=== PATIENT | male | born 1950 | race Caucasian/White ===

== ENCOUNTER → 2017-07-02 15:43 | Outpatient (CLI) | payer MEDICARE, SELFPAY | PROVIDERS: Family Provider Internal Medicine; PCP Internal Medicine; Visit Provider Internal Medicine | DX: J01.90 Acute sinusitis, unspecified (principal) | CPT/HCPCS: 87070; 87077; 87186; 87205 ==

== ENCOUNTER 2021-05-15 12:20 | Day surgery (SDC) | payer MEDICARE, SELFPAY ==
[2021-05-15] VITALS (7 sets, daily range): BP systolic 97–151; BP diastolic 54–78; PULSE 70–72; RESP 16–18; TEMP 36.1–36.9; O2SAT 97–100; BMI 39.3
--- NOTE | 2021-05-15 | IMM_PTH ---
PATIENT: TYLER ESTRELLA LOC: [facility] U#:[id number] AGE/SX: 71/M ROOM: RE05/15/[address]: Dr. Brenden Ragland DO : 1950 BED: DIS: 05/15/2021 SPEC #: [id number] RECD: 05/17/21 14:08 STATUS: FELICE KATIE #: [id number] EZEQUIEL: 05/15/21 00:[address]: Brenden Ragland DEPT: IMMUNOHISTOCHEMISTRY RECD BY: Yaa Cerda ENTERED: 05/17/21 14:09 SP TYPE: IMMUNO OTHR DR: Dr. Karen Wright MD Tissues: E - COLON BIOPSY Procedures: CK8 (initial) CK20 (add) CK7 (add) S-100 (add) PHYSICIAN & INSTITUTION [place] [id number] SPECIMEN INFORMATION: Tissue Source: E ? Random colon biopsy Clinical Info: Ulcerative colitis, GERD Specimen Number: [id number] E CPT code: 66392, 98331 x3 METHODOLOGY: Deparaffinized sections of prefer/formalin-fixed tissue or PAP/DQ stained slides are incubated with monoclonal/polyclonal antibodies/oligonucleotide probes. Localization is made via biotin free immunoperoxidase method. Appropriate controls are performed and reacted as expected. Results on target cell population are indicated in the following table: RESULTS: ANTIBODY / CLONE RESULT Block E CK7 (OV-TL12/30) negative CK8 (94hiujT30) negative CK20 (KS20.8) negative S-100 (4C4.9) positive These tests were developed and their performance characteristics determined by [facility]. They may not have been cleared or approved by the U.S. Food and Drug Administration. The FDA has determined that such clearance or approval is not necessary. The above immunohistochemical/dualISH markers are ordered and reviewed by the Pathologist. INTERPRETATION: E. Colon, random biopsy: Negative for malignancy. SJ:aaron 05/18/2021
[2021-05-15] MEDS: Lactated Ringers 1,000 ML 15 ML IV (13:11)
--- NOTE | 2021-05-15 13:30 | COLBX_PTH ---
PATIENT: TYLER ESTRELLA LOC: EN U#:[id number] AGE/SX: 71/M ROOM: RE05/15/[address]: Dr. Brenden Ragland DO : 1950 BED: DIS: 05/15/2021 SPEC #: [id number] RECD: 05/15/21 15:41 STATUS: FELICE KATIE #: [id number] EZEQUIEL: 05/15/21 13:[address]: Brenden Ragland DEPT: SURGICAL PATHOLOGY RECD BY: Orin Kern ENTERED: 05/16/21 12:00 SP TYPE: COLON BX OTHR DR: Dr. Karen Wright MD Tissues: A - Duodenum, NOS B - Gastric mucous membrane C - Esophagus, NOS D - Ileum, NOS E - COLON BIOPSY F - Rectum, NOS Procedures: Special Stain Group II Surgery Specimen Level IV Alcian Blue/PAS (control) HEADER OPERATION: Colonoscopy, EGD ([facility] [place] with biopsy PRE-OP DIAGNOSIS: Ulcerative colitis, GERD TISSUE SUBMITTED: A ? Duodenal bulb biopsy, B ? Gastric body biopsy, C ? Distal esophagus biopsy, D ? Terminal ileum biopsy, E ? Random colon biopsy, F ? Rectal biopsy MICROSCOPIC DIAGNOSIS A. Duodenal bulb, biopsy: Fragments of duodenal mucosa with focal changes consistent with pneumotasis. B. Gastric body, biopsy: Mild gastritis. See microscopic description and comment. C. Distal esophagus, biopsy: Fragments of gastroesophageal mucosa with chronic inflammation. Intestinal metaplasia (goblet cell metaplasia) not identified. See comment. D. Terminal ileum, biopsy: Fragments of small intestinal mucosa, no pathologic diagnosis. E. Colon, random biopsy: Fragments of colonic mucosa with focal ulceration and granulation tissue reaction. See comment. F. Rectal biopsy: Fragments of colonic mucosa with minimal glandular distortion. See comment. SJ:aaron 05/17/2021 COMMENT B. Immunohistochemistry for Helicobacter pylori can be performed if clinically indicated. Please notify the Laboratory if it is needed. C. Alcian blue/PAS stain with matched control is used in the evaluation of the specimen. E. Minimal glandular distortion is noted. Cryptitis, crypt abscesses or granulomas are not seen. Immunohistochemistry ([id number]) supports the above diagnosis. F. Active inflammation (cryptitis, crypt abscesses or granulomas) is not seen. Case has been reviewed in consultation with Dr. Castro who concurs with the above diagnosis. IDC:AM MICROSCOPIC DESCRIPTION Slides are reviewed. B. The specimen shows fragments of gastric mucosa with chronic inflammatory cell infiltrates in the lamina propria consisting of lymphocytes and plasma cells, consistent with mild chronic gastritis. GROSS DESCRIPTION A - Received in fixative is one container labeled with the patient's name and designated duodenum biopsy. The specimen consists of multiple irregular fragments of light toscano soft tissue that in aggregate measure 1.3 x 0.1 x 0.1 cm. The specimen is totally submitted in one cassette. B - Received in fixative is one container labeled with the patient's name and designated gastric body biopsy. The specimen consists of multiple irregular fragments of light toscano soft tissue that in aggregate measure 1 x 1 x 0.1 cm. The specimen is totally submitted in one cassette. C - Received in fixative is one container labeled with the patient's name and designated distal esophagus biopsy. The specimen consists of multiple irregular fragments of light toscano soft tissue that in aggregate measure 1 x 0.2 x 0.1 cm. The specimen is totally submitted in one cassette. D - Received in fixative is one container labeled with the patient's name and designated terminal ileum biopsy. The specimen consists of multiple irregular fragments of light toscano soft tissue that in aggregate measure 1.5 x 0.5 x 0.1 cm. The specimen is totally submitted in one cassette. E - Received in fixative is one container labeled with the patient's name and designated random colon biopsy. The specimen consists of multiple irregular fragments of light toscano soft tissue that in aggregate measure 2 x 1 x 0.1 cm. The specimen is totally submitted in one cassette. F - Received in fixative is one container labeled with the patient's name and designated rectal biopsy. The specimen consists of two irregular fragments of light toscano soft tissue that in aggregate measure 0.7 x 0.5 x 0.1 cm. The specimen is totally submitted in one cassette. / AM:aaron 05/16/2021 TC:2 CPT: 76822 x6, 02962
--- NOTE | 2021-05-15 13:49 | PCM.HP.BLA ---
History and Physical Date of Admission: 05/15/21 71 M who presents to the office today for Referred for evaluation of ulcerative rectosigmoiditis without complication. Previously seen by Dr. Okeefe with [facility] who has left practice in this area and would like to establish care with this clinic. Reports taking prednisone 10mg off and on over 20 years this dose started several years ago, apriso 0.375mg and omeprazole for GI symptoms. Denies GI symptoms at this time. UGI performed 09.26.15 finding thickened folds in the esophagus and stomach suggestive of inflammation. Colonoscopy performed 01.04.16 finding ulcerative colitis Additional history of osteoporosis with two compression fractures, anxiety, CAD, hyperparathyroidism, insomnia, low testosterone, cardiomyopathy, paroxysmal atrial fibrillation, left bundle branch block. ROS Const Constitutional: No anorexia, fatigue, fever(s), weight change or sleep problems Eyes Eyes: No change in vision ENT ENT: No abnormal hearing, difficulty swallowing, mouth lesions, tongue swelling or throat swelling Resp Respiratory: No cough or shortness of breath Cardio Cardiology: No chest pain at rest, chest pain with exertion, shortness of breath or dyspnea on exertion Gastro GI: No difficulty swallowing Genitourinary Male: No difficulty urinating or burning urination Musc Musculoskeletal: No joint pain, joint swelling, muscle weakness or decreased muscle mass Skin Skin: No hair loss in leg, yellowing of the eye, itchy eyes, rash, skin ulcer or skin swelling Neuro Neurology: No abnormal hearing, abnormal movements, confusion, unsteady gait/balance or memory loss Psych Psychiatric: No anxiety, No confusion and No memory loss Endo Endocrine: No fatigue or weight change Aller/Imm Allergy/Immunologic: No itchy eyes, throat swelling or tongue swelling Chadd/Lymp Hematologic/Lymphatic: No easy bleeding, easy bruising or enlarged lymph nodes Exam Const General: cooperative and comfortable Nutritional Appearance: average body habitus and well nourished [facility] Head: normal to inspection Ears: hearing grossly normal bilaterally Nose: external nose normal Face and sinus: normal facial exam Mouth: oral mucosae normal Throat: posterior oropharynx normal Eyes General: appearance normal, both eyes and all related structures Neck Neck: normal visual inspection Chest Chest palpation & inspection: normal inspection of the chest and normal palpation of entire chest wall Resp Effort & Inspection: normal respiratory effort Auscultation: Bilateral: Clear to Auscultation Cardio Palpation: normal PMI Rate: regular rate Rhythm: regular rhythm GI Inspection: normal to inspection Auscultation: normal bowel sounds Percussion: normal to percussion Palpation: no hepatosplenomegaly Skin General: no rashes or lesions noted Neuro General: patient alert Extrem General: normal to inspection Psych Affect: normal affect Assessment and Plan Assessment and Plan (1) Ulcerative colitis: Status: Acute Plan - Dr. Wilcox Friend, DO: Patient is still having breakthrough symptoms on 10 mg of prednisone a day. He is on Apriso 4 pills in the morning and he still getting breakthrough symptoms. I explained to him that typically that is a twice a day medicine. Although it is extended release I have never seen it work that well at a once a day dosing. I will increase his Apriso to 3 pills in the morning and 3 pills at night. We will also institute azathioprine therapy at the 1 mg/kg dose being the goal. Currently he will only go on 0.5 mg/kg totaling milligrams a day. Complained of the wrist to go with chronic steroid therapy and hopefully will be able to wean him off of steroids completely. (2) GERD (gastroesophageal reflux disease): Status: Acute Plan - Dr. Wilcox Friend, DO: Patient said that his also colitis is doing pretty good. On his last upper endoscopy was a significant gastritis and esophagitis. It is unknown if he had Mario's esophagus. We will undergo upper endoscopy to evaluate his upper GI tract and further recommendations to follow. We will continue his current medication regimen. Plan Details Other Medications: New: azathioprine 100 mg PO DAILY 30 tabs 5RF mesalamine 1.2 grams PO BID 4 weeks 56 tabs 0RF Discontinued: mesalamine ER (Apriso) Discontinued Reason: Order Changed 1.5 grams PO DAILY I have re-examined the patient. There are no clinical changes since date of exam.
--- NOTE | 2021-05-15 14:07 | OP.CCLET_ITS ---
12/17/2021 Karen Wright Re : Upper GI endoscopy procedure for Twan Mclean Dear Adriana This procedure was performed on Saturday, May 15, 2021. My impressions and recommendations are as follows: Impressions : - LA Grade A reflux esophagitis. Biopsied. - Chronic gastritis. Biopsied. - Duodenitis. Biopsied. Recommendations : - Discharge patient to home. - Resume previous diet. - Continue present medications. - Await pathology results. - Repeat upper endoscopy in 1 year for surveillance. - Return to GI office. My findings are described in the full procedure note, which is enclosed. If I can be of further assistance, please feel free to contact me at . Sincerely, Brenden Friend, 05/15/2021 2:06:57 PM This report has been signed electronically.
--- NOTE | 2021-05-15 14:07 | OP.EGD_ITS ---
Patient Name: Twan Mclean Procedure Date: 05/15/2021 1:31 PM Date of : 1950 Age: 71 Procedure: Upper GI endoscopy Indications: Generalized abdominal pain, Heartburn Providers: Brenden Ragland DO Medicines: See the Anesthesia note for documentation of the administered medications Patient Profile: This is a 71 year old male. Refer to note in patient chart for documentation of history and physical. Patient has symptoms of chronic heartburn. Complications: No immediate complications. Procedure: Pre-Anesthesia Assessment: - Prior to the procedure, a History and Physical was performed, and patient medications and allergies were reviewed. The patient is competent. The risks and benefits of the procedure and the sedation options and risks were discussed with the patient. All questions were answered and informed consent was obtained. Patient identification and proposed procedure were verified by the physician in the pre-procedure area. Mental Status Examination: alert and oriented. Airway Examination: normal oropharyngeal airway and neck mobility. Respiratory Examination: clear to auscultation. CV Examination: normal. Prophylactic Antibiotics: The patient does not require prophylactic antibiotics. Prior Anticoagulants: The patient has taken no previous anticoagulant or antiplatelet agents. ASA Grade Assessment: II - A patient with mild systemic disease. After reviewing the risks and benefits, the patient was deemed in satisfactory condition to undergo the procedure. The anesthesia plan was to use moderate sedation / analgesia (conscious sedation). Immediately prior to administration of medications, the patient was re-assessed for adequacy to receive sedatives. The heart rate, respiratory rate, oxygen saturations, blood pressure, adequacy of pulmonary ventilation, and response to care were monitored throughout the procedure. The physical status of the patient was re-assessed after the procedure. After obtaining informed consent, the endoscope was passed under direct vision. Throughout the procedure, the patient's blood pressure, pulse, and oxygen saturations were monitored continuously. The Colonoscope was introduced through the mouth, and advanced to the second part of duodenum. The upper GI endoscopy was accomplished without difficulty. The patient tolerated the procedure well. Moderate Sedation: Moderate (conscious) sedation was administered by the endoscopy nurse and supervised by the endoscopist. The patient's oxygen saturation, heart rate, blood pressure and response to care were monitored. Total physician intraservice time was 15 minutes. Scope In: 1:55:23 PM Scope Out: 2:03:28 PM Total Procedure Duration Time 0 hours 8 minutes 5 seconds Findings: LA Grade A (one or more mucosal breaks less than 5 mm, not extending between tops of 2 mucosal folds) esophagitis with no bleeding was found 34 to 35 cm from the incisors. Biopsies were taken with a cold forceps for histology. Verification of patient identification for the specimen was done. Estimated blood loss was minimal. Patchy mild inflammation characterized by congestion (edema) and erythema was found in the gastric body and in the gastric antrum. Biopsies were taken with a cold forceps for histology. Verification of patient identification for the specimen was done. Estimated blood loss was minimal. Patchy mild inflammation characterized by congestion (edema) was found in the duodenal bulb. Biopsies were taken with a cold forceps for histology. Verification of patient identification for the specimen was done. Estimated blood loss was minimal. Impression: - LA Grade A reflux esophagitis. Biopsied. - Chronic gastritis. Biopsied. - Duodenitis. Biopsied. Recommendation: - Discharge patient to home. - Resume previous diet. - Continue present medications. - Await pathology results. - Repeat upper endoscopy in 1 year for surveillance. - Return to GI office. Procedure Code(s): --- Professional --- 70484, Esophagogastroduodenoscopy, flexible, transoral; with biopsy, single or multiple 51798, 59, Moderate sedation services provided by the same physician or other qualified health lawn care technician performing the diagnostic or therapeutic service that the sedation supports, requiring the presence of an independent trained observer to assist in the monitoring of the patient's level of consciousness and physiological status; initial 15 minutes of intraservice time, patient age 5 years or older CPT copyright 2017 [employer]. All rights reserved. The codes documented in this report are preliminary and upon fruit or nut grower review may be revised to meet current compliance requirements. Brenden Ragland DO 05/15/2021 2:06:57 PM This report has been signed electronically. Number of Addenda: 1 Note Initiated On: 05/15/2021 1:31 PM Addendum Number: 1 Addendum Date: 12/17/2021 6:48:30 AM MAC was used for sedation during this procedure. Brenden Ragland DO 12/17/2021 6:48:34 AM This report has been signed electronically.
--- NOTE | 2021-05-15 14:33 | OP.COLON_ITS ---
Patient Name: Twan Mclean Procedure Date: 05/15/2021 2:03 PM Date of : 1950 Age: 71 Procedure: Colonoscopy Indications: Ulcerative colitis Providers: Brenden Ragland DO Medicines: See the Anesthesia note for documentation of the administered medications Patient Profile: This is a 71 year old male. Refer to note in patient chart for documentation of history and physical. Patient has symptoms of chronic heartburn. Last Colonoscopy: date unknown. Complications: No immediate complications. Procedure: Pre-Anesthesia Assessment: - Prior to the procedure, a History and Physical was performed, and patient medications and allergies were reviewed. The patient is competent. The risks and benefits of the procedure and the sedation options and risks were discussed with the patient. All questions were answered and informed consent was obtained. Patient identification and proposed procedure were verified by the physician in the pre-procedure area. Mental Status Examination: alert and oriented. Airway Examination: normal oropharyngeal airway and neck mobility. Respiratory Examination: clear to auscultation. CV Examination: normal. Prophylactic Antibiotics: The patient does not require prophylactic antibiotics. Prior Anticoagulants: The patient has taken no previous anticoagulant or antiplatelet agents. ASA Grade Assessment: II - A patient with mild systemic disease. After reviewing the risks and benefits, the patient was deemed in satisfactory condition to undergo the procedure. The anesthesia plan was to use moderate sedation / analgesia (conscious sedation). Immediately prior to administration of medications, the patient was re-assessed for adequacy to receive sedatives. The heart rate, respiratory rate, oxygen saturations, blood pressure, adequacy of pulmonary ventilation, and response to care were monitored throughout the procedure. The physical status of the patient was re-assessed after the procedure. After I obtained informed consent, the scope was passed under direct vision. Throughout the procedure, the patient's blood pressure, pulse, and oxygen saturations were monitored continuously. The Colonoscope was introduced through the anus and advanced to 10 cm into the ileum. The colonoscopy was performed without difficulty. The patient tolerated the procedure well. The quality of the bowel preparation was good. Moderate Sedation: Moderate (conscious) sedation was administered by the endoscopy nurse and supervised by the endoscopist. The patient's oxygen saturation, heart rate, blood pressure and response to care were monitored. Total physician intraservice time was 15 minutes. Scope In: 2:09:15 PM Scope Withdrawal Time 0 hours 11 minutes 24 seconds Scope Out: 2:23:58 PM Total Procedure Duration Time 0 hours 14 minutes 43 seconds Findings: The perianal and digital rectal examinations were normal. Inflammation was found as patches surrounded by normal mucosa in the rectum, in the recto-sigmoid colon, in the sigmoid colon, in the descending colon and in the splenic flexure. This was graded as Pierre Score 1 (mild, with erythema, decreased vascular pattern, mild friability). Biopsies were taken with a cold forceps for histology. Verification of patient identification for the specimen was done. Estimated blood loss was minimal. The terminal ileum appeared normal. This was biopsied with a cold forceps for histology. Verification of patient identification for the specimen was done. Estimated blood loss was minimal. Impression: - Mild (Pierre Score 1) ulcerative colitis. Biopsied. - The examined portion of the ileum was normal. Biopsied. Recommendation: - Discharge patient to home. - Resume previous diet. - Continue present medications. - Await pathology results. - Repeat colonoscopy in 2 years for surveillance. - Return to GI office. Procedure Code(s): --- Professional --- 49994, Colonoscopy, flexible; with biopsy, single or multiple 66522, 59, Moderate sedation services provided by the same physician or other qualified health spiritual care coordinator performing the diagnostic or therapeutic service that the sedation supports, requiring the presence of an independent trained observer to assist in the monitoring of the patient's level of consciousness and physiological status; initial 15 minutes of intraservice time, patient age 5 years or older CPT copyright 2017 [employer]. All rights reserved. The codes documented in this report are preliminary and upon lighter captain review may be revised to meet current compliance requirements. Brenden Ragland DO 05/15/2021 2:33:05 PM This report has been signed electronically. Number of Addenda: 1 Note Initiated On: 05/15/2021 2:03 PM Addendum Number: 1 Addendum Date: 12/17/2021 6:48:42 AM MAC was used for sedation during this procedure. Brenden Ragland DO 12/17/2021 6:48:46 AM This report has been signed electronically.
--- NOTE | 2021-05-15 14:34 | OP.CCLET_ITS ---
12/17/2021 Karen Wright Re : Colonoscopy procedure for Twan Mclean Dear Adriana This procedure was performed on Saturday, May 15, 2021. My impressions and recommendations are as follows: Impressions : - Mild (Pierre Score 1) ulcerative colitis. Biopsied. - The examined portion of the ileum was normal. Biopsied. Recommendations : - Discharge patient to home. - Resume previous diet. - Continue present medications. - Await pathology results. - Repeat colonoscopy in 2 years for surveillance. - Return to GI office. My findings are described in the full procedure note, which is enclosed. If I can be of further assistance, please feel free to contact me at . Sincerely, Brenden Friend, 05/15/2021 2:33:05 PM This report has been signed electronically.
== END 2021-05-15 23:59 | disposition home or self-care (01) ==
LOC: EN 12:29 → AC 12:32
PROVIDERS: PCP Internal Medicine; Referring Provider Internal Medicine; Visit Provider Internal Medicine Gastroenterology
PROC: 0DJD8ZZ Inspection of Lower Intestinal Tract, Via Natural or Artificial Opening Endoscopic (ICD-10-PCS; CPT 45378; principal; 2021-05-15 13:25)
DX: K51.90 Ulcerative colitis, unspecified, without complications (principal); J44.9 Chronic obstructive pulmonary disease, unspecified; I48.0 Paroxysmal atrial fibrillation; E21.3 Hyperparathyroidism, unspecified; K21.00 Gastro-esophageal reflux disease with esophagitis, without bleeding; K29.80 Duodenitis without bleeding; K29.50 Unspecified chronic gastritis without bleeding; R10.84 Generalized abdominal pain; I25.10 Atherosclerotic heart disease of native coronary artery without angina pectoris; I51.7 Cardiomegaly; I44.7 Left bundle-branch block, unspecified; I10 Essential (primary) hypertension; M19.90 Unspecified osteoarthritis, unspecified site; Z95.810 Presence of automatic (implantable) cardiac defibrillator; Z79.899 Other long term (current) drug therapy; Z20.822 Contact with and (suspected) exposure to COVID-19
CPT/HCPCS: 45380; 43239; 87426; 88305; 88313; 88341; 88342; J7120; J2405

== ENCOUNTER → 2021-08-29 | Outpatient (CLI) | payer MEDICARE, SELFPAY ==
[2021-08-29 17:12] LABS: Absolute Lymphocyte Count 1.46 X10^3/uL (0.83-4.51); Absolute Neutrophil Count 1.8 X10^3/uL (2.0-7.7); Basophil# 0.02 X10^3/uL; Basophil% 0.6 % (0-1); Eosinophil# 0.07 X10^3/uL; Eosinophils% 1.9 % (0-5); Hemoglobin 12.3 g/dL (13.0-16.5); Lymphocyte # 1.46 X10^3/ul (0.83-4.51); Lymphocyte % 40.4 % (19-41); Mean Corp Hgb Conc 33.2 g/dL (32-36); Mean Corpuscular Hgb 32.4 pg (27.0-32.0); Mean Corpuscular Volume 97.4 fL (80-94); Mean Platelet Vol. 10.3 fl (6.2-12.0); Monocyte# 0.29 X10^3/uL; NRBC Flagged by Analyzer 0 % (0-5); Neutrophil # 1.76 X10^3/uL (2.7-7.7); Neutrophil % 48.8 % (47-70); POSITIVE MORPHOLOGY YES; Platelet Count 159 K/mm3 (150-450); RBC Distribution Width CV 14.7 % (11.6-14.6); RBC Distribution Width SD 52.7 fl (35.1-43.9); White Blood Count 3.6 K/mm3 (4.4-11.0)
[2021-08-29 17:25] LABS: Erythrocyte Sedimentation Rate 10 mm/hr (0-20)
[2021-08-29 17:27] LABS: Differential Indicated SCAN CRITERIA MET
[2021-08-29 17:58] LABS: ALB/GLOB Ratio 1.1 RATIO (0.9-2.4); AST(SGOT) 22 U/L (15-37); Alanine Aminotransfer ALT/SGPT 19 U/L (16-61); Albumin, Serum 3.9 g/dL (3.2-5.0); Alkaline Phosphatase 51 U/L (45-117); Anion Gap 7 (5-15); BUN 26 mg/dL (7-18); BUN/Creat Ratio 20.2 RATIO (10-20); Bilirubin, Direct 0.23 mg/dL (0.00-0.30); CRP < 2.90 mg/L (0.0-3.0); Calcium,Total 8.8 mg/dL (8.5-10.1); Chloride 102 mmol/L (98-107); Creatinine, Serum 1.29 mg/dL (0.70-1.30); EST Glomerular Filtration Rate 59 mL/min (>60); Est Glom Filt Rate - Afr Amer 71 mL/min (>60); Globulin 3.5 g/dL (2.2-4.2); Glucose 104 mg/dL (74-106); Potassium 4.7 mmol/L (3.5-5.1); Protein, Total 7.4 g/dL (6.4-8.2); Sodium Level 137 mmol/L (136-145)
[2021-08-29 18:07] LABS: Anisocytosis 1+; Atypical Lymphocyte 1+ %; Platelet Estimate ADEQUATE (ADEQ); Red Cell Morphology N CHROM NORMAL (NORM C&C)
[2021-08-31 14:10] LABS: Anti-Centromere B Ab <0.2 AI (0.0-0.9); Anti-Chromatin <0.2 AI (0.0-0.9); Anti-Jo <0.2 AI (0.0-0.9); Anti-Scleroderma-70 AB <0.2 AI (0.0-0.9); RNP Ab 3.5 AI (0.0-0.9); SJOGREN'S Anti-SS-A test < 0.2 AI (0.0-0.9); SJOGREN'S Anti-SS-B test < 0.2 AI (0.0-0.9); Smith Ab <0.2 AI (0.0-0.9)
[2021-08-31 16:49] LABS: Anti-dsDNA Ab <1 IU/mL (0-9)
[2021-08-31 17:07] LABS: Endomysial Antibody IgA Negative (Negative)
[2021-08-31 20:43] LABS: Immunoglobulin A 197 mg/dL (61-437); t-Transglutaminase IgA <2 U/mL (0-3)
[2021-09-05 22:07] LABS: Albumin 3.7 g/dL (2.9-4.4); Alpha-1-Globulins 0.2 g/dL (0.0-0.4); Alpha-2-Globulins 0.7 g/dL (0.4-1.0); Cytoplasmic Ab (C-ANCA) <1:20 titer (Neg:<1:20); Gamma Globulin 1.3 g/dL (0.4-1.8); Immunoglobulin A 201 mg/dL (61-437); Immunoglobulin E 4 IU/mL (6-495); Immunoglobulin G 1328 mg/dL (603-1613); Immunoglobulin M 34 mg/dL (20-172); PROEL- TOTAL PROTEIN 6.9 g/dL (6.0-8.5)
[2021-09-05 22:53] LABS: Perinuclear Ab (P-ANCA) <1:20 titer (Neg:<1:20)
== END | disposition home or self-care (01) ==
LOC: LAB 16:13
PROVIDERS: PCP Internal Medicine; Visit Provider Nurse Practitioner Adult Health
DX: K51.90 Ulcerative colitis, unspecified, without complications (principal)
CPT/HCPCS: 36415; 80053; 82248; 82784; 82785; 83516; 84165; 85025; 85652; 86140; 86225; 86235; 86255; 86256; 86334

== ENCOUNTER → 2021-11-20 | Outpatient (CLI) | payer MEDICARE, SELFPAY ==
[2021-11-20 16:19] LABS: Absolute Lymphocyte Count 1.06 X10^3/uL (0.83-4.51); Absolute Neutrophil Count 2.3 X10^3/uL (2.0-7.7); Basophil# 0.01 X10^3/uL; Basophil% 0.3 % (0-1); Eosinophil# 0.05 X10^3/uL; Eosinophils% 1.3 % (0-5); Hematocrit 34.7 % (40-54); Lymphocyte # 1.06 X10^3/ul (0.83-4.51); Mean Corp Hgb Conc 34.6 g/dL (32-36); Mean Corpuscular Hgb 36.4 pg (27.0-32.0); Mean Corpuscular Volume 105.2 fL (80-94); Mean Platelet Vol. 10.5 fl (6.2-12.0); Monocyte# 0.35 X10^3/uL; Monocyte% 9.3 % (0-10); NRBC Flagged by Analyzer 0 % (0-5); Neutrophil # 2.29 X10^3/uL (2.7-7.7); Neutrophil % 60.6 % (47-70); Platelet Count 115 K/mm3 (150-450); RBC Distribution Width CV 15.5 % (11.6-14.6); RBC Distribution Width SD 59.5 fl (35.1-43.9); White Blood Count 3.8 K/mm3 (4.4-11.0)
[2021-11-20 16:41] LABS: Amylase 94 U/L (25-115); Lipase 311 U/L (73-393)
== END | disposition home or self-care (01) ==
LOC: LAB 15:36
PROVIDERS: PCP Internal Medicine; Referring Provider Nurse Practitioner Adult Health; Visit Provider Nurse Practitioner Adult Health
DX: K51.90 Ulcerative colitis, unspecified, without complications (principal)
CPT/HCPCS: 36415; 82150; 83690; 85025

== ENCOUNTER 2022-05-15 05:33 | Day surgery (SDC) | payer MEDICARE, SELFPAY ==
[2022-05-15] VITALS (7 sets, daily range): BP systolic 87–128; BP diastolic 57–72; PULSE 70–76; RESP 16–18; TEMP 36.6–36.9; O2SAT 96–100; BMI 35.9
[2022-05-15] MEDS: Lactated Ringers 1,000 ML 15 ML IV (06:01)
--- NOTE | 2022-05-15 06:30 | EGD_PTH ---
PATIENT: TYLER ESTRELLA LOC: EN U#:[id number] AGE/SX: 72/M ROOM: RE05/15/[address]: Dr. Brenden Ragland DO : 1950 BED: DIS: 05/15/2022 SPEC #: [id number] RECD: 05/15/22 12:19 STATUS: FELICE KATIE #: [id number] EZEQUIEL: 05/15/22 06:[address]: Brenden Ragland DEPT: SURGICAL PATHOLOGY RECD BY: Janie Reis ENTERED: 05/15/22 13:18 SP TYPE: EGD BIOPSY RICHARD DR: Dr. Karen Wright MD Tissues: A - Esophagus, NOS B - Gastric mucous membrane Procedures: Special Stain Group II Surgery Specimen Level IV Alcian Blue/PAS (control) HEADER OPERATION[place] [place] PRE-OP DIAGNOSIS: Ulcerative colitis, GERD TISSUE SUBMITTED: A ? Distal esophagus biopsy, B ? Gastric body biopsy MICROSCOPIC DIAGNOSIS A. Distal esophagus, biopsy: Fragments of gastric mucosa with chronic inflammation. Intestinal metaplasia (goblet cell metaplasia) not identified. See comment. B. Gastric body, biopsy: Mild gastritis. See microscopic description and comment. SJ:aaron 05/16/2022 COMMENT A. Alcian blue/PAS stain with matched control is used in the evaluation of the specimen. B. The results of immunohistochemistry for Helicobacter pylori will be reported separately ([id number]). MICROSCOPIC DESCRIPTION Slides are reviewed. B. The specimen shows fragments of gastric mucosa with chronic inflammatory cell infiltrates in the lamina propria consisting of lymphocytes and plasma cells, consistent with mild chronic gastritis. GROSS DESCRIPTION A - Received in fixative is one container labeled with the patient's name and designated distal esophagus biopsy. The specimen consists of two irregular fragments of light toscano soft tissue that in aggregate measure 0.6 x 0.3 x 0.1 cm. The specimen is totally submitted in one cassette. B - Received in fixative is one container labeled with the patient's name and designated gastric body biopsy. The specimen consists of multiple irregular fragments of light toscano soft tissue that in aggregate measure 1.2 x 0.5 x 0.1 cm. The specimen is totally submitted in one cassette. / MATT:aaron 05/15/2022 TC:3 CPT: 82302 x2, 07035
--- NOTE | 2022-05-15 06:30 | IMM_PTH ---
PATIENT: TYLER ESTRELLA LOC: EN U#:[id number] AGE/SX: 72/M ROOM: RE05/15/[address]: Dr. Brenden Ragland DO : 1950 BED: DIS: 05/15/2022 SPEC #: [id number] RECD: 05/15/22 13:37 STATUS: FELICE KATIE #: [id number] EZEQUIEL: 05/15/22 06:[address]: Brenden Ragland DEPT: IMMUNOHISTOCHEMISTRY RECD BY: Yaa Cerda ENTERED: 05/15/22 13:37 SP TYPE: IMMUNO OTHR DR: Dr. Karen Wright MD Tissues: B - Stomach, NOS Procedures: H Pylori (initial) PHYSICIAN & INSTITUTION [place] [id number] SPECIMEN INFORMATION: Tissue Source: B ? Gastric body Clinical Info: Ulcerative colitis, GERD Specimen Number: [id number] CPT code: 36268 METHODOLOGY: Deparaffinized sections of prefer/formalin-fixed tissue or PAP/DQ stained slides are incubated with monoclonal/polyclonal antibodies/oligonucleotide probes. Localization is made via biotin free immunoperoxidase method. Appropriate controls are performed and reacted as expected. Results on target cell population are indicated in the following table: RESULTS: ANTIBODY / CLONE RESULT Block B H Pylori (polyclonal) negative These tests were developed and their performance characteristics determined by [facility]. They may not have been cleared or approved by the U.S. Food and Drug Administration. The FDA has determined that such clearance or approval is not necessary. The above immunohistochemical/dualISH markers are ordered and reviewed by the Pathologist. INTERPRETATION: B. Gastric body, biopsy: Negative for Helicobacter pylori organisms. SJ:aaron 05/16/2022
--- NOTE | 2022-05-15 06:34 | PCM.HP.BLA ---
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 He is on azathioprine 150 mg daily w/o any adverse effects. Prior to azathioprine he was on prednisone and mesalamine. Stools are still urgent, has 2-3 BMs in the morning, usually no other BMs per day, stools are soft, never constipated. No melena or hematochezia. No abdominal pain. He is on once daily omeprazole. No c/o heartburn or acid reflux. Twan became known to this clinic 04.10.21. He was previously seeing Dr. Okeefe with [facility]. UGI performed 09.26.15 finding thickened folds in the esophagus and stomach suggestive of inflammation. Colonoscopy performed 01.04.16 finding ulcerative colitis. Additional history of osteoporosis with two compression fractures, anxiety, CAD, hyperparathyroidism, insomnia, low testosterone, cardiomyopathy, paroxysmal atrial fibrillation, left bundle branch block. EGD and colonoscopy performed 05.15.21. EGD ? LA grade a reflux esophagitis; chronic gastritis; duodenitis. Biopsy ? duodenal bulb, pneumotasis; gastric body, lymphocytic gastritis; distal esophagus chronic inflammation. Repeat in 1 yr Colonoscopy ? Pierre grade 1 ulcerative colitis. Biopsy ? focal ulceration and granulation tissue reaction in random biopsy, remaining samples without pathological diagnosis. S100 tumor marker positive. Negative for malignancy. Repeat in 2 yrs ROS Const Constitutional: No fatigue ENT ENT: No difficulty swallowing Gastro GI: No abdominal pain, belching, bloating, change in bowel habits, change in stool character, coffee ground emesis, constipation, cramping, diarrhea, heartburn, difficulty swallowing, feeling full early, excessive flatus, incontinent of stools, Vomiting blood/hematemesis, Blood in stool, loose stools, Black,tarry stools, nausea/dyspepsia, pain with swallowing, vomiting or other Musc Musculoskeletal: Positive for back pain; No joint pain Skin Skin: No yellowing of the eye or itchy eyes Psych Psychiatric: No anxiety and No depression Endo Endocrine: No fatigue Aller/Imm Allergy/Immunologic: No itchy eyes Chadd/Lymp Hematologic/Lymphatic: No easy bleeding or easy bruising Exam Const General: cooperative and comfortable Nutritional Appearance: obese Orientation: alert, awake and oriented x3 Other: uses a cane HENMT Head: normal to inspection Eyes General: appearance normal, both eyes and all related structures Resp Effort & Inspection: normal respiratory effort Quality Reporting Tobacco Screening ([facility]) Smoking Status: Never smoker Assessment and Plan Assessment and Plan (1) Ulcerative colitis: ?Status:?Acute ?Plan: Taking azathioprine 150 mg daily, will update CBC, amylase and lipase today, will call pt with results Repeat colonoscopy due in 05/2023 (2) GERD (gastroesophageal reflux disease): ?Status:?Acute ?Plan: Continue omeprazole 40 mg daily Due for repeat EGD 05/2022 f/u 2 wks after EGD ? ? ? Orders: Orders Amylase Today K51.90 - Ulcerative colitis, unspecified, without complications ? Lipase Today K51.90 - Ulcerative colitis, unspecified, without complications ? CBC W/Diff, Automated Today K51.90 - Ulcerative colitis, unspecified, without complications ? I have examined the patient and the H&P has been reviewed. There are no clinical changes since date of exam.
--- NOTE | 2022-05-15 06:52 | OP.EGD_ITS ---
Patient Name: Twan Mclean Procedure Date: 05/15/2022 6:09 AM Date of : 1950 Age: 72 Procedure: Upper GI endoscopy Indications: Functional Dyspepsia, Heartburn Providers: Brenden Ragland DO Medicines: Monitored Anesthesia Care Patient Profile: This is a 72 year old male. Complications: No immediate complications. Procedure: Pre-Anesthesia Assessment: - Prior to the procedure, a History and Physical was performed, and patient medications and allergies were reviewed. The risks and benefits of the procedure and the sedation options and risks were discussed with the patient. All questions were answered and informed consent was obtained. Patient identification and proposed procedure were verified by the physician in the pre-procedure area. Mental Status Examination: alert and oriented. Airway Examination: normal oropharyngeal airway and neck mobility. Respiratory Examination: clear to auscultation. CV Examination: normal. Prophylactic Antibiotics: The patient does not require prophylactic antibiotics. Prior Anticoagulants: The patient has taken no previous anticoagulant or antiplatelet agents. ASA Grade Assessment: II - A patient with mild systemic disease. After reviewing the risks and benefits, the patient was deemed in satisfactory condition to undergo the procedure. The anesthesia plan was to use monitored anesthesia care (MAC). Immediately prior to administration of medications, the patient was re-assessed for adequacy to receive sedatives. The heart rate, respiratory rate, oxygen saturations, blood pressure, adequacy of pulmonary ventilation, and response to care were monitored throughout the procedure. The physical status of the patient was re-assessed after the procedure. After obtaining informed consent, the endoscope was passed under direct vision. Throughout the procedure, the patient's blood pressure, pulse, and oxygen saturations were monitored continuously. The Endoscope was introduced through the mouth, and advanced to the second part of duodenum. The upper GI endoscopy was accomplished without difficulty. The patient tolerated the procedure well. Scope In: 6:38:08 AM Scope Out: 6:42:10 AM Total Procedure Duration Time 0 hours 4 minutes 2 seconds Findings: The Z-line was irregular and was found 38 cm from the incisors. Biopsies were taken with a cold forceps for histology. Verification of patient identification for the specimen was done. Estimated blood loss was minimal. Patchy mildly erythematous mucosa without bleeding was found in the gastric body. Biopsies were taken with a cold forceps for histology. Verification of patient identification for the specimen was done. Estimated blood loss was minimal. No gross lesions were noted in the second portion of the duodenum. Impression: - Z-line irregular, 38 cm from the incisors. Biopsied. - Erythematous mucosa in the gastric body. Biopsied. - No gross lesions in the second portion of the duodenum. Recommendation: - Discharge patient to home. - Resume previous diet. - Continue present medications. - Await pathology results. Procedure Code(s): --- Professional --- 58205, Esophagogastroduodenoscopy, flexible, transoral; with biopsy, single or multiple CPT copyright 2017 [employer]. All rights reserved. The codes documented in this report are preliminary and upon lower school spanish teacher review may be revised to meet current compliance requirements. Brenden Ragland DO 05/15/2022 6:51:59 AM This report has been signed electronically. Number of Addenda: 0 Note Initiated On: 05/15/2022 6:09 AM
--- NOTE | 2022-05-15 06:53 | OP.CCLET_ITS ---
05/15/2022 Karen Wright Re : Upper GI endoscopy procedure for Twan Mclean Dear Adriana This procedure was performed on Sunday, May 15, 2022. My impressions and recommendations are as follows: Impressions : - Z-line irregular, 38 cm from the incisors. Biopsied. - Erythematous mucosa in the gastric body. Biopsied. - No gross lesions in the second portion of the duodenum. Recommendations : - Discharge patient to home. - Resume previous diet. - Continue present medications. - Await pathology results. My findings are described in the full procedure note, which is enclosed. If I can be of further assistance, please feel free to contact me at . Sincerely, Brenden Ragland, 05/15/2022 6:51:59 AM This report has been signed electronically.
== END 2022-05-15 07:52 | disposition home or self-care (01) ==
LOC: EN 05:37 → AC 05:37
PROVIDERS: PCP Internal Medicine; Referring Provider Internal Medicine; Visit Provider Internal Medicine Gastroenterology
PROC: 0DJ08ZZ Inspection of Upper Intestinal Tract, Via Natural or Artificial Opening Endoscopic (ICD-10-PCS; CPT 43235; principal; 2022-05-15 06:25)
DX: K51.90 Ulcerative colitis, unspecified, without complications (principal); I50.9 Heart failure, unspecified; I42.9 Cardiomyopathy, unspecified; I11.0 Hypertensive heart disease with heart failure; K31.89 Other diseases of stomach and duodenum; K21.00 Gastro-esophageal reflux disease with esophagitis, without bleeding; K29.70 Gastritis, unspecified, without bleeding; I25.10 Atherosclerotic heart disease of native coronary artery without angina pectoris; Z95.810 Presence of automatic (implantable) cardiac defibrillator; Z79.01 Long term (current) use of anticoagulants; Z79.899 Other long term (current) drug therapy
CPT/HCPCS: 43239; 88305; 88313; 88342; J7120

== ENCOUNTER → 2022-12-17 | Outpatient (CLI) | payer MEDICARE, SELFPAY ==
[2022-12-17 12:23] LABS: Erythrocyte Sedimentation Rate 4 mm/hr (0-20)
[2022-12-17 12:25] LABS: Absolute Lymphocyte Count 1.27 X10^3/uL (0.83-4.51); Absolute Neutrophil Count 4.2 X10^3/uL (2.0-7.7); Basophil# 0.02 X10^3/uL; Basophil% 0.3 % (0-1); Eosinophil# 0.03 X10^3/uL; Eosinophils% 0.5 % (0-5); Hematocrit 42.2 % (40-54); Hemoglobin 13.8 g/dL (13.0-16.5); Lymphocyte # 1.27 X10^3/ul (0.83-4.51); Lymphocyte % 20.6 % (19-41); Mean Corp Hgb Conc 32.7 g/dL (32-36); Mean Corpuscular Hgb 34.1 pg (27.0-32.0); Mean Corpuscular Volume 104.2 fL (80-94); Mean Platelet Vol. 10.6 fl (6.2-12.0); Monocyte# 0.65 X10^3/uL; Monocyte% 10.5 % (0-10); NRBC Flagged by Analyzer 0 % (0-5); Neutrophil # 4.17 X10^3/uL (2.7-7.7); Neutrophil % 67.6 % (47-70); Platelet Count 143 K/mm3 (150-450); RBC Distribution Width CV 13.4 % (11.6-14.6); RBC Distribution Width SD 52.1 fl (35.1-43.9); Red Blood Count 4.05 M/mm3 (4.6-6.2); White Blood Count 6.2 K/mm3 (4.4-11.0)
[2022-12-17 12:58] LABS: ALB/GLOB Ratio 1.1 RATIO (0.9-2.4); AST(SGOT) 20 U/L (15-37); Alanine Aminotransfer ALT/SGPT 19 U/L (16-61); Alkaline Phosphatase 54 U/L (45-117); Anion Gap 3 (5-15); BUN 23 mg/dL (7-18); BUN/Creat Ratio 18.7 RATIO (10-20); CRP 3.06 mg/L (0.0-3.0); Calcium,Total 8.8 mg/dL (8.5-10.1); Chloride 104 mmol/L (98-107); Creatinine, Serum 1.23 mg/dL (0.70-1.30); EST Glomerular Filtration Rate 62 mL/min (>60); Est Glom Filt Rate - Afr Amer 75 mL/min (>60); Globulin 3.7 g/dL (2.2-4.2); Glucose 95 mg/dL (74-106); Potassium 4.7 mmol/L (3.5-5.1); Protein, Total 7.7 g/dL (6.4-8.2); Sodium Level 137 mmol/L (136-145)
[2022-12-18 14:09] LABS: Albumin 3.9 g/dL (2.9-4.4); Alpha-1-Globulins 0.2 g/dL (0.0-0.4); Alpha-2-Globulins 0.7 g/dL (0.4-1.0); Gamma Globulin 1.2 g/dL (0.4-1.8); Immunoglobulin A 230 mg/dL (61-437); Immunoglobulin G 1305 mg/dL (603-1613); Immunoglobulin M 37 mg/dL (20-172); PROEL- TOTAL PROTEIN 6.9 g/dL (6.0-8.5)
== END | disposition home or self-care (01) ==
LOC: LAB 11:09
PROVIDERS: PCP Internal Medicine; Referring Provider Internal Medicine Gastroenterology; Visit Provider Internal Medicine Gastroenterology
DX: K51.90 Ulcerative colitis, unspecified, without complications (principal)
CPT/HCPCS: 36415; 80053; 82784; 84165; 85025; 85652; 86140; 86334

== ENCOUNTER → 2023-07-11 | Outpatient (CLI) | payer MEDICARE, SELFPAY ==
[2023-07-11 16:57] LABS: Platelet Count 120 K/mm3 (150-450); RET-HE 37.7 pg (30-35); Reticulocyte Count 2.34 % (0.5-1.5)
[2023-07-11 16:59] LABS: Erythrocyte Sedimentation Rate 3 mm/hr (0-20)
[2023-07-11 18:04] LABS: ALB/GLOB Ratio 1.2 RATIO (0.9-2.4); AST(SGOT) 28 U/L (15-37); Alanine Aminotransfer ALT/SGPT 25 U/L (16-61); Alkaline Phosphatase 50 U/L (45-117); Amylase 91 U/L (25-115); Anion Gap 2 (5-15); BUN 21 mg/dL (7-18); BUN/Creat Ratio 17.8 RATIO (10-20); CRP 4.78 mg/L (0.0-3.0); Calcium,Total 9.2 mg/dL (8.5-10.1); Chloride 106 mmol/L (98-107); Creatinine, Serum 1.18 mg/dL (0.70-1.30); EST Glomerular Filtration Rate 65 mL/min (>60); Est Glom Filt Rate - Afr Amer 78 mL/min (>60); Ferritin 53 ng/mL (26-388); Globulin 3.4 g/dL (2.2-4.2); Glucose 84 mg/dL (74-106); Iron 89 ug/dL (65-175); Iron Binding Capacity,Total 348 ug/dL (250-450); LDH 222 U/L (87-241); Lipase 53 U/L (13-75); Potassium 4.7 mmol/L (3.5-5.1); Protein, Total 7.4 g/dL (6.4-8.2); Sodium Level 137 mmol/L (136-145)
[2023-07-15 14:09] LABS: Albumin 3.7 g/dL (2.9-4.4); Alpha-1-Globulins 0.3 g/dL (0.0-0.4); Alpha-2-Globulins 0.7 g/dL (0.4-1.0); Gamma Globulin 1.3 g/dL (0.4-1.8); Haptoglobin 126 mg/dL (34-355); Immunoglobulin A 180 mg/dL (61-437); Immunoglobulin G 1112 mg/dL (603-1613); Immunoglobulin M 26 mg/dL (15-143); PROEL- TOTAL PROTEIN 6.8 g/dL (6.0-8.5); QNTFERON TB Mitogen Value > 10.00 IU/mL (.); QNTFERON TB Nil Value 0.04 IU/mL (.); QNTFERON TB1+ Ag Value 0.04 IU/mL (.); QNTFERON TB2+ Ag Value 0.04 IU/mL (.); QNTIFERON TB Positive Criteria Negative (Negative)
== END | disposition home or self-care (01) ==
LOC: LAB 16:13
PROVIDERS: PCP Internal Medicine; Referring Provider Internal Medicine Gastroenterology; Visit Provider Internal Medicine Gastroenterology
DX: K51.00 Ulcerative (chronic) pancolitis without complications (principal); K29.70 Gastritis, unspecified, without bleeding; D69.6 Thrombocytopenia, unspecified
CPT/HCPCS: 36415; 80053; 82150; 82728; 82784; 83010; 83540; 83550; 83615; 83690; 84165; 85045; 85049; 85652; 86140; 86334; 86480

== ENCOUNTER → 2023-09-16 | Outpatient (CLI) | payer MEDICARE, SELFPAY ==
[2023-09-16 12:54] LABS: Absolute Lymphocyte Count 1.29 X10^3/uL (0.83-4.51); Absolute Neutrophil Count 3.9 X10^3/uL (2.0-7.7); Basophil# 0.02 X10^3/uL; Basophil% 0.3 % (0-1); Eosinophil# 0.03 X10^3/uL; Eosinophils% 0.5 % (0-5); Hematocrit 37.4 % (40-54); Hemoglobin 12.4 g/dL (13.0-16.5); Lymphocyte # 1.29 X10^3/ul (0.83-4.51); Lymphocyte % 21.8 % (19-41); Mean Corp Hgb Conc 33.2 g/dL (32-36); Mean Corpuscular Hgb 34.5 pg (27.0-32.0); Mean Corpuscular Volume 104.2 fL (80-94); Mean Platelet Vol. 10.2 fl (6.2-12.0); Monocyte% 10.2 % (0-10); NRBC Flagged by Analyzer 0 % (0-5); Neutrophil # 3.93 X10^3/uL (2.7-7.7); Neutrophil % 66.5 % (47-70); Platelet Count 130 K/mm3 (150-450); RBC Distribution Width CV 13.6 % (11.6-14.6); RBC Distribution Width SD 52.4 fl (35.1-43.9); Red Blood Count 3.59 M/mm3 (4.6-6.2); White Blood Count 5.9 K/mm3 (4.4-11.0)
== END | disposition home or self-care (01) ==
PROVIDERS: PCP Internal Medicine; Referring Provider Internal Medicine Gastroenterology; Visit Provider Internal Medicine Gastroenterology
DX: D69.6 Thrombocytopenia, unspecified (principal)
CPT/HCPCS: 36415; 85025

== ENCOUNTER → 2024-07-19 | Outpatient (CLI) | payer MEDICARE, SELFPAY ==
[2024-07-19 15:59] LABS: Absolute Lymphocyte Count 1.29 X10^3/uL (0.83-4.51); Basophil# 0.02 X10^3/uL; Basophil% 0.4 % (0-1); Eosinophil# 0.04 X10^3/uL; Eosinophils% 0.8 % (0-5); Hematocrit 39.3 % (40-54); Hemoglobin 13.4 g/dL (13.0-16.5); Lymphocyte # 1.29 X10^3/ul (0.83-4.51); Lymphocyte % 26.4 % (19-41); Mean Corp Hgb Conc 34.1 g/dL (32-36); Mean Corpuscular Hgb 34.9 pg (27.0-32.0); Mean Corpuscular Volume 102.3 fL (80-94); Mean Platelet Vol. 10.8 fl (6.2-12.0); Monocyte# 0.49 X10^3/uL; NRBC Flagged by Analyzer 0 % (0-5); Neutrophil # 3.03 X10^3/uL (2.7-7.7); Neutrophil % 62.2 % (47-70); Platelet Count 125 K/mm3 (150-450); RBC Distribution Width CV 12.8 % (11.6-14.6); RBC Distribution Width SD 47.3 fl (35.1-43.9); Red Blood Count 3.84 M/mm3 (4.6-6.2); White Blood Count 4.9 K/mm3 (4.4-11.0)
[2024-07-19 16:35] LABS: Erythrocyte Sedimentation Rate 4 mm/hr (0-20)
[2024-07-19 17:35] LABS: ALB/GLOB Ratio 1.5 RATIO (0.9-2.4); AST(SGOT) 31 U/L (<=37); Alanine Aminotransfer ALT/SGPT 19 U/L (<=46); Albumin, Serum 4.3 g/dL (3.4-4.8); Alkaline Phosphatase 52 U/L (40-129); Anion Gap 8 (5-15); BUN 23 mg/dL (4-19); BUN/Creat Ratio 19.6 RATIO (10-20); Calcium,Total 9.5 mg/dL (7.6-11.0); Carbon Dioxide 27.5 mmol/L (21.0-32.0); Chloride 102 mmol/L (98-108); Creatinine, Serum 1.15 mg/dL (0.70-1.20); EST Glomerular Filtration Rate 68 (>60); Globulin 2.9 g/dL (2.2-4.2); Glucose 99 mg/dL (70-99); Potassium 4.6 mmol/L (3.3-5.1); Protein, Total 7.2 g/dL (5.9-8.4); Sodium Level 138 mmol/L (133-145); Total Bilirubin 0.68 mg/dL (0.00-1.30)
[2024-07-19 18:03] LABS: CRP < 3.00 mg/L (0.0-3.0); LDH 234 U/L (87-241)
[2024-07-21 12:08] LABS: QNTFERON TB Mitogen Value > 10.00 IU/mL (.); QNTFERON TB Nil Value 0.06 IU/mL (.); QNTFERON TB1+ Ag Value 0.06 IU/mL (.); QNTFERON TB2+ Ag Value 0.06 IU/mL (.); QNTIFERON TB Positive Criteria Negative (Negative)
== END | disposition home or self-care (01) ==
LOC: LAB 15:23
PROVIDERS: PCP Internal Medicine; Referring Provider Internal Medicine Gastroenterology; Visit Provider Internal Medicine Gastroenterology
DX: K51.00 Ulcerative (chronic) pancolitis without complications (principal); D64.9 Anemia, unspecified
CPT/HCPCS: 36415; 80053; 83615; 85025; 85652; 86140; 86480

== ENCOUNTER → 2025-01-19 | Outpatient (CLI) | payer MEDICARE, SELFPAY ==
--- OUTSIDE RECORDS SUMMARY | 2025-01-19 12:22 | XMS RPT_ITS | CCD ---
Author Organization [facility] Care Team Providers Care Cushion Stuffer Name Role Phone Ramo Polanco Unavailable Unavail able Latouf, Butros P Unavailable Unavailable Amadou Rimon Unavailable Unavailable Bree Valle Unavailable Unavailable Latouf, Butros P Unavailable Unavailable Beth Townsend Unavailable Unavailable Beth Townsend Unavailable Unavailable LATOUF , DR GARCIA Primary Care Physician Adriana, Dr. Garcia Primary Care Provider Adriana, Dr. Garcia Referring Provider Dr. Brenden Ragland Attending Provider [phone] [address] Wilcox Other Provider [phone] Maximo FIELD CROP HARVEST CONTRACTOR, FIELD CROP HARVEST CONTRACTOR-C Vanita Landry Attending Provider Dr. Jose Wright Primary Care Provider Adriana, Dr. Garcia Referring Provider [phone] Dr. Jose Wright Primary Care Provider Dr. Jose Wright Referring Provider Dr. Brenden Ragland Attending Provider [phone] Dr. Brenden Ragland Other Provider [phone] Adriana, Dr. Garcia Primary Care Provider Adriana, Dr. Garcia Referring Provider Dr. Brenden Ragland Attending Provider DR JOSE WRIGHT MD Primary Care Physician Adriana, Dr. Garcia Primary Care Provider Dr. Jose Wright Referring Provider [phone] Obie, Dr. Wilcox Attending Provider [phone] LEONARD SORIA, DR BREE Smyth Attending Unavailable ADRIANA SORIA, DR GARCIA Primary Care Unavailable MARILIN SORIA, ZEE Donald Attending Unavailable ADRIANA SORIA, DR GARCIA Primary Care Unavailable Adriana SORIA, Dr. Garcia Primary Care Provider Adriana SORIA, Dr. Garcia Referring Provider [phone] bOie MERRITT, Dr. Wilcox Attending Provider Obie MERRITT, Dr. Wilcox Referring Provider ADRIANA SORIA, DR GARCIA Primary Care Unavailable ESVIN CHARLES MD Consulting Unavailable MARILIN SORIA, ZEE Donald Attending Unavailable MARILIN SORIA, ZEE Donald Attending Unavailable ADRIANA SORIA, DR GARCIA Primary Care Unavailable ADRIANA SORIA, DR GARCIA Primary Care Unavailable MARILIN SORIA, ZEE Donald Admitting Unavailable MARILIN SORIA, ZEE Donald Attending Unavailable CHRISTINE SOSA MD Consulting Unavailable JOSE WRIGHT MD Consulting Unavailable PANDA RAHMAN MD Admitting Unavailable PANDA RAHMAN MD Attending Unavailable PANDA RAHMAN MD Primary Care Unavailable PROVIDER, UNKNOWN Consulting Unavailable PROVIDER, UNKNOWN Consulting Unavailable PROVIDER, UNKNOWN Consulting Unavailable PANDA RAHMAN MD Attending Unavailable JOSE WRIGHT MD Consulting Unavailable PANDA RAHMAN MD Primary Care Unavailable PANDA RAHMAN MD Admitting Unavailable PROVIDER, UNKNOWN Consulting Unavailable PROVIDER, UNKNOWN Consulting Unavailable PROVIDER, UNKNOWN Consulting Unavailable BREE VALLE MD Admitting Unavailable BREE VALLE MD Attending Unavailable BREE VALLE MD Primary Care Unavailable JOSE WRIGHT MD Consulting Unavailable PROVIDER, UNKNOWN Consulting Unavailable PROVIDER, UNKNOWN Consulting Unavailable PROVIDER, UNKNOWN Consulting Unavailable BREE VALLE MD Admitting Unavailable BREE VALLE MD Attending Unavailable BREE VALLE MD Primary Care Unavailable JOSE WRIGHT MD Consulting Unavailable PROVIDER, UNKNOWN Consulting Unavailable PROVIDER, UNKNOWN Consulting Unavailable PROVIDER, UNKNOWN Consulting Unavailable SUSAN VILLAR FIELD CROP HARVEST CONTRACTOR Admitting Unavailable SUSAN VILLAR FIELD CROP HARVEST CONTRACTOR Primary Care Unavailable June BAND HEAD SAW OPERATOR Consulting Unavailable SUSAN VILLAR FIELD CROP HARVEST CONTRACTOR Attending Unavailable PROVIDER, UNKNOWN Consulting Unavailable PROVIDER, UNKNOWN Consulting Unavailable June BAND HEAD SAW OPERATOR Consulting Unavailable LEONARD, BREE MD Admitting Unavailable BREE VALLE MD Attending Unavailable BREE VALLE MD Primary Care Unavailable PROVIDER, UNKNOWN Consulting Unavailable PROVIDER, UNKNOWN Consulting Unavailable BREE VALLE MD Admitting Unavailable BREE VALLE MD Attending Unavailable BREE VALLE MD Primary Care Unavailable JOSE WRIGHT MD Consulting Unavailable PROVIDER, UNKNOWN Consulting Unavailable PROVIDER, UNKNOWN Consulting Unavailable PROVIDER, UNKNOWN Consulting Unavailable JOSE WRIGHT MD Attending Unavailable JOSE WRIGHT MD Admitting Unavailable JOSE WRIGHT MD Primary Care Unavailable JOSE WRIGHT MD Consulting Unavailable PROVIDER, UNKNOWN Consulting Unavailable PROVIDER, UNKNOWN Consulting Unavailable PROVIDER, UNKNOWN Consulting Unavailable FRIES, SUSAN FIELD CROP HARVEST CONTRACTOR Attending Unavailable FRIES, SUSAN FIELD CROP HARVEST CONTRACTOR Admitting Unavailable FRIES, SUSAN FIELD CROP HARVEST CONTRACTOR Primary Care Unavailable JOSE WRIGHT MD Consulting Unavailable PROVIDER, UNKNOWN Consulting Unavailable PROVIDER, UNKNOWN Consulting Unavailable PROVIDER, UNKNOWN Consulting Unavailable JOSE WRIGHT MD Attending Unavailable JOSE WRIGHT MD Admitting Unavailable JOSE WRIGHT MD Primary Care Unavailable JOSE WRIGHT MD Consulting Unavailable BREE VALLE MD Referring Unavailable PROVIDER, UNKNOWN Consulting Unavailable PROVIDER, UNKNOWN Consulting Unavailable PROVIDER, UNKNOWN Consulting Unavailable PANDA RAMHAN MD Admitting Unavailable PANDA RAHMAN MD Attending Unavailable JOSE WRIGHT MD Consulting Unavailable PANDA RAHMAN MD Primary Care Unavailable PROVIDER, UNKNOWN Consulting Unavailable PROVIDER, UNKNOWN Consulting Unavailable PROVIDER, UNKNOWN Consulting Unavailable JOSE WRIGHT MD Admitting Unavailable JOSE WRIGHT MD Primary Care Unavailable JOSE WRIGHT MD Consulting Unavailable BREE VALLE MD Referring Unavailable JOSE WRIGHT MD Attending Unavailable PROVIDER, UNKNOWN Consulting Unavailable PROVIDER, UNKNOWN Consulting Unavailable PROVIDER, UNKNOWN Consulting Unavailable FRIES, SUSAN FIELD CROP HARVEST CONTRACTOR Admitting Unavailable FRIES, SUSAN FIELD CROP HARVEST CONTRACTOR Primary Care Unavailable AUREA, SUSAN FIELD CROP HARVEST CONTRACTOR Attending Unavailable JOSE WRIGHT MD Referring Unavailable JOSE WRIGHT MD Consulting Unavailable PROVIDER, UNKNOWN Consulting Unavailable PROVIDER, UNKNOWN Consulting Unavailable PROVIDER, UNKNOWN Consulting Unavailable PANDA RAHMAN MD Attending Unavailable JOSE WRIGHT MD Consulting Unavailable PANDA RAHMAN MD Primary Care Unavailable PANDA RAHMAN MD Admitting Unavailable PROVIDER, UNKNOWN Consulting Unavailable PROVIDER, UNKNOWN Consulting Unavailable PROVIDER, UNKNOWN Consulting Unavailable JOSE WRIGHT MD Attending Unavailable OJSE WRIGHT MD Admitting Unavailable JOSE WRIGHT MD Primary Care Unavailable JOSE WRIGHT MD Consulting Unavailable PROVIDER, UNKNOWN Consulting Unavailable PROVIDER, UNKNOWN Consulting Unavailable PROVIDER, UNKNOWN Consulting Unavailable BREE VALLE MD Admitting Unavailable BREE VALLE MD Attending Unavailable DAVIAN MARSH MD Consulting Unavailable BREE VALLE MD Primary Care Unavailable PROVIDER, UNKNOWN Consulting Unavailable PROVIDER, UNKNOWN Consulting Unavailable PANDA RAHMAN MD Admitting Unavailable NADIA, JUNE BAND HEAD SAW OPERATOR Consulting Unavailable PANDA RAHMAN MD Attending Unavailable PANDA RAHMAN MD Primary Care Unavailable PROVIDER, UNKNOWN Consulting Unavailable PROVIDER, UNKNOWN Consulting Unavailable Friend, Brenden Attending Unavailable Latouf, Butros Primary Care Unavailable Latouf, Butros Referring Unavailable Friend, Brenden Attending Unavailable Latouf, Butros Primary Care Unavailable Latouf, Butros Referring Unavailable Friend, Brenden Attending Unavailable Latouf, Butros Primary Care Unavailable Friend, Brenden Referring Unavailable Allergies Allergy Classification Reported Allergen(s) Allergy Type Date of Onset Reaction(s) Facility (5 sources) Acetaminophen / HYDROcodone; Translations: [acetaminophen-hy drocodone] Drug Allergy Visual hallucinations [facility] (1 source) HYDROcodone Drug Allergy [facility] Medications Current Medications Medication Drug Class(es) Dates Sig (Normalized) Sig (Original) alendronic acid 10 mg oral tablet (10 sources) Bisphosphonate Start: 03-09-2020 alendronate 10 mg oral tablet Dose : 10 mg = 1 tab(s), Oral, qDay, # 90 tab(s), 0 Refill(s) Start Date: 03/09/20 Status: Ordered Quantity: 90.0 Unit: tab(s) Repeat number: 1 ALPRAZolam 0.25 mg oral tablet (1 source) Benzodiazepine Start: 04-03-2018 ALPRAZolam 0.25 mg oral tablet Dose : 0.25 mg = 1 tab(s), Oral, PRN as needed for anxiety, 0 Refill(s) Start Date: 04/03/18 Status: Ordered amoxicillin 500 mg / clavulanate 125 mg oral tablet (1 source) Penicillin-class Antibacterial Start: 12-05-2023 End: 12-15-2023 take 1 tablet by mouth every twelve hours Augmentin 500 mg-125 mg oral tablet 1 tab(s), Oral, q12h, X 10 day(s), # 20 tab(s), 0 Refill(s), 12/15/23 9:59:00 AM EDT, Pharmacy: [facility], 167.6, cm, 12/05/23 6:27:00 EDT, Height, 103.7, kg, 12/05/23 6:27:00 EDT, Dosing Weight Start Date: 12/05/23 Stop Date: 12/15/23 Status: Ordered Anoro Ellipta 62.5 mcg-25 mcg/inh inhalation powder (1 source) Start: 07-11-2021 Anoro Ellipta 62.5 mcg-25 mcg/inh inhalation powder INHALE 1 INHALATION BY MOUTH EVERY DAY Start Date: 07/11/21 Status: Ordered apixaban 5 mg oral tablet (11 sources) Factor Xa Inhibitor Start: 03-09-2020 Eliquis 5 mg oral tablet Dose : 5 mg = 1 tab(s), Oral, BID, # 180 tab(s), 3 Refill(s), 167.6, cm, 01/12/24 9:11:00 EDT, Height, 101.81, kg, 01/12/24 9:11:00 EDT, Dosing Weight Start Date: 02/09/24 Status: Ordered Medication Dispense Status: Completed Quantity: 180.0 Unit: tab(s) Total Allowed Fills: 4 Fills Dispensed: 0 atorvastatin 20 mg oral tablet (11 sources) HMG-CoA Reductase Inhibitor Start: 03-09-2020 atorvastatin 20 mg oral tablet Dose : 20 mg = 1 tab(s), Oral, qPM, # 30 tab(s), 0 Refill(s) Start Date: 03/09/20 Status: Ordered Medication Dispense Status: Completed Quantity: 30.0 Unit: tab(s) Total Allowed Fills: 1 Fills Dispensed: 0 azaTHIOprine 50 mg oral tablet (20 sources) Purine Antimetabolite Start: 07-18-2023 End: 07-13-2024 take 1 tablet by mouth twice daily Azathioprine 100 mg tablet Discontinued 50 mg PO TWICE A DAY 180 July 12, 2024 7:18am July 13, 2024 9:15am Start: 07-14-2023 azaTHIOprine 5 0 mg oral tablet Dose : 100 mg = 2 tab(s), Oral, Daily, # 60 tab(s), 0 Refill(s) Start Date: 07/14/23 Status: Ordered Medication Dispense Status: Completed Quantity: 60.0 Unit: tab(s) Total Allowed Fills: 1 Fills Dispensed: 0 Start: 08-29-2021 End: 11-21-2021 take 150 mg by mouth once daily Azathioprine Discontin ued 150 MG PO DAILY 135 90 August 29, 2021 2:59pm November 21, 2021 9:10am Start: 08-29-2021 End: 11-21-2021 take 150 mg by mouth once daily Azathioprine Discontin ued 150 MG PO DAILY 135 August 29, 2021 3:59pm November 21, 2021 10:10am Start: 08-29-2021 take 150 mg by mouth once rosa maria y Azathioprine Active 150 MG PO DAILY 135 August 29, 2021 3:59pm Start: 05-29-2021 End: 08-29-2021 take 150 mg by mouth once daily Azathioprine Discontin ued 150 MG PO DAILY 135 May 29, 2021 1:05pm August 29, 2021 3:59pm Start: 05-29-2021 End: 08-29-2021 take 150 mg by mouth once daily Azathioprine Discontin ued 150 MG PO DAILY 135 May 29, 2021 12:00am August 29, 2021 2:59pm Start: 05-29-2021 End: 08-29-2021 take 150 mg by mouth once daily Azathioprine Discontin ued 150 MG PO DAILY 135 May 29, 2021 1:00am August 29, 2021 3:59pm Start: 04-10-2021 End: 07-18-2023 take 1 tablet by mouth once daily Azathioprine 100 mg tablet Discontinued 100 mg PO DAILY July 30, 2022 3:10pm July 18, 2023 1:05pm bumetanide 0.5 mg oral tablet (11 sources) Loop Diuretic Start: 11-09-2024 bumetanide 0.5 mg oral tablet Dose : 0.5 mg = 1 tab(s), Oral, Every other day, # 45 tab(s), 3 Refill(s), Pharmacy: [facility], 167.6, cm, 10/28/24 11:37:00 EDT, Height, kg, 10/28/24 11:37:00 EDT, Dosing Weight Start Date: 11/09/24 Status: Ordered Medication Dispense Status: Completed Quantity: 45.0 Unit: tab(s) Total Allowed Fills: 4 Fills Dispensed: 0 Start: 07-15-2024 bumetanide 1 m g oral tablet Dose : 0.5 mg = 0.5 tab(s), Oral, Every other day, # 30 tab(s), 3 Refill(s), other reason (Rx) Start Date: 07/15/24 Status: Ordered Quantity: 30.0 Unit: tab(s) Repeat number: 4 Start: 01-08-2022 bumetanide 1 m g oral tablet Dose : 1 mg = 1 tab(s), Oral, Every other day, 0 Refill(s) Start Date: 01/08/22 Status: Ordered Start: 07-11-2021 bumetanide 1 m g oral tablet Dose : 1 mg = 1 tab(s), Oral, Daily, # 90 tab(s), 3 Refill(s), Pharmacy: [facility]/pharmacy #[id number], 167.6, cm, 07/11/21 13:24:00 EDT, Height, kg, 07/11/21 13:24:00 EDT, Dosing Weight Start Date: 07/11/21 Status: Ordered Start: 04-10-2021 take 1 tablet by ghazala th every other day Bumetanide 0.5 mg tablet Active 1 mg PO EVERY OTHER DAY April 10, 2021 1:00am Start: 04-10-2021 take 1 mg by mouth e very other day Bumetanide Active 1 MG PO EVERY OTHER DAY April 10, 2021 1:00am Start: 04-10-2021 take 0.5 mg by mouth once rosa maria y Bumetanide Active 0.5 MG PO DAILY April 10, 2021 9:59am ergocalciferol 1.25 mg oral capsule (6 sources) Provitamin D2 Compound Start: 04-10-2021 Ergocalciferol (Vitamin D2) 1,250 mcg (50,000 unit) capsule Active 1250 ug PO EVERY WEEK April 10, 2021 1:00am ferrous sulfate 200 mg oral tablet (3 sources) Start: 11-10-2023 ferrous sulfate 200 mg (65 mg elemental iron) oral tablet Dose : 200 mg = 1 tab(s), Oral, qDay, # 120 tab(s), 0 Refill(s) Start Date: 11/10/23 Status: Ordered Medication Dispense Status: Completed Quantity: 120.0 Unit: tab(s) Total Allowed Fills: 1 Fills Dispensed: 0 folic acid 1 mg oral tablet (3 sources) Start: 03-28-2023 folic acid 1 mg oral tablet Dose : 2 mg = 2 tab(s), Oral, qDay, # 90 tab(s), 0 Refill(s) Start Date: 03/28/23 Status: Ordered Medication Dispense Status: Completed Quantity: 90.0 Unit: tab(s) Total Allowed Fills: 1 Fills Dispensed: 0 methotrexate 2.5 mg oral tablet (3 sources) Folate Analog Metabolic Inhibitor Start: 03-28-2023 take 6 tablets by mouth once methotrexate 2.5 mg oral tablet See Instructions, 6 tablets q Friday, 0 Refill(s) Start Date: 03/28/23 Status: Ordered Medication Dispense Status: Completed Total Allowed Fills: 1 Fills Dispensed: 0 Start: 03-28-2023 take 5 tablets by mouth once m ethotrexate 2.5 mg oral tablet See Instructions, 5 tablets q Friday, 0 Refill(s) Start Date: 03/28/23 Status: Ordered nadolol 20 mg oral tablet (11 sources) beta-Adrenergic Olya Start: 04-27-2024 nadolo l 20 mg oral tablet Dose : 20 mg = 1 tab(s), Oral, qDay, TAKE ONE TABLET BY MOUTH EVERY MORNING, # 90 tab(s), 3 Refill(s), Pharmacy: [facility], 167, cm, 04/27/24 10:37:00 EST, Height, kg, 04/27/24 10:37:00 EST, Dosing Weight Start Date: 04/27/24 Status: Ordered Medication Dispense Status: Completed Quantity: 90.0 Unit: tab(s) Total Allowed Fills: 4 Fills Dispensed: 0 Start: 07-14-2023 nadolol 20 mg oral tablet Dose : 20 mg = 1 tab(s), Oral, qDay, TAKE ONE TABLET BY MOUTH EVERY MORNING, # 90 tab(s), 3 Refill(s), Pharmacy: [facility], 167.6, cm, 07/14/23 10:25:00 EDT, Height, kg, 07/14/23 10:25:00 EDT, Dosing Weight Start Date: 07/14/23 Status: Ordered Start: 06-04-2022 take 1 tablet by ghazala th once daily in the morning nadolol 20 mg oral tablet TAKE ONE TABLET BY MOUTH EVERY MORNING Start Date: 06/04/22 Status: Ordered Start: 04-10-2021 Nadolol 80 mg tablet Active 40 mg PO DAILY April 10, 2021 1:00am takes 120 mg daily Start: 04-10-2021 take 120 mg by mouth once rosa maria y Nadolol Active 40 MG PO DAILY April 10, 2021 1:00am takes 120 mg daily Start: 04-10-2021 take 120 mg by mouth once rosa maria y Nadolol Active 120 MG PO DAILY April 10, 2021 9:57am takes 120 mg daily Start: 03-27-2020 nadolol 80 mg oral tablet Dose : 120 mg = 1.5 tab(s), Oral, qDay, # 135 tab(s), 3 Refill(s), Pharmacy: [facility]/pharmacy #[id number], 170.2, cm, 03/09/20 10:49:00 EST, Height, kg, 03/09/20 10:49:00 EST, Dosing Weight Start Date: 03/27/20 Status: Ordered omeprazole 40 mg delayed release oral capsule (20 sources) Proton Pump Inhibitor Start: 08-29-2021 take 1 capsule by mouth once daily Omeprazole 40 mg capsule,delayed release(DR/EC) Active 40 mg PO DAILY August 29, 2021 3:43pm Start: 05-29-2021 End: 08-29-2021 Omeprazole 40 mg capsule,del ayed release(DR/EC) Discontinued 40 mg PO TWICE A DAY 60 May 29, 2021 1:00am August 29, 2021 3:44pm take two times a day for eight weeks then once a day. Start: 04-03-2018 End: 05-29-2021 omeprazole 20 mg oral delaye d release capsule (NF) Dose : 20 mg = 1 cap(s), Oral, qDay, 0 Refill(s) Start Date: 04/03/18 Status: Ordered Medication Dispense Status: Completed Total Allowed Fills: 1 Fills Dispensed: 0 sacubitril 24 mg / valsartan 26 mg oral tablet (11 sources) Angiotensin 2 Receptor Olya Start: 09-21-2024 take 1 tablet by mouth once daily Entresto 24 mg-26 mg oral tablet Dose = 1 tab(s), Oral, qDay, # 90 tab(s), 0 Refill(s), Pharmacy: [facility], 157.5, cm, 09/08/24 15:20:00 EDT, Height, kg, 09/08/24 15:20:00 EDT, Dosing Weight Start Date: 09/21/24 Status: Ordered Medication Dispense Status: Completed Quantity: 90.0 Unit: tab(s) Total Allowed Fills: 1 Fills Dispensed: 0 Start: 08-29-2021 Sacubitril-Flavia sartan (Entresto) 24-26 mg tablet Active 1 {tbl} PO DAILY August 29, 2021 12:00am Start: 08-29-2021 take 1 tablet by ghazala th twice daily Sacubitril-Valsartan (Entresto) 24-26 mg tablet Active 1 TABLET PO TWICE A DAY August 29, 2021 3:44pm Start: 07-11-2021 take 1 tablet by ghazala th twice daily Entresto 24 mg-26 mg oral tablet Dose = 1 tab(s), Oral, BID, # 60 tab(s), 11 Refill(s), Pharmacy: [facility]/pharmacy #[id number], 167.6, cm, 07/11/21 13:24:00 EDT, Height Start Date: 07/11/21 Status: Ordered sertraline 50 mg oral tablet (11 sources) Serotonin Reuptake Inhibitor Start: 04-03-2018 sertraline 50 mg oral tablet Dose : 50 mg = 1 tab(s), Oral, Daily, 0 Refill(s) Start Date: 04/03/18 Status: Ordered Medication Dispense Status: Completed Total Allowed Fills: 1 Fills Dispensed: 0 sotalol hydrochloride 120 mg oral tablet (11 sources) Antiarrhythmic Start: 04-27-2024 sotalol 120 mg oral tablet Dose : 120 mg = 1 tab(s), Oral, BID, # 180 tab(s), 3 Refill(s), Pharmacy: [facility], 167, cm, 04/27/24 10:37:00 EST, Height, kg, 04/27/24 10:37:00 EST, Dosing Weight Start Date: 04/27/24 Status: Ordered Medication Dispense Status: Completed Quantity: 180.0 Unit: tab(s) Total Allowed Fills: 4 Fills Dispensed: 0 Start: 07-14-2023 sotalol 120 mg oral tablet Dose : 120 mg = 1 tab(s), Oral, BID, # 180 tab(s), 3 Refill(s), Pharmacy: [facility], 167.6, cm, 07/14/23 10:25:00 EDT, Height, kg, 07/14/23 10:25:00 EDT, Dosing Weight Start Date: 07/14/23 Status: Ordered Start: 04-10-2021 take 1 tablet by ghazala th twice daily Sotalol 80 mg tablet Active 80 mg PO TWICE A DAY April 10, 2021 1:00am spironolactone 25 mg oral tablet (11 sources) Aldosterone Antagonist Start: 08-29-2021 spironolactone 25 mg oral tablet Dose : 25 mg = 1 tab(s), Oral, Every other day, # 45 tab(s), 3 Refill(s), Pharmacy: [facility], 167, cm, 04/27/24 10:37:00 EST, Height, kg, 04/27/24 10:37:00 EST, Dosing Weight Start Date: 04/27/24 Status: Ordered Medication Dispense Status: Completed Quantity: 45.0 Unit: tab(s) Total Allowed Fills: 4 Fills Dispensed: 0 Start: 08-29-2021 take 25 mg by mouth once daily Spironolactone Active 25 MG PO DAILY August 29, 2021 3:43pm Start: 07-11-2021 spironolactone 25 mg oral tablet Dose : 25 mg = 1 tab(s), Oral, qDayM, # 90 tab(s), 3 Refill(s), Pharmacy: [facility]/pharmacy #[id number], 167.6, cm, 07/11/21 13:24:00 EDT, Height, kg, 07/11/21 13:24:00 EDT, Dosing Weight Start Date: 07/11/21 Status: Ordered Vitamin D2 1.25 mg (50,000 intl units) oral capsule (4 sources) Start: 08-24-2021 Vitamin D2 1.2 5 mg (50,000 intl units) oral capsule See Instructions, 1 cap(s) Oral q other Week, 0 Refill(s) Start Date: 08/24/21 Status: Ordered Medication Dispense Status: Completed Total Allowed Fills: 1 Fills Dispensed: 0 Start: 08-24-2021 Vitamin D2 1.2 5 mg (50,000 intl units) oral capsule See Instructions, 1 cap(s) Oral q other Week, 0 Refill(s) Start Date: 08/24/21 Status: Ordered Repeat number: 1 Start: 08-24-2021 Vitamin D2 1.2 5 mg (50,000 intl units) oral capsule See Instructions, 1 cap(s) Oral q other Week, 0 Refill(s) Start Date: 08/24/21 Status: Ordered Start: 08-24-2021 Vitamin D2 1.2 5 mg (50,000 intl units) oral capsule Dose : 50,000 International_Unit = 1 cap(s), Oral, qWeek, # 4 cap(s), 0 Refill(s) Start Date: 08/24/21 Status: Ordered Completed/Discontinued Medications Medication Drug Class(es) Dates Sig (Normalized) Sig (Original) bisacodyl 5 mg delayed release oral tablet (6 sources) Stimulant Laxative Start: 04-10-2021 End: 05-29-2021 Bisacodyl (Bisa-Lax (Bisacodyl)) 5 mg tablet,delayed release (DR/EC) Discontinued 20 mg PO ONCE April 10, 2021 1:00am May 29, 2021 7:29am take as directed for bowel prep 24 hr mesalamine 375 mg extended release oral capsule (12 sources) Aminosalicylate Start: 04-10-2021 End: 05-08-2021 take 1 tablet by mouth twice daily Mesalamine 1.2 gram tablet,delayed release (DR/EC) Discontinued 1.2 g PO TWICE A DAY 56 April 10, 2021 1:00am May 07, 2021 1:00am May 08, 2021 1:03am Start: 04-10-2021 End: 04-10-2021 take 1 capsule by mouth once daily Mesalamine (Apriso) 0.375 gram capsule,extended release 24hr Discontinued 1.5 g PO DAILY April 10, 2021 1:00am April 10, 2021 10:10am polyethylene glycol 3350 28264 mg powder for oral solution (6 sources) Osmotic Laxative Start: 04-10-2021 End: 05-29-2021 Polyethylene Glycol 3350 (Miralax) 17 gram/dose powder Discontinued 17 g PO DAILY 238 April 10, 2021 1:00am May 29, 2021 7:29am take as directed for bowel prep sucralfate 100 mg/ml oral suspension (12 sources) Aluminum Complex Start: 05-29-2021 End: 08-29-2021 take 1 mL by mouth three times daily 1 hour(s) before mealtime Sucralfate (Carafate) 100 mg/mL suspension Discontinued 10 mL PO before meals August 29, 2021 3:45pm August 29, 2021 3:46pm take three times a day, one hour before meals on an empty stomach. Problems Active Problems Problem Classification Problem Date Documented Date Episodic/Chronic Allergic reactions (1 source) Allergy status to narcotic agent status; Translations: [Allergy status to narcotic agent] Onset: 11-11-2024 Episodic Anxiety disorders (1 source) Anxiety disorder, unspecified; Translations: [Anxiety disorder, unspecified] Onset: 11-11-2024 Chronic Cardiac dysrhythmias (7 sources) Paroxysmal atrial fibrillation; Translations: [Unspecified atrial flutter] Onset: 01-13-2024 08-27-2019 Chronic Comment on above: LAST CARDIOVERSION AFFINITY Patient had HOCM. Had septal myectomy on 06/15/2007. Had AICD on 09/06/2008. Had RV lead extraction and new lead and new AICD with pacemaker on 03/11/2014. Had DC cardioversion for afib 06/08/2013, 09/05/2015 and 05/01/2017 Recurrent persistent atrial fibrillation since 11/30/2017 by pacer interrogation Start on sotalol 03/18/2018 and patient converted to sinus with that. No DC cardioversion needed. Paroxysmal atrial fibrillation now much improved by devic e evaluation 01/28/2019 02/09/2019 BUN 23 Cr 1.1 Coagulation and hemorrhagic disorders (4 sources) Thrombocytopenic disorder; Translations: [Thrombocytopenia, unspecified] 12-24-2022 Chronic Conduction disorders (12 sources) Automatic implantable cardiac defibrillator in situ; Translations: [Presence of automatic (implantable) cardiac defibrillator] Onset: 01-13-2024 08-27-2019 Chronic Comment on above: s/p [employer] AICD Congestive heart failure; nonhypertensive (15 sources) Acute combined systolic and diastolic heart failure; Translations: [Heart failure with normal ejection fraction] Onset: 04-23-2024 05-03-2019 Chronic Coronary atherosclerosis and other heart disease (6 sources) Coronary arteriosclerosis; Translations: [Atherosclerotic heart disease of [place] coronary artery without angina pectoris] Onset: 11-11-2024 08-27-2019 Chronic Comment on above: Minimal by cath 05/28. Myocardial bridging LAD < 50% Deficiency and other anemia (6 sources) Anemia 03-15-2022 Episodic Esophageal disorders (12 sources) Gastroesophageal reflux disease; Translations: [Gastro-esophageal reflux disease without esophagitis] Chronic Gastritis and duodenitis (5 sources) Gastritis; Translations: [Gastritis, unspecified, without bleeding] 06-18-2022 Episodic Gout and other crystal arthropathies (1 source) Gout, unspecified; Translations: [Gout, unspecified] Onset: 04-23-2024 Chronic Hypertension with complications and secondary hypertension (1 source) Hypertensive heart disease with heart failure; Translations: [Hypertensive heart disease with heart failure] Onset: 11-11-2024 Chronic Mood disorders (1 source) Mood disorders; Translations: [Depression, unspecified] Onset: 11-11-2024 Osteoporosis (6 sources) Osteoporosis; Translations: [Age-related osteoporosis without current pathological fracture] Onset: 11-11-2024 09-01-2019 Chronic Other aftercare (1 source) 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; Translations: [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] Onset: 11-11-2024 Episodic Other aftercare (1 source) 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; Translations: [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] Onset: 11-11-2024 Episodic Other aftercare (1 source) Encounter for therapeutic drug level monitoring; Translations: [Encounter for therapeutic drug level monitoring] Onset: 11-11-2024 Episodic Other aftercare (1 source) alf (current) use of anticoagulants; Translations: [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] Onset: 11-11-2024 Episodic Other nutritional; endocrine; and metabolic disorders (10 sources) Cholesterol level - finding 05-03-2019 Chronic Comment on above: HDL 37 T Chol 120 LD L 70 trig 67 on 08/29/2017 Other nutritional; endocrine; and metabolic disorders (6 sources) Body mass index 30+ - obesity 12-15-2022 Chronic Other nutritional; endocrine; and metabolic disorders (1 source) Obesity, unspecified; Translations: [Obesity, unspecified] Onset: 11-11-2024 Chronic Other nutritional; endocrine; and metabolic disorders (1 source) Body mass index (BMI) 36.0-36.9, adult; Translations: [Body mass index [BMI] 36.0-36.9, adult] Onset: 11-11-2024 Chronic Other nutritional; endocrine; and metabolic disorders (10 sources) Overweight 11-27-2020 Episodic Other upper respiratory infections (6 sources) Sinusitis; Translations: [Chronic sinusitis, unspecified] Onset: 01-28-2024 05-03-2019 Chronic Comment on above: SEVERE FOUND ON CT A ND WAS CAUSE OF HIS SEVERE HEADACHES-- RX WITH ANTIBIOTICS 06/07/2017 X 15 DAYS/ [facility] FOLLOWING AND THEN PLANNING SURGERY TO CLEAR THIS/PT-- POST ANTIBIOTICS. Other upper respiratory infections (3 sources) Acute sinusitis 05-03-2019 Episodic Jael-; endo-; and myocarditis; cardiomyopathy (except that caused by tuberculosis or sexually transmitted disease) (11 sources) Hypertrophic cardiomyopathy; Translations: [Hypertrophic obstructive cardiomyopathy] Onset: 11-11-2024 05-03-2019 Chronic Comment on above: HYPERTROPHIC EF 45 -50% ECHO [facility] 05/16/2017 s/p septal myectomy 06/15/2007 EF 45-50% by TTE 05/16/2017 Regional enteritis and ulcerative colitis (19 sources) Chronic ulcerative colitis; Translations: [Ulcerative colitis] Onset: 07-22-2024 08-27-2019 Chronic Unclassified (1 source) Unknown / UNK(Unknown) Onset: 05-15-2017 Unclassified (5 sources) Influenza vaccination declined 05-03-2019 Unclassified (5 sources) Vaccine refused by parent Onset: 03-31-2017 05-03-2019 Unclassified (1 source) Other persistent atrial fibrillation; Translations: [Other persistent atrial fibrillation] Onset: 11-11-2024 Unclassified (1 source) alf (current) use of antimetabolite agent; Translations: [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 agent] Onset: 11-11-2024 Unclassified (1 source) alf (current) use of inhibitors of nucleotide synthesis; Translations: [alf (current) use of inhibitors of nucleotide synthesis] Onset: 11-11-2024 Past or Other Problems Problem Classification Problem Date Documented Date Episodic/Chronic Congestive heart failure; nonhypertensive (1 source) Congestive heart failure; nonhypertensive Onset: 05-15-2017 Deficiency and other anemia (3 sources) Anemia, unspecified; Translations: [Anemia, unspecified] Onset: 04-23-2024 Episodic Deficiency and other anemia (3 sources) Iron deficiency anemia, unspecified; Translations: [Iron deficiency anemia, unspecified] Onset: 01-13-2024 Episodic Immunizations and screening for infectious disease (5 sources) Has influenza vaccination at hospital Onset: 03-31-2017 05-03-2019 Episodic Comment on above: Verified 2019 Other screening for suspected conditions (not mental disorders or infectious disease) (3 sources) Other specified abnormal findings of blood chemistry; Translations: [Other specified abnormal findings of blood chemistry] Onset: 02-10-2024 Episodic Results Test Name Value Interpretation Reference Range Facility BMP with eGFRon 01-05-2025 AGE 74 years Normal [facility] Comment on above: Performed By: #### 2 61538 #### [facility],[address] [place] [address] 64802 Anion gap [Moles/Vol] 12 mmol/L Normal 10 - 20 [facility] Comment on above: Performed By: #### 2 64741 #### [facility],[address] [place] [address]26 [facility] with eGFR Normal [facility] Comment on above: Result Comment: BASI C METABOLIC PANEL Performed By: #### 2 06323 #### [facility],[address] [place] [address] 11601 Calcium [Mass/Vol] 8.7 mg/dL Normal 8.5 - 10.1 [facility] Comment on above: Performed By: #### 2 89401 #### [facility],[address] [place] [address] 56688 Chloride [Moles/Vol] 104 mmol/L Normal 98 - 107 [facility] Comment on above: Performed By: #### 2 26054 #### [facility],[address] [place], [place] [id number] CO2 [Moles/Vol] 29.5 mmol/L Normal 21.0 - 32.0 [facility] Comment on above: Performed By: #### 2 11483 #### [facility],[address] [place] [address] Creatinine [Mass/Vol] 1.59 mg/dL High 0.70 - 1.30 [facility] Comment on above: Performed By: #### 2 61430 #### [facility],[address] [place], [place] [id number] eGFR 43 ML/MINUTE Low 60 - 999 [facility] Comment on above: Performed By: #### 2 43770 #### [facility],[address] [place] [address] 83384 eGFR(AA) 52 ML/MINUTE Low 60 - 999 [facility] Comment on above: Result Comment: ACCO RDING TO THE NATIONAL KIDNEY DISEASE EDUCATION PROGRAM(NKDE), A NORMAL eGFR IS A VALUE GREATER THAN OR EQUAL TO 60 ML/MIN/1.73 SQ METERS. CHRONIC KIDNEY DISEASE: <60mL/MIN/1.73 SQ METERS KIDNEY FAILURE: <15mL/MIN/1.73 SQ METERS THIS TEST SHOULD ONLY BE USED FOR PATIENTS 18 YEARS OF AGE AND OLDER. Performed By: #### 2 45075 #### [facility],[address] [place] [address] 85838 Glucose [Mass/Vol] 86 mg/dL Normal 74 - 106 [facility] Comment on above: Performed By: #### 2 99388 #### [facility],[address] [place] [address] 51175 Potassium [Moles/Vol] 4.6 mmol/L Normal 3.5 - 5.1 [facility] Comment on above: Performed By: #### 2 82903 #### [facility],[address] [place] [address] 78812 Sodium [Moles/Vol] 141 mmol/L Normal 136 - 145 [facility] Comment on above: Performed By: #### 2 68857 #### [facility],[address] [place] [address] 78356 Urea nitrogen [Mass/Vol] 23 mg/dL High 7 - 18 [facility] Comment on above: Performed By: #### 2 27989 #### [facility],[address] [place] [address] 35975 CBC + DIFFon 01-05-2025 Baso # 0.03 x10EE3/UL Normal 0.00 - 0.10 [facility] Comment on above: Performed By: #### 2 59560 #### [facility],[address] [place] [address] 48662 Basophils/100 WBC (Bld) 0.5 % Normal 0.0 - 2.0 [facility] Comment on above: Performed By: #### 2 49190 #### [facility],[address] [place] [address] 86797 CBC + DIFF Normal [facility] Comment on above: Result Comment: CBC- COMPLETE BLOOD COUNT Performed By: #### 2 40426 #### [facility],[address] [place] [address] 07895 EO # 0.06 x10EE3/UL Normal 0.00 - 0.50 [facility] Comment on above: Performed By: #### 2 78054 #### [facility],[address] [place] [address] 83685 Eosinophils/100 WBC (Bld) 1.2 % Normal 0.0 - 7.0 [facility] Comment on above: Performed By: #### 2 22323 #### [facility],[address] [place] [address] 39447 Erythrocyte distribution width (RBC) [Ratio] 13.4 % Normal 12.0 - 15.6 [facility] Comment on above: Performed By: #### 2 50384 #### [facility],[address] [place] [address] 58070 Hematocrit (Bld) [Volume fraction] 36.4 % Low 40.0 - 52.0 [facility] Comment on above: Performed By: #### 2 31431 #### [facility],[address] [place] [address] 45664 Hemoglobin (Bld) [Mass/Vol] 12.3 g/dL Low 13.0 - 17.5 [facility] Comment on above: Performed By: #### 2 01519 #### [facility],[address] [place] [address] 19433 Lymph # 0.68 x10EE3/UL Low 0.80 - 2.80 [facility] Comment on above: Performed By: #### 2 71180 #### [facility],[address] [place] [address] 02559 Lymphocytes/100 WBC (Bld) 13.9 % Low 20.0 - 45.0 [facility] Comment on above: Performed By: #### 2 33435 #### [facility],[address] [place] [address] 56143 MANUAL DIFF N/A Normal [facility] Comment on above: Performed By: #### 2 76931 #### [facility],[address] [place] [address] 86972 MCH (RBC) [Entitic mass] 35 pg High 27 - 33 [facility] Comment on above: Performed By: #### 2 32557 #### [facility],[address] [place] [address] 53319 MCHC 34 X10 3 Normal 32 - 36 [facility] Comment on above: Performed By: #### 2 84753 #### [facility],[address] [place] [address] 98949 MCV (RBC) [Entitic vol] 103 fL High 81 - 98 [facility] Comment on above: Performed By: #### 2 84150 #### [facility],[address] [place] [address] 41916 [place] # 0.37 x10EE3/UL Normal 0.20 - 1.00 [facility] Comment on above: Performed By: #### 2 41881 #### [facility],[address] [place] [address] 11082 MONOS % 7.6 % Normal 0.0 - 10.0 [facility] Comment on above: Performed By: #### 2 47642 #### [facility],[address] [place] [address] 64625 Morphology Sunny (Bld) [Interp] N/A Normal [facility] Comment on above: Performed By: #### 2 27754 #### [facility],[address] [place] [address] 06262 Neut # 3.74 x10EE3/UL Normal 1.50 - 7.10 [facility] Comment on above: Performed By: #### 2 01456 #### [facility],[address] [place] [address] 63572 Neutrophils/100 WBC (Bld) 76.9 % High 46.0 - 76.0 [facility] Comment on above: Performed By: #### 2 91732 #### [facility],[address] [place] [address] 71454 PLATELET 114 x10EE3/UL Low 150 - 450 [facility] Comment on above: Performed By: #### 2 21697 #### [facility],[address] [place] [address] 80618 Platelet mean volume (Bld) [Entitic vol] 8.7 fL Normal 6.4 - 10.5 [facility] Comment on above: Result Comment: AUTO MATED DIFFERENTIAL Performed By: #### 2 70224 #### [facility],[address] [place] [address] 39617 RBC 3.53 x 10EE6/UL Low 4.50 - 6.00 [facility] Comment on above: Performed By: #### 2 64046 #### [facility],[address] [place] [address] 97814 WBC 4.9 x 10EE3/UL Normal 4.5 - 10.8 [facility] Comment on above: Performed By: #### 2 63475 #### [facility],[address] [place] [address] NT-proBNPon 01-05-2025 Natriuretic peptide B (Bld) [Mass/Vol] 1594 pg/mL High 0 - 125 [facility] Comment on above: Performed By: #### 2 93599 #### [facility],[address] [place], [place] [id number] CBC + DIFFon 12-06-2024 Baso # 0.02 x10EE3/UL Normal 0.00 - 0.10 [facility] Comment on above: Performed By: #### 2 15713 #### [facility],[address] [place] [address] 80699 Basophils/100 WBC (Bld) 0.4 % Normal 0.0 - 2.0 [facility] Comment on above: Performed By: #### 2 82651 #### [facility],[address] [place] [address] 24226 CBC + DIFF Normal [facility] Comment on above: Result Comment: CBC- COMPLETE BLOOD COUNT Performed By: #### 2 45106 #### [facility],[address] [place] [address] 58663 EO # 0.03 x10EE3/UL Normal 0.00 - 0.50 [facility] Comment on above: Performed By: #### 2 97560 #### [facility],[address] [place] [address] 75094 Eosinophils/100 WBC (Bld) 0.8 % Normal 0.0 - 7.0 [facility] Comment on above: Performed By: #### 2 46947 #### [facility],[address] [place], [place] [id number] Erythrocyte distribution width (RBC) [Ratio] 13.7 % Normal 12.0 - 15.6 [facility] Comment on above: Performed By: #### 2 33363 #### [facility],[address] [place] [address] Hematocrit (Bld) [Volume fraction] 37.0 % Low 40.0 - 52.0 [facility] Comment on above: Performed By: #### 2 71411 #### [facility],[address] [place] [address] Hemoglobin (Bld) [Mass/Vol] 12.2 g/dL Low 13.0 - 17.5 [facility] Comment on above: Performed By: #### 2 28606 #### [facility],[address] [place] [address] Lymph # 0.75 x10EE3/UL Low 0.80 - 2.80 [facility] Comment on above: Performed By: #### 2 19839 #### [facility],[address] [place] [address] 36911 Lymphocytes/100 WBC (Bld) 18.3 % Low 20.0 - 45.0 [facility] Comment on above: Performed By: #### 2 42090 #### [facility],[address] [place], [place] [id number] Macrocytes Ql (Bld) 1+ Normal [facility] Comment on above: Performed By: #### 2 98871 #### [facility],[address] [place] [address] MANUAL DIFF N/A Normal [facility] Comment on above: Performed By: #### 2 13999 #### [facility],[address] [place] [address] 59535 MCH (RBC) [Entitic mass] 35 pg High 27 - 33 [facility] Comment on above: Performed By: #### 2 60051 #### [facility],[address] [place] [address] 43932 MCHC 33 X10 3 Normal 32 - 36 [facility] Comment on above: Performed By: #### 2 81149 #### [facility],[address] [place] [address] 00883 MCV (RBC) [Entitic vol] 105 fL High 81 - 98 [facility] Comment on above: Performed By: #### 2 92282 #### [facility],[address] [place] [address] 01701 [place] # 0.42 x10EE3/UL Normal 0.20 - 1.00 [facility] Comment on above: Performed By: #### 2 56154 #### [facility],[address] [place] [address] 70776 MONOS % 10.3 % High 0.0 - 10.0 [facility] Comment on above: Performed By: #### 2 31199 #### [facility],[address] [place] [address] 60481 Morphology Sunny (Bld) [Interp] SEE BELOW Normal [facility] Comment on above: Performed By: #### 2 82922 #### [facility],[address] [place] [address] 30445 Neut # 2.88 x10EE3/UL Normal 1.50 - 7.10 [facility] Comment on above: Performed By: #### 2 73724 #### [facility],[address] [place] [address] 18779 Neutrophils/100 WBC (Bld) 70.2 % Normal 46.0 - 76.0 [facility] Comment on above: Performed By: #### 2 02772 #### [facility],[address] [place] [address] 13721 PLATELET 104 x10EE3/UL Low 150 - 450 [facility] Comment on above: Performed By: #### 2 42281 #### [facility],[address] [place] [address] 55307 Platelet mean volume (Bld) [Entitic vol] 8.3 fL Normal 6.4 - 10.5 [facility] Comment on above: Result Comment: AUTO MATED DIFFERENTIAL Performed By: #### 2 52534 #### [facility],[address] [place] [address] 16602 PLT EST DECREASED Normal [facility] Comment on above: Performed By: #### 2 32159 #### [facility],[address] [place] [address] 97977 RBC 3.52 x 10EE6/UL Low 4.50 - 6.00 [facility] Comment on above: Performed By: #### 2 04968 #### [facility],[address] [place] [address] 99587 WBC 4.1 x 10EE3/UL Low 4.5 - 10.8 [facility] Comment on above: Performed By: #### 2 20153 #### [facility],[address] [place] [address] 91244 CMP with eGFRon 12-06-2024 AGE 74 years Normal [facility] Comment on above: Performed By: #### 2 82034 #### [facility],[address] [place] [address] 39279 Albumin [Mass/Vol] 3.9 g/dL Normal 3.4 - 5.0 [facility] Comment on above: Performed By: #### 2 87070 #### [facility],[address] [place] [address] 42168 Albumin/Globulin [Mass ratio] 1.4 {ratio} Normal 0.9 - 1.6 [facility] Comment on above: Performed By: #### 2 63733 #### [facility],[address] [place] [address] 13125 ALK PHOS 53 U/L Normal 46 - 116 [facility] Comment on above: Performed By: #### 2 15883 #### [facility],[address] [place] [address] 66331 ALT [Catalytic activity/Vol] 19 U/L Normal 16 - 63 [facility] Comment on above: Performed By: #### 2 82810 #### [facility],[address] [place] [address] 52069 Anion gap [Moles/Vol] 7 mmol/L Low 10 - 20 [facility] Comment on above: Performed By: #### 2 55108 #### [facility],[address] [place] [address] 62883 AST [Catalytic activity/Vol] 28 U/L Normal 15 - 37 [facility] Comment on above: Performed By: #### 2 74582 #### [facility],[address] [place] [address] 83116 B/C RATIO 19 ratio Normal 0 - 30 [facility] Comment on above: Performed By: #### 2 56693 #### [facility],[address] [place] [address] 16021 Bilirubin [Mass/Vol] 1.0 mg/dL Normal 0.2 - 1.0 [facility] Comment on above: Performed By: #### 2 90938 #### [facility],[address] [place] [address] 63522 Calcium [Mass/Vol] 8.8 mg/dL Normal 8.5 - 10.1 [facility] Comment on above: Performed By: #### 2 71546 #### [facility],[address] [place] [address] 83190 Chloride [Moles/Vol] 105 mmol/L Normal 98 - 107 [facility] Comment on above: Performed By: #### 2 42662 #### [facility],[address] [place] [address] 81027 CMP with eGFR Normal [facility] Comment on above: Result Comment: COMP REHENSIVE METABOLIC PANEL Performed By: #### 2 44972 #### [facility],[address] [place] [address] 19720 CO2 [Moles/Vol] 33.9 mmol/L High 21.0 - 32.0 [facility] Comment on above: Performed By: #### 2 46199 #### [facility],[address] [place] [address] Creatinine [Mass/Vol] 1.12 mg/dL Normal 0.70 - 1.30 [facility] Comment on above: Performed By: #### 2 84924 #### [facility],[address] [place] [address] GFR/1.73 sq M.predicted among non-blacks MDRD (S/P/Bld) [Vol rate/Area] mL/min/{1.73_m2} Normal 60 - 999 [facility] Comment on above: Performed By: #### 2 18207 #### [facility],[address] [place] [address] Result Comment: ACCO RDING TO THE NATIONAL KIDNEY DISEASE EDUCATION PROGRAM(NKDE), A NORMAL eGFR IS A VALUE GREATER THAN OR EQUAL TO 60 ML/MIN/1.73 SQ METERS. CHRONIC KIDNEY DISEASE: <60mL/MIN/1.73 SQ METERS KIDNEY FAILURE: <15mL/MIN/1.73 SQ METERS THIS TEST SHOULD ONLY BE USED FOR PATIENTS 18 YEARS OF AGE AND OLDER. Globulin (S) [Mass/Vol] 2.8 g/dL Normal 1.5 - 3.8 [facility] Comment on above: Performed By: #### 2 43572 #### [place] [id number] Glucose [Mass/Vol] 83 mg/dL Normal 74 - 106 [facility] Comment on above: Performed By: #### 2 17112 #### [address] [address] Potassium [Moles/Vol] 4.3 mmol/L Normal 3.5 - 5.1 [facility] Comment on above: Performed By: #### 2 98009 #### [address] [address] Protein [Mass/Vol] 6.7 g/dL Normal 6.4 - 8.2 [facility] Comment on above: Performed By: #### 2 40931 #### [address] [address] Sodium [Moles/Vol] 142 mmol/L Normal 136 - 145 [facility] Comment on above: Performed By: #### 2 01737 #### [address] [address] Urea nitrogen [Mass/Vol] 21 mg/dL High 7 - 18 [facility] Comment on above: Performed By: #### 2 47185 #### [address] [address] .GFRon 11-12-2024 Estimated Glomerular Filtration Rate 79 ml/min/1.73sqm [facility] Comment on above: Result Comment: Stages of Chronic Kidney Disease (CKD) Stage Description eGFR(ml/min/1.73 sq.m.) CKD 1 Normal kidney function or >=90 normal kindney function with possible kidney damage (ex. Proteinuria) CKD 2 Kidney damage with mild loss 60-89 of kidney function CKD 3a Mild to moderate loss of kidney 45-59 function CKD 3b Moderate to severe loss of 30-44 of kindey function CKD 4 Severe loss of kidney function 15-29 CKD 5 Kidney failure <15 Note: (go live 2024) the eGFR calculation was updated to the 2020 CKD-EPI creatinine equation without a race factor to calculate the eGFR results. Performed By: #### G , BMP #### [address] [address] [facility] 11-12-2024 BUN/Creatinine Ratio 18.8 ratio Normal 10.0-22.0 [facility] Comment on above: Performed By: #### G FR, BMP #### [address] [address] Calcium [Mass/Vol] 7.8 mg/dL Low 8.7-10.4 [facility] Comment on above: Performed By: #### Raven FR, BMP #### [address] [address] Chloride [Moles/Vol] 108 mmol/L Normal 98-110 [facility] Comment on above: Performed By: #### Raven VILLAGOMEZ, BMP #### [address] [address] CO2 [Moles/Vol] 25 mmol/L Normal 22-32 [facility] Comment on above: Performed By: #### Raven VILLAGOMEZ, BMP #### [address] [address] Creatinine [Mass/Vol] 1.01 mg/dL Normal 0.60-1.40 [facility] Comment on above: Result Comment: Test ing performed on [employer] analyzer using enzymatic creatinine methodology. Performed By: #### Raven VILLAGOMEZ, BMP #### [address] [address] Electrolyte Balance 10.0 mEq/L Normal 4.0-15.0 [facility] Comment on above: Performed By: #### Raven FR, BMP #### [address] [address] Glucose [Mass/Vol] 121 mg/dL High 82-115 [facility] Comment on above: Performed By: #### Raven FR, BMP #### [address] [address] Potassium [Moles/Vol] 4.6 mmol/L Normal 3.5-5.0 [facility] Comment on above: Result Comment: Spec imen slightly hemolyzed. Performed By: #### Raven FR, BMP #### [address] [address] Sodium [Moles/Vol] 143 mmol/L Normal 136-145 [facility] Comment on above: Performed By: #### G , CHERELLE #### [facility] [address] [place] [address]126 Urea nitrogen [Mass/Vol] 19.0 mg/dL Normal 8.0-22.0 [facility] Comment on above: Performed By: #### G , CHERELLE #### [facility] [address] [place] [address]672 LABORATORYOrdered By: SYSTEM SYSTEM on 11-12-2024 Calcium [Mass/Vol] 7.8 mg/dL Low 8.7 - 10. 4 mg/dL ADM SS Chloride [Moles/Vol] 108 mmol/L Normal 98 - 11 0 mEq/L ADM SS CO2 [Moles/Vol] 25 mmol/L Normal 22 - 32 mEq/L AH ADM SS Creatinine [Mass/Vol] 1.01 mg/dL Normal 0.60 - 1.40 mg/dL ADM SS Comment on above: Interpretive Data: T esting performed on [employer] analyzer using enzymatic creatinine methodology. Electrolyte Balance 10.0 mEq/L Normal 4.0 - 15 .0 mEq/L AH ADM SS Estimated Glomerular Filtration Rate 79 ml/min/1.73sqm Invalid Interpretation Code Chemistry S Comment on above: Interpretive Data: Stages of Chronic Kidney Disease (CKD) Stage Description eGFR(ml/min/1.73 sq.m.) CKD 1 Normal kidney function or >=90 normal kindney function with possible kidney damage (ex. Proteinuria) CKD 2 Kidney damage with mild loss 60-89 of kidney function CKD 3a Mild to moderate loss of kidney 45-59 function CKD 3b Moderate to severe loss of 30-44 of kindey function CKD 4 Severe loss of kidney function 15-29 CKD 5 Kidney failure <15 Note: (go live 2024) the eGFR calculation was updated to the 2020 CKD-EPI creatinine equation without a race factor to calculate the eGFR results. Glucose [Mass/Vol] 121 mg/dL High 82 - 115 mg/dL AH ADM SS Potassium [Moles/Vol] 4.6 mmol/L Normal 3.5 - 5.0 mEq/L AH ADM SS Comment on above: Result Comment: Spec imen slightly hemolyzed. Sodium [Moles/Vol] 143 mmol/L Normal 136 - 145 mEq/L AH ADM SS Urea nitrogen [Mass/Vol] 19.0 mg/dL Normal 8.0 - 22.0 mg/dL AH ADM SS Urea nitrogen/Creatinine [Mass ratio] 18.8 ratio Normal 10.0 - 22.0 ratio AH ADM SS ABO/Rh (Gel)on 11-11-2024 ABO/Rh Interp Positive Invalid Interpretation Code [facility] Comment on above: Performed By: #### C BC, ABSGEL, ANEU, GFR, ABOGEL, ADIFF, PRO, BMP #### [address] [address] ABS (Gel)on 11-11-2024 ABSC Interp (Gel) Negative Normal [facility] Comment on above: Performed By: #### C BC, ABSGEL, ANEU, GFR, ABOGEL, ADIFF, PRO, BMP #### [address] [address] APTTon 11-11-2024 aPTT Coag (d) [Time] 28.6 s Normal 25.0-35.[address] [facility] Comment on above: Result Comment: For Heparin anticoagulation therapy, the recommended therapeutic range is: 54-77 seconds (APTT Correlation with Anti-Xa therapeutic range of 0.3-0.7 units/ml). PLEASE REFERENCE THE PHARMACY PROTOCOL FOR DOSING. Performed By: #### C BC, ABSGEL, ANEU, GFR, ABOGEL, ADIFF, PRO, BMP #### [address] [address] FIBon 11-11-2024 Fibrinogen 436 mg/dL Normal 250-560 [facility] Comment on above: Performed By: #### C BC, ABSGEL, ANEU, GFR, ABOGEL, ADIFF, PRO, BMP #### [address] [address] LABORATORYOrdered By: Dacia Ritchie on 11-11-2024 ABO and Rh group Nom (Bld) Blood group A Rh(D) positive Invalid Interpretation Code AH BB Auto SS Blood group antibody screen Ql Negative ABSC (11/11/24 8:43 AM) Normal BB Auto SS LABORATORYOrdered By: [employer] SYSTEM on 11-11-2024 aPTT Coag (Bld) [Time] 28.6 s Normal 25.0 - 35.0 seconds [facility] Comment on above: Interpretive Data: F or Heparin anticoagulation therapy, the recommended therapeutic range is: 54-77 seconds (APTT Correlation with Anti-Xa therapeutic range of 0.3-0.7 units/ml). PLEASE REFERENCE THE PHARMACY PROTOCOL FOR DOSING. Fibrinogen 436 mg/dL Normal 250 - 560 mg/dL [facility] PT Coag (PPP) [Time] 11.8 s Normal 9.0 - 1 4.4 seconds [facility] Comment on above: Interpretive Data: E ffective 10/13/07, Protime results may be affected by some antibiotics (i.e. Ciprofloxacin, Azithromycin, Bactrim) which may potentiate the action of oral anticoagulants, with further increases in Protime/INR. PT International Ratio 1.0 ratio Invalid Interpretation Code [facility] Comment on above: Interpretive Data: Jovan reveles [employer] (CHEST, 1991, 102:312S-25S) recommended therapeutic range for oral anticoagulant therapy is: LOW RISK: Prophylaxis of venous thrombosis INR: 2.0-3.0 Treatment of pulmonary embolism 2.0-3.0 Prevention of systemic embolism 2.0-3.0 HIGH RISK: Mechanical prosthetic valves 2.5-3.5 PROon 11-11-2024 INR Coag (PPP) [Relative time] 1.0 {INR} Normal [facility] Comment on above: Result Comment: [employer] (CHEST, 1991, 102:312S-25S) recommended therapeutic range for oral anticoagulant therapy is: LOW RISK: Prophylaxis of venous thrombosis INR: 2.0-3.0 Treatment of pulmonary embolism 2.0-3.0 Prevention of systemic embolism 2.0-3.0 HIGH RISK: Mechanical prosthetic valves 2.5-3.5 Performed By: #### C BC, ABSGEL, ANEU, GFR, ABOGEL, ADIFF, PRO, BMP #### [facility] [address] [place] [address] PT Coag (PPP) [Time] 11.8 s Normal 9.0-14.4 [facility] Comment on above: Result Comment: Effe ctive 10/13/07, Protime results may be affected by some antibiotics (i.e. Ciprofloxacin, Azithromycin, Bactrim) which may potentiate the action of oral anticoagulants, with further increases in Protime/INR. Performed By: #### C BC, ABSGEL, ANEU, GFR, ABOGEL, ADIFF, PRO, BMP #### [facility] [address] [place] [address] CALCIUM IONIZED [CCL]on Calcium [Moles/Vol] 1.17 mmol/L Normal 1.08-1.30 [facility] Comment on above: Performed By: #### 2 73384 #### [address] [address] Calcium, Ionized 1.23 mmol/L Normal 1.08-1.30 [facility] Comment on above: Result Comment: [facility] [address] [place] [address] Nato Stephen III, M.D. [id number] Performed By: #### 2 08828 #### [address] [address] PROLACTIN [CCL]on 11-05-2024 Prolactin 12.2 ng/mL Normal 4.1-25.1 [facility] Comment on above: Result Comment: Prol actin test is performed using the [employer] Electrochemiluminescence Immunoassay method. Results obtained with different methods or kits cannot be used interchangeably. [facility] [address] [place] [address] Nato Stephen III, M.D. [id number] Performed By: #### 2 13911 #### [address] [address] PTH, INTACT [CCL]on 11-06-19 25 PTH, Intact 143 pg/mL High 15-65 [facility] Comment on above: Result Comment: [facility] [address] [place] [address] Nato Stephen III, M.D. [id number] Performed By: #### 2 68498 #### [facility],[address] [place] [address] BMP with eGFRon 11-04-2024 AGE 74 years Normal [facility] Comment on above: Performed By: #### 2 80845 #### [facility],[address] [place] [address] Anion gap [Moles/Vol] 12 mmol/L Normal 10 - 20 [facility] Comment on above: Performed By: #### 2 05835 #### [facility],[address] [place] [address] BMP with eGFR Normal [facility] Comment on above: Result Comment: BASI C METABOLIC PANEL Performed By: #### 2 50032 #### [facility],[address] [place] [address] Calcium [Mass/Vol] 9.0 mg/dL Normal 8.5 - 10.1 [facility] Comment on above: Performed By: #### 2 18743 #### [facility],[address] [place] [address] Chloride [Moles/Vol] 104 mmol/L Normal 98 - 107 [facility] Comment on above: Performed By: #### 2 08966 #### [facility],[address] [place] [address] CO2 [Moles/Vol] 29.0 mmol/L Normal 21.0 - 32.0 [facility] Comment on above: Performed By: #### 2 15806 #### [facility],[address] [place] [address] Creatinine [Mass/Vol] 1.35 mg/dL High 0.70 - 1.30 [facility] Comment on above: Performed By: #### 2 29255 #### [facility],[address] [place] [address] eGFR 52 ML/MINUTE Low 60 - 999 [facility] Comment on above: Performed By: #### 2 41253 #### [facility],[address] [place] [address] GFR/1.73 sq M.predicted among non-blacks MDRD (S/P/Bld) [Vol rate/Area] mL/min/{1.73_m2} Normal 60 - 999 [facility] Comment on above: Result Comment: ACCO RDING TO THE NATIONAL KIDNEY DISEASE EDUCATION PROGRAM(NKDE), A NORMAL eGFR IS A VALUE GREATER THAN OR EQUAL TO 60 ML/MIN/1.73 SQ METERS. CHRONIC KIDNEY DISEASE: <60mL/MIN/1.73 SQ METERS KIDNEY FAILURE: <15mL/MIN/1.73 SQ METERS THIS TEST SHOULD ONLY BE USED FOR PATIENTS 18 YEARS OF AGE AND OLDER. Performed By: #### 2 99191 #### [facility],[address] [place] [address] Glucose [Mass/Vol] 100 mg/dL Normal 74 - 106 [facility] Comment on above: Performed By: #### 2 84230 #### [facility],[address] [place] [address] Potassium [Moles/Vol] 4.6 mmol/L Normal 3.5 - 5.1 [facility] Comment on above: Performed By: #### 2 47687 #### [facility],[address] [place] [address] Sodium [Moles/Vol] 140 mmol/L Normal 136 - 145 [facility] Comment on above: Performed By: #### 2 09799 #### [facility],[address] [place] [address] Urea nitrogen [Mass/Vol] 20 mg/dL High 7 - 18 [facility] Comment on above: Performed By: #### 2 51785 #### [facility],[address] [place] [address] CBC + DIFFon 11-04-2024 Baso # 0.02 x10EE3/UL Normal 0.00 - 0.10 [facility] Comment on above: Performed By: #### 2 05756 #### [facility],[address] [place] [address] Basophils/100 WBC (Bld) 0.4 % Normal 0.0 - 2.0 [facility] Comment on above: Performed By: #### 2 37597 #### [facility],[address] [place] [address] CBC + DIFF Normal [facility] Comment on above: Result Comment: CBC- COMPLETE BLOOD COUNT Performed By: #### 2 96251 #### [facility],[address] [place] [address] EO # 0.05 x10EE3/UL Normal 0.00 - 0.50 [facility] Comment on above: Performed By: #### 2 52853 #### [facility],[address] [place] [address] Eosinophils/100 WBC (Bld) 1.1 % Normal 0.0 - 7.0 [facility] Comment on above: Performed By: #### 2 27399 #### [facility],[address] [place] [address] Erythrocyte distribution width (RBC) [Ratio] 14.0 % Normal 12.0 - 15.6 [facility] Comment on above: Performed By: #### 2 48219 #### [facility],[address] [place] [address] Hematocrit (Bld) [Volume fraction] 38.7 % Low 40.0 - 52.0 [facility] Comment on above: Performed By: #### 2 76566 #### [facility],[address] [place] [address] Hemoglobin (Bld) [Mass/Vol] 13.1 g/dL Normal 13.0 - 17.5 [facility] Comment on above: Performed By: #### 2 03972 #### [facility],[address] [place], [place] [address] Lymph # 0.73 x10EE3/UL Low 0.80 - 2.80 [facility] Comment on above: Performed By: #### 2 51333 #### [facility],[address] [place] [address] Lymphocytes/100 WBC (Bld) 16.1 % Low 20.0 - 45.0 [facility] Comment on above: Performed By: #### 2 54382 #### [facility],[address] [place] [address] MANUAL DIFF N/A Normal [facility] Comment on above: Performed By: #### 2 27594 #### [facility],[address] [place] [address] MCH (RBC) [Entitic mass] 36 pg High 27 - 33 [facility] Comment on above: Performed By: #### 2 48328 #### [facility],[address] [place] [address] MCHC 34 X10 3 Normal 32 - 36 [facility] Comment on above: Performed By: #### 2 02177 #### [facility],[address] [place] [address] MCV (RBC) [Entitic vol] 106 fL High 81 - 98 [facility] Comment on above: Performed By: #### 2 42308 #### [facility],[address] [place] [address] [place] # 0.32 x10EE3/UL Normal 0.20 - 1.00 [facility] Comment on above: Performed By: #### 2 92228 #### [facility],[address] [place] [address] MONOS % 7.0 % Normal 0.0 - 10.0 [facility] Comment on above: Performed By: #### 2 35464 #### [facility],[address] [place] [address] Morphology Sunny (Bld) [Interp] N/A Normal [facility] Comment on above: Performed By: #### 2 51264 #### [facility],[address] [place] [address] Neut # 3.43 x10EE3/UL Normal 1.50 - 7.10 [facility] Comment on above: Performed By: #### 2 52451 #### [facility],[address] [place] [address] Neutrophils/100 WBC (Bld) 75.4 % Normal 46.0 - 76.0 [facility] Comment on above: Performed By: #### 2 26746 #### [facility],[address] [place], [place] [id number] PLATELET 113 x10EE3/UL Low 150 - 450 [facility] Comment on above: Performed By: #### 2 66350 #### [facility],[address] [place] [address] Platelet mean volume (Bld) [Entitic vol] 8.5 fL Normal 6.4 - 10.5 [facility] Comment on above: Result Comment: AUTO MATED DIFFERENTIAL Performed By: #### 2 50423 #### [address] [address] RBC 3.65 x 10EE6/UL Low 4.50 - 6.00 [facility] Comment on above: Performed By: #### 2 48821 #### [facility],[address] [place], [place] [id number] WBC 4.6 x 10EE3/UL Normal 4.5 - 10.8 [facility] Comment on above: Performed By: #### 2 67125 #### [place] [id number] Calcium.ionized [Moles/Vol]o n 11-04-2024 Calcium.ionized (Bld) [Mass/Vol] 1.23 mmol/L Normal 1.08-1.30 [facility] Comment on above: Order Comment: Speci men Type: BLOOD SPECIMEN Ordering Facility: [facility] Address: [facility] [place] [id number] Performed By: #### 2 8423, #### [facility] CLIA [id number] [address] [address] [place] Calcium.ionized adjusted to pH 7.4 (Bld) [Moles/Vol] 1.17 mmol/L Normal 1.08-1.30 [facility] Comment on above: Order Comment: Speci men Type: BLOOD SPECIMEN Ordering Facility: [facility] Address: [facility] [place] [address] Performed By: #### 2 842 #### [facility] CLIA [id number] [address] [place] [address] [place] PTH-Intact SerPl-mCncon 08-0 Parathyrin.intact [Mass/Vol] 143 pg/mL High 15-65 [facility] Comment on above: Order Comment: Speci men Type: BLOOD SPECIMEN Ordering Facility: [facility] Address: [facility] [place] [address] Performed By: #### 2 731-8 #### [facility] CLIA [id number] [address] [place], [place] [address] [place] Prolactin SerPl-mCncon 11-04 Prolactin [Mass/Vol] 12.2 ng/mL Normal 4.1-25.1 [facility] Comment on above: Order Comment: Speci men Type: BLOOD SPECIMEN Ordering Facility: [facility] Address: [facility] [place] [address] Result Comment: Prol actin test is performed using the [employer] Electrochemiluminescence Immunoassay method. Results obtained with different methods or kits cannot be used interchangeably. Performed By: #### 2 8423, #### [facility] CLIA [id number] [address] [place] [address] [place] VITAMIN D, 25 HYDROXYon 08-0 VitD 64.60 ng/mL Normal 30.00 - 100 [facility] Comment on above: Result Comment: 25-O HD3 indicates both endogenous production and supplementation. 25-OHD2 is an indicator of exogenous sources, such as diet or supplementation. Therapy is based on measurement of Total 25-OHD, with levels <20 ng/mL indicative of Vitamin D deficiency, while levels between 20 ng/mL and 30 ng/mL suggest insufficiency. Optimal levels are >=30ng/mL. Vitamin D, 25-OH D3 Not Established Vitamin D, 25-OH D2 Not Established Performed By: #### 2 59305 #### [facility],[address] [place] [address] .Auto Diffon 10-28-2024 Basophil, Absolute 0.0 10 3/mcL Normal 0.0-0.3 [facility] Comment on above: Performed By: #### C BC, ABSGEL, ANEU, GFR, ABOGEL, ADIFF, PRO, BMP #### [address] [address] Basophils/100 WBC (Bld) 0.5 % Normal 0.0-2.5 [facility] Comment on above: Performed By: #### C BC, ABSGEL, ANEU, GFR, ABOGEL, ADIFF, PRO, BMP #### [address] [address] Eosinophil, Absolute 0.0 10 3/mcL Normal 0.0-0.[address] [facility] Comment on above: Performed By: #### C BC, ABSGEL, ANEU, GFR, ABOGEL, ADIFF, PRO, BMP #### [address] [address] Eosinophils/100 WBC (Bld) 0.7 % Normal 0.0-6.0 [facility] Comment on above: Performed By: #### C BC, ABSGEL, ANEU, GFR, ABOGEL, ADIFF, PRO, BMP #### [address] [address] Lymphocyte, Absolute 0.7 10 3/mcL Low 0.9-4.[address] [facility] Comment on above: Performed By: #### C BC, ABSGEL, ANEU, GFR, ABOGEL, ADIFF, PRO, BMP #### [address] [address] Lymphocytes/100 WBC (Bld) 18.3 % Low 20.0-40.0 [facility] Comment on above: Performed By: #### C BC, ABSGEL, ANEU, GFR, ABOGEL, ADIFF, PRO, BMP #### [address] [address] Monocyte, Absolute 0.4 10 3/mcL Normal 0.1-1.4 [facility] Comment on above: Performed By: #### C BC, ABSGEL, ANEU, GFR, ABOGEL, ADIFF, PRO, BMP #### [address] [address] Monocytes/100 WBC (Bld) 12.1 % Normal 2.0-13.0 [facility] Comment on above: Performed By: #### C BC, ABSGEL, ANEU, GFR, ABOGEL, ADIFF, PRO, BMP #### [address] [address] Neutrophils/100 WBC (Bld) 68.4 % Normal 50.0-75.0 [facility] Comment on above: Performed By: #### C BC, ABSGEL, ANEU, GFR, ABOGEL, ADIFF, PRO, BMP #### [address] [address] .GFRon 10-28-2024 Estimated Glomerular Filtration Rate 60 ml/min/1.73sqm Normal [facility] Comment on above: Result Comment: Stages of Chronic Kidney Disease (CKD) Stage Description eGFR(ml/min/1.73 sq.m.) CKD 1 Normal kidney function or >=90 normal kindney function with possible kidney damage (ex. Proteinuria) CKD 2 Kidney damage with mild loss 60-89 of kidney function CKD 3a Mild to moderate loss of kidney 45-59 function CKD 3b Moderate to severe loss of 30-44 of kindey function CKD 4 Severe loss of kidney function 15-29 CKD 5 Kidney failure <15 Note: (go live 2024) the eGFR calculation was updated to the 2020 CKD-EPI creatinine equation without a race factor to calculate the eGFR results. Performed By: #### C BC, ABSGEL, ANEU, GFR, ABOGEL, ADIFF, PRO, BMP #### [address] [address] .NEUABSon 10-28-2024 Neutrophil, Absolute 2.5 10 3/mcL Normal 2.3-8.[address] [facility] Comment on above: Performed By: #### C BC, ABSGEL, ANEU, GFR, ABOGEL, ADIFF, PRO, BMP #### [address] [address] [facility] BUN/Creatinine Ratio 16.5 ratio Normal 10.0-22.0 [facility] Comment on above: Performed By: #### C BC, ABSGEL, ANEU, GFR, ABOGEL, ADIFF, PRO, BMP #### [place] [phone] Calcium [Mass/Vol] 9.1 mg/dL Normal 8.7-10.4 [facility] Comment on above: Performed By: #### C BC, ABSGEL, ANEU, GFR, ABOGEL, ADIFF, PRO, BMP #### [address] [address] Chloride [Moles/Vol] 105 mmol/L Normal 98-110 [facility] Comment on above: Performed By: #### C BC, ABSGEL, ANEU, GFR, ABOGEL, ADIFF, PRO, BMP #### [address] [address] CO2 [Moles/Vol] 30 mmol/L Normal 22-32 [facility] Comment on above: Performed By: #### C BC, ABSGEL, ANEU, GFR, ABOGEL, ADIFF, PRO, BMP #### [address] [address] Creatinine [Mass/Vol] 1.27 mg/dL Normal 0.60-1.40 [facility] Comment on above: Result Comment: Test ing performed on [employer] analyzer using enzymatic creatinine methodology. Performed By: #### C BC, ABSGEL, ANEU, GFR, ABOGEL, ADIFF, PRO, BMP #### [place] [phone] Electrolyte Balance 8.0 mEq/L Normal 4.0-15.0 [facility] Comment on above: Performed By: #### C BC, ABSGEL, ANEU, GFR, ABOGEL, ADIFF, PRO, BMP #### [place] [phone] Glucose [Mass/Vol] 87 mg/dL Normal 82-115 [facility] Comment on above: Performed By: #### C BC, ABSGEL, ANEU, GFR, ABOGEL, ADIFF, PRO, BMP #### [place] [phone] Potassium [Moles/Vol] 5.0 mmol/L Normal 3.5-5.0 [facility] Comment on above: Performed By: #### C BC, ABSGEL, ANEU, GFR, ABOGEL, ADIFF, PRO, BMP #### [place] [phone] Sodium [Moles/Vol] 143 mmol/L Normal 136-145 [facility] Comment on above: Performed By: #### C BC, ABSGEL, ANEU, GFR, ABOGEL, ADIFF, PRO, BMP #### [place] [phone] Urea nitrogen [Mass/Vol] 21.0 mg/dL Normal 8.0-22.0 [facility] Comment on above: Performed By: #### C BC, ABSGEL, ANEU, GFR, ABOGEL, ADIFF, PRO, BMP #### [address] [address] CBCon 10-28-2024 Erythrocyte distribution width (RBC) [Ratio] 15.4 % Normal 11.5-15.5 [facility] Comment on above: Performed By: #### C BC, ABSGEL, ANEU, GFR, ABOGEL, ADIFF, PRO, BMP #### [place] [phone] Hematocrit (Bld) [Volume fraction] 37.2 % Low 40.0-52.0 [facility] Comment on above: Performed By: #### C BC, ABSGEL, ANEU, GFR, ABOGEL, ADIFF, PRO, BMP #### [place] [address] Hgb 12.7 G/dL Low 13.0-17.5 [facility] Comment on above: Performed By: #### C BC, ABSGEL, ANEU, GFR, ABOGEL, ADIFF, PRO, BMP #### [place] [address] MCH (RBC) [Entitic mass] 35.5 pg High 27.0-33.0 [facility] Comment on above: Performed By: #### C BC, ABSGEL, ANEU, GFR, ABOGEL, ADIFF, PRO, BMP #### [place] [address] MCHC 34.2 G/dL Normal 32.0-36.0 [facility] Comment on above: Performed By: #### C BC, ABSGEL, ANEU, GFR, ABOGEL, ADIFF, PRO, BMP #### [place] [address] MCV (RBC) [Entitic vol] 103.7 fL High 81.0-100.0 [facility] Comment on above: Performed By: #### C BC, ABSGEL, ANEU, GFR, ABOGEL, ADIFF, PRO, BMP #### [place] [address] Platelet 109 10 3/mcL Low 150-450 [facility] Comment on above: Performed By: #### C BC, ABSGEL, ANEU, GFR, ABOGEL, ADIFF, PRO, BMP #### [place] [address] Platelet mean volume (Bld) [Entitic vol] 8.7 fL Normal 6.4-10.5 [facility] Comment on above: Performed By: #### C BC, ABSGEL, ANEU, GFR, ABOGEL, ADIFF, PRO, BMP #### [place] [address] RBC 3.59 10 6/mcL Low 4.50-6.00 [facility] Comment on above: Performed By: #### C BC, ABSGEL, ANEU, GFR, ABOGEL, ADIFF, PRO, BMP #### [address] [address] WBC 3.7 10 3/mcL Low 4.5-10.8 [facility] Comment on above: Performed By: #### C BC, ABSGEL, ANEU, GFR, ABOGEL, ADIFF, PRO, BMP #### [address] [address] LABORATORYOrdered By: SYSTEM SYSTEM on 10-28-2024 Basophils (Bld) [#/Vol] 0.0 103/mcL Normal 0.0 - 0.3 10^3/mcL Workflow SS Basophils/100 WBC (Bld) 0.5 % Normal 0.0 - 2.5 % AH Workflow SS Calcium [Mass/Vol] 9.1 mg/dL Normal 8.7 - 10. 4 mg/dL ADM SS Chloride [Moles/Vol] 105 mmol/L Normal 98 - 11 0 mEq/L ADM SS CO2 [Moles/Vol] 30 mmol/L Normal 22 - 32 mEq/L ADM SS Creatinine [Mass/Vol] 1.27 mg/dL Normal 0.60 - 1.40 mg/dL ADM SS Comment on above: Interpretive Data: T esting performed on [employer] analyzer using enzymatic creatinine methodology. Electrolyte Balance 8.0 mEq/L Normal 4.0 - 15 .0 mEq/L ADM SS Eosinophils (Bld) [#/Vol] 0.0 103/mcL Normal 0.0 - 0.7 10^3/mcL Workflow SS Eosinophils/100 WBC (Bld) 0.7 % Normal 0.0 - 6.0 % AH Workflow SS Erythrocyte distribution width (RBC) [Ratio] 15.4 % Normal 11.5 - 15.5 % AH Workflow SS Estimated Glomerular Filtration Rate 60 ml/min/1.73sqm Invalid Interpretation Code Chemistry S Comment on above: Interpretive Data: Stages of Chronic Kidney Disease (CKD) Stage Description eGFR(ml/min/1.73 sq.m.) CKD 1 Normal kidney function or >=90 normal kindney function with possible kidney damage (ex. Proteinuria) CKD 2 Kidney damage with mild loss 60-89 of kidney function CKD 3a Mild to moderate loss of kidney 45-59 function CKD 3b Moderate to severe loss of 30-44 of kindey function CKD 4 Severe loss of kidney function 15-29 CKD 5 Kidney failure <15 Note: (go live 2024) the eGFR calculation was updated to the 2020 CKD-EPI creatinine equation without a race factor to calculate the eGFR results. Glucose [Mass/Vol] 87 mg/dL Normal 82 - 115 mg/dL AH ADM SS Hematocrit (Bld) [Volume fraction] 37.2 % Low 40.0 - 52.0 % AH Workflow SS Hemoglobin (Bld) [Mass/Vol] 12.7 G/dL Low 13.0 - 17.5 G/dL AH Workflow SS Lymphocytes (Bld) [#/Vol] 0.7 103/mcL Low 0.9 - 4.3 10^3/mcL AH Workflow SS Lymphocytes/100 WBC (Bld) 18.3 % Low 20.0 - 40.0 % AH Workflow SS MCH (RBC) [Entitic mass] 35.5 pg High 27.0 - 33.0 pg AH Workflow SS MCHC 34.2 G/dL Normal 32.0 - 36.0 G/dL AH Workflow SS MCV (RBC) [Entitic vol] 103.7 fL High 81.0 - 100.0 fL AH Workflow SS Monocytes (Bld) [#/Vol] 0.4 103/mcL Normal 0.1 - 1.4 10^3/mcL AH Workflow SS Monocytes/100 WBC (Bld) 12.1 % Normal 2.0 - 13.0 % AH Workflow SS Neutrophils (Bld) [#/Vol] 2.5 103/mcL Normal 2.3 - 8.1 10^3/mcL AH Workflow SS Neutrophils/100 WBC (Bld) 68.4 % Normal 50.0 - 75.0 % AH Workflow SS Platelet mean volume (Bld) [Entitic vol] 8.7 fL Normal 6.4 - 10.5 fL AH Workflow SS Platelets (Bld) [#/Vol] 109 103/mcL Low 150 - 450 10^3/mcL AH Workflow SS Potassium [Moles/Vol] 5.0 mmol/L Normal 3.5 - 5.0 mEq/L AH ADM SS RBC (Bld) [#/Vol] 3.59 106/mcL Low 4.50 - 6.00 10^6/mcL AH Workflow SS Sodium [Moles/Vol] 143 mmol/L Normal 136 - 145 mEq/L AH ADM SS Urea nitrogen [Mass/Vol] 21.0 mg/dL Normal 8.0 - 22.0 mg/dL AH ADM SS Urea nitrogen/Creatinine [Mass ratio] 16.5 ratio Normal 10.0 - 22.0 ratio AH ADM SS WBC (Bld) [#/Vol] 3.7 103/mcL Low 4.5 - 10.8 10^3/mcL AH Workflow SS BMP with eGFRon 10-13-2024 AGE 74 years Normal [facility] Comment on above: Performed By: #### 2 50154 #### [facility],[address] [place] [address] Anion gap [Moles/Vol] 12 mmol/L Normal 10 - 20 [facility] Comment on above: Performed By: #### 2 87022 #### [facility],[address] [place] [address] BMP with eGFR Normal [facility] Comment on above: Result Comment: BASI C METABOLIC PANEL Performed By: #### 2 24967 #### [facility],[address] [place], [place] [id number] Calcium [Mass/Vol] 8.6 mg/dL Normal 8.5 - 10.1 [facility] Comment on above: Performed By: #### 2 09952 #### [facility],[address] [place] [address] 33521 Chloride [Moles/Vol] 107 mmol/L Normal 98 - 107 [facility] Comment on above: Performed By: #### 2 54428 #### [facility],[address] [place] [address] 05502 CO2 [Moles/Vol] 27.5 mmol/L Normal 21.0 - 32.0 [facility] Comment on above: Performed By: #### 2 58372 #### [facility],[address] [place], [place] [id number] Creatinine [Mass/Vol] 1.11 mg/dL Normal 0.70 - 1.30 [facility] Comment on above: Performed By: #### 2 89006 #### [facility],[address] [place] [address] 02126 GFR/1.73 sq M.predicted among non-blacks MDRD (S/P/Bld) [Vol rate/Area] mL/min/{1.73_m2} Normal 60 - 999 [facility] Comment on above: Performed By: #### 2 13921 #### [facility],[address] [place], [place] [id number] Result Comment: ACCO RDING TO THE NATIONAL KIDNEY DISEASE EDUCATION PROGRAM(NKDE), A NORMAL eGFR IS A VALUE GREATER THAN OR EQUAL TO 60 ML/MIN/1.73 SQ METERS. CHRONIC KIDNEY DISEASE: <60mL/MIN/1.73 SQ METERS KIDNEY FAILURE: <15mL/MIN/1.73 SQ METERS THIS TEST SHOULD ONLY BE USED FOR PATIENTS 18 YEARS OF AGE AND OLDER. Glucose [Mass/Vol] 126 mg/dL High 74 - 106 [facility] Comment on above: Performed By: #### 2 07150 #### [address] [address] Potassium [Moles/Vol] 4.4 mmol/L Normal 3.5 - 5.1 [facility] Comment on above: Performed By: #### 2 99233 #### [facility],[address] [place] [address] 93866 Sodium [Moles/Vol] 142 mmol/L Normal 136 - 145 [facility] Comment on above: Performed By: #### 2 65763 #### [facility],[address] [place] [address] 47739 Urea nitrogen [Mass/Vol] 21 mg/dL High 7 - 18 [facility] Comment on above: Performed By: #### 2 65089 #### [facility],[address] [place] [address] 28204 CBC + DIFFon 07-16-2025 Baso # 0.01 x10EE3/UL Normal 0.00 - 0.10 [facility] Comment on above: Performed By: #### 2 91645 #### [facility],[address] [place], [place] [id number] Basophils/100 WBC (Bld) 0.2 % Normal 0.0 - 2.0 [facility] Comment on above: Performed By: #### 2 04315 #### [facility],[address] [place] [address] CBC + DIFF Normal [facility] Comment on above: Result Comment: CBC- COMPLETE BLOOD COUNT Performed By: #### 2 70208 #### [facility],[address] [place] [address] EO # 0.05 x10EE3/UL Normal 0.00 - 0.50 [facility] Comment on above: Performed By: #### 2 55824 #### [facility],[address] [place] [address] Eosinophils/100 WBC (Bld) 1.2 % Normal 0.0 - 7.0 [facility] Comment on above: Performed By: #### 2 85056 #### [facility],[address] [place] [address] Erythrocyte distribution width (RBC) [Ratio] 14.5 % Normal 12.0 - 15.6 [facility] Comment on above: Performed By: #### 2 20618 #### [facility],[address] [place] [address] Hematocrit (Bld) [Volume fraction] 36.5 % Low 40.0 - 52.0 [facility] Comment on above: Performed By: #### 2 22006 #### [facility],[address] [place] [address] Hemoglobin (Bld) [Mass/Vol] 12.3 g/dL Low 13.0 - 17.5 [facility] Comment on above: Performed By: #### 2 49160 #### [facility],[address] [place] [address] 39592 Lymph # 0.78 x10EE3/UL Low 0.80 - 2.80 [facility] Comment on above: Performed By: #### 2 53488 #### [facility],[address] [place] [address] 07278 Lymphocytes/100 WBC (Bld) 18.2 % Low 20.0 - 45.0 [facility] Comment on above: Performed By: #### 2 52842 #### [facility],[address] [place] [address] MANUAL DIFF N/A Normal [facility] Comment on above: Performed By: #### 2 26911 #### [facility],[address] [place], [place] [id number] MCH (RBC) [Entitic mass] 35 pg High 27 - 33 [facility] Comment on above: Performed By: #### 2 07843 #### [facility],[address] [place] [address] MCHC 34 X10 3 Normal 32 - 36 [facility] Comment on above: Performed By: #### 2 17263 #### [facility],[address] [place] [address] 87697 MCV (RBC) [Entitic vol] 103 fL High 81 - 98 [facility] Comment on above: Performed By: #### 2 15743 #### [facility],[address] [place] [address] 44508 [place] # 0.30 x10EE3/UL Normal 0.20 - 1.00 [facility] Comment on above: Performed By: #### 2 10361 #### [facility],[address] [place] [address] 46921 MONOS % 7.0 % Normal 0.0 - 10.0 [facility] Comment on above: Performed By: #### 2 74318 #### [facility],[address] [place] [address] 24016 Morphology Sunny (Bld) [Interp] N/A Normal [facility] Comment on above: Performed By: #### 2 68591 #### [facility],[address] [place] [address] 86627 Neut # 3.16 x10EE3/UL Normal 1.50 - 7.10 [facility] Comment on above: Performed By: #### 2 00133 #### [facility],[address] [place] [address] Neutrophils/100 WBC (Bld) 73.4 % Normal 46.0 - 76.0 [facility] Comment on above: Performed By: #### 2 77067 #### [facility],[address] [place] [address] PLATELET 119 x10EE3/UL Low 150 - 450 [facility] Comment on above: Performed By: #### 2 96209 #### [facility],[address] [place] [address] Platelet mean volume (Bld) [Entitic vol] 8.4 fL Normal 6.4 - 10.5 [facility] Comment on above: Result Comment: AUTO MATED DIFFERENTIAL Performed By: #### 2 83542 #### [facility],[address] [place] [address] 89784 RBC 3.56 x 10EE6/UL Low 4.50 - 6.00 [facility] Comment on above: Performed By: #### 2 31081 #### [facility],[address] [place], [place] [id number] WBC 4.3 x 10EE3/UL Low 4.5 - 10.8 [facility] Comment on above: Performed By: #### 2 10437 #### [facility],[address] [place], [place] [id number] NT-proBNPon 10-13-2024 Natriuretic peptide B (Bld) [Mass/Vol] 1231 pg/mL High 0 - 125 [facility] Comment on above: Performed By: #### 2 23870 #### [facility],[address] [place] [address] CBC + DIFFon 09-07-2024 Baso # 0.02 x10EE3/UL Normal 0.00 - 0.10 [facility] Comment on above: Performed By: #### 2 77494 #### [facility],[address] [place], [place] [id number] Basophils/100 WBC (Bld) 0.4 % Normal 0.0 - 2.0 [facility] Comment on above: Performed By: #### 2 16126 #### [facility],[address] [place] [address] CBC + DIFF Normal [facility] Comment on above: Result Comment: CBC- COMPLETE BLOOD COUNT Performed By: #### 2 14461 #### [facility],[address] [place] [address] EO # 0.05 x10EE3/UL Normal 0.00 - 0.50 [facility] Comment on above: Performed By: #### 2 75124 #### [facility],[address] [place], [place] [id number] Eosinophils/100 WBC (Bld) 1.0 % Normal 0.0 - 7.0 [facility] Comment on above: Performed By: #### 2 22053 #### [facility],[address] [place] [address] Erythrocyte distribution width (RBC) [Ratio] 13.8 % Normal 12.0 - 15.6 [facility] Comment on above: Performed By: #### 2 09593 #### [facility],[address] [place] [address] Hematocrit (Bld) [Volume fraction] 36.9 % Low 40.0 - 52.0 [facility] Comment on above: Performed By: #### 2 91085 #### [facility],[address] [place] [address] Hemoglobin (Bld) [Mass/Vol] 12.8 g/dL Low 13.0 - 17.5 [facility] Comment on above: Performed By: #### 2 46239 #### [facility],[address] [place] [address] Lymph # 0.91 x10EE3/UL Normal 0.80 - 2.80 [facility] Comment on above: Performed By: #### 2 12764 #### [facility],[address] [place] [address] Lymphocytes/100 WBC (Bld) 20.3 % Normal 20.0 - 45.0 [facility] Comment on above: Performed By: #### 2 63815 #### [facility],[address] [place] [address] MANUAL DIFF N/A Normal [facility] Comment on above: Performed By: #### 2 70633 #### [facility],[address] [place], [place] [phone] MCH (RBC) [Entitic mass] 35 pg High 27 - 33 [facility] Comment on above: Performed By: #### 2 77624 #### [facility],[address] [place] [address] 12422 MCHC 35 X10 3 Normal 32 - 36 [facility] Comment on above: Performed By: #### 2 21959 #### [facility],[address] [place] [address] 98959 MCV (RBC) [Entitic vol] 102 fL High 81 - 98 [facility] Comment on above: Performed By: #### 2 66636 #### [facility],[address] [place] [address] 46165 [place] # 0.36 x10EE3/UL Normal 0.20 - 1.00 [facility] Comment on above: Performed By: #### 2 71664 #### [facility],[address] [place] [address] 77620 MONOS % 8.0 % Normal 0.0 - 10.0 [facility] Comment on above: Performed By: #### 2 13139 #### [facility],[address] [place] [address] 68313 Morphology Sunny (Bld) [Interp] N/A Normal [facility] Comment on above: Performed By: #### 2 74841 #### [facility],[address] [place] [address] 23235 Neut # 3.15 x10EE3/UL Normal 1.50 - 7.10 [facility] Comment on above: Performed By: #### 2 52117 #### [facility],[address] [place] [address] 25376 Neutrophils/100 WBC (Bld) 70.4 % Normal 46.0 - 76.0 [facility] Comment on above: Performed By: #### 2 89589 #### [facility],[address] [place] [address] 71780 PLATELET 135 x10EE3/UL Low 150 - 450 [facility] Comment on above: Performed By: #### 2 75432 #### [facility],[address] [place] [address] 84083 Platelet mean volume (Bld) [Entitic vol] 8.9 fL Normal 6.4 - 10.5 [facility] Comment on above: Result Comment: AUTO MATED DIFFERENTIAL Performed By: #### 2 41756 #### [facility],[address] [place] [address] 42684 RBC 3.63 x 10EE6/UL Low 4.50 - 6.00 [facility] Comment on above: Performed By: #### 2 73014 #### [facility],[address] [place] [address] 89790 WBC 4.5 x 10EE3/UL Normal 4.5 - 10.8 [facility] Comment on above: Performed By: #### 2 32329 #### [facility],[address] [place] [address] 30325 CMP with eGFRon 09-07-2024 AGE 74 years Normal [facility] Comment on above: Performed By: #### 2 01263 #### [facility],[address] [place] [address] 21494 Albumin [Mass/Vol] 3.7 g/dL Normal 3.4 - 5.0 [facility] Comment on above: Performed By: #### 2 23810 #### [facility],[address] [place] [address] 22489 Albumin/Globulin [Mass ratio] 1.1 {ratio} Normal 0.9 - 1.6 [facility] Comment on above: Performed By: #### 2 02252 #### [facility],[address] [place] [address] 72179 ALK PHOS 49 U/L Normal 46 - 116 [facility] Comment on above: Performed By: #### 2 20313 #### [facility],[address] [place] [address] 44738 ALT [Catalytic activity/Vol] 26 U/L Normal 16 - 63 [facility] Comment on above: Performed By: #### 2 00001 #### [facility],[address] [place] [address] 14950 Anion gap [Moles/Vol] 10 mmol/L Normal 10 - 20 [facility] Comment on above: Performed By: #### 2 23770 #### [facility],[address] [place] [address] 58975 AST [Catalytic activity/Vol] 24 U/L Normal 15 - 37 [facility] Comment on above: Performed By: #### 2 93132 #### [facility],[address] [place] [address] 62963 B/C RATIO 18 ratio Normal 0 - 30 [facility] Comment on above: Performed By: #### 2 95619 #### [facility],[address] [place] [address] 86144 Bilirubin [Mass/Vol] 0.9 mg/dL Normal 0.2 - 1.0 [facility] Comment on above: Performed By: #### 2 17754 #### [facility],[address] [place] [address] 94280 Calcium [Mass/Vol] 8.8 mg/dL Normal 8.5 - 10.1 [facility] Comment on above: Performed By: #### 2 96989 #### [facility],[address] [place] [address] 69609 Chloride [Moles/Vol] 104 mmol/L Normal 98 - 107 [facility] Comment on above: Performed By: #### 2 66092 #### [facility],[address] [place] [address] 81640 CMP with eGFR Normal [facility] Comment on above: Result Comment: COMP REHENSIVE METABOLIC PANEL Performed By: #### 2 72673 #### [facility],[address] [place] [address] 15376 CO2 [Moles/Vol] 28.2 mmol/L Normal 21.0 - 32.0 [facility] Comment on above: Performed By: #### 2 34553 #### [facility],[address] [place] [address] 90559 Creatinine [Mass/Vol] 1.19 mg/dL Normal 0.70 - 1.30 [facility] Comment on above: Performed By: #### 2 15682 #### [facility],[address] [place] [address] 85486 eGFR 60 ML/MINUTE Normal 60 - 999 [facility] Comment on above: Performed By: #### 2 19066 #### [facility],[address] [place] [address] 01770 GFR/1.73 sq M.predicted among non-blacks MDRD (S/P/Bld) [Vol rate/Area] mL/min/{1.73_m2} Normal 60 - 999 [facility] Comment on above: Result Comment: ACCO RDING TO THE NATIONAL KIDNEY DISEASE EDUCATION PROGRAM(NKDE), A NORMAL eGFR IS A VALUE GREATER THAN OR EQUAL TO 60 ML/MIN/1.73 SQ METERS. CHRONIC KIDNEY DISEASE: <60mL/MIN/1.73 SQ METERS KIDNEY FAILURE: <15mL/MIN/1.73 SQ METERS THIS TEST SHOULD ONLY BE USED FOR PATIENTS 18 YEARS OF AGE AND OLDER. Performed By: #### 2 55304 #### [facility],[address] [place] [address] 39692 Globulin (S) [Mass/Vol] 3.4 g/dL Normal 1.5 - 3.8 [facility] Comment on above: Performed By: #### 2 14525 #### [address] [address] Glucose [Mass/Vol] 88 mg/dL Normal 74 - 106 [facility] Comment on above: Performed By: #### 2 71238 #### [facility],[address] [place] [address] 84412 Potassium [Moles/Vol] 4.4 mmol/L Normal 3.5 - 5.1 [facility] Comment on above: Performed By: #### 2 29704 #### [facility],[address] [place] [address] 36452 Protein [Mass/Vol] 7.1 g/dL Normal 6.4 - 8.2 [facility] Comment on above: Performed By: #### 2 97890 #### [facility],[address] [place] [address] 98882 Sodium [Moles/Vol] 138 mmol/L Normal 136 - 145 [facility] Comment on above: Performed By: #### 2 03982 #### [facility],[address] [place] [address] 12041 Urea nitrogen [Mass/Vol] 22 mg/dL High 7 - 18 [facility] Comment on above: Performed By: #### 2 76709 #### [facility],[address] [place] [address] 86968 BMP with eGFRon 08-10-2024 AGE 74 years Normal [facility] Comment on above: Performed By: #### 2 46857 #### [facility],[address] [place] [address] 57171 Anion gap [Moles/Vol] 10 mmol/L Normal 10 - 20 [facility] Comment on above: Performed By: #### 2 99413 #### [facility],[address] [place] [address] 86475 BMP with eGFR Normal [facility] Comment on above: Result Comment: BASI C METABOLIC PANEL Performed By: #### 2 79889 #### [facility],[address] [place] [address] 67796 Calcium [Mass/Vol] 9.5 mg/dL Normal 8.5 - 10.1 [facility] Comment on above: Performed By: #### 2 54898 #### [facility],[address] [place] [address] 27119 Chloride [Moles/Vol] 102 mmol/L Normal 98 - 107 [facility] Comment on above: Performed By: #### 2 78634 #### [facility],[address] [place] [address] 65485 CO2 [Moles/Vol] 30.7 mmol/L Normal 21.0 - 32.0 [facility] Comment on above: Performed By: #### 2 87680 #### [facility],[address] [place] [address] 93166 Creatinine [Mass/Vol] 1.06 mg/dL Normal 0.70 - 1.30 [facility] Comment on above: Performed By: #### 2 16304 #### [facility],[address] [place] [address] 21348 GFR/1.73 sq M.predicted among non-blacks MDRD (S/P/Bld) [Vol rate/Area] mL/min/{1.73_m2} Normal 60 - 999 [facility] Comment on above: Performed By: #### 2 29177 #### [facility],[address] [place] [address] Result Comment: ACCO RDING TO THE NATIONAL KIDNEY DISEASE EDUCATION PROGRAM(NKDE), A NORMAL eGFR IS A VALUE GREATER THAN OR EQUAL TO 60 ML/MIN/1.73 SQ METERS. CHRONIC KIDNEY DISEASE: <60mL/MIN/1.73 SQ METERS KIDNEY FAILURE: <15mL/MIN/1.73 SQ METERS THIS TEST SHOULD ONLY BE USED FOR PATIENTS 18 YEARS OF AGE AND OLDER. Glucose [Mass/Vol] 72 mg/dL Low 74 - 106 [facility] Comment on above: Performed By: #### 2 34462 #### [place] [address] Potassium [Moles/Vol] 4.6 mmol/L Normal 3.5 - 5.1 [facility] Comment on above: Performed By: #### 2 45202 #### [place] [id number] Sodium [Moles/Vol] 138 mmol/L Normal 136 - 145 [facility] Comment on above: Performed By: #### 2 38183 #### [place] [id number] Urea nitrogen [Mass/Vol] 19 mg/dL High 7 - 18 [facility] Comment on above: Performed By: #### 2 08806 #### [address] [address] CBC + DIFFon 08-10-2024 Baso # 0.02 x10EE3/UL Normal 0.00 - 0.10 [facility] Comment on above: Performed By: #### 2 07952 #### [place] [id number] Basophils/100 WBC (Bld) 0.4 % Normal 0.0 - 2.0 [facility] Comment on above: Performed By: #### 2 82228 #### [facility],[address] [place] [address] CBC + DIFF Normal [facility] Comment on above: Result Comment: CBC- COMPLETE BLOOD COUNT Performed By: #### 2 98472 #### [facility],[address] [place] [address] EO # 0.04 x10EE3/UL Normal 0.00 - 0.50 [facility] Comment on above: Performed By: #### 2 18461 #### [facility],[address] [place] [address] Eosinophils/100 WBC (Bld) 0.7 % Normal 0.0 - 7.0 [facility] Comment on above: Performed By: #### 2 75191 #### [facility],[address] [place] [address] Erythrocyte distribution width (RBC) [Ratio] 13.3 % Normal 12.0 - 15.6 [facility] Comment on above: Performed By: #### 2 19614 #### [facility],[address] [place] [address] Hematocrit (Bld) [Volume fraction] 40.8 % Normal 40.0 - 52.0 [facility] Comment on above: Performed By: #### 2 52802 #### [facility],[address] [place] [address] Hemoglobin (Bld) [Mass/Vol] 14.0 g/dL Normal 13.0 - 17.5 [facility] Comment on above: Performed By: #### 2 33213 #### [facility],[address] [place] [address] Lymph # 0.98 x10EE3/UL Normal 0.80 - 2.80 [facility] Comment on above: Performed By: #### 2 07401 #### [facility],[address] [place] [address] 62986 Lymphocytes/100 WBC (Bld) 18.0 % Low 20.0 - 45.0 [facility] Comment on above: Performed By: #### 2 23982 #### [facility],[address] [place] [address] MANUAL DIFF N/A Normal [facility] Comment on above: Performed By: #### 2 71449 #### [facility],[address] [place] [address] MCH (RBC) [Entitic mass] 35 pg High 27 - 33 [facility] Comment on above: Performed By: #### 2 41532 #### [facility],[address] [place] [address] MCHC 34 X10 3 Normal 32 - 36 [facility] Comment on above: Performed By: #### 2 82923 #### [facility],[address] [place], [place] [id number] MCV (RBC) [Entitic vol] 103 fL High 81 - 98 [facility] Comment on above: Performed By: #### 2 41160 #### [facility],[address] [place] [address] [place] # 0.54 x10EE3/UL Normal 0.20 - 1.00 [facility] Comment on above: Performed By: #### 2 32956 #### [facility],[address] [place], [place] [id number] MONOS % 9.9 % Normal 0.0 - 10.0 [facility] Comment on above: Performed By: #### 2 94776 #### [facility],[address] [place] [address] 06817 Morphology Sunny (Bld) [Interp] N/A Normal [facility] Comment on above: Performed By: #### 2 24059 #### [facility],[address] [place] [address] 55968 Neut # 3.87 x10EE3/UL Normal 1.50 - 7.10 [facility] Comment on above: Performed By: #### 2 51695 #### [facility],[address] [place] [address] 46664 Neutrophils/100 WBC (Bld) 71.0 % Normal 46.0 - 76.0 [facility] Comment on above: Performed By: #### 2 34603 #### [facility],[address] [place] [address] 09267 PLATELET 136 x10EE3/UL Low 150 - 450 [facility] Comment on above: Performed By: #### 2 86609 #### [facility],[address] [place] [address] 03673 Platelet mean volume (Bld) [Entitic vol] 8.7 fL Normal 6.4 - 10.5 [facility] Comment on above: Result Comment: AUTO MATED DIFFERENTIAL Performed By: #### 2 04898 #### [facility],[address] [place] [address] 66913 RBC 3.98 x 10EE6/UL Low 4.50 - 6.00 [facility] Comment on above: Performed By: #### 2 94343 #### [facility],[address] [place] [address] 29750 WBC 5.5 x 10EE3/UL Normal 4.5 - 10.8 [facility] Comment on above: Performed By: #### 2 95514 #### [facility],[address] [place] [address] 00366 NT-proBNPon 08-10-2024 Natriuretic peptide B (Bld) [Mass/Vol] 715 pg/mL High 0 - 125 [facility] Comment on above: Performed By: #### 2 77003 #### [facility],[address] [place] [address] 73805 Quantiferon TB-Gold+on 07-21 QFT MITOGEN FLAVIA > 10.00 Normal . [facility] Comment on above: Performed By: #### L 100.0100, L504.2610, L501.6710, L500.4050, L101.9900, L3400.8000 #### [facility] [address] [place], [address] QFT NIL VALUE 0.06 IU/mL Normal . [facility] Comment on above: Performed By: #### L 100.0100, L504.2610, L501.6710, L500.4050, L101.9900, L3400.8000 #### [facility] [address] [place], [address] QFT TB GOLD+ Comment Normal . [facility] Comment on above: Result Comment: Javier tiFERON-TB Gold Plus is a qualitative indirect test for M tuberculosis infection (including disease) and is intended for use in conjunction with risk assessment, radiography, and other medical and diagnostic evaluations. The QuantiFERON-TB Gold Plus result is determined by subtracting the Nil value from either TB antigen (Ag) value. The Mitogen tube serves as a control for the test. Performed By: #### L 100.0100, L504.2610, L501.6710, L500.4050, L101.9900, L3400.8000 #### [facility] [address] [place], [address] QFT TB POS CRIT Negative Normal Negative [facility] Comment on above: Result Comment: No r esponse to M tuberculosis antigens detected. Infection with M tuberculosis is unlikely, but high risk individuals should be considered for additional testing (ATS/IDSA/CDC Clinical Practice Guidelines, 2017). The reference range is an Antigen minus Nil result of <0.35 IU/mL. The specimen received for QuantiFERON testing was incubated by the ordering institution. Specific procedures outlined in our Directory of Services and in the package insert for the QuantiFERON Gold (In Tube) test must be followed to enable for proper stimulation of cells for the production of interferon gamma. Chemiluminescence immunoassay methodology Performed at: [facility] [employer], [place] [id number] [employer] Paralegal: Mendoza Montgomery PhD, Phone: [phone] Performed By: #### L 100.0100, L504.2610, L501.6710, L500.4050, L101.9900, L3400.8000 #### [facility] [address] [place], [place], [address] QFT TB1+ AG FLAVIA 0.06 IU/mL Normal . [facility] Comment on above: Performed By: #### L 100.0100, L504.2610, L501.6710, L500.4050, L101.9900, L3400.8000 #### [facility] [address] [place], [place], [address] QFT TB2+ AG FLAVIA 0.06 IU/mL Normal . [facility] Comment on above: Performed By: #### L 100.0100, L504.2610, L501.6710, L500.4050, L101.9900, L3400.8000 #### [facility] [address] [place], [place], [address] Absolute neutrophil countOrd ered By: Brenden Ragland on 07-19-2024 Neutrophils (Bld) [#/Vol] 3.0 10*3/uL 2.0-7.7 [facility] Anion gap in Serum or Plasma Ordered By: Brenden Ragland on 07-19-2024 Anion gap [Moles/Vol] 8 mmol/L 5-15 [facility] BUN/creatinine ratioOrdered By: Brenden Ragland on 07-19-2024 Urea nitrogen/Creatinine [Mass ratio] 19.6 mg/mg 10-20 [facility] Basophil percentageOrdered B y: Brenden Ragland on 07-19-2024 Basophils/100 WBC (Bld) 0.4 % 0-1 [facility] Bilirubin, totalOrdered By: Brenden Ragland on 07-19-2024 Bilirubin [Mass/Vol] 0.68 mg/dL 0.00-1.30 [facility] CBC W/Diff, Automatedon 04-2 -2024 Absolute Lymph 1.29 X10 3/uL Normal 0.83-4.51 [facility] Comment on above: Performed By: #### L 100.0100, L504.2610, L501.6710, L500.4050, L101.9900, L3400.8000 #### [facility] [address] [place], [address] Absolute Neut 3.0 X10 3/uL Normal 2.0-7.7 [facility] Comment on above: Performed By: #### L 100.0100, L504.2610, L501.6710, L500.4050, L101.9900, L3400.8000 #### [facility] [address] [place], [address] Basophils/100 WBC (Bld) 0.4 % Normal 0-1 [facility] Comment on above: Performed By: #### L 100.0100, L504.2610, L501.6710, L500.4050, L101.9900, L3400.8000 #### [facility] [address] [place], [address] Eosinophils/100 WBC (Bld) 0.8 % Normal 0-5 [facility] Comment on above: Performed By: #### L 100.0100, L504.2610, L501.6710, L500.4050, L101.9900, L3400.8000 #### [facility] [address] [place], [address] Erythrocyte distribution width (RBC) [Ratio] 12.8 % Normal 11.6-14.6 [facility] Comment on above: Performed By: #### L 100.0100, L504.2610, L501.6710, L500.4050, L101.9900, L3400.8000 #### [facility] [address] [place], [address] Hematocrit (Bld) [Volume fraction] 39.3 % Low 40-54 [facility] Comment on above: Performed By: #### L 100.0100, L504.2610, L501.6710, L500.4050, L101.9900, L3400.8000 #### [facility] [address] [place], [address] Hemoglobin (Bld) [Mass/Vol] 13.4 g/dL Normal 13.0-16.5 [facility] Comment on above: Performed By: #### L 100.0100, L504.2610, L501.6710, L500.4050, L101.9900, L3400.8000 #### [facility] [address] [place], [address] IG% 0.200 Normal 0.0-0.9 [facility] Comment on above: Result Comment: IG% - Immature Granulocytes (promyelocytes, myelocytes and metamyelocytes) > 1% indicates that a LEFT SHIFT is Present. Performed By: #### L 100.0100, L504.2610, L501.6710, L500.4050, L101.9900, L3400.8000 #### [facility] [address] [place], [address] Lymphocytes/100 WBC (Bld) 26.4 % Normal 19-41 [facility] Comment on above: Performed By: #### L 100.0100, L504.2610, L501.6710, L500.4050, L101.9900, L3400.8000 #### [facility] [address] [place], [address] MCH (RBC) [Entitic mass] 34.9 pg High 27.0-32.0 [facility] Comment on above: Performed By: #### L 100.0100, L504.2610, L501.6710, L500.4050, L101.9900, L3400.8000 #### [facility] [address] [place], [address] MCHC (RBC) [Mass/Vol] 34.1 g/dL Normal 32-36 [facility] Comment on above: Performed By: #### L 100.0100, L504.2610, L501.6710, L500.4050, L101.9900, L3400.8000 #### [facility] [address] [place], [address] MCV (RBC) [Entitic vol] 102.3 fL High 80-94 [facility] Comment on above: Performed By: #### L 100.0100, L504.2610, L501.6710, L500.4050, L101.9900, L3400.8000 #### [facility] [address] [place], [address] Monocytes/100 WBC (Bld) 10.0 % Normal 0-10 [facility] Comment on above: Performed By: #### L 100.0100, L504.2610, L501.6710, L500.4050, L101.9900, L3400.8000 #### [facility] [address] [place], [address] Neutrophils/100 WBC (Bld) 62.2 % Normal 47-70 [facility] Comment on above: Performed By: #### L 100.0100, L504.2610, L501.6710, L500.4050, L101.9900, L3400.8000 #### [facility] [address] [place], [address] Nucleated RBC (Bld) [#/Vol] 0 10*3/uL Normal 0-5 [facility] Comment on above: Performed By: #### L 100.0100, L504.2610, L501.6710, L500.4050, L101.9900, L3400.8000 #### [facility] [address] [place], [address] Platelet mean volume (Bld) [Entitic vol] 10.8 fL Normal 6.2-12.0 [facility] Comment on above: Performed By: #### L 100.0100, L504.2610, L501.6710, L500.4050, L101.9900, L3400.8000 #### [facility] [address] [place], [address] Platelets (Bld) [#/Vol] 125 10*3/uL Low 150-450 [facility] Comment on above: Performed By: #### L 100.0100, L504.2610, L501.6710, L500.4050, L101.9900, L3400.8000 #### [facility] [address] [place], [address] RBC (Bld) [#/Vol] 3.84 10*6/uL Low 4.6-6.2 [facility] Comment on above: Performed By: #### L 100.0100, L504.2610, L501.6710, L500.4050, L101.9900, L3400.8000 #### [facility] [address] [place], [address] RDW SD 47.3 fl High 35.1-43.9 [facility] Comment on above: Performed By: #### L 100.0100, L504.2610, L501.6710, L500.4050, L101.9900, L3400.8000 #### [facility] [address] [place], [address] WBC (Bld) [#/Vol] 4.9 10*3/uL Normal 4.4-11.0 [facility] Comment on above: Performed By: #### L 100.0100, L504.2610, L501.6710, L500.4050, L101.9900, L3400.8000 #### [facility] [address] [place], [address] CRPon 07-19-2024 C-REACTIVE PROT < 3.00 Normal 0.0-3.0 [facility] Comment on above: Performed By: #### L 100.0100, L504.2610, L501.6710, L500.4050, L101.9900, L3400.8000 #### [facility] [address] [place], [address] CRP [Mass/Vol]Ordered By: Ra tiana Ragland on 07-19-2024 C-Reactive Protein Extended Range < 3.00 mg/L 0.0-3.0 [facility] Carbon dioxide, total [Moles /volume] in Central venous bloodOrdered By: Brenden Ragland on 07-19-2024 CO2 [Moles/Vol] 27.5 mmol/L 21.0-32.0 [facility] Chloride assayOrdered By: Ra tiana Ragland on 07-19-2024 Chloride [Moles/Vol] 102 mmol/L 98-108 [facility] Comprehensive Metabolic Prof ilon 07-19-2024 Albumin [Mass/Vol] 4.3 g/dL Normal 3.4-4.8 [facility] Comment on above: Performed By: #### L 100.0100, L504.2610, L501.6710, L500.4050, L101.9900, L3400.8000 #### [facility] [address] [place], [address] Albumin/Globulin [Mass ratio] 1.5 {ratio} Normal 0.9-2.4 [facility] Comment on above: Performed By: #### L 100.0100, L504.2610, L501.6710, L500.4050, L101.9900, L3400.8000 #### [facility] [address] [place], [address] ALK PHOS 52 U/L Normal 40-129 [facility] Comment on above: Performed By: #### L 100.0100, L504.2610, L501.6710, L500.4050, L101.9900, L3400.8000 #### [facility] [address] [place], [address] ALT [Catalytic activity/Vol] 19 U/L Normal <=46 [facility] Comment on above: Performed By: #### L 100.0100, L504.2610, L501.6710, L500.4050, L101.9900, L3400.8000 #### [facility] [address] [place], [address] AST [Catalytic activity/Vol] 31 U/L Normal <=37 [facility] Comment on above: Performed By: #### L 100.0100, L504.2610, L501.6710, L500.4050, L101.9900, L3400.8000 #### [facility] [address] [place], [address] Bilirubin [Mass/Vol] 0.68 mg/dL Normal 0.00-1.30 [facility] Comment on above: Performed By: #### L 100.0100, L504.2610, L501.6710, L500.4050, L101.9900, L3400.8000 #### [facility] [address] [place], [address] BUN/CRE 19.6 RATIO Normal 10-20 [facility] Comment on above: Performed By: #### L 100.0100, L504.2610, L501.6710, L500.4050, L101.9900, L3400.8000 #### [facility] [address] [place], [address] Calcium [Mass/Vol] 9.5 mg/dL Normal 7.6-11.0 [facility] Comment on above: Performed By: #### L 100.0100, L504.2610, L501.6710, L500.4050, L101.9900, L3400.8000 #### [facility] [address] [place], [address] Chloride [Moles/Vol] 102 mmol/L Normal 98-108 [facility] Comment on above: Performed By: #### L 100.0100, L504.2610, L501.6710, L500.4050, L101.9900, L3400.8000 #### [facility] [address] [place], [address] CO2 [Moles/Vol] 27.5 mmol/L Normal 21.0-32.0 [facility] Comment on above: Performed By: #### L 100.0100, L504.2610, L501.6710, L500.4050, L101.9900, L3400.8000 #### [facility] [address] [place], [address] Creatinine [Mass/Vol] 1.15 mg/dL Normal 0.70-1.20 [facility] Comment on above: Performed By: #### L 100.0100, L504.2610, L501.6710, L500.4050, L101.9900, L3400.8000 #### [facility] [address] [place], [address] GAP 8 Normal 5-15 [facility] Comment on above: Performed By: #### L 100.0100, L504.2610, L501.6710, L500.4050, L101.9900, L3400.8000 #### [facility] [address] [place], [address] GFR/1.73 sq M.predicted among non-blacks MDRD (S/P/Bld) [Vol rate/Area] 68 mL/min/{1.73_m2} Normal >60 [facility] Comment on above: Result Comment: mL/m in/1.73m2 CKD-EPI Creatinine Equation (2020) Performed By: #### L 100.0100, L504.2610, L501.6710, L500.4050, L101.9900, L3400.8000 #### [facility] [address] [place], [address] Globulin (S) [Mass/Vol] 2.9 g/dL Normal 2.2-4.2 [facility] Comment on above: Performed By: #### L 100.0100, L504.2610, L501.6710, L500.4050, L101.9900, L3400.8000 #### [facility] [address] [place], [address] Glucose [Mass/Vol] 99 mg/dL Normal 70-99 [facility] Comment on above: Performed By: #### L 100.0100, L504.2610, L501.6710, L500.4050, L101.9900, L3400.8000 #### [facility] [address] [place], [address] Potassium [Moles/Vol] 4.6 mmol/L Normal 3.3-5.1 [facility] Comment on above: Performed By: #### L 100.0100, L504.2610, L501.6710, L500.4050, L101.9900, L3400.8000 #### [facility] [address] [place], [address] Sodium [Moles/Vol] 138 mmol/L Normal 133-145 [facility] Comment on above: Performed By: #### L 100.0100, L504.2610, L501.6710, L500.4050, L101.9900, L3400.8000 #### [facility] [address] [place], [address] T PROT 7.2 g/dL Normal 5.9-8.4 [facility] Comment on above: Performed By: #### L 100.0100, L504.2610, L501.6710, L500.4050, L101.9900, L3400.8000 #### [facility] [address] [place], [place], [address] Urea nitrogen [Mass/Vol] 23 mg/dL High 4-19 [facility] Comment on above: Performed By: #### L 100.0100, L504.2610, L501.6710, L500.4050, L101.9900, L3400.8000 #### [facility] [address] [place], [address] Eosinophil percentageOrdered By: Brenden Ragland on 07-19-2024 Eosinophils/100 WBC (Bld) 0.8 % 0-5 [facility] Erythrocyte Sed Rateon 07-19 SED RATE 4 mm/hr Normal 0-20 [facility] Comment on above: Performed By: #### L 100.0100, L504.2610, L501.6710, L500.4050, L101.9900, L3400.8000 #### [facility] [address] [place], [place], [address] Erythrocyte distribution wid th (RBC) [Ratio]Ordered By: Brenden Ragland on 07-19-2024 Erythrocyte distribution width (RBC) [Entitic vol] 47.3 fL High 35.1-43.9 [facility] Erythrocyte distribution wid th ratioOrdered By: Brenden Ragland on 07-19-2024 Erythrocyte distribution width (RBC) [Ratio] 12.8 % 11.6-14.6 [facility] Erythrocyte sedimentation ra teOrdered By: Brenden Ragland on 07-19-2024 ESR (Bld) [Velocity] 4 mm/h 0-20 [facility] GFR/1.73 sq M.predicted robert g non-blacks MDRD (S/P/Bld) [Vol rate/Area]Ordered By: Brenden Ragland on 07-19-2024 Estimated GFR (MDRD) Non-Af Amer 68 >60 [facility] Comment on above: mL/min/1.73m2 CKD-EP I Creatinine Equation (2020) Gastroenterology Visit Repor ton 07-19-2024 Gastroenterology Visit Report [facility] [address] [place] [address] OFFICE VISIT Date of Service: 07/19/24 MR#: [id number] Acct: [id number] Name: TWAN ESTRELLA Rep #: [id number] : 1950 Provider: Brenden Ragland DO Age/Sex: 74/M [place] [facility] [place]: Signed Intake Vital Signs 06/18/22 15:16 Height 5 ft 5 in Intake Visit Reasons: 6 M FU Allergies No Known Allergies Allergy (Verified 01/12/24 13:58) Medications ???Medication ???Instructions ???Recorded ???Confirmed ???Type alendronate 10 mg tablet 10 mg PO DAILY 04/10/21 07/19/24 H istory apixaban 5 mg tablet (Eliquis) 5 mg PO BID 04/10/21 07/19/24 Hist ory atorvastatin 20 mg tablet 20 mg PO QPM 04/10/21 07/19/24 His tory bumetanide 0.5 mg tablet 1 mg PO QODAY 04/10/21 07/19/24 Hi story ergocalciferol (vitamin D2) 1,250 1,250 mcg PO QWEEK 04/10/2107/19 History mcg (50,000 unit) capsule nadolol 80 mg tablet 40 mg PO DAILY 04/10/21 07/19/24 H istory sertraline 50 mg tablet 50 mg PO DAILY 04/10/21 07/19/24 H istory sotalol 80 mg tablet 80 mg PO BID 04/10/21 07/19/24 His tory omeprazole 40 mg capsule,delayed 40 mg PO DAILY 08/29/21 07/19/24 H istory release sacubitril 24 mg-valsartan 26 mg 1 tab PO DAILY 08/29/21 07/19/24 H istory tablet (Entresto) spironolactone 25 mg tablet 25 mg PO QODAY 08/29/21 07/19/24 H istory azathioprine 50 mg tablet 50 mg PO BID #180 TABLETS 07/13/24 07/19/24 Rx Have you fallen in the past year?: No [facility] Medical History Positive sm/[employer]CH[employer]ICIAN antibody Wears glasses History of steroid therapy Ambulates with cane Arthritis Back pain Colitis Gastric reflux Non-smoker COPD (chronic obstructive pulmonary disease) Shortness of breath on exertion Hypertension Cardiology follow-up encounter History of CHF (congestive heart failure) History of atrial fibrillation History of echocardiogram Cardiomyopathy GERD (gastroesophageal reflux disease) Ulcerative colitis Surgical History Hx of colonoscopy History of cardiac catheterization History of implantable cardiac defibrillator (ICD) History of heart surgery Social History (Updated 01/12/24 @ 14:00 by Marylu Monzon) Smoking Status: Never smoker alcohol intake: never HPI HPI Details: TWAN ESTRELLA, is a 74 M who presents to the office today for follow up. *[facility] hospitalization 11.22.22-11.26.22 for management of abdominal pain and nausea finding gastric ulcer upon EGD and dehydration with chronic issues of HTN and dementia. Received iron transfusion during hospitalization. ? CT abd/pel no contrast 11.22.22 gastric antrum thickening with possible ulceration; air-fluid levels of small bowel present; small hiatal hernia; bilateral inguinal hernias; scoliosis. ? EGD 11.23.22 gastritis; one linear gastric ulcer, 4mm APC; single duodenal TA polyp. H.Pylori neg. [facility] hospitalization 11.28.22-9. with acute hypotension and CKDIII OV 424 patient reports feeling well since last visit. Pt continues taking Azathioprine and omeprazole. Pt states that he is having up to 4 loose stools in the mornings, but that that is normal for him. OV 10.14.24- Patient well since last visit. Continues Azathioprine and Omeprazole. Denies any active GI sx. BM are normal once a day. Is not having diarrhea. OV 4.21.25 pt reports that he is feeling well overall and denies GI symptoms of concern at this time. Pt continues with Azathioprine and Omeprazole. Exam Const General: cooperative and comfortable Nutritional Appearance: obese Orientation: alert, awake and oriented x3 Eyes Sclera: sclerae normal Resp Effort Inspection: normal respiratory effort GI Inspection: obesity Palpation: soft, no hepatosplenomegaly, no masses and nontender Skin General: no jaundice Assessment and Plan Assessment and Plan (1) Ulcerative colitis: Status: Chronic Qualifiers: Digestive disease complication type: without complication Ulcerative colitis location: ulcerative pancolitis Qualified Code(s): K51.00 - Ulcerative (chronic) pancolitis without complications Plan: Continue azathioprine 100 mg daily. Check cbc and lfts f/u 6 mos Repeat colonoscopy due in 02/2024. Patient is down with a sometimes productive chronic cough. I would like him to see if he knows of the etiology of his cough prior to him undergo colonoscopy. There is no history of chronic sinusitis and his said he has a previously that this possible underlying COPD. (2) Thrombocytopenia: Status: Chronic (3) Gastritis: Status: Acute (4) GERD (gastroesophageal reflux disease): Statu (more content not included)... Normal [facility] Hematocrit Auto (Bld) [Volum e fraction]Ordered By: Brenden Ragland on 07-19-2024 Hematocrit (Bld) [Volume fraction] 39.3 % Low 40-54 [facility] Hemoglobin measurementOrdere d By: Brenden Ragland on 07-19-2024 Hemoglobin (Bld) [Mass/Vol] 13.4 g/dL 13.0-16.5 [facility] Immature granulocytes/100 WB C Auto (Bld)Ordered By: Brenden Ragland on 07-19-2024 Immature granulocytes/100 WBC (Bld) 0.200 % 0.0-0.9 [facility] Comment on above: IG% - Immature Granu locytes (promyelocytes, myelocytes and metamyelocytes) > 1% indicates that a LEFT SHIFT is Present. LDHon 07-19-2024 LDH 234 U/L Normal 87-241 [facility] Comment on above: Order Comment: 1 Result Comment: Hemo lysis present, Results??could be affected. ?? Performed By: #### L 100.0100, L504.2610, L501.6710, L500.4050, L101.9900, L3400.8000 #### [facility] [address] [place], [address] Laboratory - Chemistry and C hemistry - challengeOrdered By: Brenden Ragland on 07-19-2024 AST [Catalytic activity/Vol] 31 U/L <38 [facility] Lactate dehydrogenase (LDH) measurementOrdered By: Brenden Ragland on 07-19-2024 LDH [Catalytic activity/Vol] 234 U/L 87-241 [facility] Comment on above: Hemolysis present, R esults could be affected. Lymphocytes Auto (Unsp spec) [#/Vol]Ordered By: Brenden Ragland on 07-19-2024 Lymphocytes (Bld) [#/Vol] 1.29 10*3/uL 0.83-4.51 [facility] Lymphocytes/100 WBC Auto (Un sp spec)Ordered By: Brenden Ragland on 07-19-2024 Lymphocytes/100 WBC (Bld) 26.4 % 19-41 [facility] M. tuberculosis tuberculin s kristin IFN-g Ql (Bld)Ordered By: Brenden Ragland on 07-19-2024 TB Test (QFT) Antigen 1 0.06 IU/mL . [facility] MCV (mean corpuscular volume ) determinationOrdered By: Brenden Ragland on 07-19-2024 MCV (RBC) [Entitic vol] 102.3 fL High 80-94 [facility] Mean corpuscular hemoglobin (MCH) determinationOrdered By: Brenden Ragland on 07-19-2024 MCH (RBC) [Entitic mass] 34.9 pg High 27.0-32.0 [facility] Mean corpuscular hemoglobin concentration (MCHC) determinationOrdered By: Brenden Ragland on 07-19-2024 MCHC (RBC) [Mass/Vol] 34.1 g/dL 32-36 [facility] Mean platelet volume determi nationOrdered By: Brendenkendra Ragland on 07-19-2024 Platelet mean volume (Bld) [Entitic vol] 10.8 fL 6.2-12.0 [facility] Monocyte percentageOrdered B y: Brenden Obie on 07-19-2024 Monocytes/100 WBC (Bld) 10.0 % 0-10 [facility] Neutrophil percentageOrdered By: Brendenkendra Ragland on 07-19-2024 Neutrophils/100 WBC (Bld) 62.2 % 47-70 [facility] Nucleated red blood cell per centageOrdered By: Brendenknedra Ragland on 07-19-2024 Nucleated RBC/100 WBC (Bld) [Ratio] 0 % 0-5 [facility] Platelet countOrdered By: Ra tiana Ragland on 07-19-2024 Platelets (Bld) [#/Vol] 125 10*3/uL Low 150-450 [facility] Potassium (Unsp spec) [Mass/ Vol]Ordered By: Brenden Ragland on 07-19-2024 Potassium [Moles/Vol] 4.6 mmol/L 3.3-5.1 [facility] Quantiferon-TB Gold Plus risa tOrdered By: Brendenkendra Ragland on 07-19-2024 TB Test (QFT) Comment . [facility] Comment on above: QuantiFERON-TB Gold Plus is a qualitative indirect test forM tuberculosis infection (including disease) and isintended for use in conjunction with risk assessment,radiography, and other medical and diagnostic evaluations.The QuantiFERON-TB Gold Plus result is determined bysubtracting the Nil value from either TB antigen (Ag)value. The Mitogen tube serves as a control for the test. TB Test (QFT) Antigen 2 0.06 IU/mL . [facility] TB Test (QFT) Mitogen > 10.00 IU/mL . [facility] TB Test (QFT) Nil 0.06 IU/mL . [facility] TB Test (QFT) Positive Criteria Negative Negative [facility] Comment on above: No response to M tub erculosis antigens detected.Infection with M tuberculosis is unlikely, but high riskindividuals should be considered for additional testing(ATS/IDSA/CDC Clinical Practice Guidelines, 2017). Thereference range is an Antigen minus Nil result of <0.35IU/mL.The specimen received for QuantiFERON testing was incubatedby the ordering institution. Specific procedures outlinedin our Directory of Services and in the package insert forthe QuantiFERON Gold (In Tube) test must be followed toenable for proper stimulation of cells for the productionof interferon gamma. Chemiluminescence immunoassaymethodologyPerformed at: [facility] [id number] Director: Mendoza Montgomery PhD, Phone: [phone] RBC Auto (Bld) [#/Vol]Ordere d By: Brenden Ragland on 07-19-2024 RBC (Bld) [#/Vol] 3.84 10*6/uL Low 4.6-6.2 [facility] Serum creatinine measurement (mass/volume)Ordered By: Brenden Ragland on 07-19-2024 Creatinine [Mass/Vol] 1.15 mg/dL 0.70-1.20 [facility] Serum globulin measurementOr dered By: Brenden Ragland on 07-19-2024 Globulin (S) [Mass/Vol] 2.9 g/dL 2.2-4.2 [facility] Serum glucose measurement (m ass/volume)Ordered By: Brenden Ragland on 07-19-2024 Glucose [Mass/Vol] 99 mg/dL 70-99 [facility] Serum or plasma alanine sinclair otransferase (ALT) measurementOrdered By: Brenden Ragland on 07-19-2024 ALT [Catalytic activity/Vol] 19 U/L <47 [facility] Serum or plasma albumin marci urement (mass/volume)Ordered By: Brenden Ragland on 07-19-2024 Albumin [Mass/Vol] 4.3 g/dL 3.4-4.8 [facility] Serum or plasma albumin/glob ulin mass ratioOrdered By: Brenden Ragland on 07-19-2024 Albumin/Globulin [Mass ratio] 1.5 {ratio} 0.9-2.4 [facility] Serum or plasma alkaline fani sphatase measurementOrdered By: Brenden Raglnad on 07-19-2024 ALP [Catalytic activity/Vol] 52 U/L 40-129 [facility] Serum or plasma calcium marci urement (mass/volume)Ordered By: Brenden Ragland on 07-19-2024 Calcium [Mass/Vol] 9.5 mg/dL 7.6-11.0 [facility] Serum or plasma urea nitroge n measurement (mass/volume)Ordered By: Brenden Ragland on 07-19-2024 Urea nitrogen [Mass/Vol] 23 mg/dL High 4-19 [facility] Sodium levelOrdered By: Giancarlo Beaver on 07-19-2024 Sodium [Moles/Vol] 138 mmol/L 133-145 [facility] Total proteinOrdered By: Sukumar Ragland on 07-19-2024 Protein [Mass/Vol] 7.2 g/dL 5.9-8.4 [facility] White blood cell (WBC) count Ordered By: Brenden Ragland on 07-19-2024 WBC (Bld) [#/Vol] 4.9 10*3/uL 4.4-11.0 [facility] BMP with eGFRon 07-09-2024 AGE 74 years Normal [facility] Comment on above: Performed By: #### 2 01078 #### [facility],[address] [place] [address] 21050 Anion gap [Moles/Vol] 8 mmol/L Low 10 - 20 [facility] Comment on above: Performed By: #### 2 35541 #### [facility],[address] [place] [address] 62447 BMP with eGFR Normal [facility] Comment on above: Result Comment: BASI C METABOLIC PANEL Performed By: #### 2 01393 #### [facility],[address] [place] [address] 22897 Calcium [Mass/Vol] 8.8 mg/dL Normal 8.5 - 10.1 [facility] Comment on above: Performed By: #### 2 18171 #### [facility],[address] [place] [address] 36048 Chloride [Moles/Vol] 104 mmol/L Normal 98 - 107 [facility] Comment on above: Performed By: #### 2 36754 #### [facility],[address] [place] [address] 90479 CO2 [Moles/Vol] 30.7 mmol/L Normal 21.0 - 32.0 [facility] Comment on above: Performed By: #### 2 52382 #### [facility],[address] [place] [address] 91743 Creatinine [Mass/Vol] 1.14 mg/dL Normal 0.70 - 1.30 [facility] Comment on above: Performed By: #### 2 37756 #### [facility],[address] [place] [address] 52477 GFR/1.73 sq M.predicted among non-blacks MDRD (S/P/Bld) [Vol rate/Area] mL/min/{1.73_m2} Normal 60 - 999 [facility] Comment on above: Performed By: #### 2 30963 #### [facility],[address] [place] [address] 65099 Result Comment: ACCO RDING TO THE NATIONAL KIDNEY DISEASE EDUCATION PROGRAM(NKDE), A NORMAL eGFR IS A VALUE GREATER THAN OR EQUAL TO 60 ML/MIN/1.73 SQ METERS. CHRONIC KIDNEY DISEASE: <60mL/MIN/1.73 SQ METERS KIDNEY FAILURE: <15mL/MIN/1.73 SQ METERS THIS TEST SHOULD ONLY BE USED FOR PATIENTS 18 YEARS OF AGE AND OLDER. Glucose [Mass/Vol] 94 mg/dL Normal 74 - 106 [facility] Comment on above: Performed By: #### 2 89849 #### [facility],[address] [place] [address] 85659 Potassium [Moles/Vol] 4.4 mmol/L Normal 3.5 - 5.1 [facility] Comment on above: Performed By: #### 2 54675 #### [facility],[address] [place] [address] 47450 Sodium [Moles/Vol] 138 mmol/L Normal 136 - 145 [facility] Comment on above: Performed By: #### 2 15526 #### [facility],[address] [place] [address] 56782 Urea nitrogen [Mass/Vol] 23 mg/dL High - 18 [facility] Comment on above: Performed By: #### 2 03554 #### [facility],[address] [place] [address] CBC + DIFFon 07-09-2024 Baso # 0.01 x10EE3/UL Normal 0.00 - 0.10 [facility] Comment on above: Performed By: #### 2 23904 #### [facility],[address] [place] [address] 90357 Basophils/100 WBC (Bld) 0.2 % Normal 0.0 - 2.0 [facility] Comment on above: Performed By: #### 2 85418 #### [facility],[address] [place] [address] CBC + DIFF Normal [facility] Comment on above: Result Comment: CBC- COMPLETE BLOOD COUNT Performed By: #### 2 03350 #### [facility],[address] [place] [address] EO # 0.04 x10EE3/UL Normal 0.00 - 0.50 [facility] Comment on above: Performed By: #### 2 18119 #### [facility],[address] [place] [address] 19563 Eosinophils/100 WBC (Bld) 0.7 % Normal 0.0 - 7.0 [facility] Comment on above: Performed By: #### 2 84592 #### [facility],[address] [place], [place] [id number] Erythrocyte distribution width (RBC) [Ratio] 13.1 % Normal 12.0 - 15.6 [facility] Comment on above: Performed By: #### 2 28293 #### [facility],[address],[place] [address] Hematocrit (Bld) [Volume fraction] 38.3 % Low 40.0 - 52.0 [facility] Comment on above: Performed By: #### 2 51895 #### [facility],[address] [place] [address] Hemoglobin (Bld) [Mass/Vol] 13.3 g/dL Normal 13.0 - 17.5 [facility] Comment on above: Performed By: #### 2 92233 #### [facility],[address] [place] [address] Lymph # 0.93 x10EE3/UL Normal 0.80 - 2.80 [facility] Comment on above: Performed By: #### 2 69477 #### [facility],[address] [place], [place] [id number] Lymphocytes/100 WBC (Bld) 15.8 % Low 20.0 - 45.0 [facility] Comment on above: Performed By: #### 2 07038 #### [facility],[address] [place], [place] [id number] MANUAL DIFF N/A Normal [facility] Comment on above: Performed By: #### 2 42139 #### [facility],[address] [place], [place] [id number] MCH (RBC) [Entitic mass] 35 pg High 27 - 33 [facility] Comment on above: Performed By: #### 2 36673 #### [facility],[address] [place], [place] [id number] MCHC 35 X10 3 Normal 32 - 36 [facility] Comment on above: Performed By: #### 2 90948 #### [facility],[address] [place] [address] 42131 MCV (RBC) [Entitic vol] 101 fL High 81 - 98 [facility] Comment on above: Performed By: #### 2 08470 #### [facility],[address],[place] [address] [place] # 0.51 x10EE3/UL Normal 0.20 - 1.00 [facility] Comment on above: Performed By: #### 2 99094 #### [address] [address] MONOS % 8.7 % Normal 0.0 - 10.0 [facility] Comment on above: Performed By: #### 2 46795 #### [facility],[address] [place] [address] Morphology Sunny (Bld) [Interp] N/A Normal [facility] Comment on above: Performed By: #### 2 45175 #### [place] [address] Neut # 4.38 x10EE3/UL Normal 1.50 - 7.10 [facility] Comment on above: Performed By: #### 2 55082 #### [place] [address] Neutrophils/100 WBC (Bld) 74.6 % Normal 46.0 - 76.0 [facility] Comment on above: Performed By: #### 2 50615 #### [place] [address] PLATELET 120 x10EE3/UL Low 150 - 450 [facility] Comment on above: Performed By: #### 2 49014 #### [place] [address] Platelet mean volume (Bld) [Entitic vol] 8.0 fL Normal 6.4 - 10.5 [facility] Comment on above: Result Comment: AUTO MATED DIFFERENTIAL Performed By: #### 2 29620 #### [place] [address] RBC 3.78 x 10EE6/UL Low 4.50 - 6.00 [facility] Comment on above: Performed By: #### 2 62020 #### [facility],[address] [place] [address] 07572 WBC 5.9 x 10EE3/UL Normal 4.5 - 10.8 [facility] Comment on above: Performed By: #### 2 25701 #### [facility],[address] [place] [address] 53236 NT-proBNPon 07-09-2024 Natriuretic peptide B (Bld) [Mass/Vol] 1259 pg/mL High 0 - 125 [facility] Comment on above: Performed By: #### 2 28513 #### [facility],[address] [place] [address] 59041 CMP with eGFRon 07-06-2024 AGE 74 years Normal [facility] Comment on above: Performed By: #### 2 14733 #### [facility],[address] [place] [address] 69952 Albumin [Mass/Vol] 3.9 g/dL Normal 3.4 - 5.0 [facility] Comment on above: Performed By: #### 2 10215 #### [facility],[address] [place] [address] 36639 Albumin/Globulin [Mass ratio] 1.2 {ratio} Normal 0.9 - 1.6 [facility] Comment on above: Performed By: #### 2 42052 #### [facility],[address] [place] [address] 40448 ALK PHOS 51 U/L Normal 46 - 116 [facility] Comment on above: Performed By: #### 2 44927 #### [facility],[address] [place] [address] 39541 ALT [Catalytic activity/Vol] 26 U/L Normal 16 - 63 [facility] Comment on above: Performed By: #### 2 49367 #### [facility],[address] [place] [address] 64249 Anion gap [Moles/Vol] 10 mmol/L Normal 10 - 20 [facility] Comment on above: Performed By: #### 2 93498 #### [facility],[address] [place] [address] 97013 AST [Catalytic activity/Vol] 27 U/L Normal 15 - 37 [facility] Comment on above: Performed By: #### 2 00750 #### [facility],[address] [place] [address] 65146 B/C RATIO 19 ratio Normal 0 - 30 [facility] Comment on above: Performed By: #### 2 93130 #### [facility],[address] [place] [address] 67885 Bilirubin [Mass/Vol] 0.9 mg/dL Normal 0.2 - 1.0 [facility] Comment on above: Performed By: #### 2 95148 #### [facility],[address] [place] [address] 35269 Calcium [Mass/Vol] 8.6 mg/dL Normal 8.5 - 10.1 [facility] Comment on above: Performed By: #### 2 42510 #### [facility],[address] [place] [address] 34525 Chloride [Moles/Vol] 105 mmol/L Normal 98 - 107 [facility] Comment on above: Performed By: #### 2 79140 #### [facility],[address] [place] [address] 52675 CMP with eGFR Normal [facility] Comment on above: Result Comment: COMP REHENSIVE METABOLIC PANEL Performed By: #### 2 69874 #### [facility],[address] [place] [address] 82371 CO2 [Moles/Vol] 32.4 mmol/L High 21.0 - 32.0 [facility] Comment on above: Performed By: #### 2 21156 #### [facility],[address] [place] [address] 65815 Creatinine [Mass/Vol] 1.19 mg/dL Normal 0.70 - 1.30 [facility] Comment on above: Performed By: #### 2 14595 #### [facility],[address] [place] [address] 70499 eGFR 60 ML/MINUTE Normal 60 - 999 [facility] Comment on above: Performed By: #### 2 67064 #### [facility],[address] [place] [address] 44988 GFR/1.73 sq M.predicted among non-blacks MDRD (S/P/Bld) [Vol rate/Area] mL/min/{1.73_m2} Normal 60 - 999 [facility] Comment on above: Result Comment: ACCO RDING TO THE NATIONAL KIDNEY DISEASE EDUCATION PROGRAM(NKDE), A NORMAL eGFR IS A VALUE GREATER THAN OR EQUAL TO 60 ML/MIN/1.73 SQ METERS. CHRONIC KIDNEY DISEASE: <60mL/MIN/1.73 SQ METERS KIDNEY FAILURE: <15mL/MIN/1.73 SQ METERS THIS TEST SHOULD ONLY BE USED FOR PATIENTS 18 YEARS OF AGE AND OLDER. Performed By: #### 2 51544 #### [facility],[address] [place] [address] 88218 Globulin (S) [Mass/Vol] 3.2 g/dL Normal 1.5 - 3.8 [facility] Comment on above: Performed By: #### 2 04202 #### [facility],[address] [place] [address] 63998 Glucose [Mass/Vol] 86 mg/dL Normal 74 - 106 [facility] Comment on above: Performed By: #### 2 13733 #### [facility],[address] [place] [address] 34012 Potassium [Moles/Vol] 4.1 mmol/L Normal 3.5 - 5.1 [facility] Comment on above: Performed By: #### 2 98791 #### [facility],[address] [place] [address] 46664 Protein [Mass/Vol] 7.1 g/dL Normal 6.4 - 8.2 [facility] Comment on above: Performed By: #### 2 29069 #### [facility],[address] [place] [address] 22883 Sodium [Moles/Vol] 143 mmol/L Normal 136 - 145 [facility] Comment on above: Performed By: #### 2 90371 #### [facility],[address] [place] [address] 09724 Urea nitrogen [Mass/Vol] 23 mg/dL High 7 - 18 [facility] Comment on above: Performed By: #### 2 84159 #### [facility],[address] [place] [address] 47593 BONE DENSITY STUDYon 025 Bone density scan [place] [id number] Patient: TWAN ESTRELLAViki Phone#: : 1950 Age: 74 Gender: M Pt. Type: Out Account: [id number] Location: [facility] Ordering: SUSAN VILLAR Exam Date: 05/27/2024/13:38 Family Phys: Charge Code: [id number] Physician: Swain Order #: [id number] Dose#: PROCEDURE: BONE DENSITY STUDY TECHNIQUE: Lumbar vertebral and proximal femoral dual-energy X-ray absorptiometry (DXA) was performed on a central [employer] device. COMPARISON: [facility], BONE DENSITY STUDY, 05/28/2022, 11:29. SPINE ANALYSIS RESULTS: Average lumbar bone mineral density (BMD) (g/cm2): 1.147 Lumbar T-score (standard deviation relative to young adult mean BMD): -0.1 Lumbar Z-score (standard deviation relative to age matched control group): -0.6 Change since prior spine examination: Increased bone density consistent with therapeutic response. SPINE CLASSIFICATION: Normal (T-score > -1.0). HIP ANALYSIS RESULTS: Left femoral bone mineral density (BMD) (g/cm2): 0.769 Right femoral bone mineral density (BMD) (g/cm2): 0.750 Femur T-score (standard deviation relative to young adult mean BMD): -2.0 Femur Z-score (standard deviation relative to age matched control group): -2.0 Change since prior hip examination: No significant change. HIP CLASSIFICATION (World Health Organization): Osteopenia (T-score -1.0 to -2.5). Note: The 2007 International Society for Clinical Densitometry (ISCD) Official Positions state that osteoporosis in jael-menopausal and post-menopausal women and in men age 50 and older may be diagnosed if the T-score of the lumbar spine, total hip, or femoral neck is -2.5 or less. Hip BMD is reported from the femoral neck or total proximal femur whichever is lowest. In pre-menopausal women and in men younger than age 50, T-scores may be used but Z-scores are preferred. In this patient group, a Z-score of -2.0 or lower is defined as below the expected range for age." FRAX is a computer-based algorithm which uses easily obtained clinical risk factors combined with femoral neck BMD or T-score to estimate an individual 10-year fracture probability. FRAX with BMD predicts fracture risk better than clinical risk factors or BMD alone. It is not appropriate to use FRAX to monitor treatment response. ADDITIONAL FINDINGS: No significant additional findings. Continued Report - Page 2 of 2 Patient: TWAN ESTRELLA Phone#: : 1950 Age: 74 Gender: M Pt. Type: Out Account: [id number] Location: [facility] Ordering: SUSAN VILLAR Exam Date: 05/27/2024/13:38 Family Phys: Charge Code: [id number] Physician: Swain Order #: [id number] Dose#: Ten year probability of major osteoporotic fracture 23.9%. Ten year probability of hip fracture 10.2%. Dictated by: Katharine Dunne MD on 05/27/2024 at 16:44 Approved by: Katharine Dunne MD on 05/27/2024 at 16:46 Normal [facility] CBC + DIFFon 05-27-2024 Baso # 0.02 x10EE3/UL Normal 0.00 - 0.10 [facility] Comment on above: Performed By: #### 2 74351 #### [facility],[address] [place] [address] 86814 Basophils/100 WBC (Bld) 0.3 % Normal 0.0 - 2.0 [facility] Comment on above: Performed By: #### 2 70552 #### [facility],[address] [place] [address] CBC + DIFF Normal [facility] Comment on above: Result Comment: CBC- COMPLETE BLOOD COUNT Performed By: #### 2 71232 #### [facility],[address] [place] [address] EO # 0.06 x10EE3/UL Normal 0.00 - 0.50 [facility] Comment on above: Performed By: #### 2 20006 #### [facility],[address] [place], [place] [id number] Eosinophils/100 WBC (Bld) 1.2 % Normal 0.0 - 7.0 [facility] Comment on above: Performed By: #### 2 15075 #### [facility],[address] [place] [address] Erythrocyte distribution width (RBC) [Ratio] 13.7 % Normal 12.0 - 15.6 [facility] Comment on above: Performed By: #### 2 27215 #### [facility],[address] [place] [address] Hematocrit (Bld) [Volume fraction] 39.7 % Low 40.0 - 52.0 [facility] Comment on above: Performed By: #### 2 76199 #### [facility],[address] [place] [address] 45136 Hemoglobin (Bld) [Mass/Vol] 13.6 g/dL Normal 13.0 - 17.5 [facility] Comment on above: Performed By: #### 2 15488 #### [facility],[address] [place], [place] [id number] Lymph # 1.04 x10EE3/UL Normal 0.80 - 2.80 [facility] Comment on above: Performed By: #### 2 59597 #### [facility],[address] [place] [address] 29898 Lymphocytes/100 WBC (Bld) 20.4 % Normal 20.0 - 45.0 [facility] Comment on above: Performed By: #### 2 22136 #### [facility],[address] [place] [address] 99807 MANUAL DIFF N/A Normal [facility] Comment on above: Performed By: #### 2 94264 #### [facility],[address] [place] [address] 13452 MCH (RBC) [Entitic mass] 36 pg High 27 - 33 [facility] Comment on above: Performed By: #### 2 69278 #### [facility],[address] [place] [address] 96799 MCHC 34 X10 3 Normal 32 - 36 [facility] Comment on above: Performed By: #### 2 57081 #### [facility],[address] [place] [address] 24842 MCV (RBC) [Entitic vol] 105 fL High 81 - 98 [facility] Comment on above: Performed By: #### 2 48320 #### [facility],[address] [place] [address] 25193 [place] # 0.47 x10EE3/UL Normal 0.20 - 1.00 [facility] Comment on above: Performed By: #### 2 68363 #### [facility],[address] [place] [address] 95192 MONOS % 9.2 % Normal 0.0 - 10.0 [facility] Comment on above: Performed By: #### 2 61882 #### [facility],[address] [place] [address] 03113 Morphology Sunny (Bld) [Interp] N/A Normal [facility] Comment on above: Performed By: #### 2 00949 #### [facility],[address] [place] [address] 62759 Neut # 3.53 x10EE3/UL Normal 1.50 - 7.10 [facility] Comment on above: Performed By: #### 2 88297 #### [facility],[address] [place] [address] 04197 Neutrophils/100 WBC (Bld) 68.9 % Normal 46.0 - 76.0 [facility] Comment on above: Performed By: #### 2 51258 #### [facility],[address] [place] [address] 30989 PLATELET 141 x10EE3/UL Low 150 - 450 [facility] Comment on above: Performed By: #### 2 70432 #### [facility],[address] [place] [address] 25130 Platelet mean volume (Bld) [Entitic vol] 8.2 fL Normal 6.4 - 10.5 [facility] Comment on above: Result Comment: AUTO MATED DIFFERENTIAL Performed By: #### 2 64723 #### [facility],[address] [place] [address] 42222 RBC 3.77 x 10EE6/UL Low 4.50 - 6.00 [facility] Comment on above: Performed By: #### 2 40296 #### [facility],[address] [place] [address] 67659 WBC 5.1 x 10EE3/UL Normal 4.5 - 10.8 [facility] Comment on above: Performed By: #### 2 50299 #### [facility],[address] [place] [address] 97218 CMP with eGFRon 05-27-2024 AGE 74 years Normal [facility] Comment on above: Performed By: #### 2 58301 #### [facility],[address] [place] [address] 97499 Albumin [Mass/Vol] 3.9 g/dL Normal 3.4 - 5.0 [facility] Comment on above: Performed By: #### 2 54185 #### [facility],[address] [place] [address] 97611 Albumin/Globulin [Mass ratio] 1.2 {ratio} Normal 0.9 - 1.6 [facility] Comment on above: Performed By: #### 2 73935 #### [facility],[address] [place] [address] 27441 ALK PHOS 53 U/L Normal 46 - 116 [facility] Comment on above: Performed By: #### 2 81723 #### [facility],[address] [place] [address] 64993 ALT [Catalytic activity/Vol] 23 U/L Normal 16 - 63 [facility] Comment on above: Performed By: #### 2 65590 #### [facility],[address] [place] [address] 66563 Anion gap [Moles/Vol] 12 mmol/L Normal 10 - 20 [facility] Comment on above: Performed By: #### 2 05666 #### [facility],[address] [place] [address] 79465 AST [Catalytic activity/Vol] 29 U/L Normal 15 - 37 [facility] Comment on above: Performed By: #### 2 93273 #### [facility],[address] [place] [address] 59344 B/C RATIO 16 ratio Normal 0 - 30 [facility] Comment on above: Performed By: #### 2 76663 #### [facility],[address] [place] [address] 53378 Bilirubin [Mass/Vol] 0.6 mg/dL Normal 0.2 - 1.0 [facility] Comment on above: Performed By: #### 2 25449 #### [facility],[address] [place] [address] 24471 Calcium [Mass/Vol] 9.4 mg/dL Normal 8.5 - 10.1 [facility] Comment on above: Performed By: #### 2 39523 #### [facility],[address] [place], [place] [id number] Chloride [Moles/Vol] 106 mmol/L Normal 98 - 107 [facility] Comment on above: Performed By: #### 2 74709 #### [facility],[address] [place] [address] CMP with eGFR Normal [facility] Comment on above: Result Comment: COMP REHENSIVE METABOLIC PANEL Performed By: #### 2 59578 #### [place] [address] CO2 [Moles/Vol] 28.3 mmol/L Normal 21.0 - 32.0 [facility] Comment on above: Performed By: #### 2 58523 #### [facility],[address] [place], [place] [id number] Creatinine [Mass/Vol] 1.55 mg/dL High 0.70 - 1.30 [facility] Comment on above: Performed By: #### 2 20527 #### [facility],[address] [place] [address] 70185 eGFR 44 ML/MINUTE Low 60 - 999 [facility] Comment on above: Performed By: #### 2 24876 #### [facility],[address] [place] [address] 04758 eGFR(AA) 54 ML/MINUTE Low 60 - 999 [facility] Comment on above: Result Comment: ACCO RDING TO THE NATIONAL KIDNEY DISEASE EDUCATION PROGRAM(NKDE), A NORMAL eGFR IS A VALUE GREATER THAN OR EQUAL TO 60 ML/MIN/1.73 SQ METERS. CHRONIC KIDNEY DISEASE: <60mL/MIN/1.73 SQ METERS KIDNEY FAILURE: <15mL/MIN/1.73 SQ METERS THIS TEST SHOULD ONLY BE USED FOR PATIENTS 18 YEARS OF AGE AND OLDER. Performed By: #### 2 61563 #### [facility],[address] [place] [address] 09872 Globulin (S) [Mass/Vol] 3.3 g/dL Normal 1.5 - 3.8 [facility] Comment on above: Performed By: #### 2 39432 #### [facility],[address] [place] [address] 84982 Glucose [Mass/Vol] 91 mg/dL Normal 74 - 106 [facility] Comment on above: Performed By: #### 2 33172 #### [facility],[address] [place] [address] 26719 Potassium [Moles/Vol] 4.8 mmol/L Normal 3.5 - 5.1 [facility] Comment on above: Performed By: #### 2 45689 #### [facility],[address] [place] [address] 09416 Protein [Mass/Vol] 7.2 g/dL Normal 6.4 - 8.2 [facility] Comment on above: Performed By: #### 2 90863 #### [facility],[address] [place] [address] 01390 Sodium [Moles/Vol] 141 mmol/L Normal 136 - 145 [facility] Comment on above: Performed By: #### 2 01010 #### [facility],[address] [place] [address] 76137 Urea nitrogen [Mass/Vol] 25 mg/dL High 7 - 18 [facility] Comment on above: Performed By: #### 2 11562 #### [facility],[address] [place] [address] 60245 BMP with eGFRon 05-19-2024 AGE 74 years Normal [facility] Comment on above: Performed By: #### 2 98248 #### [facility],[address] [place] [address] 93289 Anion gap [Moles/Vol] 16 mmol/L Normal 10 - 20 [facility] Comment on above: Performed By: #### 2 01969 #### [facility],[address] [place] [address] 10742 BMP with eGFR Normal [facility] Comment on above: Result Comment: BASI C METABOLIC PANEL Performed By: #### 2 58185 #### [facility],[address] [place] [address] 15957 Calcium [Mass/Vol] 9.6 mg/dL Normal 8.5 - 10.1 [facility] Comment on above: Performed By: #### 2 35845 #### [facility],[address] [place] [address] 24491 Chloride [Moles/Vol] 105 mmol/L Normal 98 - 107 [facility] Comment on above: Performed By: #### 2 81438 #### [facility],[address] [place] [address] 53843 CO2 [Moles/Vol] 26.6 mmol/L Normal 21.0 - 32.0 [facility] Comment on above: Performed By: #### 2 79966 #### [facility],[address] [place] [address] 21190 Creatinine [Mass/Vol] 1.28 mg/dL Normal 0.70 - 1.30 [facility] Comment on above: Performed By: #### 2 46606 #### [facility],[address] [place] [address] 72688 eGFR 55 ML/MINUTE Low 60 - 999 [facility] Comment on above: Performed By: #### 2 13729 #### [facility],[address] [place] [address] 92055 GFR/1.73 sq M.predicted among non-blacks MDRD (S/P/Bld) [Vol rate/Area] mL/min/{1.73_m2} Normal 60 - 999 [facility] Comment on above: Result Comment: ACCO RDING TO THE NATIONAL KIDNEY DISEASE EDUCATION PROGRAM(NKDE), A NORMAL eGFR IS A VALUE GREATER THAN OR EQUAL TO 60 ML/MIN/1.73 SQ METERS. CHRONIC KIDNEY DISEASE: <60mL/MIN/1.73 SQ METERS KIDNEY FAILURE: <15mL/MIN/1.73 SQ METERS THIS TEST SHOULD ONLY BE USED FOR PATIENTS 18 YEARS OF AGE AND OLDER. Performed By: #### 2 64360 #### [facility],[address] [place] [address] 69709 Glucose [Mass/Vol] 97 mg/dL Normal 74 - 106 [facility] Comment on above: Performed By: #### 2 35851 #### [facility],[address] [place] [address] 10095 Potassium [Moles/Vol] 4.3 mmol/L Normal 3.5 - 5.1 [facility] Comment on above: Performed By: #### 2 27589 #### [facility],[address] [place] [address] 84489 Sodium [Moles/Vol] 143 mmol/L Normal 136 - 145 [facility] Comment on above: Performed By: #### 2 82354 #### [facility],[address] [place] [address] 85844 Urea nitrogen [Mass/Vol] 19 mg/dL High 7 - 18 [facility] Comment on above: Performed By: #### 2 50747 #### [facility],[address] [place] [address] 51494 CBC + DIFFon 05-19-2024 Baso # 0.01 x10EE3/UL Normal 0.00 - 0.10 [facility] Comment on above: Performed By: #### 2 58169 #### [facility],[address] [place] [address] 08622 Basophils/100 WBC (Bld) 0.3 % Normal 0.0 - 2.0 [facility] Comment on above: Performed By: #### 2 62230 #### [facility],[address] [place] [address] 68115 CBC + DIFF Normal [facility] Comment on above: Result Comment: CBC- COMPLETE BLOOD COUNT Performed By: #### 2 33892 #### [place] [address] EO # 0.05 x10EE3/UL Normal 0.00 - 0.50 [facility] Comment on above: Performed By: #### 2 67262 #### [place] [address] Eosinophils/100 WBC (Bld) 1.1 % Normal 0.0 - 7.0 [facility] Comment on above: Performed By: #### 2 36007 #### [place] [address] Erythrocyte distribution width (RBC) [Ratio] 13.5 % Normal 12.0 - 15.6 [facility] Comment on above: Performed By: #### 2 71819 #### [place] [address] Hematocrit (Bld) [Volume fraction] 40.4 % Normal 40.0 - 52.0 [facility] Comment on above: Performed By: #### 2 69398 #### [place] [address] Hemoglobin (Bld) [Mass/Vol] 13.7 g/dL Normal 13.0 - 17.5 [facility] Comment on above: Performed By: #### 2 30235 #### [place] [address] Lymph # 0.85 x10EE3/UL Normal 0.80 - 2.80 [facility] Comment on above: Performed By: #### 2 63984 #### [place] [address] Lymphocytes/100 WBC (Bld) 21.0 % Normal 20.0 - 45.0 [facility] Comment on above: Performed By: #### 2 45744 #### [place] [address] MANUAL DIFF N/A Normal [facility] Comment on above: Performed By: #### 2 74729 #### [facility],[address] [place] [address] MCH (RBC) [Entitic mass] 36 pg High 27 - 33 [facility] Comment on above: Performed By: #### 2 89456 #### [facility],[address] [place] [address] MCHC 34 X10 3 Normal 32 - 36 [facility] Comment on above: Performed By: #### 2 76231 #### [facility],[address] [place] [address] MCV (RBC) [Entitic vol] 106 fL High 81 - 98 [facility] Comment on above: Performed By: #### 2 01928 #### [facility],[address] [place] [address] [place] # 0.39 x10EE3/UL Normal 0.20 - 1.00 [facility] Comment on above: Performed By: #### 2 67796 #### [facility],[address] [place] [address] MONOS % 9.5 % Normal 0.0 - 10.0 [facility] Comment on above: Performed By: #### 2 09898 #### [facility],[address] [place] [address] Morphology Sunny (Bld) [Interp] N/A Normal [facility] Comment on above: Performed By: #### 2 71224 #### [facility],[address] [place] [address] Neut # 2.76 x10EE3/UL Normal 1.50 - 7.10 [facility] Comment on above: Performed By: #### 2 39164 #### [facility],[address] [place] [address] Neutrophils/100 WBC (Bld) 68.0 % Normal 46.0 - 76.0 [facility] Comment on above: Performed By: #### 2 92346 #### [facility],[address] [place] [address] 93155 PLATELET 130 x10EE3/UL Low 150 - 450 [facility] Comment on above: Performed By: #### 2 03831 #### [facility],[address] [place], [place] [address] Platelet mean volume (Bld) [Entitic vol] 8.3 fL Normal 6.4 - 10.5 [facility] Comment on above: Result Comment: AUTO MATED DIFFERENTIAL Performed By: #### 2 21150 #### [place] [address] RBC 3.83 x 10EE6/UL Low 4.50 - 6.00 [facility] Comment on above: Performed By: #### 2 30443 #### [place] [id number] WBC 4.1 x 10EE3/UL Low 4.5 - 10.8 [facility] Comment on above: Performed By: #### 2 66185 #### [address] [address] NT-proBNPon 05-19-2024 Natriuretic peptide B (Bld) [Mass/Vol] 1050 pg/mL High 0 - 125 [facility] Comment on above: Performed By: #### 2 85846 #### [address] [address] TESTOSTERONE, TOTAL & FREE, SERUM [CCL]on 05-07-2024 Testosterone, % Free, S 2.24 % Normal 1.50-4.20 [facility] Comment on above: Result Comment: Test (s) 244500-[id number], Total, LC/MS was developed and its performance characteristics determined by [employer]. It has not been cleared or approved by the Food and Drug Administration. Performed at: [address] [id number] [employer]alegal: Prieto Dickey MD, Phone: [phone] [facility] [address] [place] [address] Nato Stephen III, M.D. [id number] Performed By: #### 2 16318 #### [address] [address] Testosterone, Free, S 7.06 ng/dL Normal 5.00-21.00 [facility] Comment on above: Performed By: #### 2 82687 #### [address] [address] Testosterone, Total, S 315.4 ng/dL Normal 264.0 -916. 0 [facility] Comment on above: Result Comment: This [facility] LC/MS-MS method is currently certified by the CDC Hormone Standardization Program (HoSt). Adult male reference interval is based on a population of healthy nonobese males (BMI <30) between 19 and 39 years old. Kelsey et.al. JCEM 2017,102;8574-2701. PMID: 14006608. Performed By: #### 2 64592 #### [address] [address] PTH, INTACT [CCL]on 04-30-19 25 PTH, Intact 128 pg/mL High 15-65 [facility] Comment on above: Result Comment: [facility] [address] [place] [address] Nato Stephen III, M.D. [id number] Performed By: #### 2 59416 #### [address] [address] BMP with eGFRon 04-29-2024 AGE 74 years Normal [facility] Comment on above: Performed By: #### 2 99370 #### [address] [address] Anion gap [Moles/Vol] 9 mmol/L Low 10 - 20 [facility] Comment on above: Performed By: #### 2 18572 #### [facility],[address] [place] [address] 29549 BMP with eGFR Normal [facility] Comment on above: Result Comment: BASI C METABOLIC PANEL Performed By: #### 2 35530 #### [facility],[address] [place] [address] 46832 Calcium [Mass/Vol] 9.0 mg/dL Normal 8.5 - 10.1 [facility] Comment on above: Performed By: #### 2 86209 #### [facility],[address] [place] [address] 15651 Chloride [Moles/Vol] 103 mmol/L Normal 98 - 107 [facility] Comment on above: Performed By: #### 2 42534 #### [facility],[address] [place] [address] 94762 CO2 [Moles/Vol] 30.8 mmol/L Normal 21.0 - 32.0 [facility] Comment on above: Performed By: #### 2 02876 #### [address] [address] Creatinine [Mass/Vol] 1.18 mg/dL Normal 0.70 - 1.30 [facility] Comment on above: Performed By: #### 2 10949 #### [address] [address] GFR/1.73 sq M.predicted among non-blacks MDRD (S/P/Bld) [Vol rate/Area] mL/min/{1.73_m2} Normal 60 - 999 [facility] Comment on above: Performed By: #### 2 65784 #### [facility],[address] [place] [address] 47684 Result Comment: ACCO RDING TO THE NATIONAL KIDNEY DISEASE EDUCATION PROGRAM(NKDE), A NORMAL eGFR IS A VALUE GREATER THAN OR EQUAL TO 60 ML/MIN/1.73 SQ METERS. CHRONIC KIDNEY DISEASE: <60mL/MIN/1.73 SQ METERS KIDNEY FAILURE: <15mL/MIN/1.73 SQ METERS THIS TEST SHOULD ONLY BE USED FOR PATIENTS 18 YEARS OF AGE AND OLDER. Glucose [Mass/Vol] 103 mg/dL Normal 74 - 106 [facility] Comment on above: Performed By: #### 2 96149 #### [address] [address] Potassium [Moles/Vol] 4.5 mmol/L Normal 3.5 - 5.1 [facility] Comment on above: Performed By: #### 2 92276 #### [address] [address] Sodium [Moles/Vol] 138 mmol/L Normal 136 - 145 [facility] Comment on above: Performed By: #### 2 73790 #### [address] [address] Urea nitrogen [Mass/Vol] 22 mg/dL High 7 - 18 [facility] Comment on above: Performed By: #### 2 59717 #### [address] [address] CALCIUM IONIZED [CCL]on 04-02 Calcium [Moles/Vol] 1.21 mmol/L Normal 1.08-1.30 [facility] Comment on above: Performed By: #### 2 56462 #### [facility],[address] [place] [address] 94447 Calcium, Ionized 1.28 mmol/L Normal 1.08-1.30 [facility] Comment on above: Result Comment: [facility] [address] [place] [address] Nato Stephen III, M.D. [id number] Performed By: #### 2 65631 #### [address] [address] CBC + DIFFon 04-29-2024 Baso # 0.02 x10EE3/UL Normal 0.00 - 0.10 [facility] Comment on above: Performed By: #### 2 75120 #### [facility],[address] [place], [place] [address] Basophils/100 WBC (Bld) 0.4 % Normal 0.0 - 2.0 [facility] Comment on above: Performed By: #### 2 03626 #### [facility],[address] [place] [address] CBC + DIFF Normal [facility] Comment on above: Result Comment: CBC- COMPLETE BLOOD COUNT Performed By: #### 2 59483 #### [facility],[address] [place] [address] EO # 0.06 x10EE3/UL Normal 0.00 - 0.50 [facility] Comment on above: Performed By: #### 2 69549 #### [facility],[address] [place] [address] Eosinophils/100 WBC (Bld) 1.1 % Normal 0.0 - 7.0 [facility] Comment on above: Performed By: #### 2 43788 #### [facility],[address] [place] [address] Erythrocyte distribution width (RBC) [Ratio] 14.1 % Normal 12.0 - 15.6 [facility] Comment on above: Performed By: #### 2 92285 #### [facility],[address] [place] [address] Hematocrit (Bld) [Volume fraction] 37.9 % Low 40.0 - 52.0 [facility] Comment on above: Performed By: #### 2 67116 #### [facility],[address] [place], [place] [address] Hemoglobin (Bld) [Mass/Vol] 12.9 g/dL Low 13.0 - 17.5 [facility] Comment on above: Performed By: #### 2 03986 #### [facility],[address] [place] [address] 85498 Lymph # 1.41 x10EE3/UL Normal 0.80 - 2.80 [facility] Comment on above: Performed By: #### 2 76484 #### [facility],[address] [place] [address] 42411 Lymphocytes/100 WBC (Bld) 26.1 % Normal 20.0 - 45.0 [facility] Comment on above: Performed By: #### 2 57856 #### [facility],[address] [place] [address] 51378 MANUAL DIFF N/A Normal [facility] Comment on above: Performed By: #### 2 64883 #### [facility],[address] [place] [address] 79550 MCH (RBC) [Entitic mass] 36 pg High 27 - 33 [facility] Comment on above: Performed By: #### 2 61045 #### [facility],[address] [place] [address] 01869 MCHC 34 X10 3 Normal 32 - 36 [facility] Comment on above: Performed By: #### 2 16760 #### [facility],[address] [place] [address] 08714 MCV (RBC) [Entitic vol] 107 fL High 81 - 98 [facility] Comment on above: Performed By: #### 2 55103 #### [facility],[address] [place] [address] [place] # 0.41 x10EE3/UL Normal 0.20 - 1.00 [facility] Comment on above: Performed By: #### 2 40916 #### [facility],[address] [place] [address] 354[address] MONOS % 7.6 % Normal 0.0 - 10.0 [facility] Comment on above: Performed By: #### 2 38620 #### [facility],[address] [place] [address] 74691 Morphology Sunny (Bld) [Interp] N/A Normal [facility] Comment on above: Performed By: #### 2 86294 #### [facility],[address] [place] [address] 82238 Neut # 3.52 x10EE3/UL Normal 1.50 - 7.10 [facility] Comment on above: Performed By: #### 2 96128 #### [facility],[address] [place] [address] 18891 Neutrophils/100 WBC (Bld) 64.9 % Normal 46.0 - 76.0 [facility] Comment on above: Performed By: #### 2 03253 #### [facility],[address] [place] [address] 81045 PLATELET 112 x10EE3/UL Low 150 - 450 [facility] Comment on above: Performed By: #### 2 71670 #### [facility],[address] [place] [address] 87727 Platelet mean volume (Bld) [Entitic vol] 8.1 fL Normal 6.4 - 10.5 [facility] Comment on above: Result Comment: AUTO MATED DIFFERENTIAL Performed By: #### 2 79770 #### [facility],[address] [place] [address] 42449 RBC 3.55 x 10EE6/UL Low 4.50 - 6.00 [facility] Comment on above: Performed By: #### 2 16547 #### [facility],[address] [place] [address] 64127 WBC 5.4 x 10EE3/UL Normal 4.5 - 10.8 [facility] Comment on above: Performed By: #### 2 60745 #### [facility],[address] [place] [address] 83386 Calcium.ionized [Moles/Vol]o n 04-29-2024 Calcium.ionized (Bld) [Mass/Vol] 1.28 mmol/L Normal 1.08-1.30 [facility] Comment on above: Order Comment: Speci men Type: BLOOD SPECIMEN Ordering Facility: [facility] Address: [address] [place], [place] [address] Performed By: #### 2 842-3, #### [facility] CLIA [id number] [address] [place] [address] [place] #### TFTEST #### [facility] CLIA [id number] [address] [place] [address] Calcium.ionized adjusted to pH 7.4 (Bld) [Moles/Vol] 1.21 mmol/L Normal 1.08-1.30 [facility] Comment on above: Order Comment: Speci men Type: BLOOD SPECIMEN Ordering Facility: [facility] Address: [address] [place], [place] [address] Performed By: #### 2 842-3, #### [facility] CLIA [id number] [address] [place] [address] [place] #### TFTEST #### [facility] CLIA [id number] [address] [place] [address]894 PROLACTIN [CCL]on 04-29-2024 Prolactin 14.6 ng/mL Normal 4.1-25.1 [facility] Comment on above: Result Comment: Prol actin test is performed using the [employer] Electrochemiluminescence Immunoassay method. Results obtained with different methods or kits cannot [place] [address] Nato Stephen III, M.D. [id number] Performed By: #### 2 14731 #### [facility],[address] [place], [place] [address] PTH-Intact SerPl-mCncon 04-02 Parathyrin.intact [Mass/Vol] 128 pg/mL High 15-65 [facility] Comment on above: Order Comment: Speci men Type: BLOOD SPECIMEN Ordering Facility: [facility] Address: [address], [place] [address] Performed By: #### 2 731-8 #### [facility] CLIA [id number] [address] [place] [address] [place] Prolactin SerPl-mCncon 04-29 Prolactin [Mass/Vol] 14.6 ng/mL Normal 4.1-25.1 [facility] Comment on above: Order Comment: Speci men Type: BLOOD SPECIMEN Ordering Facility: [facility] Address: [address], [place] [address] Result Comment: Prol actin test is performed using the [employer] Electrochemiluminescence Immunoassay method. Results obtained with different methods or kits cannot be used interchangeably. Performed By: #### 2 842-3, #### [facility] CLIA [id number] [address] [place] [address] [place] #### TFTEST #### [facility] CLIA [id number] [address] [facility] [place] [address] TESTOSTERONE, FREE AND TOTAL , BY EQUILIBRIUM ULTRAFILTRATION MASS SPECTROMETRYon 04-29-2024 Testosterone [Mass/Vol] 315.4 ng/dL Normal 264. 0-916. 0 [facility] Comment on above: Order Comment: Speci men Type: BLOOD SPECIMEN Ordering Facility: [facility] Address: [address], [place] [address] Result Comment: This [facility] LC/MS-MS method is currently certified by the CDC Hormone Standardization Program (HoSt). Adult male reference interval is based on a population of healthy nonobese males (BMI <30) between 19 and 39 years old. víctor Cole.al. JCEM 2017,102;5469-7748. PMID: [id number]. Performed By: #### 2 842-3, #### [facility] CLIA [id number] [address] [place] [address] [place] #### TFTEST #### [facility] CLIA [id number] [address] [place] [address] Testosterone Free [Mass/Vol] 7.06 ng/dL Normal 5.00-21.00 [facility] Comment on above: Order Comment: Speci men Type: BLOOD SPECIMEN Ordering Facility: [facility] Address: [address] [place] [address] Performed By: #### 2 8423 #### [facility] CLIA [id number] [address] [place] [address] [place] #### TFTEST #### [facility] CLIA [id number] [address] [place] [address] Testosterone Free/Testosterone.total [Mass fraction] 2.24 % Normal 1.50-4.20 [facility] Comment on above: Order Comment: Speci men Type: BLOOD SPECIMEN Ordering Facility: [facility] Address: [address] [place] [address] Performed By: #### 2 8423 #### [facility] CLIA [id number] [address] [place] [address] [place] #### TFTEST #### [facility] CLIA [id number] [address] [place] [address] VITAMIN D, 25 HYDROXYon 04-02 VitD 60.40 ng/mL Normal 30.00 - 100 [facility] Comment on above: Result Comment: 25-O HD3 indicates both endogenous production and supplementation. 25-OHD2 is an indicator of exogenous sources, such as diet or supplementation. Therapy is based on measurement of Total 25-OHD, with levels <20 ng/mL indicative of Vitamin D deficiency, while levels between 20 ng/mL and 30 ng/mL suggest insufficiency. Optimal levels are >=30ng/mL. Vitamin D, 25-OH D3 Not Established Vitamin D, 25-OH D2 Not Established Performed By: #### 2 53704 #### [facility],[address] [place] [address] 77851 CBC + DIFFon 04-23-2024 Baso # 0.02 x10EE3/UL Normal 0.00 - 0.10 [facility] Comment on above: Performed By: #### 2 17992 #### [facility],[address] [place] [address] 74910 Basophils/100 WBC (Bld) 0.4 % Normal 0.0 - 2.0 [facility] Comment on above: Performed By: #### 2 05751 #### [facility],[address] [place] [address] CBC + DIFF Normal [facility] Comment on above: Result Comment: CBC- COMPLETE BLOOD COUNT Performed By: #### 2 85045 #### [facility],[address] [place] [address]19 EO # 0.03 x10EE3/UL Normal 0.00 - 0.50 [facility] Comment on above: Performed By: #### 2 53143 #### [facility],[address] [place] [address] 48821 Eosinophils/100 WBC (Bld) 0.8 % Normal 0.0 - 7.0 [facility] Comment on above: Performed By: #### 2 68372 #### [facility],[address] [place] [address] 10942 Erythrocyte distribution width (RBC) [Ratio] 13.5 % Normal 12.0 - 15.6 [facility] Comment on above: Performed By: #### 2 78270 #### [facility],[address] [place] [address] 20973 Hematocrit (Bld) [Volume fraction] 36.7 % Low 40.0 - 52.0 [facility] Comment on above: Performed By: #### 2 40401 #### [facility],[address] [place] [address] 06698 Hemoglobin (Bld) [Mass/Vol] 12.3 g/dL Low 13.0 - 17.5 [facility] Comment on above: Performed By: #### 2 55632 #### [facility],[address] [place] [address] Lymph # 0.82 x10EE3/UL Normal 0.80 - 2.80 [facility] Comment on above: Performed By: #### 2 54401 #### [facility],[address] [place] [address] Lymphocytes/100 WBC (Bld) 19.6 % Low 20.0 - 45.0 [facility] Comment on above: Performed By: #### 2 40996 #### [facility],[address] [place] [address] MANUAL DIFF N/A Normal [facility] Comment on above: Performed By: #### 2 34890 #### [facility],[address] [place] [address] MCH (RBC) [Entitic mass] 36 pg High 27 - 33 [facility] Comment on above: Performed By: #### 2 68547 #### [facility],[address] [place] [address] MCHC 34 X10 3 Normal 32 - 36 [facility] Comment on above: Performed By: #### 2 43437 #### [facility],[address] [place] [address] MCV (RBC) [Entitic vol] 106 fL High 81 - 98 [facility] Comment on above: Performed By: #### 2 08851 #### [facility],[address] [place], [place] [id number] [place] # 0.34 x10EE3/UL Normal 0.20 - 1.00 [facility] Comment on above: Performed By: #### 2 36180 #### [facility],[address] [place] [address] MONOS % 8.0 % Normal 0.0 - 10.0 [facility] Comment on above: Performed By: #### 2 70986 #### [facility],[address] [place] [address] 23967 Morphology Sunny (Bld) [Interp] N/A Normal [facility] Comment on above: Performed By: #### 2 53989 #### [facility],[address] [place] [address] 74344 Neut # 2.98 x10EE3/UL Normal 1.50 - 7.10 [facility] Comment on above: Performed By: #### 2 98318 #### [facility],[address] [place] [address] 93966 Neutrophils/100 WBC (Bld) 71.2 % Normal 46.0 - 76.0 [facility] Comment on above: Performed By: #### 2 02691 #### [facility],[address] [place] [address] 96358 PLATELET 123 x10EE3/UL Low 150 - 450 [facility] Comment on above: Performed By: #### 2 58967 #### [facility],[address] [place] [address] Platelet mean volume (Bld) [Entitic vol] 8.5 fL Normal 6.4 - 10.5 [facility] Comment on above: Result Comment: AUTO MATED DIFFERENTIAL Performed By: #### 2 14832 #### [facility],[address] [place] [address] 18271 RBC 3.45 x 10EE6/UL Low 4.50 - 6.00 [facility] Comment on above: Performed By: #### 2 19605 #### [facility],[address] [place] [address] 11506 WBC 4.2 x 10EE3/UL Low 4.5 - 10.8 [facility] Comment on above: Performed By: #### 2 58468 #### [facility],[address] [place], [place] [id number] CMP with eGFRon 04-23-2024 AGE 74 years Normal [facility] Comment on above: Performed By: #### 2 84805 #### [facility],[address] [place] [address] Albumin [Mass/Vol] 3.7 g/dL Normal 3.4 - 5.0 [facility] Comment on above: Performed By: #### 2 16358 #### [facility],[address] [place] [address] Albumin/Globulin [Mass ratio] 1.2 {ratio} Normal 0.9 - 1.6 [facility] Comment on above: Performed By: #### 2 50652 #### [facility],[address] [place] [address] ALK PHOS 48 U/L Normal 46 - 116 [facility] Comment on above: Performed By: #### 2 47491 #### [facility],[address] [place] [address] ALT [Catalytic activity/Vol] 21 U/L Normal 16 - 63 [facility] Comment on above: Performed By: #### 2 16859 #### [facility],[address] [place], [place] [id number] Anion gap [Moles/Vol] 7 mmol/L Low 10 - 20 [facility] Comment on above: Performed By: #### 2 03004 #### [facility],[address] [place], [place] [id number] AST [Catalytic activity/Vol] 28 U/L Normal 15 - 37 [facility] Comment on above: Performed By: #### 2 17558 #### [address] [address] B/C RATIO 22 ratio Normal 0 - 30 [facility] Comment on above: Performed By: #### 2 66159 #### [facility],[address] [place], [place] [id number] Bilirubin [Mass/Vol] 0.5 mg/dL Normal 0.2 - 1.0 [facility] Comment on above: Performed By: #### 2 43236 #### [facility],[address] [place] [address] Calcium [Mass/Vol] 8.7 mg/dL Normal 8.5 - 10.1 [facility] Comment on above: Performed By: #### 2 44301 #### [facility],[address] [place] [address] Chloride [Moles/Vol] 107 mmol/L Normal 98 - 107 [facility] Comment on above: Performed By: #### 2 55781 #### [facility],[address] [place] [address] CMP with eGFR Normal [facility] Comment on above: Result Comment: COMP REHENSIVE METABOLIC PANEL Performed By: #### 2 66669 #### [facility],[address] [place] [address] CO2 [Moles/Vol] 31.8 mmol/L Normal 21.0 - 32.0 [facility] Comment on above: Performed By: #### 2 26140 #### [facility],[address] [place] [address] Creatinine [Mass/Vol] 1.08 mg/dL Normal 0.70 - 1.30 [facility] Comment on above: Performed By: #### 2 67114 #### [facility],[address] [place], [place] [address] GFR/1.73 sq M.predicted among non-blacks MDRD (S/P/Bld) [Vol rate/Area] mL/min/{1.73_m2} Normal 60 - 999 [facility] Comment on above: Performed By: #### 2 49160 #### [facility],[address] [place] [address] Result Comment: ACCO RDING TO THE NATIONAL KIDNEY DISEASE EDUCATION PROGRAM(NKDE), A NORMAL eGFR IS A VALUE GREATER THAN OR EQUAL TO 60 ML/MIN/1.73 SQ METERS. CHRONIC KIDNEY DISEASE: <60mL/MIN/1.73 SQ METERS KIDNEY FAILURE: <15mL/MIN/1.73 SQ METERS THIS TEST SHOULD ONLY BE USED FOR PATIENTS 18 YEARS OF AGE AND OLDER. Globulin (S) [Mass/Vol] 3.2 g/dL Normal 1.5 - 3.8 [facility] Comment on above: Performed By: #### 2 11096 #### [facility],[address] [place] [address] 00747 Glucose [Mass/Vol] 108 mg/dL High 74 - 106 [facility] Comment on above: Performed By: #### 2 90927 #### [facility],[address] [place] [address] 17774 Potassium [Moles/Vol] 4.9 mmol/L Normal 3.5 - 5.1 [facility] Comment on above: Performed By: #### 2 35584 #### [facility],[address] [place] [address] 81152 Protein [Mass/Vol] 6.9 g/dL Normal 6.4 - 8.2 [facility] Comment on above: Performed By: #### 2 50822 #### [facility],[address] [place] [address] 46634 Sodium [Moles/Vol] 141 mmol/L Normal 136 - 145 [facility] Comment on above: Performed By: #### 2 50802 #### [facility],[address] [place] [address] 46946 Urea nitrogen [Mass/Vol] 24 mg/dL High 7 - 18 [facility] Comment on above: Performed By: #### 2 48273 #### [facility],[address] [place] [address] 93659 FERRITINon 04-23-2024 Ferritin [Mass/Vol] 120 ng/mL Normal 8 - 388 [facility] Comment on above: Performed By: #### 2 76596 #### [facility],[address] [place] [address] 36464 FOLATESon 04-23-2024 FOLATES 27.1 ng/ml Normal 8.6 - 58.9 [facility] Comment on above: Performed By: #### 2 93288 #### [facility],[address] [place] [address] 86904 IRON AND TIBCon 04-23-2024 %SATURATION 18 % Normal [facility] Comment on above: Performed By: #### 2 36912 #### [facility],[address] [place] [address] 40416 Iron [Mass/Vol] 64 ug/dL Low 65 - 175 [facility] Comment on above: Performed By: #### 2 42161 #### [facility],[address] [place] [address] 02053 TIBC 358 ug/dl Normal 250 - 450 [facility] Comment on above: Performed By: #### 2 68581 #### [facility],[address] [place] [address] 24470 UIBC 294 ug/dL Normal 155 - 355 [facility] Comment on above: Performed By: #### 2 07479 #### [facility],[address] [place] [address] 18555 LIPID PROFILEon 04-23-2024 Cholesterol [Mass/Vol] 91 mg/dL Normal 0 - 240 [facility] Comment on above: Performed By: #### 2 68852 #### [facility],[address] [place] [address] 93543 Cholesterol in HDL [Mass/Vol] 45 mg/dL Normal 40 - 60 [facility] Comment on above: Performed By: #### 2 07503 #### [facility],[address] [place] [address] 75864 Cholesterol in LDL [Mass/Vol] 34 mg/dL Normal 0 - 129 [facility] Comment on above: Performed By: #### 2 07319 #### [facility],[address] [place] [address] 65030 Cholesterol.total/Patricia sterol in HDL [Mass ratio] 2.0 {ratio} Normal 0.0 - 5.0 [facility] Comment on above: Performed By: #### 2 23092 #### [facility],[address] [place] [address] 16181 Lipid 1996 panel Normal [facility] Comment on above: Result Comment: LIPI D PROFILE Performed By: #### 2 50113 #### [facility],[address] [place] [address] 46327 Triglyceride [Mass/Vol] 58 mg/dL Normal 0 - 150 [facility] Comment on above: Performed By: #### 2 72915 #### [facility],[address] [place] [address] 99022 MAGNESIUMon 04-23-2024 Magnesium [Mass/Vol] 2.0 mg/dL Normal 1.8 - 2.4 [facility] Comment on above: Performed By: #### 2 08946 #### [facility],[address] [place] [address] 84258 NT-proBNPon 04-23-2024 Natriuretic peptide B (Bld) [Mass/Vol] 1299 pg/mL High 0 - 125 [facility] Comment on above: Performed By: #### 2 40237 #### [facility],[address] [place] [address] 92483 TSHon 04-23-2024 TSH Qn 3.15 m[IU]/L Normal 0.35 - 3.74 [facility] Comment on above: Performed By: #### 2 16678 #### [facility],[address] [place] [address] 27761 URIC ACIDon 04-23-2024 Urate [Mass/Vol] 6.9 mg/dL Normal 3.5 - 7.2 [facility] Comment on above: Performed By: #### 2 36376 #### [facility],[address] [place] [address] 51949 VITAMIN B-12on 04-23-2024 Cobalamin (Vitamin B12) [Mass/Vol] 529 pg/mL Normal 193 - 986 [facility] Comment on above: Performed By: #### 2 71531 #### [facility],[address] [place] [address] 09718 CBC + DIFFon 03-06-2024 Baso # 0.02 x10EE3/UL Normal 0.00 - 0.10 [facility] Comment on above: Performed By: #### 2 03774 #### [facility],[address] [place] [address] 81527 Basophils/100 WBC (Bld) 0.5 % Normal 0.0 - 2.0 [facility] Comment on above: Performed By: #### 2 37785 #### [facility],[address] [place] [address] CBC + DIFF Normal [facility] Comment on above: Result Comment: CBC- COMPLETE BLOOD COUNT Performed By: #### 2 36039 #### [facility],[address] [place] [address] 22034 EO # 0.04 x10EE3/UL Normal 0.00 - 0.50 [facility] Comment on above: Performed By: #### 2 38529 #### [facility],[address] [place] [address] 44384 Eosinophils/100 WBC (Bld) 1.0 % Normal 0.0 - 7.0 [facility] Comment on above: Performed By: #### 2 38025 #### [facility],[address] [place] [address] 92798 Erythrocyte distribution width (RBC) [Ratio] 13.7 % Normal 12.0 - 15.6 [facility] Comment on above: Performed By: #### 2 18307 #### [facility],[address] [place] [address] Hematocrit (Bld) [Volume fraction] 39.3 % Low 40.0 - 52.0 [facility] Comment on above: Performed By: #### 2 64565 #### [facility],[address] [place] [address] Hemoglobin (Bld) [Mass/Vol] 13.1 g/dL Normal 13.0 - 17.5 [facility] Comment on above: Performed By: #### 2 11357 #### [facility],[address] [place] [address] Lymph # 0.78 x10EE3/UL Low 0.80 - 2.80 [facility] Comment on above: Performed By: #### 2 94888 #### [facility],[address] [place] [address] Lymphocytes/100 WBC (Bld) 20.4 % Normal 20.0 - 45.0 [facility] Comment on above: Performed By: #### 2 67366 #### [facility],[address] [place] [address] MANUAL DIFF N/A Normal [facility] Comment on above: Performed By: #### 2 86193 #### [facility],[address] [place] [address] MCH (RBC) [Entitic mass] 35 pg High 27 - 33 [facility] Comment on above: Performed By: #### 2 78167 #### [facility],[address] [place] [address] MCHC 33 X10 3 Normal 32 - 36 [facility] Comment on above: Performed By: #### 2 44268 #### [facility],[address] [place], [place] [address] MCV (RBC) [Entitic vol] 106 fL High 81 - 98 [facility] Comment on above: Performed By: #### 2 10060 #### [facility],[address] [place] [address] [place] # 0.38 x10EE3/UL Normal 0.20 - 1.00 [facility] Comment on above: Performed By: #### 2 41329 #### [facility],[address] [place] [address] MONOS % 10.0 % Normal 0.0 - 10.0 [facility] Comment on above: Performed By: #### 2 82905 #### [facility],[address] [place] [address] Morphology Sunny (Bld) [Interp] N/A Normal [facility] Comment on above: Performed By: #### 2 84214 #### [facility],[address] [place] [address] Neut # 2.61 x10EE3/UL Normal 1.50 - 7.10 [facility] Comment on above: Performed By: #### 2 23408 #### [place] [address] Neutrophils/100 WBC (Bld) 68.1 % Normal 46.0 - 76.0 [facility] Comment on above: Performed By: #### 2 96411 #### [place] [address] PLATELET 107 x10EE3/UL Low 150 - 450 [facility] Comment on above: Performed By: #### 2 42073 #### [place] [address] Platelet mean volume (Bld) [Entitic vol] 8.2 fL Normal 6.4 - 10.5 [facility] Comment on above: Result Comment: AUTO MATED DIFFERENTIAL Performed By: #### 2 28021 #### [place] [address] RBC 3.71 x 10EE6/UL Low 4.50 - 6.00 [facility] Comment on above: Performed By: #### 2 85183 #### [place] [address] WBC 3.8 x 10EE3/UL Low 4.5 - 10.8 [facility] Comment on above: Performed By: #### 2 83684 #### [facility],[address] [place] [address] 13242 CMP with eGFRon 03-06-2024 AGE 74 years Normal [facility] Comment on above: Performed By: #### 2 68343 #### [facility],[address] [place] [address] 21104 Albumin [Mass/Vol] 4.0 g/dL Normal 3.4 - 5.0 [facility] Comment on above: Performed By: #### 2 78336 #### [facility],[address] [place], [place] [address] Albumin/Globulin [Mass ratio] 1.2 {ratio} Normal 0.9 - 1.6 [facility] Comment on above: Performed By: #### 2 01855 #### [facility],[address] [place] [address] 96282 ALK PHOS 55 U/L Normal 46 - 116 [facility] Comment on above: Performed By: #### 2 22342 #### [facility],[address] [place] [address] 26925 ALT [Catalytic activity/Vol] 33 U/L Normal 16 - 63 [facility] Comment on above: Performed By: #### 2 79054 #### [facility],[address] [place] [address] 95488 Anion gap [Moles/Vol] 11 mmol/L Normal 10 - 20 [facility] Comment on above: Performed By: #### 2 75868 #### [facility],[address] [place] [address] 53149 AST [Catalytic activity/Vol] 37 U/L Normal 15 - 37 [facility] Comment on above: Performed By: #### 2 48260 #### [facility],[address] [place] [address] 61074 B/C RATIO 15 ratio Normal 0 - 30 [facility] Comment on above: Performed By: #### 2 30888 #### [facility],[address] [place] [address] 81252 Bilirubin [Mass/Vol] 1.0 mg/dL Normal 0.2 - 1.0 [facility] Comment on above: Performed By: #### 2 64598 #### [facility],[address] [place], [place] [address] Calcium [Mass/Vol] 8.9 mg/dL Normal 8.5 - 10.1 [facility] Comment on above: Performed By: #### 2 74458 #### [facility],[address] [place], [place] [address] Chloride [Moles/Vol] 100 mmol/L Normal 98 - 107 [facility] Comment on above: Performed By: #### 2 30997 #### [facility],[address] [place], [place] [id number] CMP with eGFR Normal [facility] Comment on above: Result Comment: COMP REHENSIVE METABOLIC PANEL Performed By: #### 2 75027 #### [facility],[address] [place] [address] 42155 CO2 [Moles/Vol] 32.4 mmol/L High 21.0 - 32.0 [facility] Comment on above: Performed By: #### 2 52988 #### [facility],[address] [place] [address] 96076 Creatinine [Mass/Vol] 1.32 mg/dL High 0.70 - 1.30 [facility] Comment on above: Performed By: #### 2 00942 #### [facility],[address] [place], [place] [address] eGFR 53 ML/MINUTE Low 60 - 999 [facility] Comment on above: Performed By: #### 2 49033 #### [facility],[address] [place] [address] 19387 GFR/1.73 sq M.predicted among non-blacks MDRD (S/P/Bld) [Vol rate/Area] mL/min/{1.73_m2} Normal 60 - 999 [facility] Comment on above: Result Comment: ACCO RDING TO THE NATIONAL KIDNEY DISEASE EDUCATION PROGRAM(NKDE), A NORMAL eGFR IS A VALUE GREATER THAN OR EQUAL TO 60 ML/MIN/1.73 SQ METERS. CHRONIC KIDNEY DISEASE: <60mL/MIN/1.73 SQ METERS KIDNEY FAILURE: <15mL/MIN/1.73 SQ METERS THIS TEST SHOULD ONLY BE USED FOR PATIENTS 18 YEARS OF AGE AND OLDER. Performed By: #### 2 70208 #### [facility],[address] [place] [address] 98759 Globulin (S) [Mass/Vol] 3.4 g/dL Normal 1.5 - 3.8 [facility] Comment on above: Performed By: #### 2 88658 #### [facility],[address] [place] [address] 78923 Glucose [Mass/Vol] 96 mg/dL Normal 74 - 106 [facility] Comment on above: Performed By: #### 2 38597 #### [facility],[address] [place] [address] 78281 Potassium [Moles/Vol] 4.3 mmol/L Normal 3.5 - 5.1 [facility] Comment on above: Performed By: #### 2 04511 #### [facility],[address] [place] [address] 28668 Protein [Mass/Vol] 7.4 g/dL Normal 6.4 - 8.2 [facility] Comment on above: Performed By: #### 2 39412 #### [facility],[address] [place] [address] 69480 Sodium [Moles/Vol] 139 mmol/L Normal 136 - 145 [facility] Comment on above: Performed By: #### 2 02276 #### [facility],[address] [place] [address] 58736 Urea nitrogen [Mass/Vol] 20 mg/dL High 7 - 18 [facility] Comment on above: Performed By: #### 2 00507 #### [facility],[address] [place] [address] 08987 BMP with eGFRon 02-10-2024 AGE 74 years Normal [facility] Comment on above: Performed By: #### 2 60371 #### [facility],[address] [place] [address] 56786 Anion gap [Moles/Vol] 11 mmol/L Normal 10 - 20 [facility] Comment on above: Performed By: #### 2 15513 #### [facility],[address] [place] [address] 02744 BMP with eGFR Normal [facility] Comment on above: Result Comment: BASI C METABOLIC PANEL Performed By: #### 2 05018 #### [facility],[address] [place] [address] 62688 Calcium [Mass/Vol] 8.7 mg/dL Normal 8.5 - 10.1 [facility] Comment on above: Performed By: #### 2 00622 #### [facility],[address] [place] [address] 35508 Chloride [Moles/Vol] 103 mmol/L Normal 98 - 107 [facility] Comment on above: Performed By: #### 2 52483 #### [facility],[address] [place] [address] 53012 CO2 [Moles/Vol] 30.5 mmol/L Normal 21.0 - 32.0 [facility] Comment on above: Performed By: #### 2 77838 #### [facility],[address] [place] [address] 87784 Creatinine [Mass/Vol] 1.48 mg/dL High 0.70 - 1.30 [facility] Comment on above: Performed By: #### 2 27658 #### [facility],[address] [place] [address] 64029 eGFR 47 ML/MINUTE Low 60 - 999 [facility] Comment on above: Performed By: #### 2 12940 #### [facility],[address] [place] [address] 06763 eGFR(AA) 57 ML/MINUTE Low 60 - 999 [facility] Comment on above: Result Comment: ACCO RDING TO THE NATIONAL KIDNEY DISEASE EDUCATION PROGRAM(NKDE), A NORMAL eGFR IS A VALUE GREATER THAN OR EQUAL TO 60 ML/MIN/1.73 SQ METERS. CHRONIC KIDNEY DISEASE: <60mL/MIN/1.73 SQ METERS KIDNEY FAILURE: <15mL/MIN/1.73 SQ METERS THIS TEST SHOULD ONLY BE USED FOR PATIENTS 18 YEARS OF AGE AND OLDER. Performed By: #### 2 59109 #### [facility],[address] [place] [address] 16273 Glucose [Mass/Vol] 93 mg/dL Normal 74 - 106 [facility] Comment on above: Performed By: #### 2 24248 #### [facility],[address] [place] [address] 73495 Potassium [Moles/Vol] 4.4 mmol/L Normal 3.5 - 5.1 [facility] Comment on above: Performed By: #### 2 52016 #### [facility],[address] [place] [address] 56701 Sodium [Moles/Vol] 140 mmol/L Normal 136 - 145 [facility] Comment on above: Performed By: #### 2 07085 #### [facility],[address] [place] [address] 93862 Urea nitrogen [Mass/Vol] 26 mg/dL High 7 - 18 [facility] Comment on above: Performed By: #### 2 38795 #### [facility],[address] [place] [address] 91970 NT-proBNPon 02-10-2024 Natriuretic peptide B (Bld) [Mass/Vol] 741 pg/mL High 0 - 125 [facility] Comment on above: Performed By: #### 2 23118 #### [facility],[address] [place] [address] SINUSES W/O CONTRASTon CT SINUSES W/O CONTRAST [address] [address] Patient: TWAN ESTRELLA Phone#: : 1950 Age: 74 Gender: M Pt. Type: Out Account: [id number] Location: [facility] Ordering: JOSE WRIGHT Exam Date: 01/28/2024/12:47 Family Phys: Charge Code: [id number] Physician: Swain Order #: [id number] Dose#: 20.8 PROCEDURE: CT SINUSES WITHOUT CONTRAST COMPARISON: [facility], CT, SINUSES W/O CONTRAST, 07/25/2017, 8:57. INDICATIONS: Reccurent sinus infections. TECHNIQUE: CT images were created without intravenous contrast. All CT scans at this facility use dose modulation, iterative reconstruction, and/or weight based dosing when appropriate to reduce radiation dose to as low as reasonably achievable. IV CONTRAST: No IV contrast used,0ml TOTAL DOSE: 20.8 CTDIvol(mGy) FINDINGS: Dental amalgam streak artifact limits evaluation at the involved levels. MAXILLARY SINUSES: There is complete opacification of the left maxillary sinus. There is mild asymmetric widening of the left ostiomeatal unit; left ostiomeatal unit measures 0.9 cm, right ostiomeatal unit measures 0.7 cm. There is mucosal thickening of the right maxillary sinus. No anomalous inferior orbital ethmoid (Sotero) air cells. ETHMOID SINUSES: Opacification of anterior ethmoid air cells. Fovea ethmoidali and lamina papyracea are symmetric and intact. SPHENOID SINUSES: There is mucosal thickening in the left maxillary sinus. Sphenoethmoidal recesses are patent. No bony dehiscence. FRONTAL SINUSES: Complete opacification of the left frontal sinus and left frontal recess. Right frontal recess is patent. No anomalous frontal air cells. NASAL FOSSA: Roberta bullosa of the middle turbinates. No septal perforation or deviation. No paradoxical turbinates are identified. OTHER: Atherosclerotic calcifications of cavernous carotid arteries. CONCLUSION: 1. Complete opacification of the left frontal sinus, left maxillary sinus and anterior ethmoid air cells. Continued Report - Page 2 of 2 Patient: TWAN ESTRELLA Phone#: : 1950 Age: 74 Gender: M Pt. Type: Out Account: [id number] Location: 052 Ordering: JOSE WRIGHT Exam Date: 01/28/2024/12:47 Family Phys: Charge Code: [id number] Physician: Swain Order #: [id number] Dose#: [id number] 2. Asymmetric widening of the left maxillary ostiomeatal unit, concerning for obstructing lesion. Recommend ENT evaluation. Dictated by: Radha Yadav MD on 01/28/2024 at 18:26 Approved by: Radha Yadav MD on 01/28/2024 at 18:37 Normal [facility] BMP with eGFRon 01-13-2024 AGE 73 years Normal [facility] Comment on above: Performed By: #### 2 10004 #### [place] [id number] Anion gap [Moles/Vol] 8 mmol/L Low 10 - 20 [facility] Comment on above: Performed By: #### 2 61200 #### [facility],[address] [place] [address] 88181 BMP with eGFR Normal [facility] Comment on above: Result Comment: BASI C METABOLIC PANEL Performed By: #### 2 37620 #### [address] [address] Calcium [Mass/Vol] 8.7 mg/dL Normal 8.5 - 10.1 [facility] Comment on above: Performed By: #### 2 04552 #### [facility],[address] [place] [address] 64847 Chloride [Moles/Vol] 105 mmol/L Normal 98 - 107 [facility] Comment on above: Performed By: #### 2 50274 #### [address] [address] CO2 [Moles/Vol] 30.2 mmol/L Normal 21.0 - 32.0 [facility] Comment on above: Performed By: #### 2 44347 #### [facility],[address] [place], [place] [address] Creatinine [Mass/Vol] 1.71 mg/dL High 0.70 - 1.30 [facility] Comment on above: Performed By: #### 2 82067 #### [facility],[address] [place] [address] 63752 eGFR 40 ML/MINUTE Low 60 - 999 [facility] Comment on above: Performed By: #### 2 64711 #### [facility],[address] [place] [address] 42734 eGFR(AA) 48 ML/MINUTE Low 60 - 999 [facility] Comment on above: Result Comment: ACCO RDING TO THE NATIONAL KIDNEY DISEASE EDUCATION PROGRAM(NKDE), A NORMAL eGFR IS A VALUE GREATER THAN OR EQUAL TO 60 ML/MIN/1.73 SQ METERS. CHRONIC KIDNEY DISEASE: <60mL/MIN/1.73 SQ METERS KIDNEY FAILURE: <15mL/MIN/1.73 SQ METERS THIS TEST SHOULD ONLY BE USED FOR PATIENTS 18 YEARS OF AGE AND OLDER. Performed By: #### 2 13279 #### [facility],[address] [place] [address] 21954 Glucose [Mass/Vol] 97 mg/dL Normal 74 - 106 [facility] Comment on above: Performed By: #### 2 26507 #### [facility],[address] [place] [address] 96635 Potassium [Moles/Vol] 4.6 mmol/L Normal 3.5 - 5.1 [facility] Comment on above: Performed By: #### 2 03320 #### [facility],[address] [place] [address] 47148 Sodium [Moles/Vol] 139 mmol/L Normal 136 - 145 [facility] Comment on above: Performed By: #### 2 76960 #### [facility],[address] [place] [address] 02044 Urea nitrogen [Mass/Vol] 23 mg/dL High 7 - 18 [facility] Comment on above: Performed By: #### 2 29707 #### [facility],[address] [place] [address] 12536 CBC + DIFFon 01-13-2024 ATY LYMP 0 % Normal [facility] Comment on above: Performed By: #### 2 91235 #### [facility],[address] [place] [address] 48514 BANDS 0 % Normal 0 - 5 [facility] Comment on above: Performed By: #### 2 21906 #### [facility],[address] [place] [address] 81485 Baso # 0.01 x10EE3/UL Normal 0.00 - 0.10 [facility] Comment on above: Performed By: #### 2 09561 #### [facility],[address] [place] [address] 79123 Basophils/100 WBC (Bld) 0.3 % Normal 0.0 - 2.0 [facility] Comment on above: Performed By: #### 2 14319 #### [facility],[address] [place] [address] 87210 Basophils/100 WBC (Bld) 1.0 % Normal 0.0 - 2.0 [facility] Comment on above: Performed By: #### 2 84302 #### [facility],[address] [place] [address] 34798 CBC + DIFF Normal [facility] Comment on above: Result Comment: CORRECTED REPORT CBC-COMPLETE BLOOD COUNT Performed By: #### 2 16345 #### [facility],[address] [place] [address] 95237 CELL COUNT 100 Normal [facility] Comment on above: Performed By: #### 2 86592 #### [facility],[address] [place] [address] 21358 EO 1.0 % Normal 0.0 - 7.0 [facility] Comment on above: Performed By: #### 2 06596 #### [facility],[address] [place], [place] [address] EO # 0.06 x10EE3/UL Normal 0.00 - 0.50 [facility] Comment on above: Performed By: #### 2 82614 #### [facility],[address] [place] [address] 88782 Eosinophils/100 WBC (Bld) 1.7 % Normal 0.0 - 7.0 [facility] Comment on above: Performed By: #### 2 92737 #### [facility],[address] [place] [address] 87814 Erythrocyte distribution width (RBC) [Ratio] 14.3 % Normal 12.0 - 15.6 [facility] Comment on above: Performed By: #### 2 72281 #### [facility],[address] [place] [address] 18053 Hematocrit (Bld) [Volume fraction] 37.1 % Low 40.0 - 52.0 [facility] Comment on above: Performed By: #### 2 40098 #### [facility],[address] [place] [address] 90784 Hemoglobin (Bld) [Mass/Vol] 12.2 g/dL Low 13.0 - 17.5 [facility] Comment on above: Performed By: #### 2 47583 #### [facility],[address] [place] [address] 97651 Lymph # 0.81 x10EE3/UL Normal 0.80 - 2.80 [facility] Comment on above: Performed By: #### 2 62859 #### [facility],[address] [place] [address] 55392 Lymphocytes/100 WBC (Bld) 21.9 % Normal 20.0 - 45.0 [facility] Comment on above: Performed By: #### 2 99593 #### [facility],[address] [place] [address] 28630 Lymphocytes/100 WBC (Bld) 27 % Normal 20 - 45 [facility] Comment on above: Performed By: #### 2 21223 #### [facility],[address] [place] [address] 22480 MANUAL DIFF SEE BELOW Normal [facility] Comment on above: Performed By: #### 2 83337 #### [facility],[address] [place] [address] 87777 MCH (RBC) [Entitic mass] 35 pg High 27 - 33 [facility] Comment on above: Performed By: #### 2 05829 #### [facility],[address] [place] [address] 28303 MCHC 33 X10 3 Normal 32 - 36 [facility] Comment on above: Performed By: #### 2 86938 #### [facility],[address] [place] [address] 60033 MCV (RBC) [Entitic vol] 107 fL High 81 - 98 [facility] Comment on above: Performed By: #### 2 58655 #### [facility],[address] [place] [address] 67073 [place] # 0.26 x10EE3/UL Normal 0.20 - 1.00 [facility] Comment on above: Performed By: #### 2 01339 #### [facility],[address] [place] [address] 99833 MONOS 4 % Normal 0 - 10 [facility] Comment on above: Performed By: #### 2 [id number] #### [facility],[address] [place] [address],[facility] [address] MONOS % 7.0 % Normal 0.0 - 10.0 [facility] Comment on above: Performed By: #### 2 62115 #### [facility],[address] [place] [address] Morphology Sunny (Bld) [Interp] NORMAL Normal [facility] Comment on above: Result Comment: ==== FOLLOWING RESULTS REPORTED IN ERROR @R] RBC 3.54 L <-- *Previously reported in error 01/13/241723.MG . .DXH9 .789-8 @G] HEMOGLOBIN 12.4 L <-- *Previously reported in error 01/13/243.MG . .DXH9 .718-7 @T] HEMATOCRIT 37.9 L <-- *Previously reported in error 01/13/243.MG . .DXH9 .4544-3 RD] RDW/CV 14.5 <-- *Previously reported in error 01/13/243.MG . .DXH9 .788-0 @P] PLATELET 116 L <-- *Previously reported in error 01/13/24.MG . .DXH9 .777-3 MP] MPV 7.9 <-- *Previously reported in error 01/13/243.MG . .DXH9 .31407-5 @N] NEUT % 66.9 <-- *Previously reported in error 01/13/243.MG . .DXH9 .751-8 @L] LYMPH % 23.0 <-- *Previously reported in error s10/15/24.1723.MG . .DXH9 .736-9 @M] MONOS % 8.8 <-- *Previously reported in error 01/13/24.1723.MG . .DXH9 .5905-5 @E] EO % 1.2 <-- *Previously reported in error 01/13/24.1723.MG . .DXH9 .713-8 @B] BASO % 0.2 <-- *Previously reported in error 01/13/24.1723.MG . .DXH9 .706-2 L#] Lymph # 0.87 <-- *Previously reported in error 01/13/24.1723.MG . .DXH9 .731-0 N#] Neut # 2.54 <-- *Previously reported in error 01/13/24.1723.MG . .DXH9 .751-8 M#] [place] # 0.33 <-- *Previously reported in error 01/13/24.1723.MG . .DXH9 .742-7 E#] EO # 0.05 <-- *Previously reported in error 01/13/24.1723.MG . .DXH9 .711-2 BASO 0.0 <-- *Previously reported in error 01/13/24.1723.MG . . .M Performed By: #### 2 90619 #### [facility],[address] [place], [place] [id number] Neut # 2.56 x10EE3/UL Normal 1.50 - 7.10 [facility] Comment on above: Performed By: #### 2 54455 #### [facility],[address] [place] [address] Neutrophils/100 WBC (Bld) 69.1 % Normal 46.0 - 76.0 [facility] Comment on above: Performed By: #### 2 03384 #### [facility],[address] [place], [place] [id number] PLATELET 125 x10EE3/UL Low 150 - 450 [facility] Comment on above: Performed By: #### 2 09329 #### [facility],[address] [place] [address] Platelet mean volume (Bld) [Entitic vol] 8.4 fL Normal 6.4 - 10.5 [facility] Comment on above: Result Comment: AUTO MATED DIFFERENTIAL Performed By: #### 2 94844 #### [facility],[address] [place] [address]18 RBC 3.48 x 10EE6/UL Low 4.50 - 6.00 [facility] Comment on above: Performed By: #### 2 04935 #### [facility],[address] [place] [address]98 SEGS 67 % Normal 46 - 76 [facility] Comment on above: Performed By: #### 2 74714 #### [facility],[address] [place] [address] WBC 3.7 x 10EE3/UL Low 4.5 - 10.8 [facility] Comment on above: Performed By: #### 2 11431 #### [facility],[address] [place] [address]20 OTHER 0 Normal [facility] Comment on above: Performed By: #### 2 20158 #### [facility],[address] [place] [address] CV ECHO COMPLETE CV ECHO COMPLETE [place] [address] Patient: TWAN ESTRELLA Phone#: : 1950 Age: 73 Gender: M Pt. Type: Out Account: [id number] Location: [facility] Ordering: BREE VALLE Exam Date: 01/13/2024/14:31 Family Phys: JOSE WRIGHT Charge Code: 800095 Physician: Swain Order #: [id number] Dose#: PROCEDURE: ECHOCARDIOGRAM WITH DOPPLER AND COLOR FLOW HISTORY: Patient is 73-year-old male with history of CHF INDICATIONS: HFrEF, chf COMPARISON: None. TECHNIQUE: A 2-D ultrasound, color spectral Doppler and M-mode evaluation of the heart and great vessels. PATIENT MEASUREMENTS: Height (in.): 66 BSA: 2.12 Weight (lbs.): 230 BP: 129/79 Outboard Motor Tester: CARMEN Contrast study performed using Definity injected by slow I.V. push per protocol. M MODE 2D MEASUREMENTS AND CALCULATIONS: LVIDd: 5.4 cm LVIDs: 3.2 cm IVSd: 1.7 cm LVPWd: 1.0 cm LVOT diam: 2.0 cm FS: 41 % Ao Root diam: 2.99 cm LA diam: 5.3 cm LA Volume Index: 47 ml/m2 LA A4 Area: 32.28 cm2 RA A4 Area: 26 cm2 RVDd: 4.03 cm TAPSE: 17 mm DOPPLER MEASUREMENTS AND CALCULATIONS MITRAL MV E MAX casper: 0.82 m/s, 0.86 m/s MV A MAX casper: 0.38 m/s MV E-A ratio: 2.19 Lat Peak E' Casper 10 cm/sec Septal Peak E' CASPER 8 cm/sec Continued Report - Page 2 of 3 Patient: TWAN ESTRELLA Phone#: : 1950 Age: 73 Gender: M Pt. Type: Out Account: [id number] Location: [facility] Ordering: BREE VALLE Exam Date: 01/13/2024/14:31 Family Phys: JOSE WRIGHT Charge Code: [id number] Physician: Swain Order #: [id number] Dose#: AORTIC Ao V2 max: 1.59 m/s Ao max P.08 mm[Hg] Ao V2 mean: 1.00 m/s Ao mean P.88 mm[Hg] Ao V2 VTI: 29.94 cm AI max casper 3.74 m/s AI max PG 55.91 mm[Hg] AI dec Garvin 1.36 m/s2 AI PHT 800.07 ms LV V1 Max 0.95 m/s LV V1 Max PG 3.62 mm[Hg] LV V1 Mean PG 1.95 mm[Hg] LV V1 mean 0.66 m/s LV V1 VTI 17.49 cm PULMONIC PA V2 Max 0.99 m/s PA Max PG 3.94 mm[Hg] TRICUSPID TR Max Casper 2.07 m/s TR max PG 17.41 mm[Hg] RVSP 2D/M-MODE AND COLOR FLOW LEFT VENTRICLE: There is asymmetric septal hypertrophy seen with IV SD measuring 1.7 cm. Left ventricle is normal in size. Systolic ejection fraction is 60-65%. There are no regional wall motion abnormality seen. There is no systolic anterior motion of the mitral leaflet. Cannot assess diastolic function due to EA fusion. WALL MOTION: 1 - Basal anterior: Normal. 7 - Mid anterior: Normal. 13 - Apical anterior: Normal. 2 - Basal anteroseptal: Normal. 8 - Mid anteroseptal: Normal. 14 - Apical septal: Normal. 3 - Basal inferoseptal: Normal. 9 - Mid inferoseptal: Normal. 15 - Apical inferior: Normal. 4 - Basal inferior: Normal. 10-Mid inferior: Normal. 16 - Apical lateral: Normal. 5 - Basal inferolateral: Normal. 11-Mid inferolateral: Normal. 6 - Basal anterolateral: Normal. 12-Mid anterolateral: Normal. RIGHT VENTRICLE: Right ventricle is normal in size and qualitatively normal in systolic function. There is pacemaker/ICD lead seen. LEFT ATRIUM: Left atrium is moderately enlarged. RIGHT ATRIUM: Right atrium is moderately enlarged. ATRIAL SEPTUM: Inadequately visualized MITRAL VALVE: Inadequately visualized Continued Report - Page 3 of 3 Patient: TWAN ESTRELLA Phone#: : 1950 Age: 73 Gender: M Pt. Type: Out Account: [id number] Location: 052 Ordering: BREE VALLE Exam Date: 01/13/2024/14:31 Family Phys: JOSE WRIGHT Charge Code: [id number] Physician: Swain Order #: [id number] Dose#: TRICUSPID VALVE: Tricuspid valve is normal structure. Doppler shows trivial regurgitation versus no stenosis seen AORTIC VALVE: Aortic valve is trileaflet with sclerosis. There is mild regurgitation and no stenosis seen. PULMONIC VALVE: Pulmonic valve isn't visualized. There is trivial regurgitation no stenosis seen. AORTIC ROOT: Aortic root is normal in size. AORTIC ARCH: Inadequately visualized DESC THORACIC AORTA: Inadequately visualized IVC/SVC: Inadequately visualized PERICARDIUM: There is no pericardial effusion seen CONCLUSION: 1. The study is technically difficult due to poor acoustic windows. Echo enhancing ages lies to assess for endocardial page. 2. There is asymmetric septal hypertrophy seen with IV SD visual 1.7 cm suggestive of hypertrophic cardiomyopathy. 3. There is moderate biatrial enlargement seen. 4. There is mild to moderate mitral valve regurgitation and no stenosis seen. 5. Aortic valve is trileaflet with sclerosis. There is mild regurgitation no stenosis seen. 6. Right ventricle is normal in size and qualitatively normal in systolic function. There is pacemaker is/ICD lead seen. Dictated by: EFRAÍN WHITMAN MD on 01/13/2024 at 20:13 Approved by: EFRAÍN WHITMAN MD on 01/13/2024 at 20:57 Normal [facility] FERRITINon 01-13-2024 Ferritin [Mass/Vol] 132 ng/mL Normal 8 - 388 [facility] Comment on above: Performed By: #### 2 63200 #### [address] [address] IRON AND TIBCon 01-13-2024 %SATURATION 39 % Normal [facility] Comment on above: Performed By: #### 2 55873 #### [facility],[address] [place] [address] Iron [Mass/Vol] 130 ug/dL Normal 65 - 175 [facility] Comment on above: Performed By: #### 2 63806 #### [facility],[address] [place] [address] TIBC 331 ug/dl Normal 250 - 450 [facility] Comment on above: Performed By: #### 2 83797 #### [facility],[address] [place] [address] UIBC 201 ug/dL Normal 155 - 355 [facility] Comment on above: Performed By: #### 2 66013 #### [facility],[address] [place] [address] NT-proBNPon 01-13-2024 Natriuretic peptide B (Bld) [Mass/Vol] 1181 pg/mL High 0 - 125 [facility] Comment on above: Performed By: #### 2 17823 #### [facility],[address] [place] [address] .Auto Diffon 12-05-2023 Basophil, Absolute 0.0 10 3/mcL Normal 0.0-0.3 [facility] Comment on above: Performed By: #### C BC, ABSGEL, ANEU, GFR, ABOGEL, ADIFF, PRO, BMP #### [address] [address] Basophils/100 WBC (Bld) 0.4 % Normal 0.0-2.5 [facility] Comment on above: Performed By: #### C BC, ABSGEL, ANEU, GFR, ABOGEL, ADIFF, PRO, BMP #### [address] [address] Eosinophil, Absolute 0.1 10 3/mcL Normal 0.0-0.[address] [facility] Comment on above: Performed By: #### C BC, ABSGEL, ANEU, GFR, ABOGEL, ADIFF, PRO, BMP #### [address] [address] Eosinophils/100 WBC (Bld) 1.9 % Normal 0.0-6.0 [facility] Comment on above: Performed By: #### C BC, ABSGEL, ANEU, GFR, ABOGEL, ADIFF, PRO, BMP #### [address] [address] Lymphocyte, Absolute 1.1 10 3/mcL Normal 0.9-4.[address] [facility] Comment on above: Performed By: #### C BC, ABSGEL, ANEU, GFR, ABOGEL, ADIFF, PRO, BMP #### [address] [address] Lymphocytes/100 WBC (Bld) 28.0 % Normal 20.0-40.0 [facility] Comment on above: Performed By: #### C BC, ABSGEL, ANEU, GFR, ABOGEL, ADIFF, PRO, BMP #### [address] [address] Monocyte, Absolute 0.5 10 3/mcL Normal 0.1-1.4 [facility] Comment on above: Performed By: #### C BC, ABSGEL, ANEU, GFR, ABOGEL, ADIFF, PRO, BMP #### [address] [address] Monocytes/100 WBC (Bld) 12.3 % Normal 2.0-13.0 [facility] Comment on above: Performed By: #### C BC, ABSGEL, ANEU, GFR, ABOGEL, ADIFF, PRO, BMP #### [address] [address] Neutrophils/100 WBC (Bld) 57.4 % Normal 50.0-75.0 [facility] Comment on above: Performed By: #### C BC, ABSGEL, ANEU, GFR, ABOGEL, ADIFF, PRO, BMP #### [address] [address] .GFRon 12-05-2023 GFR Non- >60 [facility] Comment on above: Result Comment: GFR Population mean for , Non- Americans Ages 20-29 = 116 mL/min/1.73 sq.m. Ages 30-39 = 107 mL/min/1.73 sq.m. Ages 40-49 = 99 mL/min/1.73 sq.m. Ages 50-59 = 93 mL/min/1.73 sq.m. Ages 60-69 = 85 mL/min/1.73 sq.m. Ages 70+ = 75 mL/min/1.73 sq.m. Chronic Kidney Disease: Less than 60 mL/min/1.73 square meters End Stage Renal Disease: Less than 15 mL/min/1.73 square meters Performed By: #### C BC, ABSGEL, ANEU, GFR, ABOGEL, ADIFF, PRO, BMP #### [address] [address] GFR >60 [facility] Comment on above: Result Comment: GFR Population mean for , Non- Americans Ages 20-29 = 116 mL/min/1.73 sq.m. Ages 30-39 = 107 mL/min/1.73 sq.m. Ages 40-49 = 99 mL/min/1.73 sq.m. Ages 50-59 = 93 mL/min/1.73 sq.m. Ages 60-69 = 85 mL/min/1.73 sq.m. Ages 70+ = 75 mL/min/1.73 sq.m. Chronic Kidney Disease: Less than 60 mL/min/1.73 square meters End Stage Renal Disease: Less than 15 mL/min/1.73 square meters Performed By: #### C BC, ABSGEL, ANEU, GFR, ABOGEL, ADIFF, PRO, BMP #### [address] [address] .NEUABSon 12-05-2023 Neutrophil, Absolute 2.2 10 3/mcL Low 2.3-8.[address] [facility] Comment on above: Performed By: #### C BC, ABSGEL, ANEU, GFR, ABOGEL, ADIFF, PRO, BMP #### [place] [id number] ABO/Rh (Gel)on 12-05-2023 ABO/Rh Interp Positive Invalid Interpretation Code [facility] Comment on above: Performed By: #### C BC, ABSGEL, ANEU, GFR, ABOGEL, ADIFF, PRO, BMP #### [place] [id number] ABS (Gel)on 12-05-2023 ABSC Interp (Gel) Negative Normal [facility] Comment on above: Performed By: #### C BC, ABSGEL, ANEU, GFR, ABOGEL, ADIFF, PRO, BMP #### [address] [address] BMPon 12-05-2023 BUN/Creatinine Ratio 17.1 ratio Normal 10.0-22.0 [facility] Comment on above: Performed By: #### C BC, ABSGEL, ANEU, GFR, ABOGEL, ADIFF, PRO, BMP #### [place] [id number] Calcium [Mass/Vol] 9.2 mg/dL Normal 8.7-10.4 [facility] Comment on above: Performed By: #### C BC, ABSGEL, ANEU, GFR, ABOGEL, ADIFF, PRO, BMP #### [address] [address] Chloride [Moles/Vol] 106 mmol/L Normal 98-110 [facility] Comment on above: Performed By: #### C BC, ABSGEL, ANEU, GFR, ABOGEL, ADIFF, PRO, BMP #### [address] [address] CO2 [Moles/Vol] 30 mmol/L Normal 22-32 [facility] Comment on above: Performed By: #### C BC, ABSGEL, ANEU, GFR, ABOGEL, ADIFF, PRO, BMP #### [address] [address] Creatinine [Mass/Vol] 1.17 mg/dL Normal 0.60-1.40 [facility] Comment on above: Result Comment: Test ing performed on [employer] analyzer using enzymatic creatinine methodology. Performed By: #### C BC, ABSGEL, ANEU, GFR, ABOGEL, ADIFF, PRO, BMP #### [address] [address] Electrolyte Balance 4.0 mEq/L Normal 4.0-15.0 [facility] Comment on above: Performed By: #### C BC, ABSGEL, ANEU, GFR, ABOGEL, ADIFF, PRO, BMP #### [address] [address] Glucose [Mass/Vol] 100 mg/dL Normal 82-115 [facility] Comment on above: Performed By: #### C BC, ABSGEL, ANEU, GFR, ABOGEL, ADIFF, PRO, BMP #### [address] [address] Potassium [Moles/Vol] 4.3 mmol/L Normal 3.5-5.0 [facility] Comment on above: Performed By: #### C BC, ABSGEL, ANEU, GFR, ABOGEL, ADIFF, PRO, BMP #### [address] [address] Sodium [Moles/Vol] 140 mmol/L Normal 136-145 [facility] Comment on above: Performed By: #### C BC, ABSGEL, ANEU, GFR, ABOGEL, ADIFF, PRO, BMP #### [place] [address] Urea nitrogen [Mass/Vol] 20.0 mg/dL Normal 8.0-22.0 [facility] Comment on above: Performed By: #### C BC, ABSGEL, ANEU, GFR, ABOGEL, ADIFF, PRO, BMP #### [place] [id number] CBCon 12-05-2023 Erythrocyte distribution width (RBC) [Ratio] 15.2 % Normal 11.5-15.5 [facility] Comment on above: Performed By: #### C BC, ABSGEL, ANEU, GFR, ABOGEL, ADIFF, PRO, BMP #### [place] [address] Hematocrit (Bld) [Volume fraction] 39.1 % Low 40.0-52.0 [facility] Comment on above: Performed By: #### C BC, ABSGEL, ANEU, GFR, ABOGEL, ADIFF, PRO, BMP #### [place] [address] Hgb 13.2 G/dL Normal 13.0-17.5 [facility] Comment on above: Performed By: #### C BC, ABSGEL, ANEU, GFR, ABOGEL, ADIFF, PRO, BMP #### [place] [address] MCH (RBC) [Entitic mass] 35.5 pg High 27.0-33.0 [facility] Comment on above: Performed By: #### C BC, ABSGEL, ANEU, GFR, ABOGEL, ADIFF, PRO, BMP #### [place] [address] MCHC 33.8 G/dL Normal 32.0-36.0 [facility] Comment on above: Performed By: #### C BC, ABSGEL, ANEU, GFR, ABOGEL, ADIFF, PRO, BMP #### [place] [address] MCV (RBC) [Entitic vol] 105.3 fL High 81.0-100.0 [facility] Comment on above: Performed By: #### C BC, ABSGEL, ANEU, GFR, ABOGEL, ADIFF, PRO, BMP #### [place] [address] Platelet 99 10 3/mcL Low 150-450 [facility] Comment on above: Performed By: #### C BC, ABSGEL, ANEU, GFR, ABOGEL, ADIFF, PRO, BMP #### [place] [address] Platelet mean volume (Bld) [Entitic vol] 8.6 fL Normal 6.4-10.5 [facility] Comment on above: Performed By: #### C BC, ABSGEL, ANEU, GFR, ABOGEL, ADIFF, PRO, BMP #### [place] [address] RBC 3.71 10 6/mcL Low 4.50-6.00 [facility] Comment on above: Performed By: #### C BC, ABSGEL, ANEU, GFR, ABOGEL, ADIFF, PRO, BMP #### [place] [id number] WBC 3.8 10 3/mcL Low 4.5-10.8 [facility] Comment on above: Performed By: #### C BC, ABSGEL, ANEU, GFR, ABOGEL, ADIFF, PRO, BMP #### [place] [address] LABORATORYOrdered By: Chong Mosqueda on 12-05-2023 ABO and Rh group Nom (Bld) Blood group A Rh(D) positive Invalid Interpretation Code AH BB Auto SS Blood group antibody screen Ql Negative ABSC (12/05/23 6:35 AM) Normal AH BB Auto SS LABORATORYOrdered By: SYSTEM SYSTEM on 12-05-2023 Basophils (Bld) [#/Vol] 0.0 103/mcL Normal 0.0 - 0.3 10^3/mcL AH Workflow SS Basophils/100 WBC (Bld) 0.4 % Normal 0.0 - 2.5 % AH Workflow SS Calcium [Mass/Vol] 9.2 mg/dL Normal 8.7 - 10. 4 mg/dL ADM SS Chloride [Moles/Vol] 106 mmol/L Normal 98 - 11 0 mEq/L ADM SS CO2 [Moles/Vol] 30 mmol/L Normal 22 - 32 mEq/L ADM SS Creatinine [Mass/Vol] 1.17 mg/dL Normal 0.60 - 1.40 mg/dL ADM SS Comment on above: Interpretive Data: T esting performed on [employer] analyzer using enzymatic creatinine methodology. Electrolyte Balance 4.0 mEq/L Normal 4.0 - 15 .0 mEq/L ADM SS Eosinophils (Bld) [#/Vol] 0.1 103/mcL Normal 0.0 - 0.7 10^3/mcL Workflow SS Eosinophils/100 WBC (Bld) 1.9 % Normal 0.0 - 6.0 % Workflow SS Erythrocyte distribution width (RBC) [Ratio] 15.2 % Normal 11.5 - 15.5 % Workflow SS GFR/1.73 sq M.predicted among blacks MDRD (S/P/Bld) [Vol rate/Area] ml/min/1.73sqm Invalid Interpretation Code [facility] S Comment on above: Interpretive Data: GFR Population mean for , Non- Americans Ages 20-29 = 116 mL/min/1.73 sq.m. Ages 30-39 = 107 mL/min/1.73 sq.m. Ages 40-49 = 99 mL/min/1.73 sq.m. Ages 50-59 = 93 mL/min/1.73 sq.m. Ages 60-69 = 85 mL/min/1.73 sq.m. Ages 70+ = 75 mL/min/1.73 sq.m. Chronic Kidney Disease: Less than 60 mL/min/1.73 square meters End Stage Renal Disease: Less than 15 mL/min/1.73 square meters GFR/1.73 sq M.predicted among non-blacks MDRD (S/P/Bld) [Vol rate/Area] ml/min/1.73sqm Invalid Interpretation Code ttwick Chemistry S Comment on above: Interpretive Data: GFR Population mean for , Non- Americans Ages 20-29 = 116 mL/min/1.73 sq.m. Ages 30-39 = 107 mL/min/1.73 sq.m. Ages 40-49 = 99 mL/min/1.73 sq.m. Ages 50-59 = 93 mL/min/1.73 sq.m. Ages 60-69 = 85 mL/min/1.73 sq.m. Ages 70+ = 75 mL/min/1.73 sq.m. Chronic Kidney Disease: Less than 60 mL/min/1.73 square meters End Stage Renal Disease: Less than 15 mL/min/1.73 square meters Glucose [Mass/Vol] 100 mg/dL Normal 82 - 115 mg/dL AH ADM SS Hematocrit (Bld) [Volume fraction] 39.1 % Low 40.0 - 52.0 % AH Workflow SS Hemoglobin (Bld) [Mass/Vol] 13.2 G/dL Normal 13.0 - 17.5 G/dL AH Workflow SS Lymphocytes (Bld) [#/Vol] 1.1 103/mcL Normal 0.9 - 4.3 10^3/mcL AH Workflow SS Lymphocytes/100 WBC (Bld) 28.0 % Normal 20.0 - 40.0 % AH Workflow SS MCH (RBC) [Entitic mass] 35.5 pg High 27.0 - 33.0 pg AH Workflow SS MCHC 33.8 G/dL Normal 32.0 - 36.0 G/dL AH Workflow SS MCV (RBC) [Entitic vol] 105.3 fL High 81.0 - 100.0 fL AH Workflow SS Monocytes (Bld) [#/Vol] 0.5 103/mcL Normal 0.1 - 1.4 10^3/mcL AH Workflow SS Monocytes/100 WBC (Bld) 12.3 % Normal 2.0 - 13.0 % AH Workflow SS Neutrophils (Bld) [#/Vol] 2.2 103/mcL Low 2.3 - 8.1 10^3/mcL AH Workflow SS Neutrophils/100 WBC (Bld) 57.4 % Normal 50.0 - 75.0 % AH Workflow SS Platelet mean volume (Bld) [Entitic vol] 8.6 fL Normal 6.4 - 10.5 fL AH Workflow SS Platelets (Bld) [#/Vol] 99 103/mcL Low 150 - 450 10^3/mcL AH Workflow SS Potassium [Moles/Vol] 4.3 mmol/L Normal 3.5 - 5.0 mEq/L AH ADM SS PT Coag (PPP) [Time] 14.9 s High 9.0 - 1 4.4 seconds [facility] Comment on above: Interpretive Data: E ffective 10/13/07, Protime results may be affected by some antibiotics (i.e. Ciprofloxacin, Azithromycin, Bactrim) which may potentiate the action of oral anticoagulants, with further increases in Protime/INR. PT International Ratio 1.3 ratio Invalid Interpretation Code [facility] Comment on above: Interpretive Data: T anushka [employer] (CHEST, 1991, 102:312S-25S) recommended therapeutic range for oral anticoagulant therapy is: LOW RISK: Prophylaxis of venous thrombosis INR: 2.0-3.0 Treatment of pulmonary embolism 2.0-3.0 Prevention of systemic embolism 2.0-3.0 HIGH RISK: Mechanical prosthetic valves 2.5-3.5 RBC (Bld) [#/Vol] 3.71 106/mcL Low 4.50 - 6.00 10^6/mcL Workflow SS Sodium [Moles/Vol] 140 mmol/L Normal 136 - 145 mEq/L ADM SS Urea nitrogen [Mass/Vol] 20.0 mg/dL Normal 8.0 - 22.0 mg/dL ADM SS Urea nitrogen/Creatinine [Mass ratio] 17.1 ratio Normal 10.0 - 22.0 ratio ADM SS WBC (Bld) [#/Vol] 3.8 103/mcL Low 4.5 - 10.8 10^3/mcL Workflow SS PROon 12-05-2023 INR Coag (PPP) [Relative time] 1.3 {INR} Normal [facility] Comment on above: Result Comment: [employer] (CHEST, 1991, 102:312S-25S) recommended therapeutic range for oral anticoagulant therapy is: LOW RISK: Prophylaxis of venous thrombosis INR: 2.0-3.0 Treatment of pulmonary embolism 2.0-3.0 Prevention of systemic embolism 2.0-3.0 HIGH RISK: Mechanical prosthetic valves 2.5-3.5 Performed By: #### C BC, ABSGEL, ANEU, GFR, ABOGEL, ADIFF, PRO, BMP #### [place] [address] PT Coag (PPP) [Time] 14.9 s High 9.0-14.4 [facility] Comment on above: Result Comment: Effe ctive 10/13/07, Protime results may be affected by some antibiotics (i.e. Ciprofloxacin, Azithromycin, Bactrim) which may potentiate the action of oral anticoagulants, with further increases in Protime/INR. Performed By: #### C BC, ABSGEL, ANEU, GFR, ABOGEL, ADIFF, PRO, BMP #### [place] [id number] [address] [place] [address] XR CHEST 1 VIEWon 12-05-2023 XR CHEST 1 VIEW ORIGINAL EXAMINATION: ONE XRAY VIEW OF THE CHEST 12/05/2023 10:15 am COMPARISON: None. HISTORY: ORDERING SYSTEM PROVIDED HISTORY: Reason for Exam: Evaluate for pneumothorax/lead position post pacer/ICD insertion FINDINGS: Status post sternotomy and left-sided AICD placement. The heart is at the upper limits of normal in size. There is very mild central vascular congestion without overt failure. No focal infiltrate. No pleural effusion. IMPRESSION: Heart disease. No acute chest finding. Interpreted by: Navi Radford Preliminary Report By: Navi Radford Electronically signed By Navi Radford Dictated Date: 12/05/2023 10:28:27 AM Prelim Date: 12/05/2023 10:29:08 AM Sign Date: 12/05/2023 10:29:08 AM Ordering Provider: ZEE Mcbride [facility] Albumin Elph [Mass/Vol]Order ed By: Brenden Friend on 07-11-2023 Albumin [Mass/Vol] 3.7 g/dL 2.9-4.4 [facility] Basophil percentageOrdered B y: Brenden Friend on 07-11-2023 Amylase [Catalytic activity/Vol] 91 U/L 25-115 [facility] Bilirubin [Mass/Vol] 0.80 mg/dL 0.20-1.00 [facility] Comment on above: For patients on eltr ombopag therapy, use of Dimension [place] TBIL is not recommended. Chloride [Moles/Vol] 106 mmol/L 98-107 [facility] Glucose [Mass/Vol] 84 mg/dL 74-106 [facility] LDH [Catalytic activity/Vol] 222 U/L 87-241 [facility] Potassium [Moles/Vol] 4.7 mmol/L 3.5-5.1 [facility] Protein [Mass/Vol] 7.4 g/dL 6.4-8.2 [facility] Sodium [Moles/Vol] 137 mmol/L 136-145 [facility] Erythrocyte sedimentation ra teOrdered By: Brenden Ragland on 07-11-2023 ESR (Bld) [Velocity] 3 mm/h 0-20 [facility] Hemoglobin in reticulocytes (mass per reticulocyte)Ordered By: Brenden Ragland on 07-11-2023 Hemoglobin (Reticulocytes) [Entitic mass] 37.7 pg 30-35 [facility] Interpretation of serum or p lasma protein pattern by immunofixation (narrative resultOrdered By: Brenden Ragland on 07-11-2023 Protein Fractions Immunofixation Sunny [Interp] Not Observed g/dL Not Observed [facility] Iron measurement (mass/mass) Ordered By: Brenden Ragland on 07-11-2023 Iron (Unsp spec) [Mass/Mass] 89 ug/dL 65-175 [facility] Laboratory - Chemistry and C hemistry - challengeOrdered By: Brenden Ragland on 07-11-2023 Albumin/Globulin [Mass ratio] 1.2 {ratio} 0.9-2.4 [facility] [facility] ALP [Catalytic activity/Vol] 50 U/L 45-117 [facility] ALT [Catalytic activity/Vol] 25 U/L 16-61 [facility] CO2 [Moles/Vol] 29.0 mmol/L 21.0-32.0 [facility] Ferritin [Mass/Vol] 53 ng/mL 26-388 [facility] Lipase [Catalytic activity/Vol] 53 U/L 13-75 [facility] Comment on above: Please note:LIPASE r evised reference range effective 22. New Lipase methodology. Expected to produce lower values than the previous assay method. NEW Reference Range: 13 - 75 U/L Urea nitrogen/Creatinine [Mass ratio] 17.8 mg/mg 10-20 [facility] Laboratory - Hematology and Cell countsOrdered By: Brenden Ragland on 07-11-2023 Platelets (Bld) [#/Vol] 120 10*3/uL 150-450 [facility] No Panel InformationOrdered By: Brenden Ragland on 07-11-2023 Addendum Document Comment . [facility] Comment on above: Protein electrophore sis scan will follow via computer,mail, or nremt delivery. C-Reactive Protein Extended Range 4.78 mg/L 0.0-3.0 [facility] Comment on above: C-Reactive Protein ( CRP) provides useful information for thediagnosis, therapy and monitoring of inflammatory processesand associated diseases. For the evaluation of Relative Riskfor Cardiovascular Disease, a High Sensitivity CRP (HSCRP)should be ordered. Estimated GFR (MDRD) Amer 78 mL/min >60 [facility] Comment on above: GFR Calc Estimated GFR (MDRD) Non-Af Amer 65 mL/min >60 [facility] Comment on above: Non- GFR Calc Haptoglobin 126 mg/dL 34-355 [facility] Comment on above: Performed at: [facility] [place] [id number] Director: Mendoza Montgomery PhD, Phone: [phone] Immature Reticulocyte Fraction 22.50 % 3.00-15.90 [facility] Immunoglobulin M 26 mg/dL 15-143 [facility] Comment on above: Result confirmed on concentration. Total Iron Binding Capacity 348 ug/dL 250-450 [facility] Qualitative QuantiFERON-TB g old in tube testOrdered By: Brenden Ragland on 07-11-2023 M. tuberculosis tuberculin stim IFN-g Ql (Bld) 0.04 IU/mL . [facility] Reticulocytes Auto (Bld) [#/ Vol]Ordered By: Brenden Ragland on 07-11-2023 Reticulocytes/100 RBC (Bld) 2.34 % 0.5-1.5 [facility] Serum [id number] measu rement by electrophoresisOrdered By: Brenden Ragland on 07-11-2023 Alpha 1 globulin Elph [Mass/Vol] 0.3 g/dL 0.0-0.4 [facility] Alpha 1 globulin Elph [Mass/Vol] 0.7 g/dL 0.4-1.0 [facility] Serum globulin measurement ( mass/volume)Ordered By: Brenden Ragland on 07-11-2023 Globulin (S) [Mass/Vol] 3.1 g/dL 2.2-3.9 [facility] Serum or plasma IgA measurem ent (mass/volume)Ordered By: Brenden Ragland on 07-11-2023 IgA [Mass/Vol] 180 mg/dL 61-437 [facility] Serum or plasma IgG measurem ent (mass/volume)Ordered By: Brenden Ragland on 07-11-2023 IgG [Mass/Vol] 1112 mg/dL 603-1613 [facility] Serum or plasma beta globuli n measurement by electrophoresis (mass/volume)Ordered By: Brenden Ragland on 07-11-2023 Beta globulin Elph [Mass/Vol] 0.9 g/dL 0.7-1.3 [facility] Serum or plasma calcium marci urement (mass/volume)Ordered By: Brenden Ragland on 07-11-2023 Calcium [Mass/Vol] 9.2 mg/dL 8.5-10.1 [facility] Serum or plasma creatinine m easurement (mass/volume)Ordered By: Brenden Ragland on 07-11-2023 Creatinine [Mass/Vol] 1.18 mg/dL 0.70-1.30 [facility] Comment on above: The validity of the calculated GFR & GFRAA in patients over 70 years has not been determined. Clinical correlation is essential. Serum or plasma gamma globul in measurement by electrophoresis (mass/volume)Ordered By: Brenden Ragland on 07-11-2023 Gamma globulin Elph [Mass/Vol] 1.3 g/dL 0.4-1.8 [facility] Serum or plasma immunoelectr ophoresis interpretation (nominal result)Ordered By: Brenden Ragland on 07-11-2023 Interpretation IEP [Interp] Comment . [facility] Comment on above: No monoclonality det ected. Serum or plasma urea nitroge n measurement (mass/volume)Ordered By: Brenden Ragland on 07-11-2023 Urea nitrogen [Mass/Vol] 21 mg/dL 7-18 [facility] Thin prep Papanicolaou smear with manual screeningOrdered By: Brenden Ragland on 07-11-2023 Thin prep Papanicolaou smear with manual screening 4.0 g/dL 3.2-5.0 [facility] Thin prep Papanicolaou smear with manual screening 28 U/L 15-37 [facility] Thin prep Papanicolaou smear with manual screening 2 5-15 [facility] Thin prep Papanicolaou smear with manual screening 1.2 0.7-1.7 [facility] Thin prep Papanicolaou smear with manual screening Comment . [facility] Comment on above: QuantiFERON-TB Gold Plus is a qualitative indirect test forM tuberculosis infection (including disease) and isintended for use in conjunction with risk assessment,radiography, and other medical and diagnostic evaluations.The QuantiFERON-TB Gold Plus result is determined bysubtracting the Nil value from either TB antigen (Ag)value. The Mitogen tube serves as a control for the test. Thin prep Papanicolaou smear with manual screening 0.04 IU/mL . [facility] Thin prep Papanicolaou smear with manual screening > 10.00 IU/mL . [facility] Thin prep Papanicolaou smear with manual screening Negative Negative [facility] Comment on above: No response to M tub erculosis antigens detected.Infection with M tuberculosis is unlikely, but high riskindividuals should be considered for additional testing(ATS/IDSA/CDC Clinical Practice Guidelines, 2017). Thereference range is an Antigen minus Nil result of <0.35IU/mL.The specimen received for QuantiFERON testing was incubatedby the ordering institution. Specific procedures outlinedin our Directory of Services and in the package insert forthe QuantiFERON Gold (In Tube) test must be followed toenable for proper stimulation of cells for the productionof interferon gamma. Chemiluminescence immunoassaymethodology Total protein bloodOrdered B y: Brenden Ragland on 07-11-2023 Protein [Mass/Vol] 6.8 g/dL 6.0-8.5 [facility] ESRon 02-08-2023 Erythrocyte Sed Rate 14 mm/hr Normal 0-20 [facility] ([place] Comment on above: Performed By: #### E SR #### [place] [id number] Absolute lymphocyte countOrd ered By: Brenden Ragland on 12-17-2022 Lymphocytes Auto (Unsp spec) [#/Vol] 1.27 10*3/uL 0.83-4.51 [facility] Albumin Elph [Mass/Vol]Order ed By: Brenden Ragland on 12-17-2022 Albumin [Mass/Vol] 3.9 g/dL 2.9-4.4 [facility] Basophil percentageOrdered B y: Brenden Ragland on 12-17-2022 Basophils/100 WBC (Bld) 0.3 % 0-1 [facility] Bilirubin [Mass/Vol] 0.70 mg/dL 0.20-1.00 [facility] Comment on above: For patients on eltr ombopag therapy, use of Dimension [place] TBIL is not recommended. Chloride [Moles/Vol] 104 mmol/L 98-107 [facility] Eosinophils/100 WBC (Bld) 0.5 % 0-5 [facility] Glucose [Mass/Vol] 95 mg/dL 74-106 [facility] Neutrophils (Bld) [#/Vol] 4.2 10*3/uL 2.0-7.7 [facility] Neutrophils/100 WBC (Bld) 67.6 % 47-70 [facility] Potassium [Moles/Vol] 4.7 mmol/L 3.5-5.1 [facility] Protein [Mass/Vol] 7.7 g/dL 6.4-8.2 [facility] Sodium [Moles/Vol] 137 mmol/L 136-145 [facility] WBC (Bld) [#/Vol] 6.2 10*3/uL 4.4-11.0 [facility] Blood erythrocytes count (nu mber/volume)Ordered By: Brenden Ragland on 12-17-2022 RBC (Bld) [#/Vol] 4.05 10*6/uL 4.6-6.2 [facility] Blood hemoglobin measurement (mass/volume)Ordered By: Brenden Ragland on 12-17-2022 Hemoglobin (Bld) [Mass/Vol] 13.8 g/dL 13.0-16.5 [facility] Blood lymphocytes/100 leukoc ytesOrdered By: Brenden Ragland on 12-17-2022 Lymphocytes/100 WBC (Bld) 20.6 % 19-41 [facility] Blood monocytes/100 leukocyt esOrdered By: Brenden Ragland on 12-17-2022 Monocytes/100 WBC (Bld) 10.5 % 0-10 [facility] Blood platelet mean volumeOr dered By: Brenden Ragland on 12-17-2022 Platelet mean volume (Bld) [Entitic vol] 10.6 fL 6.2-12.0 [facility] Determination of erythrocyte mean corpuscular volume (MCV)Ordered By: Brenden Ragland on 12-17-2022 MCV (RBC) [Entitic vol] 104.2 fL 80-94 [facility] Erythrocyte sedimentation ra teOrdered By: Brenden Ragland on 12-17-2022 ESR (Bld) [Velocity] 4 mm/h 0-20 [facility] Hematocrit Auto (Bld) [Volum e fraction]Ordered By: Brenden Ragland on 12-17-2022 Hematocrit (Bld) [Volume fraction] 42.2 % 40-54 [facility] Interpretation of serum or p lasma protein pattern by immunofixation (narrative resultOrdered By: Brenden Ragland on 12-17-2022 Protein Fractions Immunofixation Sunny [Interp] See comment [facility] Comment on above: NOT OBSERVED Laboratory - Chemistry and C hemistry - challengeOrdered By: Brenden Ragland on 12-17-2022 ALP [Catalytic activity/Vol] 54 U/L 45-117 [facility] ALT [Catalytic activity/Vol] 19 U/L 16-61 [facility] CO2 [Moles/Vol] 30.0 mmol/L 21.0-32.0 [facility] Urea nitrogen/Creatinine [Mass ratio] 18.7 mg/mg 10-20 [facility] Laboratory - Hematology and Cell countsOrdered By: Brenden Ragland on 12-17-2022 Erythrocyte distribution width (RBC) [Entitic vol] 52.1 fL 35.1-43.9 [facility] Erythrocyte distribution width (RBC) [Ratio] 13.4 % 11.6-14.6 [facility] Immature granulocytes/100 WBC (Bld) 0.500 % 0.0-0.9 [facility] Comment on above: IG% - Immature Granu locytes (promyelocytes, myelocytes and metamyelocytes) > 1% indicates that a LEFT SHIFT is Present. MCH (RBC) [Entitic mass] 34.1 pg 27.0-32.0 [facility] Nucleated RBC/100 WBC (Bld) [Ratio] 0 % 0-5 [facility] MCHC Auto (RBC) [Mass/Vol]Or dered By: Brenden Ragland on 12-17-2022 MCHC (RBC) [Mass/Vol] 32.7 g/dL 32-36 [facility] No Panel InformationOrdered By: Brenden Ragland on 12-17-2022 Addendum Document Comment . [facility] Comment on above: Protein electrophore sis scan will follow via computer,mail, or nremt delivery.Performed at: [place] [id number] Director: eMndoza Montgomery PhD, Phone: [phone] Estimated GFR (MDRD) Amer 75 mL/min >60 [facility] Comment on above: GFR Calc Estimated GFR (MDRD) Non-Af Amer 62 mL/min >60 [facility] Comment on above: Non- GFR Calc Platelets bldOrdered By: Sukumar Ragland on 12-17-2022 Platelets (Bld) [#/Vol] 143 10*3/uL 150-450 [facility] Serum [id number] measu rement by electrophoresisOrdered By: Brenden Ragland on 12-17-2022 Alpha 1 globulin Elph [Mass/Vol] 0.2 g/dL 0.0-0.4 [facility] Alpha 1 globulin Elph [Mass/Vol] 0.7 g/dL 0.4-1.0 [facility] Serum globulin measurement ( mass/volume)Ordered By: Brenden Ragland on 12-17-2022 Globulin (S) [Mass/Vol] 3.0 g/dL 2.2-3.9 [facility] Serum or plasma C reactive p rotein measurement (mass/volume)Ordered By: Brenden Ragland on 12-17-2022 CRP [Mass/Vol] 3.06 mg/L 0.0-3.0 [facility] Comment on above: C-Reactive Protein ( CRP) provides useful information for thediagnosis, therapy and monitoring of inflammatory processesand associated diseases. For the evaluation of Relative Riskfor Cardiovascular Disease, a High Sensitivity CRP (HSCRP)should be ordered. Serum or plasma IgA measurem ent (mass/volume)Ordered By: Brenden Ragland on 12-17-2022 IgA [Mass/Vol] 230 mg/dL 61-437 [facility] Serum or plasma IgG measurem ent (mass/volume)Ordered By: Brenden Ragland on 12-17-2022 IgG [Mass/Vol] 1305 mg/dL 603-1613 [facility] Serum or plasma IgM measurem ent (mass/volume)Ordered By: Brendenkendra Ragland on 12-17-2022 IgM [Mass/Vol] 37 mg/dL 20-172 [facility] Serum or plasma albumin marci urement (mass/volume)Ordered By: Brenden Ragland on 12-17-2022 Albumin [Mass/Vol] 4.0 g/dL 3.2-5.0 [facility] Serum or plasma albumin/glob ulin mass ratioOrdered By: Brendenkendra Ragland on 12-17-2022 Albumin/Globulin [Mass ratio] 1.1 {ratio} 0.9-2.4 [facility] Serum or plasma beta globuli n measurement by electrophoresis (mass/volume)Ordered By: Brendenkendra Ragland on 12-17-2022 Beta globulin Elph [Mass/Vol] 0.9 g/dL 0.7-1.3 [facility] Serum or plasma calcium marci urement (mass/volume)Ordered By: Brenden Ragland on 12-17-2022 Calcium [Mass/Vol] 8.8 mg/dL 8.5-10.1 [facility] Serum or plasma creatinine m easurement (mass/volume)Ordered By: Brenden Ragland on 12-17-2022 Creatinine [Mass/Vol] 1.23 mg/dL 0.70-1.30 [facility] Comment on above: The validity of the calculated GFR & GFRAA in patients over 70 years has not been determined. Clinical correlation is essential. Serum or plasma gamma globul in measurement by electrophoresis (mass/volume)Ordered By: Brenden Ragland on 12-17-2022 Gamma globulin Elph [Mass/Vol] 1.2 g/dL 0.4-1.8 [facility] Serum or plasma immunoelectr ophoresis interpretation (nominal result)Ordered By: Brendensharon Ragland on 12-17-2022 Interpretation IEP [Interp] Comment . [facility] Comment on above: No monoclonality det ected. Serum or plasma urea nitroge n measurement (mass/volume)Ordered By: Brendenkendra Ragland on 12-17-2022 Urea nitrogen [Mass/Vol] 23 mg/dL 7-18 [facility] Thin prep Papanicolaou smear with manual screeningOrdered By: Brenden Friend on 12-17-2022 Thin prep Papanicolaou smear with manual screening 20 U/L 15-37 [facility] Thin prep Papanicolaou smear with manual screening 3 5-15 [facility] Thin prep Papanicolaou smear with manual screening 1.4 0.7-1.7 [facility] Total protein bloodOrdered B y: Brendensharon Ragland on 12-17-2022 Protein [Mass/Vol] 6.9 g/dL 6.0-8.5 [facility] Absolute lymphocyte counton 11-20-2021 Lymphocytes Auto (Unsp spec) [#/Vol] 1.06 10*3/uL 0.83-4.51 [facility] Work Phone: Basophil percentageon 2021 Amylase [Catalytic activity/Vol] 94 U/L 25-115 [facility] Work Phone: Basophils/100 WBC (Bld) 0.3 % 0-1 [facility] Work Phone: Eosinophils/100 WBC (Bld) 1.3 % 0-5 [facility] Work Phone: Neutrophils (Bld) [#/Vol] 2.3 10*3/uL 2.0-7.7 [facility] Work Phone: Neutrophils/100 WBC (Bld) 60.6 % 47-70 [facility] Work Phone: WBC (Bld) [#/Vol] 3.8 10*3/uL 4.4-11.0 [facility] Work Phone: Blood erythrocytes count (nu mber/volume)on 11-20-2021 RBC (Bld) [#/Vol] 3.30 10*6/uL 4.6-6.[facility]: Blood hemoglobin measurement (mass/volume)on 11-20-2021 Hemoglobin (Bld) [Mass/Vol] 12.0 g/dL 13.0-16.5 [facility] Work Phone: Blood lymphocytes/100 leukoc yteson 11-20-2021 Lymphocytes/100 WBC (Bld) 28.0 % 19-41 [facility] Work Phone: Blood monocytes/100 leukocyt eson 11-20-2021 Monocytes/100 WBC (Bld) 9.3 % 0-10 [facility] Work Phone: Blood platelet mean volumeon 11-20-2021 Platelet mean volume (Bld) [Entitic vol] 10.5 fL 6.2-12.0 [facility] Work Phone: Determination of erythrocyte mean corpuscular volume (MCV)on 11-20-2021 MCV (RBC) [Entitic vol] 105.2 fL 80-94 [facility] Work Phone: Hematocrit Auto (Bld) [Volum e fraction]on 11-20-2021 Hematocrit (Bld) [Volume fraction] 34.7 % 40-54 [facility] Work Phone: Laboratory - Chemistry and C hemistry - challengeon 11-20-2021 Lipase [Catalytic activity/Vol] 311 U/L 73-393 [facility] Work Phone: Laboratory - Hematology and Cell countson 11-20-2021 Erythrocyte distribution width (RBC) [Entitic vol] 59.5 fL 35.1-43.9 [facility] Work Phone: Erythrocyte distribution width (RBC) [Ratio] 15.5 % 11.6-14.6 [facility] Work Phone: Immature granulocytes/100 WBC (Bld) 0.500 % 0.0-0.9 [facility] Work Phone: Comment on above: IG% - Immature Granu locytes (promyelocytes, myelocytes and metamyelocytes) > 1% indicates that a LEFT SHIFT is Present. MCH (RBC) [Entitic mass] 36.4 pg 27.0-32.0 [facility] Work Phone: Nucleated RBC/100 WBC (Bld) [Ratio] 0 % 0-5 [facility] Work Phone: MCHC Auto (RBC) [Mass/Vol]on 11-20-2021 MCHC (RBC) [Mass/Vol] 34.6 g/dL 32-36 [facility] Work Phone: Platelets bldon 11-20-2021 Platelets (Bld) [#/Vol] 115 10*3/uL 150-450 [facility] Work Phone: Absolute lymphocyte counton 08-29-2021 Lymphocytes Auto (Unsp spec) [#/Vol] 1.46 10*3/uL 0.83-4.51 [facility] Work Phone: Albumin Elph [Mass/Vol]on Albumin [Mass/Vol] 3.7 g/dL 2.9-4.4 [facility] Work Phone: Atypical perinuclear antineu trophil cytoplasmic antibodies measurementon 08-29-2021 Neutrophil cytoplasmic Ab.perinuclear.atypical IF (S) [Titer] <1:20 titer Neg:<1:20 [facility] Work Phone: Comment on above: The atypical pANCA p attern has been observed in asignificant percentage of patients with ulcerative colitis,primary sclerosing cholangitis and autoimmune hepatitis.Performed at: [facility] [employer] [id number] Director: Mendoza Montgomery PhD, Phone: [phone] at: [address] [id number] Director: Prieto Dickey MD, Phone: [phone] Basophil percentageon 2021 Basophil percentage < 0.2 AI 0.0-0.9 [facility] Work Phone: Basophils/100 WBC (Bld) 0.6 % 0-1 [facility] Work Phone: Bilirubin [Mass/Vol] 0.70 mg/dL 0.20-1.00 [facility] Work Phone: Comment on above: For patients on eltr ombopag therapy, use of Dimension [place] TBIL is not recommended. Chloride [Moles/Vol] 102 mmol/L 98-107 [facility] Work Phone: Eosinophils/100 WBC (Bld) 1.9 % 0-5 [facility] Work Phone: Glucose [Mass/Vol] 104 mg/dL 74-106 [facility] Work Phone: Comment on above: Fasting Glucose resu lt from 100 to 125 mg/dL suggests IMPAIRED HOMEOSTASIS per A.D.A. criteria. Neutrophils (Bld) [#/Vol] 1.8 10*3/uL 2.0-7.7 [facility] Work Phone: Neutrophils/100 WBC (Bld) 48.8 % 47-70 [facility] Work Phone: [phone] Potassium [Moles/Vol] 4.7 mmol/L 3.5-5.1 [facility] Work Phone: Protein [Mass/Vol] 7.4 g/dL 6.4-8.2 [facility] Work Phone: Sodium [Moles/Vol] 137 mmol/L 136-145 [facility] Work Phone: WBC (Bld) [#/Vol] 3.6 10*3/uL 4.4-11.0 [facility] Work Phone: Blood erythrocytes count (nu mber/volume)on 08-29-2021 RBC (Bld) [#/Vol] 3.80 10*6/uL 4.6-6.2 [facility] Work [facility]: Blood hemoglobin measurement (mass/volume)on 08-29-2021 Hemoglobin (Bld) [Mass/Vol] 12.3 g/dL 13.0-16.5 [facility] Work Phone: Blood lymphocytes/100 leukoc yteson 08-29-2021 Lymphocytes/100 WBC (Bld) 40.4 % 19-41 [facility] Work Phone: Blood monocytes/100 leukocyt eson 08-29-2021 Monocytes/100 WBC (Bld) 8.0 % 0-10 [facility] Work Phone: Blood platelet adequacy dete ction by light microscopyon 08-29-2021 Platelets LM Ql (Bld) ADEQUATE ADEQ [facility] Work Phone: Blood platelet mean volumeon 08-29-2021 Platelet mean volume (Bld) [Entitic vol] 10.3 fL 6.2-12.0 [facility] Work Phone: Determination of erythrocyte mean corpuscular volume (MCV)on 08-29-2021 MCV (RBC) [Entitic vol] 97.4 fL 80-94 [facility] Work Phone: Direct bilirubinon 2 Bilirubin.direct [Mass/Vol] 0.23 mg/dL 0.00-0.30 [facility] Work Phone: Erythrocyte sedimentation ra amador 08-29-2021 ESR (Bld) [Velocity] 10 mm/h 0-20 [facility] Work Phone: Hematocrit Auto (Bld) [Volum e fraction]on 08-29-2021 Hematocrit (Bld) [Volume fraction] 37.0 % 40-54 [facility] Work Phone: Interpretation of serum or p lasma protein pattern by immunofixation (narrative resulton 08-29-2021 Protein Fractions Immunofixation Sunny [Interp] See comment [facility] Work Phone: Comment on above: NOT OBSERVED Laboratory - Chemistry and C hemistry - challengeon 08-29-2021 ALP [Catalytic activity/Vol] 51 U/L 45-117 [facility] Work Phone: ALT [Catalytic activity/Vol] 19 U/L 16-61 [facility] Work Phone: CO2 [Moles/Vol] 28.0 mmol/L 21.0-32.0 [facility] Work Phone: Globulin (S) [Mass/Vol] 3.5 g/dL 2.2-4.2 [facility] Work Phone: Urea nitrogen/Creatinine [Mass ratio] 20.2 mg/mg 10-20 [facility] Work Phone: Laboratory - Hematology and Cell countson 08-29-2021 Anisocytosis Ql (Bld) 1+ [facility] Work Phone: Erythrocyte distribution width (RBC) [Entitic vol] 52.7 fL 35.1-43.9 [facility] Work Phone: Erythrocyte distribution width (RBC) [Ratio] 14.7 % 11.6-14.6 [facility] Work Phone: Immature granulocytes/100 WBC (Bld) 0.300 % 0.0-0.9 [facility] Work Phone: Comment on above: IG% - Immature Granu locytes (promyelocytes, myelocytes and metamyelocytes) > 1% indicates that a LEFT SHIFT is Present. MCH (RBC) [Entitic mass] 32.4 pg 27.0-32.0 [facility] Work Phone: Nucleated RBC/100 WBC (Bld) [Ratio] 0 % 0-5 [facility] Work Phone: MCHC Auto (RBC) [Mass/Vol]on 08-29-2021 MCHC (RBC) [Mass/Vol] 33.2 g/dL 32-36 [facility] Work Phone: No Panel Informationon 08-29 Addendum Document Comment . [facility] Work Phone: Comment on above: Protein electrophore sis scan will follow via computer,mail, or nremt delivery. Atypical Lymphocytes 1+ % [facility] Work Phone: Centromere B Antibody <0.2 AI 0.0-0.9 [facility] Work Phone: Endomysial IgA Antibody Negative Negative [facility] Work Phone: Estimated GFR (MDRD) Amer 71 mL/min >60 [facility] Work Phone: Comment on above: GFR Calc Estimated GFR (MDRD) Non-Af Amer 59 mL/min >60 [facility] Work Phone: Comment on above: Non- GFR Calc Immunoglobulin E 4 IU/mL 6-495 [facility] Work Phone: OFFICE MACHINE TECHNICIAN Antibody 3.5 AI 0.0-0.9 [facility] Work Phone: Platelets bldon 08-29-2021 Platelets (Bld) [#/Vol] 159 10*3/uL 150-450 [facility] Work Phone: RBC morphologyon 08-29-2021 RBC morphology finding Nom (Bld) N CHROM NORMAL NORM C&C [facility] Work Phone: Serum DNA double strand anti body assay (units/volume)on 08-29-2021 DNA double strand Ab Qn (S) [IU]/mL 0-9 [facility] Work Phone: Comment on above: Negative <5 Equivoca l 5 - 9 Positive >9 Serum IgA measurement (units /volume)on 08-29-2021 IgA Qn (S) 197 mg/dL [facility] Work Phone: Comment on above: Performed at: [address] [id number] Director: Mendoza Montgomery PhD, Phone: [phone] Serum Cha-1 antibody assay (u nits/volume)on 08-29-2021 Cha-1 extractable nuclear Ab Qn (S) <0.2 AI 0.0-0.9 [facility] Work Phone: Serum Scl-70 extractable nuc lear antibody assay (units/volume)on 08-29-2021 SCL-70 extractable nuclear Ab Qn (S) <0.2 AI 0.0-0.9 [facility] Work Phone: Serum Dotson extractable nucl ear antibody detectionon 08-29-2021 Dotson extractable nuclear Ab Ql (S) <0.2 AI 0.0-0.9 [facility] Work Phone: Serum gwahb-0-woywzdbd measu rement by electrophoresison 08-29-2021 Alpha 1 globulin Elph [Mass/Vol] 0.2 g/dL 0.0-0.4 [facility] Work Phone: Alpha 1 globulin Elph [Mass/Vol] 0.7 g/dL 0.4-1.0 [facility] Work Phone: Serum classic neutrophil cyt oplasmic antibody assay (units/volume)on 08-29-2021 Neutrophil cytoplasmic Ab.classic Qn (S) <1:20 titer Neg:<1:20 [facility] Work Phone: Serum globulin measurement ( mass/volume)on 08-29-2021 Globulin (S) [Mass/Vol] 3.2 g/dL 2.2-3.9 [facility] Work Phone: Serum or plasma C reactive p rotein measurement (mass/volume)on 08-29-2021 CRP [Mass/Vol] mg/L 0.0-3.0 [facility] Work Phone: Comment on above: C-Reactive Protein ( CRP) provides useful information for thediagnosis, therapy and monitoring of inflammatory processesand associated diseases. For the evaluation of Relative Riskfor Cardiovascular Disease, a High Sensitivity CRP (HSCRP)should be ordered. Serum or plasma IgA measurem ent (mass/volume)on 08-29-2021 IgA [Mass/Vol] 201 mg/dL 61-437 [facility] Work Phone: Serum or plasma IgG measurem ent (mass/volume)on 08-29-2021 IgG [Mass/Vol] 1328 mg/dL 603-1613 [facility] Work Phone: Serum or plasma IgM measurem ent (mass/volume)on 08-29-2021 IgM [Mass/Vol] 34 mg/dL 20-172 [facility] Work Phone: Serum or plasma albumin marci urement (mass/volume)on 08-29-2021 Albumin [Mass/Vol] 3.9 g/dL 3.2-5.0 [facility] Work Phone: Serum or plasma albumin/glob ulin mass ratioon 08-29-2021 Albumin/Globulin [Mass ratio] 1.1 {ratio} 0.9-2.4 [facility] Work Phone: Serum or plasma beta globuli n measurement by electrophoresis (mass/volume)on 08-29-2021 Beta globulin Elph [Mass/Vol] 1.0 g/dL 0.7-1.3 [facility] Work Phone: Serum or plasma calcium marci urement (mass/volume)on 08-29-2021 Calcium [Mass/Vol] 8.8 mg/dL 8.5-10.1 [facility] Work Phone: Serum or plasma creatinine m easurement (mass/volume)on 08-29-2021 Creatinine [Mass/Vol] 1.29 mg/dL 0.70-1.30 [facility] Work Phone: Comment on above: The validity of the calculated GFR & GFRAA in patients over 70 years has not been determined. Clinical correlation is essential. Serum or plasma gamma globul in measurement by electrophoresis (mass/volume)on 08-29-2021 Gamma globulin Elph [Mass/Vol] 1.3 g/dL 0.4-1.8 [facility] Work Phone: Serum or plasma immunoelectr ophoresis interpretation (nominal result)on 08-29-2021 Interpretation IEP [Interp] Comment . [facility] Work Phone: Comment on above: No monoclonality det ected. Serum or plasma urea nitroge n measurement (mass/volume)on 08-29-2021 Urea nitrogen [Mass/Vol] 26 mg/dL 7-18 [facility] Work Phone: Serum perinuclear neutrophil cytoplasmic antibody titer by immunofluorescenceon 08-29-2021 Neutrophil cytoplasmic Ab.perinuclear IF (S) [Titer] <1:20 titer Neg:<1:20 [facility] Work Phone: Comment on above: The presence of posi tive fluorescence exhibiting P-ANCA orC-ANCA patterns alone is not specific for the diagnosis ofWegener's Granulomatosis (WG) or microscopic polyangiitis.Decisions about treatment should not be based solely onANCA IFA results. The International ANCA Group Consensusrecommends follow up testing of positive sera with both NE-3 and MPO-ANCA enzyme immunoassays. As many as 5% serumsamples are positive only by EIA. Ref. AM J Clin Yqakec2890;111:507-513. Serum tissue transglutaminas e IgA antibody assay (units/volume)on 08-29-2021 tTG IgA Qn (S) <2 U/mL 0-3 [facility] Work Phone: Comment on above: Negative 0 - 3 Weak Positive 4 - 10 Positive >10 Tissue Transglutaminase (tTG) has been identified as the endomysial antigen. Studies have demonstr- ated that endomysial IgA antibodies have over 99% specificity for gluten sensitive enteropathy. Thin prep Papanicolaou smear with manual screeningon 08-29-2021 Thin prep Papanicolaou smear with manual screening 22 U/L 15-37 [facility] Work Phone: Thin prep Papanicolaou smear with manual screening 7 5-15 [facility] Work Phone: Thin prep Papanicolaou smear with manual screening 1.2 0.7-1.7 [facility] Work Phone: Total protein bloodon 2021 Protein [Mass/Vol] 6.9 g/dL 6.0-8.5 [facility] Work Phone: No Panel Informationon 05-15 SARS-CoV-2 Antigen (Rapid) [facility] Work Phone: Calcium, Ionizedon 1 Calcium [Moles/Vol] 1.17 mmol/L Normal 1.08-1.30 [facility] Reference Lab Comment on above: Performed By: #### P ROL #### [facility] Routine Lab [address] [address] #### ICA #### [facility] Chemistry [address] [place] [address] Calcium, Ionized 1.20 mmol/L Normal 1.08-1.30 [facility] Reference Lab Comment on above: Performed By: #### P ROL #### [facility] Routine Lab [address] [place] [address] #### ICA #### [facility] Chemistry [address] [place] [address] PTH, Intacton 01-17-2021 PTH, Intact 112 pg/mL High 15-65 [facility] Reference Lab Comment on above: Performed By: #### P THI #### [facility] Routine Lab [address] [place] [address] Prolactinon 01-17-2021 Prolactin 10.2 ng/mL Normal 4.0-15.2 [facility] Reference Lab Comment on above: Performed By: #### P ROL #### [facility] Routine Lab [address] [address] #### ICA #### [facility] Chemistry [address] [place] [address] Testosterone, Tot/Fron 07-24 Testosterone [Mass/Vol] 152 ng/dL Low 240-950 [facility] Reference Lab Comment on above: Performed By: #### P ROL #### [facility] Routine Lab [address] [phone] #### ICA #### [facility] Chemistry [address] [phone] Testosterone, Free 5.32 ng/dL Normal 3.47-13.0 [facility] Reference Lab Comment on above: Performed By: #### P ROL #### [facility] Routine Lab [address] [place] [phone] #### ICA #### [facility] Chemistry [address] [place] [phone] Calcium, Ionizedon Calcium [Moles/Vol] 1.21 mmol/L Normal 1.08-1.30 [facility] Reference Lab Comment on above: Performed By: #### P ROL #### [facility] Routine Lab [address] [place] [phone] #### ICA #### [facility] Chemistry [address] [place] [phone] Calcium, Ionized 1.23 mmol/L Normal 1.08-1.30 [facility] Reference Lab Comment on above: Performed By: #### P ROL #### [facility] Routine Lab [address] [place] [phone] #### ICA #### [facility] Chemistry [address] [place] [phone] PTH, Intacton 07-15-2020 PTH, Intact 85 pg/mL High 15-65 [facility] Reference Lab Comment on above: Performed By: #### P THI #### [facility] Routine Lab [address] [phone] Prolactinon 07-15-2020 Prolactin 12.4 ng/mL Normal 4.0-15.2 [facility] Reference Lab Comment on above: Performed By: #### P ROL #### [facility] Routine Lab [address] [place] [phone] #### ICA #### [facility] Chemistry [address] [place], [place] [address] ST2, SERUMon 06-02-2017 ST2, SERUM 24.0 ng/mL Normal <35.0 [facility] [place] Comment on above: Order Comment: Campu s: M Result Comment: The Presage(R) ST2 Assay is indicated to be used inconjunction with clinical evaluation as an aid inassessingthe prognosis of patients diagnosed with chronic heartfailure. Elevated ST2 is associated with greatercardiovascular risk and poor outcome in heart failurepatients. Results should be interpreted in the context ofthe individual patient presentation. The test has beencleared or approved for diagnostic use by the U.S. FoodandDrug Administration.Performed At: [facility] [id number] Radha Roshni [id number] Performed By: #### L 550.25194 ####[facility] [id number] [place], [place] [address]Cf# [phone] CBC W/DIFFon 05-28-2017 BASO ABS 0.00 K/CU MM Normal 0-0.2 [facility] [place] Comment on above: Order Comment: Campu s: M Performed By: #### L 500.71571, L500.55615, L500.20155 ####[facility] [id number] [place] [address]Fq# [phone] Basophils/100 WBC Auto (Bld) 0.3 % Normal 0-2 [facility] [place] Comment on above: Order Comment: Campu s: M Performed By: #### L 500.24673, L500.63993, L500.84168 ####[facility] [id number] [place], [place] [address]Lj# [phone] EOS ABS 0.00 K/CU MM Normal 0-0.5 [facility] [place] Comment on above: Order Comment: Campu s: M Performed By: #### L 500.33412, L500.51525, L500.60038 ####[facility] [id number] [place], [place] [address]Ua# [phone] Eosinophils/100 leukocytes 0.4 % Normal 0-5 [facility] [place] Comment on above: Order Comment: Campu s: M Performed By: #### L 500.32431, L500.84224, L500.74743 ####[address] [place], [place] [address]Zt# [phone] Erythrocyte distribution width Auto Ratio (RBC) 13.3 % Normal 11-14.5 [facility] [place] Comment on above: Order Comment: Campu s: M Performed By: #### L 500.96211, L500.55131, L500.73035 ####[address] [place], [place] [address]Bd# [phone] Erythrocytes (RBC) 4.68 M/CU MM Normal 4.50-6.00 [facility] Comment [facility]: Order Comment: Campu s: M Performed By: #### L 500.89601, L500.62968, L500.71625 ####[address] [address]Ve# [phone] Erythrocytes (RBC) 0.0 % Normal Less than 1 [facility] Comment on above: Order Comment: Campu s: M Performed By: #### L 500.73872, L500.66544, L500.11367 ####[facility] [id number] [place] [address]Ww# [phone] Hematocrit (HCT) 40.5 % Low 41.0-53.0 [facility] [place] Comment on above: Order Comment: Campu s: M Performed By: #### L 500.75352, L500.91257, L500.75771 ####[facility] [id number] [place] [address]Yz# [phone] Hemoglobin mass conc (Bld) 13.6 g/dL Normal 13.5-17.5 [facility] Comment on above: Order Comment: Campu s: M Performed By: #### L 500.18055, L500.70635, L500.37805 ####[facility] [id number] [place], [place] [address]Ph# [phone] IMMATR GRAN ABS 0.10 K/CU MM Normal Less than 2 [facility] [place] Comment on above: Order Comment: Campu s: M Performed By: #### L 500.71065, L500.37121, L500.74725 ####[address] [address]Ph# [phone] IMMATURE GRAN % 0.6 % Normal Less than 2 [facility] [place] Comment on above: Order Comment: Campu s: M Performed By: #### L 500.77370, L500.61737, L500.24947 ####[address] [address]Ph# [phone] Lymphocytes 3.60 K/CU MM Normal 0.9-4.4 [facility] [place] Comment on above: Order Comment: Campu s: M Performed By: #### L 500.28970, L500.24836, L500.78458 ####[address] [address]Ph# [phone] Lymphocytes/100 leukocytes 32.1 % Normal 20-40 [facility] Comment on above: Order Comment: Campu s: M Performed By: #### L 500.74740, L500.16046, L500.80636 ####[facility] [id number] [place] [address]Go# [phone] MCHC mass conc (RBC) 33.6 g/dL Normal 32.0-36.0 [facility] [place] Comment on above: Order Comment: Campu s: M Performed By: #### L 500.34126, L500.04985, L500.27945 ####[address] [address]Fs# [phone] MCV 86.5 fL Normal 80.0-99.0 [facility] Comment on above: Order Comment: Campu s: M Performed By: #### L 500.85096, L500.87002, L500.77418 ####[facility] [address] [address]Ph# [phone] MONO ABS 1.00 K/CU MM Normal 0.1-1.1 [facility] Comment on above: Order Comment: Campu s: M Performed By: #### L 500.85105, L500.09005, L500.39093 ####[address] [address]Rr# [phone] Monocytes/100 leukocytes 9.2 % Normal 2-10 [facility] Comment on above: Order Comment: Campu s: M Performed By: #### L 500.45290, L500.48082, L500.48333 ####[address] [address]Ph# [phone] Neutrophils 6.30 K/CU MM Normal 2.0-8.3 [facility] Comment on above: Order Comment: Campu s: M Performed By: #### L 500.56891, L500.37761, L500.61891 ####[address] [address]Ep# [phone] Neutrophils/100 WBC Auto (Bld) 57.4 % Normal 45-75 [facility] Comment on above: Order Comment: Campu s: M Performed By: #### L 500.87961, L500.55844, L500.15429 ####[address] [address]Nf# [phone] Platelet mean volume (PMV) 10.4 fL Normal 9.4-12.4 [facility] Comment on above: Order Comment: Campu s: M Performed By: #### L 500.55010, L500.73211, L500.61746 ####[address] [address]Ph# [phone] Platelets 203 K/CU MM Normal 150-450 [facility] Comment on above: Order Comment: Campu s: M Performed By: #### L 500.58856, L500.24585, L500.01480 ####[facility] Y[address]FD[address] [place], [place] [address]So# [phone] WBC (Leukocytes) 11.1 K/CU MM High 4.5-11.0 [facility] Comment on above: Order Comment: Campu s: M Performed By: #### L 500.31986, L500.91176, L500.03383 ####[facility] [id number] [place], [place] [address]Ja# [phone] CMPon 05-28-2017 Alanine aminotransferase (ALT) 21 U/L Normal 13-61 [facility] Comment on above: Order Comment: Campu s: M Result Comment: RESU LTS MAY BE FALSELY DEPRESSED AFTER THE ADMINISTRATION OFSULFASALAZINE AND/OR SULFAPYRIDINE. Performed By: #### L 500.57999, L500.87899, L500.27653 ####[facility] [id number] [place], [place] [address]Xv# [phone] Albumin 3.3 g/dL Normal 3.2-5.0 [facility] Comment on above: Order Comment: Campu s: M Performed By: #### L 500.57133, L500.80872, L500.24724 ####[facility] ACPIFGWJCY3460 [place], [place] [address]Hl# [phone] Albumin/Globulin Ratio 1.0 {ratio} Normal 0.8-2.0 [facility] Comment on above: Order Comment: Campu s: M Performed By: #### L 500.62301, L500.85503, L500.59731 ####[facility] [id number] [place], [place] [address]Ar# [phone] ALK PHOS 62 U/L Normal 45-117 [facility] Comment on above: Order Comment: Campu s: M Performed By: #### L 500.65975, L500.98839, L500.53697 ####[facility] MIZRHAJDCE6478 [place], [place] [address]Ef# [phone] Anion gap 8 mmol/L Normal 5-16 [facility] [place] Comment on above: Order Comment: Campu s: M Performed By: #### L 500.09727, L500.42528, L500.96722 ####[facility] [id number] [place], [place] [address]Ph# [phone] BILI TOTAL 0.5 MG/DL Normal 0.2-1.0 [facility] [place] Comment on above: Order Comment: Campu s: M Performed By: #### L 500.98799, L500.72736, L500.55361 ####[facility] [id number] [place] [address]Wd# [phone] BUN/Creatinine Ratio 15 mg/mg Normal 15-24 [facility] Comment on above: Order Comment: Campu s: M Performed By: #### L 500.34118, L500.12715, L500.82573 ####[facility] YOTTUTBFXC0231 [place], [place] [address]En# [phone] Calcium 8.5 mg/dL Normal 8.5-10.1 [facility] [place] Comment on above: Order Comment: Campu s: M Performed By: #### L 500.39021, L500.99500, L500.70226 ####[facility] WDCQTOGAQI2611 [place], [place] [address]Et# [phone] Chloride 100 mmol/L Normal 98-107 [facility] [place] Comment on above: Order Comment: Campu s: M Performed By: #### L 500.25655, L500.78768, L500.99444 ####[facility] [id number] [place] [address]Dw# [phone] CO2 28 mmol/L Normal 21-32 [facility] [place] Comment on above: Order Comment: Campu s: M Performed By: #### L 500.63951, L500.08642, L500.27023 ####[facility] NOPZMXNTUC2632 [place], [place] [address]Uy# [phone] Creatinine 0.840 mg/dL Normal 0.670-1.17 0 [facility] Comment on above: Order Comment: Herou s: M Result Comment: Laurence ents receiving either N-Acetylcysteine (NAC) orMetamizole prior to venipuncture, may have falsely depressedresults. Performed By: #### L 500.56607, L500.78626, L500.16032 ####[facility] RJRWDUJWBE8470 [place], [place] [address]If# [phone] Globulin 3.2 g/dL Normal 2.2-4.2 [facility] Comment on above: Order Comment: Herou s: M Performed By: #### L 500.53552, L500.86126, L500.61173 ####[facility] EUNQNXGVNY8461 [place], [place] [address]By# [phone] Glucose mass conc 88 mg/dL Normal 70-100 [facility] Comment on above: Order Comment: Herou s: M Result Comment: 70-1 00- Normal Fasting; 100-125 Impaired Fasting; greaterthan 126 on more than one result- Diabetes. ADA guidelines.Results may be falsely elevated after the administration ofSulfapyridine.Results may be falsely depressed after the administration ofSulfasalazine. Performed By: #### L 500.97861, L500.57833, L500.61078 ####[facility] [id number] [place], [place] [address]Ej# [phone] Potassium molar conc 3.7 mmol/L Normal 3.5-5.1 [facility] [place] Comment on above: Order Comment: Herou s: M Performed By: #### L 500.11407, L500.41345, L500.72919 ####[facility] T[address]LFXMZBW3708 [place], [place] [address]Uc# [phone] Protein 6.5 g/dL Normal 6.0-8.5 [facility] Comment on above: Order Comment: Campu s: M Performed By: #### L 500.19886, L500.23906, L500.30996 ####[facility] MPILWBXHCL4816 [place], [place] [address]Bj# [phone] SGOT (AST) 15 U/L Normal 8-34 [facility] Comment on above: Order Comment: Campu s: M Result Comment: RESU LTS MAY BE FALSELY DEPRESSED AFTER THE ADMINISTRATION OFSULFASALAZINE AND/OR SULFAPYRIDINE. Performed By: #### L 500.24357, L500.11488, L500.82678 ####[facility] CBGHQVSZPY3591 [place], [place] [address]Lo# [phone] Sodium 137 mmol/L Normal 136-145 [facility] Comment on above: Order Comment: Campu s: M Performed By: #### L 500.21372, L500.91357, L500.25180 ####[facility] [id number] [place] [address]Mw# [phone] Urea nitrogen 13 mg/dL Normal 7-26 [facility] Comment on above: Order Comment: Campu s: M Performed By: #### L 500.06704, L500.77701, L500.04321 ####[facility] SFXBLOOGHA9838 [place], [place] [address]Yv# [phone] DISCH.SUMon 05-28-[address] [facility] Patient Name: TWAN ESTRELLA [id number] [facility] Date of : [address] [address] Unit Number: [id number] Number: [id number] Summary Patient Status: DIS INAttending Doctor: Venus Galloway MDService Date: 05/28/17 1946Discharge SummaryAdmit DateAdmission Date Time: 05/27/17 0206Anticipated Discharge Date 05/28/17inal Dx/Problem List1. Chest pain2. Vasovagal near-syncope3. Hypertrophic cardiomyopathy4. Diastolic CHF5. HypertensionChief Complaint/HPINear syncopeReason for AdmissionNear-syncope with chest painOperations/ProceduresC [facility] Som Estrella is a very pleasant 67-year-old male who was transferred from [facility] with a chief complaint of near-syncope. He had presented there for blood work andbecame very lightheaded with some chest pain. He went to the emergency room where d-dimerwas drawn and was negative, troponin and EKG were both within normal limits, however wasthought given his cardiac history he should transfer to [facility] for further workup. He wasadmitted to the CCU with consultation to his foil spooler Dr. Valle, he did have bilateralcarotid scan which showed 1-39% bilaterally, additionally he underwent cardiaccatheterization which was relatively unremarkable. At this time he has been cleared bycardiology for discharge, on exam he denies any chest pain, no dizziness, no shortness ofbreath, overall feeling well, he'll be discharged home today in good condition to resumis Eliquis tomorrow and his Bumex on Friday. He is to follow-up with his PCP and withhis foil spooler within 1-2 weeks.Vital SignsVital Signs (Last)ResultDate TimePulse Cj0750/28 1720B/P130/7702/28 1720B/P Uqmb4948/28 2434Tfnq30.602/28 6480Zawdi1568/28 2170Ssty5616/28 1720Pertinent Physical FindingsGen; wdwn, nadCV: RRRResp: CTABAbd: soft, NT, NDExt: no c/c/eConsults CardiologyLabs/ImagingLab 72hr (CBC/BMP [facility])05/28/17 0341:Troponin I 0.3109905/28/17 0341:ST2, Soluble Heezerd82/28/18 0341:[Embedded Image Not Available]Anion Gap 8, Est GFR ( Amer) Greater than 60, Est GFR (Non-Af Amer) Greater than 60, BUN/Creatinine Ratio 15, Glucose 88, Total Calcium 8.5, Total Bilirubin 0.5, AST 15, ALT21, Alkaline Phosphatase 62, Ppf-Y-Engajiqqpig Pept 911 H, Serum Total Protein 6.5,Albumin 3.3, Globulin 3.2, Albumin/Globulin Ratio 1.002/ 0340:[Embedded Image Not Available]RBC 4.68, MCV 86.5, MCHC 33.6, RDW 13.3, MPV 10.4, Immature Gran % (Auto) 0.6, Abs ImmatGran (auto) 0.10, Seg Neutrophils % 57.4, Lymphocytes % 32.1, Monocytes % 9.2, Eosinophils% 0.4, Basophils % 0.3, Neutrophils # 6.30, Lymphocytes # 3.60, Monocytes # 1.00,Eosinophils # 0.00, Basophils # 0.00, Nucleated RBCs 0.0PrescriptionsContinue taking these medications:Nadolol* (Corgard Tab*) 80 MG [id number] ORAL EVERY DAYApixaban* (Eliquis Tab*) 5 MG TABLET5 MILLIGRAM ORAL 2 TIMES DAILYInstructions:Resume 05/29/2017predniSONE* (predniSONE 10MG TAB*) 10 MG [id number] MILLIGRAM ORAL DAILY WITH A MEALOmeprazole (PrilOSEC TAB) 20 MG TABLET.DR20 MILLIGRAM ORAL EVERY DAY[APRISO] 0.375 GM CAP4 CAPSULE ORAL EVERY DAYInstructions:4 CAPSULES ALL AT ONCEComments:RN TO CALL [facility] IN AM TO GET DOSE.The following medications have been changed:Old:Bumetanide* (Bumex 0.5MG Tab*) 0.5 MG TABLET0.5 MILLIGRAM ORAL ONCE DAILY 30 MIN. BEFORE MEALNew:Bumetanide* (Bumex 0.5MG Tab*) 0.5 MG TABLET0.5 MILLIGRAM ORAL EVERY OTHER DAYQty = 15Instructions:Resume on 05/31/2017Comments:Resume on 05/31/2017Condition: GoodDisposition HomePhys Discharge Time Incur(Min) 35DisclaimerThis dictation was created using voice recognition software.Phonetic and/or minor grammatical errors may exist.eSign Date and TimeBeth Townsend DO Verified/Reviewed by 05/28/17 1950 [facility] Discharge Summary [facility] GFR ESTon 05-28-2017 IF AMER Greater than 60 [facility] Comment on above: Order Comment: Campu s: M Performed By: #### L 500.53008, L500.45450, L500.59430 ####[facility] [id number] [place], [place] [address]Cn# [phone] IF non-AFR AMER Greater than 60 Normal [facility] Comment on above: Order Comment: Campu s: M Performed By: #### L 500.53475, L500.87120, L500.53396 ####[facility] [id number] [place], [place] [address]Wa# [phone] PBNP TESTon 05-28-2017 BNP 911 pg/mL High 0-900 [facility] Comment on above: Order Comment: Herou s: M Result Comment: NT-p roBNP results of less than 300 pg/ml effectively rulesout acute congestive heart failure with 99% negativepredictive value. Performed By: #### L 550.47473 ####[facility] [id number] [place], [place] [id number]# [phone] TROPONIN Ion 05-28-2017 Troponin I.cardiac mass conc 0.020 ng/mL Normal 0.000-0.04 5 [facility] Comment on above: Order Comment: Herou s: M Performed By: #### L 550.40682 ####[facility] [id number] [place] [address]Es# [phone] ADM.INTERVon 05-27-[address] [facility] Patient Name: TWAN ESTRELLA [id number] [facility] Date of : [address] [address] Unit Number: [id number] Number: [id number] Interval Note Patient Status: ADM INAttending Doctor: Venus Galloway MDService Date: 05/27/17326See AddendumHistory of Present IllnessSource of Information PatientChief Complaint/Present Illness:Chief complaint: Near syncope with chest painCODE STATUS: Full codePCP: Dr. MayafRadiologist: Dr. Gaming of Present IllnessPatient [facility] chief complaint of near syncope. The patientpresented to the ER after having had blood work drawn. He states he became verylightheaded and was experiencing chest pain. He went directly to the emergency room wherea d-dimer was done and found to be negative. He also be and PT which was noted to be 3:30.Troponin EKG were within normal limits and his EKG shows normal sinus rhythm which ispaced. At that time it was felt that he could benefit from a full cardiac workup [facility]. Of note, he was just discharged here a few days ago after havingbeen admitted for exertional shortness of breath and chest pain. He had a stress testwhich showed no ischemia with an ejection fraction of 40%. He also had an echo whichshowed ejection fraction of 45-50% with LVH and aortic valve sclerosis. He also wasrecently cardioverted after having been in atrial fibrillation which was done 2 weeks ago.He now complains of lightheadedness and near syncope. I believe he was put on Lasix andswitched over to Bumex. My suspicion is that he was over diuresed 70, lightheadedness andfalling depletion. At this time he is admitted to CCU for further evaluation. He may wantcardiac catheterization which can be done tomorrow however this time I'll simply consultcardiology for their input.Advance DirectivesAdvance Directives Full CodeAllergies/Home MedicationsAllergiesCoded Allergies:HYDROCODONE (JUST FELT BAD 05/27/17)NO KNOWN DRUG INTOLERANCES (05/15/17)Home MedicationsApixaban* (Eliquis Tab*) 5 MG TABLET 5 MG PO BID, Ref 0 (Reported)Entered as Reported by LYRIC HYATT on 05/16/1729Last Action: Reviewed on 05/27/17211 by LOYD HOGAN[APRISO] 0.375 GM CAP 4 CAP PO QDAY, Ref 0 (Reported)4 CAPSULES ALL AT ONCEEntered as Reported by LYRIC HYATT on 05/16/1731Last Action: Reviewed on 05/27/17216 by LOYD HOGAN ABumetanide* (Bumex 0.5MG Tab*) 0.5 MG TABLET 0.5 MG PO QDAY.30AC, Ref 0 (Reported)Entered as Reported by LOYD HOGAN on 05/27/17217Last Action: Reviewed on 05/27/17217 by LOYD HOGAN ANadolol* (Corgard Tab*) 80 MG TABLET 120 PO QDAY, Ref 0 (Reported)Entered as Reported by LYRIC HYATT on 05/16/17 0029Last Action: Reviewed on 05/27/17211 by LOYD HOGAN AOmeprazole (PrilOSEC TAB) 20 MG TABLET.DR 20 MG PO QDAY, Ref 0 (Reported)Entered as Reported by LYRIC HYATT on 05/16/17 0031Last Action: Reviewed on 05/27/17212 by LOYD HOGAN ApredniSONE* (predniSONE 10MG TAB*) 10 MG TABLET 10 MG PO QDAYWM, Ref 0 (Reported)Entered as Reported by LYRIC HYATT on 05/16/170Last Action: Reviewed on 05/27/17212 by LOYD HOGAN AReview of SystemsConstitutionalDenie s: Fever, Fatigue.EENTDenies: Nasal Congestion, Nasal Drainage.CardiovascularRep orts: Chest Pain, Pain on Exertion, Dyspnea on Exertion.PulmonaryDenies: Pleuritic Chest Pain, Dyspnea, Cough.GastrointestinalDeni es: Abdominal Pain, Nausea, Vomiting.GenitourinaryDeni es: Dysuria.MusculoskeletalDen ies: Joint Pain, Joint Swelling.SkinDenies: Extremity Pain, Leg Pain, Back Pain.LymphaticDenies: Ankle Swelling.EndocrineDenies: Fatigue.NeuroReports: Syncope, Dizziness.PsychiatricDenie s: Depression, Anxiety.Physical ExamVital SignsBlood pressure stable with a systolic of 120, pulse is stable 70 and pacedAppearance - PE Appears well, Awake, AlertNeck - PE Normal inspection, No JVD, SuppleHEENT - PE Head atraumatic, Eyes normal inspection, PERRLARespiratory - PE Lungs sound clear, Respirations non-labored, Symmetrical expansionCardiovascular - PE Rate WNL, Rhythm regular, Normal heart soundsNeurological - PE Alert, Oriented x 3, No motor deficitAdbomen - PE Bowel sounds present, Abdomen soft, Non-tenderExtremity - PE Normal appearance, Full ROM, Sensation intactSkin - PE Color normal, Skin warm, dryConclusion / PlanConclusion1. Vasovagal near-syncope2. CHF (congestive heart failure)3. Chest pain4. CardiomyopathyPlanPlan:1. Admit patient to CCU for further observation with diagnosis of near syncope likelyrelated to over diuresis with Bumex. Would recommend cardiology consultation to adjustmedications.2. Patient is discussing heart catheter stating he was sent here for heart catheter. Witha normal blood pressure negative troponin and no EKG changes I do not know the heartcatheter is going to be high yield at this time. I truly feel the patient was diuresed andperhaps overdiuresis. Likely due to a near syncopal or bilateral depleted state. Withconservative check orthostatics and go from there. Regarding the heart catheter, though becompletely up to the foil spooler.3. Hypertension patient is currently normotensive4. History of A. fib patient is in normal sinus rhythm paced at this time he does have ahistory of AICD placement. Regarding his atrial fib he does not seem to be in A. fib nordoes he appear to be anticoagulated. He received cardioversion 3 in the pastSee JESSICA GuzmanDDENDUM: VENUS GALLOWAY on 05/27/17 at 0357Correction, the patient is on a course for atrial fib. He is anticoagulated and will notrequire anything in addition.Cristina GallowayDisclaimerThis dictation was created using voice recognition software.Phonetic and/or minor grammatical errors may exist.eSign Date and Venus Patiño MD Verified/Reviewed by 05/27/[address] [facility] Admission Interval Note Normal M [facility] CCon 05-27-2017 CARDIAC CATH [facility] DATE OF SERVICE: 05/28/2017BRIEF DEMOGRAPHICS: A 67-year-old male who presented with near syncope. The patienthas persistent paroxysmal atrial fibrillation. He also has a history of hypertrophicobstructive cardiomyopathy. The patient underwent septal myectomy in 2007. He hadAICD placed in the past. More recently, he has had some recurrence of atrialfibrillation for which he underwent cardioversion on May 01, 2017. He also hassome nonsustained ventricular tachycardia. He also has some unexplained chestdiscomfort and shortness of breath. He presented with some near syncope. Nearsyncope was felt to be vasovagal in etiology. However, because of the continuedunexplained chest discomfort, shortness of breath and hypertrophic cardiomyopathy, aswell as the ventricular tachycardia, it was decided to do a cardiac catheterization.PROCEDURE TECHNIQUE: The right groin was prepped and draped in usual sterile manner.Lidocaine 2% was used as local anesthetic. The right femoral artery was cannulatedwith an 18-gauge needle and through this a guidewire was placed into the descendingaorta. The needle was then removed and a 6-[place] sheath was placed into the rightfemoral artery. The right femoral vein was cannulated using an 18-gauge needle andthrough this a guidewire was placed into the right femoral vein. Subsequently, an8-[place] sheath was then placed in the right femoral vein. A [place] catheter wasthen placed into the pulmonary artery under fluoroscopic guidance. Brandon cardiacoutputs were obtained. Right heart pullback was then done and the catheter was thenremoved. A 6-[place] JL4 catheter was then placed in the ascending aorta. The leftcoronary artery was selectively cannulated. Multiple views and projections of thisvessel were obtained and the catheter was then withdrawn. A 6-[place] JR4 catheterwas then placed in the ascending aorta. The right coronary artery was selectivelycannulated and multiple views and projections of this vessel were obtained. Thecatheter was then withdrawn. A 5-[place] pigtail catheter was then placed in theascending aorta. It was then placed in the left ventricle. Simultaneous LVpressures and right femoral artery pressures were obtained. Brock[place]brough beat wasattempted to be elicited with a single PVC. There was no significant difference inthe LV and right femoral artery pressure after the PVC. Left ventriculogram was thendone in a 30-degree GALLOWAY position using 24 mL of contrast at 12 mL per second. Thecatheter was then withdrawn into the ascending aorta and pressures were obtained.The catheter was then removed. Following this, the right pulmonary artery sheath wasthen removed. A StarClose device was used to achieve hemostasis. The right femoralvein sheath was then removed. Pressure was applied until hemostasis was achieved.The patient was then brought back to his room in stable condition.CONTRAST USED: Isovue.MEDICATIONS GIVEN: Lidocaine 2% subcutaneously and Versed 2 mg intravenously.HEMODYNAMIC DATA (in mmHg): Pulmonary capillary pressure, end expiratory, was 15. [facility] PATIENT NAME: TWAN ESTRELLA [id number] [facility] [address] MEDICAL REC #: [id number], [place] [address] DATE: 05/27/17DISCHARGE DATE: 05/28/17CARDIAC CATH ATTENDING PHY: Venus Galloway MDThe mean was 12 mmHg. Pulmonary artery pressure was 25/13 with a mean of 15. Rightventricular pressure was 25/7. Right atrial mean was 8. The end expiratory was 9.Left ventricular end-diastolic pressure pre-angiogram and pre-A-wave was 12, postA-wave was 16. Left ventricular end-diastolic pressure postangiogram and pre A-wavewas 12, post A-wave was 20. Left ventricular systolic pressure was 140. Aorticpressure was 140/64.LEFT VENTRICULOGRAM: Left ventricle was of normal size with normal wall motion.Ejection fraction was 65%. The mitral valve appeared to be structurally normal.There was mild 1+ mitral regurgitation.CORONARY ARTERIES:1. Left main trunk: The left main trunk appeared normal.2. Left anterior descending artery: Left anterior descending artery had minimaldisease of 10% to 20% in the proximal and mid portion. There was mild myocardialbridging in the mid LAD. There was less than 50% compression.3. Ramus intermedius: The ramus intermedius had minimal disease of 10% to 20% inthe proximal and mid portion.4. Left circumflex artery: The left circumflex artery had minimal disease of 10% to20% in the proximal and mid portion.5. Right coronary artery: The right coronary artery was dominant. There wasminimal disease of 10% to 20% in the proximal and mid portion.IMPRESSION:1. Minimal coronary artery disease. There was mild myocardial bridging of the midleft anterior descending. This was less than 50%.2. Normal left ventricular systolic function with ejection fraction of 55%associated with mild mitral regurgitation.3. Mildly elevated pulmonary capillary wedge pressure and left ventricularend-diastolic pressure, as well as aortic systolic blood pressure. However, thepatient had normal pulmonary artery systolic pressure. There was no Brockenbroughbeat seen after premature ventricular contraction.PLAN:1. Recommend medical treatment.2. Continue to hold Bumex and resume at Bumex 0.5 mg every other day starting .3. May resume Eliquis tomorrow. JAZLYN Husain/[id number]: 05/28/2017 15:13DT: 05/28/2017 16:12 [facility] PATIENT NAME: TWAN ESTRELLA A[address] [facility] [address] REC #: [id number], [place] [address] DATE: 05/27/17DISCHARGE DATE: 05/28/17CARDIAC CATH ATTENDING PHY: Venus Galloway File#: [id number] #: [id number]: Beth Townsend, DOCC: Kirti Kincaid, [facility]: Jose Wright, [facility]: Venus Galloway MDVerified/Reviewed by05/29/17 0742 GIANCARLO [facility] PATIENT NAME: TWAN ESTRELLA [id number] [facility] [address] MEDICAL REC #: [id number], [place] [address] DATE: 05/27/17DISCHARGE DATE: 05/28/17CARDIAC CATH ATTENDING PHY: Venus Galloway MD Normal [facility] [place] CRon 05-27-2017 CR DATE OF CONSULTATION : 05/27/2017REFERRING PHYSICIAN: SOLIS Santos FOR CONSULTATION: Near syncope.HISTORY OF PRESENT ILLNESS: This is a 67-year-old male who has hypertrophicobstructive cardiomyopathy, both paroxysmal and persistent atrial fibrillation,status post AICD, hypertension who presents with near syncope. Patient has a historyof hypertrophic obstructive cardiomyopathy. Patient had cardiac catheterization [facility] on December 19, 2005. This revealed normal coronary arterieswith normal ejection fraction at more than 90%. There was a 25 mm gradient acrossthe left ventricular outflow tract with at least 50 mm gradient post PVCs. There wassome bridging of the left anterior descending artery and [id number] pulmonaryhypertension. Patient was treated with beta blockers. He later had another cardiacc[facility]ter[facility] 2007. He had a septal myectomy on 2007 at the [facility]. He had a Medtronic AICD that was placedon September 01, 2008. Patient had a problem with lead fracture in ventricular lead orcoil extraction on March 11, 2014, at the [facility]. Patienthad another Medtronic AICD with DDD pacemaker and a new lead placed. The patientalso had problems with persistent atrial fibrillation. He had a DC cardioversion onJune 08, 2013. On April 06, 2015, I saw the patient. I saw the patient in theoffice on April 30, 2017. He had atrial fibrillation that was persistent sinceApril 25, 2017. He underwent an electrical DC cardioversion on May 01, 2017.He initially felt better, but later in May, he felt more short of breath. Hewas readmitted to [facility] on May 15. He also was having some mildchest pressure and shortness of breath. It was felt that patient may have been inmild acute systolic and diastolic heart failure. He had an echocardiogram that wasdone on May 16 that showed left dilatation with septal dyskinesis. The leftventricular ejection fraction was mildly reduced at 45% to 50%. There was severehypertrophy of the ventricular septum with moderate hypertrophy of the remainingwalls. There was aortic valve sclerosis, moderate left atrial enlargement, mildright atrial enlargement, mild 1+ aortic insufficiency,mild 1+ mitral regurgitation, mild 1+tricuspid regurgitation, diastolic dysfunction. The patient also had a Lexiscannuclear that was done on May 16, 2017. This showed no significant myocardialischemia or infarction. Ejection fraction was 40% with septal dyskinesis. Thepatient was eventually able to be discharged home on May 17, 2017. He wasdischarged on Lasix 20 mg p.o. daily. I saw the patient in the office on . I asked him to stop the Lasix that day because I felt that he may have been abit dry. He did have some labs done on May 20 that showed a proBNP of 1998.BUN 17, creatinine 0.84. He was started back on Bumex 0.5 mg p.o. daily.Yesterday morning, about 9:30 a.m., he was standing. He felt his heart beat hard andfast. He apparently felt quite lightheaded. He felt a horrible sensation in his [facility] PATIENT NAME: TWAN ESTRELLA A[address] [facility] [address] MEDICAL REC #: [id number], [place] [address] DATE: 05/27/17DISCHARGE DATE: 05/28/17CONSULTATION REPORT ATTENDING PHY: Venus Galloway. At that time, no diaphoresis. No nausea. He did have some chest discomfortwith some shortness of breath. The discomfort was all over. He called the office.I was initially concerned about his symptoms. I thought that he might be a bit dry.I initially wanted the patient stop his Bumex, but he was concerned that he may havebeen somewhat wet. I told him to back down to Bumex 0.5 mg every other day. He wastold to get some blood work, which he proceeded to get done at [facility] 6:30 p.m. Apparently they initially had trouble getting the blood work. Hefelt lightheaded, dizzy, diaphoretic, nauseated. He felt near syncopal. He thenwent to the emergency department. He was actually able to have the [facility] work [facility]. His BNP was actually 329. Troponin-I was 0.2.D-dimer was normal at 165. White blood cell count 11.4, hemoglobin 13.9, voknxsvgzh78.5, MCV 87, platelets 194,000. Troponin-I was 0.01. He was transferred to [facility] in the CCU. He is currently feeling better. No definitelightheadedness or nausea. Patient is set up to see the family physician, . They have wanted the heart catheterization to be done. Patient has beensomewhat anxious about exercising. Patient also has been somewhat anxious about alsoliving far away from a center that could do a heart catheterization.PAST SURGICAL HISTORY: Significant for septal myectomy on June 15, 2007; AICDplacement September 01, 2008; RV lead extraction and new lead in the AICD and DDD pacemakerplaced March 11, 2014.PAST MEDICAL HISTORY: Both persistent and paroxysmal atrial fibrillation,gastroesophag eal reflux, hypertension, hypertrophic obstructive cardiomyopathy. Hehad nonsustained ventricular tachycardia of 18 beats at 150 beats per minute onFebruary 15. He has some obesity.MEDICATIONS AT HOME:1. Eliquis 5 mg b.i.d.2. Nadolol 120 mg p.o. daily.These are 80 mg tablets.3. Bumex 0.5 mg p.o. daily.4. Omeprazole 20 mg daily.5. Prednisone 10 mg daily.6. Apriso 4 capsules all at once.ALLERGIES: The patient has allergies to HYDROCODONE.FAMILY HISTORY: Father and mother have heart disease.SOCIAL HISTORY: He is , 2 children. Never smoked. No alcohol.REVIEW OF SYSTEMS: A 10-point review of systems is negative except as noted above. [facility] PATIENT NAME: TWAN ESTRELLA A[address] [facility] [address] [address] MEDICAL REC #: [id number], [place] [address] DATE: 05/27/17DISCHARGE DATE: 05/28/17CONSULTATION REPORT ATTENDING PHY: Venus Galloway is a question of suspected ulcerative colitis in the past, GERD, and obesity.PHYSICAL EXAMINATION:General: The patient is an alert male in no acute distress.Vital Signs: Temperature is 97.3, pulse 69, respiratory rate 21, blood olhjculo533/83.HEENT: Grossly normal.Neck: There is no thyromegaly. No carotid bruit.Lungs: Appear to be clear. Respiratory effort is normal.Heart: Shows a regular rate and rhythm. S1, S2. Positive S4. Early 1/6 systolicejection murmur. No significant change with Valsalva. PMI is not displaced. Thereis no definite JVD.Abdomen: Soft, nontender. There are no masses.Extremities: Showed no clubbing, cyanosis, or edema. Posterior tibialis anddorsalis pedis pulses are 2+.LABORATORY WORK: On May 26 at [facility] showed White blood cells 11.4thousand, hemoglobin 13.9, hematocrit 40.5, platelets 195,000. Troponin-I was 0.01.Sodium 133, potassium 4.1, chloride 96, CO2 is 29.2, glucose 81, BUN 15, creatinineis 0.9. Alkaline phosphatase 57, total calcium 9.6, total protein 7.5. Magnesium2.0. Troponin was 0.01. D-dimer 175. BNP was 329. Troponin was 0.02.EKG showed electrically paced rhythm, first-degree AV block, left bundle branchblock.Other labs showed sodium 133, potassium 4.1, chloride 96, CO2 is 29, glucose 81, BUN15, creatinine 0.9. Magnesium 2.0.IMPRESSION:1. A 67-year-old male with episode of near syncope. This was more pronounced afterblood was attempted to be drawn consistent with near vasovagal syncope. Patient didappear to mostly have a vagal episode also yesterday morning. This may possibly beexacerbated by dehydration.2. [facility] mild [facility] At [facility], patient had a Lexiscan nuclear that showed an ejectionfraction of 40%, no ischemia or infarction. On May 16, an echocardiogram showedan ejection fraction of 45% to 50% with septal dyskinesis. No significantobstruction. There is mild aortic insufficiency,mild mitral regurgitation, mild tricuspidregurgitation as well as diastolic dysfunction. The patient was treated medically.3. Both paroxysmal and persistent atrial fibrillation. Patient had several directcurrent cardioversions, one on June 08, 2013, and another September 05, 2015, and thelatest on May 01, 2017. Interrogation of his pacemaker showed episodes ofparoxysmal atrial fibrillation as well.4. Hypertrophic obstructive cardiomyopathy. Patient is status post septalmyomectomy on September 15, 2007. No evidence of obstruction on last echo on May 16, [facility] PATIENT NAME: TWAN ESTRELLA A[address] [facility] [address] MEDICAL REC #: [id number], [place] [address] DATE: 05/27/17DISCHARGE DATE: 05/28/17CONSULTATION REPORT ATTENDING PHY: Venus Galloway MD2018.5. Chest discomfort and some shortness of breath. This is not completely explained.I discussed the option of the cardiac catheterization with patient and .Currently, I felt that cardiac catheterization would be low yield procedure; however,considering the patient's anxiety and hypertrophic obstructive cardiomyopathy, recentnonsustained ventricular tachycardia, this may be helpful in relieving the patient'sanxiety. Patient also wants to start an exercise type program, but is reluctantbecause of his current symptoms.6. Status post Medtronic AICD with DDD pacemaker placed initially on September 01, 2008.The patient had problems with lead fracture and had right ventricular lead removaland another Medtronic AICD with DDD pacemaker placed March 11, 2014.7. Paroxysmal ventricular tachycardia of 18 beats on May 15, 2017, whilehospitalized at [facility] for chest discomfort and shortness of breath.8. Hypertension.9. Obesity.10. History of gastroesophageal reflux disease.PLAN:1. I would favor holding Bumex for at least 3 days and possibly starting Bumex 0.5mg every other day. I discussed vasovagal symptoms with patient. I also discussedrisk and benefits of a possible cardiac catheterization. Patient and arecurrently thinking about this. Also, in the meantime, I will hold the patient'sLasix.2. We will check additional labs tomorrow including CMP, proBNP, CBC. _JAZLYN Husain/[id number]: 05/27/2017 09:09DT: 05/27/2017 11:01SSI File#: [id number] #: [id number]: Kirti Kincaid [facility]: Jose Wright [facility]: Venus Galloway MDVerified/Reviewed by05/29/17 0744 GIANCARLO [facility] PATIENT NAME: TWAN ESTRELLA A[address] [facility] [address] [address] MEDICAL REC #: [id number], [place] [address] DATE: 05/27/17DISCHARGE DATE: 05/28/17CONSULTATION REPORT ATTENDING PHY: Venus Galloway MD [facility] Lolly PEREIRApanfilo 05-27-2017 [facility] Patient Name: TWAN ESTRELLA [id number] [employer] [address] Date of : [address] [address] Unit Number: [id number] Number: [id number] Note-Hospitalist Patient Status: ADM INAttending Doctor: Venus Galloway MDService Date: 05/27/17 1718Chief ComplaintChief ComplaintNear syncopeSubjectiveS: (2 ROS minimum)Patient seen and examined at bedside, states he is feeling better, no chest pain orpressure, no palpitations, no dizziness, has been ambulating around the room withoutdifficulty, is now amenable to heart catheterizationObjective (ROS)Nursing VitalsVital Signs (Last)ResultDate TimePulse Qd7922/ 1645B/P140/7402/27 1645B/P Hoqj7487/27 9393Itulq6369 6963Vlgm3785 2765Jvxd39.702/27 1515General AppearanceRelatively well-developed, well-nourishedPhysical ExamNeurological / Psychiatric Alert, Orientation X1, Orientation X2, Orientation X3, AffectNormalRespiratory Normal Breathing Effort, Clear LungsCardiovascular Heart RRRGastrointestinal Normal Bowel Sounds, Non TenderSkin Warm / DryAssessment and PlanConclusion1. Chest pain2. Vasovagal near-syncope3. Hypertrophic cardiomyopathy4. Diastolic CHF5. Hypertension6. PLAN--Patient currently chest pain-free--She cardiology consultation and recommendations--Patient will undergo cardiac catheterization tomorrow--Will hold Eliquis starting now--will hold bumex--will cont other home medications--d/w patient and the prelim results of carotids--further recommendations pending aboveOngoingDisclaimerThis dictation was created using voice recognition software.Phonetic and/or minor grammatical errors may exist.eSign Date and Beth Watkins DO Verified/Reviewed by 05/27/17 1723 Normal [facility] Progress Note-Hospitalist Normal [facility] VLCDon 05-27-2017 CAROTID DUPLEX REPORT Normal [facility] VASCULAR MEDSTREAMIN G REPORT --------Patient: TWAN ESTRELLA AAccount [id number] Phy:MR: [id number] for Visit: CHEST PAINDate of Service 05/27/17Reading Physician: Xander Ken [facility]:Grayscale, color, and spectral Doppler images were obtained from [facility] extracranial carotid arteries. The right internal carotidartery shows a mild amount of plaque. The peak systolic velocityin the right internal carotid artery is 90 cm/sec. and the enddiastolic velocity is 37 cm/sec . The ICA/CCA ratio is calculatedat .9 . Right vertebral artery flow is antegrade and within normallimits. This is suggestive of a 1 to 39% stenosis of the rightinternal carotid artery.Left:Grayscale, color, and spectral Doppler images were obtained from thele extracranial carotid arteries. The left internal carotidartery shows a mild amount of plaque. The peak systolic velocityin the left internal carotid artery is 74 cm/sec. and the enddiastolic velocity is 22 cm/sec . The ICA/CCA ratio is calculatedat .7 . Left vertebral artery flow is antegrade and within normallimits. This is suggestive of a 1 to 39% stenosis of the leftinternal carotid artery.Conclusions:No evidence of clinically significant plaque or flow abnormalities inbilateral internal carotid arteries.Stenosis in the bilateral internal carotid arteries is 1 - 39% byestablished Doppler criteria.CC:Venus Galloway MD"Abbreviated Final Report. Full Report is available via link to [employer] in[employer]Cloud under [employer] Lab Image Viewer." [facility] PATIENT NAME: TWAN ESTRELLA A[address] [facility] [address] [place] MEDICAL REC #: [id number], [place] [address] DATE: 05/27/17DISCHARGE DATE:CAROTID DUPLEX REPORT ATTENDING FILIPEY: Venus Galloway MDElectronically Signed by: Xander Ken MD Esign Date: 05/27/17 Normal [facility] ST2, SERUMon 05-21-2017 ST2, SERUM 23.5 ng/mL Normal <35.0 [facility] Comment on above: Order Comment: Leidy s: M Result Comment: The Presage(R) ST2 Assay is indicated to be used inconjunction with clinical evaluation as an aid inassessingthe prognosis of patients diagnosed with chronic heartfailure. Elevated ST2 is associated with greatercardiovascular risk and poor outcome in heart failurepatients. Results should be interpreted in the context ofthe individual patient presentation. The test has beencleared or approved for diagnostic use by the U.S. FoodandDrug Administration.Performed At: [facility] [id number] Radha Roshni [id number] Performed By: #### L 500.79119, L500.53632, L500.59450 ####[facility] ADYQZVCVOF3756 [place], [place] [address]Rf# [phone] BMPon 05-20-2017 Anion gap 13 mmol/L Normal 5-16 [facility] Comment on above: Performed By: #### L 500.91569, L500.28805, L500.23379 ####[facility] ICNQDCNBPZ6536 [place], [place] [address]Ac# [phone] BUN/Creatinine Ratio 19 mg/mg Normal 15-24 [facility] Comment on above: Performed By: #### L 500.80343, L500.51983, L500.25007 ####[facility] PLJLMCPEBU1965 [place], [place] [address]Of# [phone] Calcium 8.9 mg/dL Normal 8.5-10.1 [facility] Comment on above: Performed By: #### L 500.29509, L500.03563, L500.75072 ####[facility] WFZPALPZID5714 [place], [place] [address]Kv# [phone] Chloride 100 mmol/L Normal 98-107 [facility] Comment on above: Performed By: #### L 500.64081, L500.72944, L500.89761 ####[facility] TSKRVHQAGY3087 [place], [place] [address]Xy# [phone] CO2 25 mmol/L Normal 21-32 [facility] Comment on above: Performed By: #### L 500.45764, L500.93679, L500.83549 ####[facility] PUTNDXSPAR1467 [place], [place] [address]Tt# [phone] Creatinine 0.884 mg/dL Normal 0.670-1.17 0 [facility] Comment on above: Result Comment: Laurence ents receiving either N-Acetylcysteine (NAC) orMetamizole prior to venipuncture, may have falsely depressedresults. Performed By: #### L 500.28288, L500.06575, L500.02235 ####[facility] RFLCTKWLTM6808 [place], [place] [address]Vx# [phone] Glucose mass conc 100 mg/dL Normal 70-100 [facility] Comment on above: Result Comment: 70-1 00- Normal Fasting; 100-125 Impaired Fasting; greaterthan 126 on more than one result- Diabetes. ADA guidelines.Results may be falsely elevated after the administration ofSulfapyridine.Results may be falsely depressed after the administration ofSulfasalazine. Performed By: #### L 500.10529, L500.02717, L500.52618 ####[facility] SVBEBZDTGF6683 [place], [place] [address]Jf# [phone] Potassium molar conc 4.1 mmol/L Normal 3.5-5.1 [facility] Comment on above: Performed By: #### L 500.13604, L500.01849, L500.54623 ####[facility] MQFTFUISNY8573 [place], [place] [address]Rm# [phone] Sodium 137 mmol/L Normal 136-145 [facility] [place] Comment on above: Performed By: #### L 500.64741, L500.35266, L500.88831 ####[address] [address]Do# [phone] Urea nitrogen 17 mg/dL Normal 7-26 [facility] [place] Comment on above: Performed By: #### L 500.34870, L500.46849, L500.42233 ####[address] [address]Ey# [phone] CBC W/DIFFon 05-20-2017 BASO ABS 0.00 K/CU MM Normal 0-0.2 [facility] Comment on above: Performed By: #### L 500.45758, L500.59172, L500.93134 ####[facility] [address] [place] [address]Rs# [phone] Basophils/100 WBC Auto (Bld) 0.2 % Normal 0-2 [facility] Comment on above: Performed By: #### L 500.72154, L500.50602, L500.63235 ####[facility] NKYXUERXKA[address] [place] [address]Xr# [phone] EOS ABS 0.00 K/CU MM Normal 0-0.5 [facility] [place] Comment on above: Performed By: #### L 500.74025, L500.26322, L500.94088 ####[facility] RWFVQNMTNY[address] [place] [address]Au# [phone] Eosinophils/100 leukocytes 0.1 % Normal 0-5 [facility] Comment on above: Performed By: #### L 500.73103, L500.94777, L500.72470 ####[facility] AG[address]JZVUDDL[address] [place] [address]Rx# [phone] Erythrocyte distribution width Auto Ratio (RBC) 13.9 % Normal 11-14.5 [facility] [place] Comment on above: Performed By: #### L 500.35226, L500.48278, L500.61220 ####[place] [address] [place], [place] [address]Eg# [phone] Erythrocytes (RBC) 0.0 % Normal Less than 1 [facility] [place] Comment on above: Performed By: #### L 500.26326, L500.67770, L500.62458 ####[address] [address]Fv# [phone] Erythrocytes (RBC) 5.24 M/CU MM Normal 4.50-6.00 [facility] Comment on above: Performed By: #### L 500.21354, L500.20730, L500.23477 ####[address] [address]Yz# [phone] Hematocrit (HCT) 45.8 % Normal 41.0-53.0 [facility] Comment on above: Performed By: #### L 500.10930, L500.70844, L500.58797 ####[address] [address]Gw# [phone] Hemoglobin mass conc (Bld) 15.3 g/dL Normal 13.5-17.5 [facility] Comment on above: Performed By: #### L 500.96215, L500.03510, L500.67990 ####[address] [address]Ai# [phone] IMMATR GRAN ABS 0.10 K/CU MM Normal Less than 2 [facility] [place] Comment on above: Performed By: #### L 500.46911, L500.23187, L500.43106 ####[address] [address]Ci# [phone] IMMATURE GRAN % 0.5 % Normal Less than 2 [facility] [place] Comment on above: Performed By: #### L 500.37842, L500.45199, L500.06417 ####[facility] SXQUFMIQGK7832 [place], [place] [address]Zf# [phone] Lymphocytes 3.00 K/CU MM Normal 0.9-4.4 [facility] Comment on above: Performed By: #### L 500.36771, L500.20826, L500.20713 ####[address] [address] [place], [place] [address]Ip# [phone] Lymphocytes/100 leukocytes 22.8 % Normal 20-40 [facility] Comment on above: Performed By: #### L 500.32461, L500.39319, L500.05911 ####[place] [address] [place], [place] [address]Vc# [phone] MCHC mass conc (RBC) 33.4 g/dL Normal 32.0-36.0 [facility] [place] Comment on above: Performed By: #### L 500.05106, L500.80043, L500.82023 ####[facility] BWYEDIKLRJ6741 [place], [place] [address]Pm# [phone] MCV 87.4 fL Normal 80.0-99.0 [facility] Comment on above: Performed By: #### L 500.79954, L500.61640, L500.58771 ####[facility] FWIUJWZTKA3859 [place], [place] [address]Uj# [phone] MONO ABS 1.40 K/CU MM High 0.1-1.1 [facility] Comment on above: Performed By: #### L 500.54326, L500.62402, L500.19141 ####[facility] GCYCDCKOUT4358 [place], [place] [address]Vp# [phone] Monocytes/100 leukocytes 10.3 % High 2-10 [facility] Comment on above: Performed By: #### L 500.42266, L500.97633, L500.55358 ####[facility] KHOMALXXKH4160 [place], [place] [address]Rw# [phone] Neutrophils 8.80 K/CU MM High 2.0-8.3 [facility] Comment on above: Performed By: #### L 500.07353, L500.20179, L500.04903 ####[facility] CYPGURBLCE2765 [place], [place] [address]Eq# [phone] Neutrophils/100 WBC Auto (Bld) 66.1 % Normal 45-75 [facility] Comment on above: Performed By: #### L 500.81946, L500.11848, L500.68933 ####[place] [address] [place], [place] [address]Wz# [phone] Platelet mean volume (PMV) 10.6 fL Normal 9.4-12.4 [facility] Comment on above: Performed By: #### L 500.31651, L500.45206, L500.11117 ####[facility] [address]RUN[address] [place] [address]Bj# [phone] Platelets 203 K/CU MM Normal 150-450 [facility] Comment on above: Performed By: #### L 500.18751, L500.81567, L500.29549 ####[facility] MHSNCXEELC3566 [place], [place] [address]Bj# [phone] WBC (Leukocytes) 13.3 K/CU MM High 4.5-11.0 [facility] Comment on above: Performed By: #### L 500.43112, L500.06410, L500.78481 ####[facility] [address]HU[address] [place] [address]Iy# [phone] GFR ESTon 05-20-2017 IF AMER Greater than 60 Normal [facility] Comment on above: Performed By: #### L 500.75272, L500.91687, L500.72343 ####[facility] GBDNDYIALS9976 [place], [place] [address]Gz# [phone] IF non-AFR AMER Greater than 60 Normal [facility] Comment on above: Performed By: #### L 500.58723, L500.33731, L500.29730 ####[facility] JZSVTUUZOJ3191 [place], [place] [address]Jh# [phone] PBNP TESTon 05-20-2017 BNP 1998 pg/mL High 0-900 [facility] Comment on above: Result Comment: NT-p roBNP results of less than 300 pg/ml effectively rulesout acute congestive heart failure with 99% negativepredictive value. Performed By: #### L 500.34689, L500.79592, L500.50929 ####[facility] VQSYVRHZHX2532 [place], [place] [address]Ur# [phone] BMPon 05-17-2017 Anion gap 11 mmol/L Normal 5-16 [facility] Comment on above: Order Comment: Campu s: M Performed By: #### L 500.03368, L500.28829, L500.44427 ####[facility] JEYKLDFFMN5949 [place], [place] [address]Ne# [phone] BUN/Creatinine Ratio 18 mg/mg Normal 15-24 [facility] Comment on above: Order Comment: Campu s: M Performed By: #### L 500.78663, L500.38327, L500.86131 ####[facility] MFKCEKZJMT1033 [place], [place] [address]By# [phone] Calcium 9.2 mg/dL Normal 8.5-10.1 [facility] Comment on above: Order Comment: Campu s: M Performed By: #### L 500.95122, L500.37990, L500.34707 ####[facility] GRCDLYPKBD7304 [place], [place] [address]Fl# [phone] Chloride 99 mmol/L Normal 98-107 [facility] Comment on above: Order Comment: Campu s: M Performed By: #### L 500.37625, L500.78005, L500.86990 ####[facility] PNKYTNYFYP6558 [place], [place] [address]Ta# [phone] CO2 28 mmol/L Normal 21-32 [facility] [place] Comment on above: Order Comment: Campu s: M Performed By: #### L 500.86077, L500.83483, L500.50780 ####[facility] JPVAOGEQUV6790 [place], [place] [address]Zv# [phone] Creatinine 0.963 mg/dL Normal 0.670-1.17 0 [facility] Comment on above: Order Comment: Campu s: M Result Comment: Laurence ents receiving either N-Acetylcysteine (NAC) orMetamizole prior to venipuncture, may have falsely depressedresults. Performed By: #### L 500.83776, L500.42842, L500.81282 ####[facility] PKPAECKOBB0273 [place], [place] [address]Pi# [phone] Glucose mass conc 95 mg/dL Normal 70-100 [facility] Comment on above: Order Comment: Campu s: M Result Comment: 70-1 00- Normal Fasting; 100-125 Impaired Fasting; greaterthan 126 on more than one result- Diabetes. ADA guidelines.Results may be falsely elevated after the administration ofSulfapyridine.Results may be falsely depressed after the administration ofSulfasalazine. Performed By: #### L 500.31458, L500.64336, L500.76182 ####[facility] ZQUXQGWGHL8895 [place], [place] [address]Qt# [phone] Potassium molar conc 4.0 mmol/L Normal 3.5-5.1 [facility] Comment on above: Order Comment: Campu s: M Performed By: #### L 500.15093, L500.26002, L500.47948 ####[facility] JOGSANJLBM4292 [place], [place] [address]Mx# [phone] Sodium 139 mmol/L Normal 136-145 [facility] Comment on above: Order Comment: Campu s: M Performed By: #### L 500.17493, L500.20628, L500.07842 ####[facility] MCAKUARLJU2392 [place], [place] [address]Dy# [phone] Urea nitrogen 17 mg/dL Normal 10-23 [facility] [place] Comment on above: Order Comment: Leidy s: M Performed By: #### L 500.68788, L500.19616, L500.52212 ####[facility] JWNSFYCMFT0301 [place], [place] [address]Hz# [phone] DISCH.SUMon 05-17-[address] [facility] Patient Name: TWAN ESTRELLA [id number] [facility] [address] Date of : [address], [place] [address] Unit Number: [id number] Number: [id number] Summary Patient Status: DIS INoAttending Doctor: Francois Tobar MDService Date: 05/17/17 1400Discharge SummaryAdmit Date05/15/17Anticipated Discharge Date 05/17/17inal Dx/Problem List1. ASSESSMENT*Exertional shortness of breath and elevated BNP, suspected CHF.*Chest pain/tightness, for evaluation.*Hypertrophic cardiomyopathy status post septal surgery in 2007.*A. fib status post recent cardioversion, currently in sinus rhythm.*History of AICD placement*Suspected ulcerative colitis*GERD*ObesityChief Complaint/HPIShortness breath and chest tightnessReason for AdmissionShortness breath and chest tightnessHospital CoursePatient was admitted to the hospital with shortness breath and chest tightness, she wasplaced on Lasix on admission, patient was seen by cardiology who recommended stress testwhich was unremarkable and 2-D echo which showed ejection fraction 45-50%, patient alsohad his AICD interrogated A any significant results. Patient today was seen and examineddoing fine no chest pain no shortness breath no fever chills nausea on diarrhea he wasdischarged home in stable condition, foil spooler cleared the patient to be discharged.Vital SignsVital Signs (Last)ResultDate TimePulse Ht5917/17 0942B/P111/7902/17 0942O2 DeliveryROOM AIR02/ 7309Wldf38.602/17 7901Jtnfi160617 3631Vche3863 0942Pertinent Physical FindingsPhysical Exam:General: Patient is alert and oriented x3 and is in no acute respiratory distress.HEENT no eye congestion no ear discharge.Neck is supple no JVD.Lungs: Diminished breathing sounds bilateral no wheezing or rhonchiCardiac: S1-S2 within normal limitsAbdomen: Soft, nontender, obeseExtremities: No cyanosisSkin: No rashes or breakdown.Neurologic: Cranial nerves from II-XII intact grossly.Psych normal affect.Lymphatic system, no submandibular or anterior cervical lymphadenopathy.Consults CardiologyLabs/ImagingLab 72hr (CBC/BMP Fishbone)05/17/17 0447:[Embedded Image Not Available]Anion Gap 11, Est GFR ( Amer) Greater than 60, Est GFR (Non-Af Amer) Greater than60, BUN/Creatinine Ratio 18, Glucose 95, Total Calcium 9.2, Jow-K-Iyfrdavnafd Pept 1457 H005/16/17 0454:Troponin I 0.9160905/16/17 0454:ST2, Soluble Dkdaavi75/16/18 0454:[Embedded Image Not Available]Anion Gap 10, Est GFR ( Amer) Greater than 60, Est GFR (Non-Af Amer) Greater than60, BUN/Creatinine Ratio 16, Glucose 86, Total Calcium 8.9, Magnesium 2.0, Vax-U-Vxgqxeihfus Pept 1781 H, Triglycerides 106, Cholesterol 159, LDL Cholesterol 85, HDLDirect 52, TSH, Ultra Sensitive 2.35482 2239:Troponin I 0.2556105/15/17 1736:Troponin I 0.0849805/15/17 1736:[Embedded Image Not Available]Anion Gap 10, Est GFR ( Amer) Greater than 60, Est GFR (Non-Af Amer) Greater than60, BUN/Creatinine Ratio 16, Glucose 92, Total Calcium 8.8, Ioc-G-Lpkjhteaezc Pept 1771 H,RBC 4.99, MCV 87.2, MCHC 34.0, RDW 14.5, MPV 10.5, Immature Gran % (Auto) 0.5, Abs ImmatGran (auto) 0.10, Seg Neutrophils % 62.7, Lymphocytes % 27.8, Monocytes % 8.7, Eosinophils% 0.1, Basophils % 0.2, Neutrophils # 6.60, Lymphocytes # 2.90, Monocytes # 0.90,Eosinophils # 0.00, Basophils # 0.00, Nucleated RBCs 0.0Recent Impressions (72hr)RADIOLOGY - CHEST PA/AP and LATERAL 05/15 1949 Report Impression - Status: SIGNED Entered: 05/15/2017 2017IMPRESSION:No acute cardiopulmonary disease. Impression By: CHRISTOFER NASH M.D.PrescriptionsStop taking the following medications:Aspirin* (Aspir 81 MG Tab*) 81 MG TABLET.DR ORAL DAILY WITH A MEALContinue taking these medications:Nadolol* (Corgard Tab*) 80 MG [id number] ORAL EVERY DAYApixaban* (Eliquis Tab*) 5 MG TABLET5 MILLIGRAM ORAL 2 TIMES DAILYpredniSONE* (predniSONE 10MG TAB*) 10 MG NPEWJL02 MILLIGRAM ORAL DAILY WITH A MEALOmeprazole (PrilOSEC TAB) 20 MG TABLET.DR20 MILLIGRAM ORAL EVERY DAY[APRISO] (Unknown Strength)Unknown Dose ORALComments:RN TO CALL [facility] IN AM TO GET DOSE.Start taking the following new medications:Furosemide* (Lasix 20MG Tab*) 20 MG [id number] MILLIGRAM ORAL ONCE DAILY BEFORE MEALSQty = 90Refills = 3ReferralsOrdered ReferralsPrimary Care Provide In One WeekFor Providers:Jose Wright [address] [address] [facility] ReferralFor Groups:[facility] [address] [address] Keep apptCondition: StableDisposition HomePhys Discharge Time Incur(Min) 28DisclaimerThis dictation was created using voice recognition software.Phonetic and/or minor grammatical errors may exist.eSign Date and TimeDFrancois christianson MD Verified/Reviewed by 05/21/[address] [facility] Discharge Summary [facility] [place] GFR ESTon 05-17-2017 IF AMER Greater than 60 [facility] [place] Comment on above: Order Comment: Campu s: M Performed By: #### L 500.51971, L500.93545, L500.67148 ####[facility] JMWDSERLFN2599 [place], [place] [address]Wl# [phone] IF non-AFR AMER Greater than 60 Normal [facility] Comment on above: Order Comment: Campu s: M Performed By: #### L 500.54583, L500.27509, L500.43721 ####[facility] MXCEJTRMVW1250 [place], [place] [address]Mu# [phone] PBNP TESTon 05-17-2017 BNP 1457 pg/mL High 0-900 [facility] Comment on above: Order Comment: Campu s: M Result Comment: NT-p roBNP results of less than 300 pg/ml effectively rulesout acute congestive heart failure with 99% negativepredictive value. Performed By: #### L 500.72506, L500.83664, L500.06016 ####[facility] ONSZKASKKW6043 [place], [place] [address]Qq# [phone] BMPon 05-16-2017 Anion gap 10 mmol/L Normal 5-16 [facility] Comment on above: Order Comment: Campu s: M Performed By: #### L 500.26808, L500.97671, L500.21922 ####[facility] UIXJEWAPWI8527 [place], [place] [address]Nx# [phone] BUN/Creatinine Ratio 16 mg/mg Normal 15-24 [facility] Comment on above: Order Comment: Campu s: M Performed By: #### L 500.11436, L500.22812, L500.73236 ####[facility] LJUYZKAWFX4879 [place], [place] [address]Gc# [phone] Calcium 8.9 mg/dL Normal 8.5-10.1 [facility] Comment on above: Order Comment: Campu s: M Performed By: #### L 500.23711, L500.53589, L500.88797 ####[facility] PDPNZSDYEH9784 [place], [place] [address]Qa# [phone] Chloride 102 mmol/L Normal 98-107 [facility] Comment on above: Order Comment: Campu s: M Performed By: #### L 500.07447, L500.25072, L500.13603 ####[facility] DOBYHPIRHA9521 [place], [place] [address]Pz# [phone] CO2 28 mmol/L Normal 21-32 [facility] Comment on above: Order Comment: Campu s: M Performed By: #### L 500.55771, L500.46826, L500.39622 ####[facility] TOUNUJANNY[address] [place] [address]Ph# [phone] Creatinine 1.020 mg/dL Normal 0.670-1.17 0 [facility] Comment on above: Order Comment: Campu s: M Result Comment: Laurence ents receiving either N-Acetylcysteine (NAC) orMetamizole prior to venipuncture, may have falsely depressedresults. Performed By: #### L 500.74127, L500.22841, L500.34863 ####[facility] HMHOJTFVPY4449 [place] [address]Ph# [phone] Glucose mass conc 86 mg/dL Normal 70-100 [facility] Comment on above: Order Comment: Campu s: M Result Comment: 70-1 00- Normal Fasting; 100-125 Impaired Fasting; greaterthan 126 on more than one result- Diabetes. ADA guidelines.Results may be falsely elevated after the administration ofSulfapyridine.Results may be falsely depressed after the administration ofSulfasalazine. Performed By: #### L 500.50097, L500.25197, L500.15692 ####[facility] XNXBPUAHPG4948 [place], [place] [address]Re# [phone] Potassium molar conc 4.0 mmol/L Normal 3.5-5.1 [facility] Comment on above: Order Comment: Campu s: M Performed By: #### L 500.58845, L500.99815, L500.34291 ####[facility] [id number] [place], [place] [address]Et# [phone] Sodium 140 mmol/L Normal 136-145 [facility] Comment on above: Order Comment: Campu s: M Performed By: #### L 500.95922, L500.44912, L500.50984 ####[facility] [id number] [place], [place] [address]Bd# [phone] Urea nitrogen 16 mg/dL Normal 7- [facility] Comment on above: Order Comment: Campu s: M Performed By: #### L 500.85572, L500.64281, L500.56037 ####[facility] [id number] [place], [place] [address]Gk# [phone] [facility] CARD.[facility] Patient Name: TWAN ESTRELLA A[address] [facility] [address] Date of : [address] [address] Unit Number: [id number] Number: [id number] Test (Nuclear) Patient Status: DIS INoAttending Doctor: Ramo Polanco MDService Date: 05/16/17 1506Stress Test Nuclear ImagingReferring Physician:Bree Valle MDOrdering Provider:Jose Wright PVitals:Age: 67 years oldGender: MaleHeight: 5 feet 9 inchesWeight: 211.50 poundsBlood Pressure: 112/73Heart Rate: 73Allergies:Coded Allergies:NO KNOWN DRUG INTOLERANCES (05/15/17)Summary:HISTORY/ INDICATIONS:This is a 67 year old Male referred with history of obstructive cardiomyopathy, atrialfibrillation now in sinus rhythm, status post AICD with hypertension presents with chestdiscomfort.The patient is scheduled for Lexiscan nuclear examination for assessment of myocardialischemia.PROCEDU RE:The patient underwent a standard Lexiscan protocol and was given 0.4 mg of Lexiscanintravenously over 15 seconds, followed by 5 cc flush of normal saline; 15 seconds later,tracer was injected intravenously followed by a 5 cc flush of normal saline. The patientunderwent continuous electrocardiographic monitoring with blood pressure measurementsevery 2 minutes.The maximum heart rate attained was 122 beats per minute which was 78% of the maximumpredicted heart rate of 155. The maximum blood pressure was 132/66.SYMPTOMS:Mild chest discomfort with Lexiscan infusion.EKG:No EKG changes suggestive of myocardial ischemia with Lexiscan infusionThe patient underwent myocardial perfusion imaging following Lexiscan, using a same day,single isotope imaging protocol with intravenous injection of 31.9 mCi of technetium 99minfusion and 13.2 mCi of technetium 99m prior to the resting images. Imaging wasperformed by the gated tomographic technique.FINDINGS:On the stress and rest images the heart is normal in size. On the stress images there isrelatively homogenous uptake of activity throughout the myocardium. On the resting imagesthere is no significant change in distribution. On the gated images, the ejection fractionis 40% with septal dyskinesis.IMPRESSION:1. No significant myocardial ischemia.2. No evidence of myocardial infarction.3. The ejection fraction is 40% with septal dyskinesis.4. EKGs were nondiagnostic myocardial ischemia with Lexiscan infusion.DisclaimerThis dictation was created using voice recognition software.Phonetic and/or minor grammatical errors may exist.eSign Date and TimeSDorothea allison MD Verified/Reviewed by 05/19/17 1429 Normal [facility] Stress Test (Nuclear) Normal [facility] ED DOCon 05-16-2017 ED DOC PHYSIC NEENA ASSESSMENT ====RECORDS: FlexChartDataEvent Time: 05/15/2017 21:40Status: [facility] [[id number]]Shabana ttnick Fbtiiufit93 / M / 1950Chart (V2b)Chart created at 05/15/2017 20:57 by Nas LunaChart closed at 05/15/2017 21:06Entry in Emergency Department at 05/15/2017 16:36Patient Name: Twan Estrella Record Number: [id number]: 05/15/2017 20:57 EnteredDepartment at: 05/15/2017 16:36 Patient Seen at:05/15/2017 19:24 Decision to Admit at:05/15/2017 21:07 PCP: Davidson Gamboa Complaint:SQUAD FROM [facility]. EMS STATES HX OFCARDIAC PROBLEMS. CHEST PAIN THAT STARTED [id number] TODAY. RESOLVED NOW PER EMS.Triage Note reviewed and Initial Vital Signs reviewed.Temperature: 98.7 F (37.1 C). Pulse: 75. Respiratory Rate:16. Blood-pressure:128/74. Oxygen Saturation: 97%.History of Present Illness:Patient is here with complaints of shortness of breath withexertion for the last couple days but wasworse today. He was walking around his truck to get a leafblower and he felt way more short of breaththan usual. Its been this way for about 3 weeks and waseven there before that 3 weeks ago. Thatsbecause he had a cardioversion by Dr. Edwards 3 weeks ago. He [facility] PATIENT NAME: TWAN ESTRELLA A[address] [facility] [address] [facility]ron MEDICAL REC #: [id number], [place] [address] DEPARTMENT CHART EMERGENCY DEPARTMENT PHYSICIANwas in atrial fibrillation for about a weekand said that felt pretty poorly. He has a knowncardiomyopathy and states hes never had blood vesselblockages on his cath. His shortness of breath was worsewith exertion and some with lying down. Mostrecently he had chest pain this afternoon for a half anhour in the middle of his chest without radiationto his arms or back and he did not get cold clammy orsweaty. Hes had no nausea vomiting or fever heshad no severe swelling of arms or legs. No new medicationsor changes since he had his cardioversion.He sees Dr. Sonam de anda who is off work for a while and has been seen him lately.His meds include nadolol L Oquist omeprazole prednisone butno diuretics according to the patient.He states he was in [place] [facility] a week or so ago and hehad a mild elevation of one of the blood testquestioning heart failure and that has scared him.HPI Elements: Onset: 2-3 Weeks ago; Timing: Gradual;Context: At Rest; Exacerbated by: Exertion;Alleviated by: RestReview of Systems. Constitutional: positive for Fatigue,negative for Fever or Wt Loss Eyes: negative forEye Pain Ear/Nose/Throat: negative for Sore ThroatCardio-Vascular: positive for Chest Pain, described asmid chest ache for 10 minutes this afternoon and resolvedspontaneously Respiratory: positive forDyspnea, negative for Cough, Hemoptysis or Wheezing GI:negative for Abd. Pain : negative for HematuriaMusculo-Skeletal: negative for Back Pain Neurological:negative for Headache Hem/Endo: negative forBleeding Immunology: negative for Joint Pain All othersystems reviewed and negative..Past History, Medications, Allergies, Social History andFamily History reviewed in nurses note.Past Medical History: History of: Atrial Fibrillation.cardiomyopath yAtrial fibrillation with recent cardioversion [facility] PATIENT NAME: TWAN ESTRELLA A[address] [facility] [address] [facility]ron MEDICAL REC #: [id number], [place] [address] DEPARTMENT CHART EMERGENCY DEPARTMENT PHYSICIANMedications: Reviewed RN Note.NADOLOL 80MG 1.5TABLETS DAILY,ELIQUIS S MG 1 PO BID,ASPIRIN 81MG 1PO DAILY,OMEPRAZOLE SMG 1 PO DAILY,PREDISONE 10MG 1PO DAILY,COLON MEDICATION S MG,PATIENT DOES NOT REMEMBER THE REST OF HIS MEDICATIONSAllergies: Reviewed RN NoteHYDROCODONE(*N/A)Socia l History: Reviewed RN Note. Tobacco: None. Alcohol:None. Recreational Drugs: None.Family History: Reviewed RN NotePhysical Examination: General: Alert and Well Developed; norespiratory distress, talks in fullsentences. HEENT: Normal ENT inspection. Eyes: LidsNormal; .Oropharynx / Throat: Normal Pharynx. Neck: NoLymphadenopathy, No Meningismus and Supple Respiratory: NoResp Distress, Chest non-tender and Normal Breath SoundsCardio-Vascular: No murmur, No rub and RRRAbdomen: Normal Bowel Sounds, No Organomegaly, Non-tenderand Soft Back: No CVA tenderness, No MidlineTenderness and Non-tender Extremity: No edema and NormalEqual pulses Neurological: Alert, Oriented X3and No Gross Weakness Skin: No rash, No Petechiae, Warm andDry Psychological: Mood/Affect Normal andNormal Memory/JudgmentBMP, information as of 05/15/2017, 5:36 pm141 --------+--------+-------- andlt; 92 Anion Gap = 104.3 BUN/CREA: 16; CALCIUM TOTAL: 8.8 Mg/DlCBC W/DIFF, information as of 05/15/2017, 5:36 pm87.2/ 14.8 /10.5 andgt;------andlt; 187 [facility] PATIENT NAME: TWAN ESTRELLA A1Cl0 [facility] [address] MEDICAL REC #: [id number], [place] [address] DEPARTMENT CHART EMERGENCY DEPARTMENT PHYSICIAN/ 43.5 /N:62.7BASO ABS: 0.00 K/Cu Mm; BASOPHIL %: 0.2 %; EOS ABS: 0.00K/Cu Mm; EOSINOPHIL %: 0.1 %; IMMATR GRAN ABS:0.10 K/Cu Mm; IMMATURE GRAN %: 0.5 %; LYMPH %: 27.8 %;LYMPH ABS: 2.90 K/Cu Mm; MCHC: 34.0 Gm/Dl; MONOABS: 0.90 K/Cu Mm; MONOCYTE %: 8.7 %; MPV: 10.5; NEUTROPHILABS: 6.60 K/Cu Mm; NRBC: 0.0 %; RBC: 4.99M/Cu Mm; RDW: 14.5TROPONIN I, information as of 05/15/2017, 5:36 pmTROPONIN I: 0.021 Ng/MlCardiogram: Interpreted by me and Reviewed. Read Time:05/15/2017 17:06 Rate: 78 bpm. Rate NormalRhythmPacedAxis NormalIntervals NormalQRS LBBBST/T NormalComparison: Unchanged from 06/08/2013. Monitor /Rhythm Strip: PacedImaging Study Obtained:CHEST PA/AP LATERALImaging Study Obtained:CHEST PA/AP andamp; LATERAL, Status:Signed Report AvailableCHEST PA/AP andamp; LATERALOrdering Physician: Nas Luna MD05/15/2017 7:38 PMPA AND LATERAL CHEST:Clinical Statement: Chest painComparison: PA and lateral chest 09/02/2008FINDINGS: No focal consolidation, pleural effusion,pneumothorax,pulm onary nodules or pulmonary edema. The cardiacsilhouette iswithin normal limits. The osseous structures areunremarkable. [facility]: TWAN ESTRELLA0 [facility]ron MEDICAL REC #: [id number], [place] [address] DEPARTMENT CHART EMERGENCY DEPARTMENT PHYSICIANSternotomy wires and a left-sided transvenous pacerdefibrillator arenotedIMPRESSION:No acute cardiopulmonary disease. ---- Electronic Signature on File ----Signed By: Dieudonne [email or web address]: 05/15/2017 8:11 PMSigned: 05/15/2017 8:11 PMReported By: RAZ NASH M.D.Radiology: Image Reviewed and Interpreted by Radiologist.Medical Decision MakingPatient is here with complaints of more shortness of breathlately with exertion. Today even some chestpain though is had no previous vascular disease warrantingstents. Describes no cough or phlegm.Describes no fever or chilling. His primary is out [facility] and his foil spooler asked that he beseen. he was more short of breath when he was in atrialfibrillation but said its persisted since thecardioversion and even bit worse today with the chest painbriefly.Re-Evaluation: 21:04: labs did not show any severe changes of troponinchange severe anemia or I changes and no renalfailure. Hes on no diuretics. His x-ray didnt show overtheart failure. However he has exertional [facility] PATIENT NAME: TWAN ESTRELLA A[address] [facility] [address] [facility] MEDICAL REC #: [id number], [place] [address] DEPARTMENT CHART EMERGENCY DEPARTMENT PHYSICIANshortness of breath and notes when he lays down is moreshort of breath. He may have some mild CHF and Ispoken to his foil spooler. Hes concerned with the chestpain in the middle of his chest would like tocycle the enzymes, and do an echocardiogram tomorrowbecause of the pain in the more persistent shortnessof breath. Patients in agreement to do this.. The patientis already on Ahlquist.Additional Information: Old records reviewed. DiscussedResults, Diagnosis and Follow-Up with Patient.Clinical Impression:1. mild CHF2. recent cardioversion atrial fibrillationDisposition: Admitted at 15 May 2017, 21:05.MSE completed.I was the primary ED attending.. at 21:06 : Discharge ReportEvent Time: 05/15/2017 21:06===DISCHARGE REPORT===: FlexChartDataEvent Time: 05/15/2017 21:40: Discharge ReportEvent Time: 05/15/2017 21:06Status: DraftReasons to Return to the ER:You must return to the ER for any new, worsening orchanging symptoms, or if you feel more ill or sick inany way. This is the most important thing to remember.Follow-up:The care you received in the ER was given on an emergencybasis only, and it is often not possible tocompletely treat or diagnose a problem in a single ERvisit. You must see your follow-up doctor for a [facility] PATIENT NAME: TWAN ESTRELLA A[address] [facility] [address] [facility] MEDICAL REC #: [id number], [place] [address] DEPARTMENT CHART EMERGENCY DEPARTMENT PHYSICIANrecheck within a week unless you receive instructions witha different timeframe for follow-up. Pleasefollow all your discharge instructions.Medications:U nless the ER doctor tells you differently, you should takeall your regular medications and any newmedications prescribed today. Because it is not possiblefor the ER doctor to review all of yourmedication side effects or interactions, you must reviewpossible side effects and interactions with yourpharmacist when you get your prescriptions filled.EKG and Radiology Results:A foil spooler or radiologist will review any EKG orradiology results provided by the ER doctor. We willcontact you if the results in the final EKG or radiologyreports require a change in treatment.Culture Results:Cultures may have been ordered during your ER visit. Wewill contact you if the culture results require achange in treatment.Referrals:Most referrals to specialists come from the on-call listYou should make your regular doctor aware of anyreferrals before you schedule the appointment so that theyare aware and can make suggestionsDIAGNOSIS:mild CHF, recent cardioversion atrial fibrillationMEDICATIONSWe have given you these prescriptions that you must filland start taking:NoneMy signature below indicates that I have received and [facility] PATIENT NAME: TWAN ESTRELLA A[address] [facility] [address] [facility] MEDICAL REC #: [id number], [place] [address] DEPARTMENT CHART EMERGENCY DEPARTMENT PHYSICIANunderstand the oral instructions regarding mymedical problem. I also acknowledge receipt of this writteninstruction sheet including a list of majortests and procedures ordered during my visit. I willarrange for follow-up care as indicated by theseinstructions and referrals.This signed original will be kept in my medical record.Your signature below indicates consent for Case Managementto contact communityhealthcare providers in banner to meet your ongoing healthcare needs. This willallow forcontinuity of care once you leave theEmergency Department. This exchange of informationwillinclude, but not be limited to, disclosure of yourpatient information and possible release ofrecords. ====DEMOGRAPHICS Emergisoft Patient: TWAN ESTRELLASex: MDOB: 2Age: 67 yrAccount No: [id number]: [id number] Date: 16:36 05/15/2017Address: [address]Address: [place] [address] Z EGISTRATION =====ED Number: [id number]: Marital Status: MFinancial Class: MPPS TR IAGE Pr iority: 3 - UrgentComplaint: Chest PainStated Complaint: SQUAD FROM [facility]. EMS STATESHX OF CARDIAC PROBLEMS. CHEST PAIN THAT STARTED AT 1300TODAY. RESOLVED NOW PER EMS.Arrival Date: 05/15/2017 16:36 [facility] PATIENT NAME: TWAN ESTRELLA A[address] [facility] [address] [facility] MEDICAL REC #: [id number], [place] [address] DEPARTMENT CHART EMERGENCY DEPARTMENT PHYSICIANTriage Date: 05/15/2017 16:37Mode of Arrival: AmbulanceWC: NLanguage: EnglishTransport: Other$$$cccccccccccccccccc ccccccccccc$$$ ========BED =====D45 In: 05/15/2017 16:43:16 05/15/201716:43:16 BAMAD45 (Removed From) Out: 05/15/2017 22:21:13005/15/2017 22:21:13 KRL [facility] Provider Contact:05/15/2017 16:37:08 EMSEnd:MARISELA POWERS Provider Contact: 05/15/201716:47:31 BAMAEnd:MD Nas Luna Provider Contact: 05/15/201719:24:04 BAMEnd: =TRIAGE HISTORY =ALLERGIESAllergic To: HYDROCODONE - *N/A 05/15/2017 16:46 BAMACURRENT MEDSName: NADOLOL 80MG 1.5TABLETS DAILY 05/15/2017 16:46BAMAName: ELIQUIS ? MG 1 PO BID 05/15/2017 16:46 BAMAName: ASPIRIN 81MG 1PO DAILY 05/15/2017 16:46 CLAUDIA [facility] PATIENT NAME: TWAN ESTRELLA A[address] [facility] [address] MEDICAL REC #: [id number], [place] [address] DEPARTMENT CHART EMERGENCY DEPARTMENT PHYSICIANName: OMEPRAZOLE ?MG 1 PO DAILY 05/15/2017 16:46 BAMAName: PREDISONE 10MG 1PO DAILY 05/15/2017 16:46 BAMAName: COLON MEDICATION ? MG 05/15/2017 16:46 BAMAName: PATIENT DOES NOT REMEMBER THE REST OF HISMEDICATIONS 05/15/2017 16:46 BAMAILLNESSIllness: Other Medical XSRDZONWNHUKYT81/15/2018 16:46 BAMAPAST SURGERY HISTSurgery: CABG 05/15/2017 16:46 BAMASurgery: Pacemaker 05/15/2017 16:46 BAMAPAST SOCIAL HISTSocial History: Alcohol - None 05/15/2017 16:46 BAMASocial History: Smoker-None 05/15/2017 16:46 BAMASocial History: Recreational Drugs - None 05/15/201716:46 BAMAIMMUNIZATIONSImmunizat ion: Flu Vaccine-yes 05/15/2017 16:46 CLAUDIA NU RSING ASSESSMENT SESSMENT NOTES 0 05/15/2017 16:48 Patient states he had some mid sternalchest pain that started at 1300 today and lasted for ahour. Denies any numbness or tingling in bilateral upperor lower extremities. Lungs CTA. No coughing noted. Deniesany nausea/vomiting/fever/chil ls. No edema noted inbilateral lower extremities. Msps intact. Patient states hedoes have a hx of Afib. Patient states he did have a cardioversion 3 weeks ago. Patient states he has been feelingweak since the cardio version. Denies feeling dizzy sitting [facility] PATIENT NAME: TWAN ESTRELLA A[address] [facility] [address] MEDICAL REC #: [id number], [place] [address] DEPARTMENT CHART EMERGENCY DEPARTMENT PHYSICIANin the cot. Patient states he starts walking, he starts tofeel dizzy. Patient is talking in clear, full sentences. Noconfusion noted. Patient is alert and oriented x 4, skin iswarm and dry, respirations easy and non labored. Cardiacmonitor on the patient. 05/15/2017 16:54 BAMA05/15/2017 19:20 Ok to give the patient a drink ofwater per Jose F GRUBBS. 05/15/2017 19:20 BAMA05/15/2017 19:50 Patient is being transported to [facility].05/15/2017 19:51 BAMA05/15/2017 21:36 Attempted to call report to 9 main. Gwenmain states to call back in 15 minutes. 05/15/2017 21:30PJFZ9105/15/2017 21:38 REPORT GIVEN TO CINDY ANTONIO. 05/15/201721:39 CLAUDIA TR EATMENT =05/15/2017 16:47 Staff/ Patient Interaction -Introduced self and assessed patients needs. 05/15/201716:48 05/15/2017 16:47 Staff/ Patient Interaction - Siderails up X2 and call light placed within reach. 05/15/201716:48 05/15/2017 16:47 Patient Interaction - Allergy Band onPt. 05/15/2017 16:48 05/15/2017 16:47 Patient Interaction - Support Assistant/Pulse ox/ BP cuff applied 05/15/2017 16:48 05/15/2017 16:47 Patient Interaction - Introduce selfto Patient. 05/15/2017 16:48 05/15/2017 16:47 Patient Interaction - Name Band on Pt05/15/2017 16:48 05/15/2017 16:47 Hourly Rounding - Rounding 05/15/201716:48 BAMAElimination/Toileting NPain 0 [facility] PAT[facility] NAME: TW[facility] ESTRELLA A13[address] [facility] MEDICAL REC #: [id number], [place] [address] DEPARTMENT CHART EMERGENCY DEPARTMENT PHYSICIANPosition Comfortable YSafe Environment YFall Risk Change 05/15/2017 16:48 Primary DOC Guide - A. 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 Fall RiskAssessment (Age andlt;65) 05/15/2017 16:48 BAMAHistory of Falling in last 3 months? No (0)Fall Risk Score 1-2 Points = Low Risk. 3-4 Points =Moderate Risk. 5 or more points = High Risk. 0Fall Score Greater andgt;= 3? No05/15/2017 16:48 Primary DOC Guide - D. PsychosocialAssessment 05/15/2017 16:48 BAMAOver the Last 2 weeks, how often have you had littleinterest or pleasure in doing things (0) Not at AllIs Psychosocial Assessment Score 3 or more? If score is3 or more please consult ED Navigator! NoTotal Psychosocial Assessment Score 0Over the last 2 weeks, how often have you been feelingdown, depressed or hopeless (0) Not at All05/15/2017 18:37 Hourly Rounding - Rounding 05/15/201718:37 BAMAElimination/Toileting NPain 0Position Comfortable YSafe Environment YAssessment Note Denies any pain at this time. Updatedpatient on poc.Fall Risk Change N005/15/2017 20:25 Physician Call - Paged LEONARD [facility] PATIENT NAME: TWAN ESTRELLA A[address] [facility] [address] MEDICAL REC #: [id number], [place] [address] DEPARTMENT CHART EMERGENCY DEPARTMENT PHYSICIANat 202405/15/2017 20:45 MEMB05/15/2017 20:27 Physician Call - Dr. Ziegler at 202605/15/2017 20:45 MEM05/15/2017 20:31 Hourly Rounding - Rounding 05/15/201720:31 BAMAElimination/Toileting NPain 0Position Comfortable YSafe Environment YFall Risk Change 05/15/2017 20:43 Physician Call - Pagealexander SAOUNDat 204205/15/2017 20:45 MEMB05/15/2017 20:43 Physician Call - Dr. Kwan at 204205/15/2017 20:45 MEMB05/15/2017 21:32 Hourly Rounding - Rounding 05/15/201721:32 BAMAElimination/Toileting NPain 1Position Comfortable YSafe Environment YFall Risk Change 05/15/2017 22:01 Admit/Discharge - Report called kayce dunaway rn 05/15/201722:01 KRL05/15/2017 22:01 Admit/Discharge - Pt/Family voicesunderstanding of admit process 05/15/2017 22:01 KRL05/15/2017 22:01 Admit/Discharge - Pt transported viabed and medical chart sent with pt.05/15/2017 22:01 KRL MED ICATIONS IV== IV Fluid: B 05/15/2017 21:32 05/15/2017 21:33 [facility] PATIENT NAME: TWAN ESTRELLA320 Radha [facility]ron MEDICAL REC #: [id number], [place] [address] DEPARTMENT CHART EMERGENCY DEPARTMENT PHYSICIANBAMALine #: 1 Rate: ml/hr Location: antecubitalfossa leftNdl Gauge: 20 # Attempts: 1Notes: SITE FLUSHES EASILY WITH NORMAL SALINE, NOREDNESS OR EDEMA NOTED, INITIATED BY VERITO MEDIC STUDENT. ==I AND O VITALS===== VS-ROUTINE Time: 05/15/2017 16:37B/P: 128/74 - Left Upper Arm - Sitting - MachinePulse: 75 - Monitor Resp: 16Sa02: 97 Room Air Temp: 98.70 F - Oral05/15/2017 16:46 BAMAVS-Pain Time: 05/15/2017 16:37 Pain Level: 16:46 BAMAVS-GCS Time: 05/15/2017 16:37 Visual: 4 Verbal: 5 Motor:6 GCS Total: 15 05/15/2017 16:46 BAMAVS-HT/WT Time: 05/15/2017 16:37 Ht: 69 in. StatedWeight: 206 lbs Stated 05/15/2017 16:46 BAMAVS-Visual Time: 05/15/2017 16:37 05/15/2017 16:46 BAMAVS-FHT Time: 05/15/2017 16:37 05/15/2017 16:46BAMAVS-Notes Time: 05/15/2017 16:37 MAP 93 05/15/201716:46 BAMAVS-ROUTINE Time: 05/15/2017 18:37B/P: 129/69 - Left Upper Arm - Sitting - MachinePulse: 73 - Support Assistant Resp: 16Sa02: 98 Room Air 05/15/2017 18:37 BAMAVS-Pain Time: 05/15/2017 18:37 Pain Level: 18:37 BAMAVS-GCS Time: 05/15/2017 18:37 05/15/2017 18:37 BAMAVS-HT/WT Time: 05/15/2017 18:37 05/15/2017 18:37 BAMAVS-Visual Time: 05/15/2017 18:37 05/15/2017 18:37 BAMAVS-FHT Time: 05/15/2017 18:37 05/15/2017 18:37BAMAVS-Notes Time: 05/15/2017 18:37 map 93 05/15/201718:37 BAMAVS-ROUTINE Time: 05/15/2017 20:31B/P: 114/62 - Left Upper Arm - Sitting - Machine [facility] PATIENT NAME: TWAN ESTRELLA A[address] [facility] [address] MEDICAL REC #: [id number], [place] [address] DEPARTMENT CHART EMERGENCY DEPARTMENT PHYSICIANPulse: 75 - Support Assistant Resp: 12Sa02: 96 Room Air 05/15/2017 20:31 BAMAVS-Pain Time: 05/15/2017 20:31 Pain Level: 20:31 BAMAVS-GCS Time: 05/15/2017 20:31 05/15/2017 20:31 BAMAVS-HT/WT Time: 05/15/2017 20:31 05/15/2017 20:31 BAMAVS-Visual Time: 05/15/2017 20:31 05/15/2017 20:31 BAMAVS-FHT Time: 05/15/2017 20:31 05/15/2017 20:31BAMAVS-Notes Time: 05/15/2017 20:31 map 81 05/15/201720:31 CLAUDIA OR DERS *S tatus: Inpatient 05/15/2017 21:09N/AOrdered: 05/15/2017 21:06 By . OtherReviewed: 05/15/2017 21:09 By . OtherEXTERN ORDER: PBNPT 05/15/2017 21:05NoneOrdered: 05/15/2017 21:05 Completed Time:05/15/2017 21:05 Results Time: 05/15/2017 21:05Lasix (PO)(40mg)* DOSE: 40 mgPO 05/15/2017 21:32N/AOrdered: 05/15/2017 20:32 By Nas LunaCompleted Time: 05/15/2017 21:32 By Nas LunaNoted Time: 05/15/2017 21:26 CLAUDIALab: Add On Test (excluding POC tests) 05/15/201721:26N/AOrdered: 05/15/2017 20:30 By Nas LunaCompleted Time: 05/15/2017 21:05 By Nas LunaQuestion: Test to be added:Answer: bnptCXR PA and lateral 05/15/2017 20:19N/AOrdered: 05/15/2017 19:38 By Nas LunaCompleted Time: 05/15/2017 20:19 By Nas LunaIndication: Chest PainNoted Time: 05/15/2017 19:56 [facility] PATIENT NAME: TWAN ESTRELLA [id number] [facility] [address] Padron MEDICAL REC #: [id number], [place] [address] DEPARTMENT CHART EMERGENCY DEPARTMENT PHYSICIANQuestion: How is patient transported? (A = Ambulatory, B =Bed, C = Carry, CR = Crib, P = Portable, S = Stretcher, W =Wheelchair, X = Wide Wheelchair, XT = Trauma X RM17 (EDOnly))Answer: STRETCHEREXTERN ORDER: TRO 05/15/2017 18:24NoneOrdered: 05/15/2017 18:24 Completed Time:05/15/2017 18:24 Results Time: 05/15/2017 18:24EXTERN ORDER: GFRP 05/15/2017 17:58NoneOrdered: 05/15/2017 17:58 Completed Time:05/15/2017 17:58 Results Time: 05/15/2017 21:05Lab: Add On Test (excluding POC tests) 05/15/201719:21N/AOrdered: 05/15/2017 17:54 By ProtocolCompleted Time: 05/15/2017 18:24 By ProtocolNoted Time: 05/15/2017 18:27 TMNQuestion: Test to be added:Answer: troponin main labBMP 05/15/2017 17:58N/AOrdered: 05/15/2017 16:47 By ProtocolCompleted Time: 05/15/2017 17:58 By ProtocolNoted Time: 05/15/2017 17:46 TMNResults Time: 05/15/2017 21:05CBC with diff 05/15/2017 17:58N/AOrdered: 05/15/2017 16:47 By ProtocolCompleted Time: 05/15/2017 17:58 By ProtocolNoted Time: 05/15/2017 17:46 TMNResults Time: 05/15/2017 17:58EKG and most recent EKG 05/15/2017 17:46N/AOrdered: 05/15/2017 16:47 By ProtocolCompleted Time: 05/15/2017 17:00 By ProtocolNoted Time: 05/15/2017 16:55 TMNPOC troponin 05/15/2017 19:26 [facility] PATIENT NAME: TWAN ESTRELLA A132Ej Radha Padron MEDICAL REC #: [id number], [place] [address] DEPARTMENT CHART EMERGENCY DEPARTMENT PHYSICIANN/AOrdered: 05/15/2017 16:47 By ProtocolCompleted Time: 05/15/2017 18:24 By ProtocolNoted Time: 05/15/2017 17:46 TMN DIS CHARGE Diagnosis: mild CHF, recent cardioversion xplbeqaibvknimgwbz06/15/20 21:07CANCELLED DIAGNOSESDiagnosis Name: mild CHF, recent cardioversion atrialfibrillationDisposit ion: Time: 05/15/2017 21: [facility] PATIENT NAME: TWAN ESTRELLA Radha Padron MEDICAL REC #: [id number], [place] [address] DEPARTMENT CHART EMERGENCY DEPARTMENT PHYSICIAN [facility] ED Documentation This is a preliminar y report only, as the practitioner review and authentication has not occurred. Normal [facility] GFR ESTon 05-16-2017 IF AMER Greater than 60 [facility] Comment on above: Order Comment: Leidy s: M Performed By: #### L 500.70282, L500.57618, L500.24931 ####[facility] [id number] [place], [place] [address]Rs# [phone] IF non-AFR AMER Greater than 60 [facility] Comment on above: Order Comment: Campu s: M Performed By: #### L 500.49441, L500.04574, L500.72779 ####[facility] [id number] [place], [place] [address]Ef# [phone] LIPIDon 05-16-2017 Cholesterol 159 mg/dL Normal 0-199 [facility] Comment on above: Order Comment: Leidy Landry Performed By: #### L 500.06050, L500.19359, L500.28746 ####[facility] FUYGKYOLKB[address] [place], [place] [address]Xk# [phone] HDL Cholesterol 52 mg/dL Normal GREATER TN 40 [facility] Comment on above: Order Comment: Leidy cope: Frantz Result Comment: Laurence ents receiving Metamizole prior to venipuncture, mayhave falsely depressed results. Performed By: #### L 500.19265, L500.35589, L500.04540 ####[facility] [address]IMCWSHH[address] [place], [place] [address]My# [phone] LDL Cholesterol 85 MG/DL Normal 0-129 [facility] Comment on above: Order Comment: Leidy Landry Result Comment: ___C HOLESTEROL/HDL RATIO RISK___ CHD RISK = Total CHOL LDL HDL (CHOL/HDL) --------Recommended <200 <130 >35 <3.4 --Borderline 200-239 130-159 3.4-4.99 ------High >240 >160 >5.0 -- Performed By: #### L 500.53027, L500.74295, L500.02823 ####[facility] KDDGMJYQPR6498 [place], [place] [address]Jy# [phone] Triglyceride 106 mg/dL Normal 30-149 [facility] Comment on above: Order Comment: Leidy s: M Result Comment: Laurence ents receiving either N-Acetylcysteine (NAC) orMetamizole prior to venipuncture, may have falsely depressedresults. Performed By: #### L 500.90508, L500.77390, L500.90323 ####[facility] LNLWNLNVYK6496 [place], [place] [address]Bg# [phone] MAGNESIUMon 05-16-2017 Magnesium 2.0 mg/dL Normal 1.6-2.6 [facility] Comment on above: Order Comment: Leidy cope: M Performed By: #### L 500.53865, L500.14290, L500.66167 ####[facility] [id number] [place], [place] [address]Ls# [phone] PBNP TESTon 05-16-2017 BNP 1781 pg/mL High 0-900 [facility] Comment on above: Order Comment: Leidy cope: Frantz Result Comment: NT-p roBNP results of less than 300 pg/ml effectively rulesout acute congestive heart failure with 99% negativepredictive value. Performed By: #### L 500.39875, L500.50940, L500.95697 ####[facility] [address]IASTPO[address] [place], [place] [address]Vq# [phone] PROG IMSon 05-16-2017 PROG [facility] Patient Name: TWAN ESTRELLA [id number] [facility] Date of : [address] [address] Unit Number: [id number] Number: [id number] Note-Hospitalist Patient Status: ADM INoAttending Doctor: Ramo Polanco MDService Date: 05/16/17 1339Chief ComplaintChief ComplaintShortness breathSubjectiveS: (2 ROS minimum)Patient denied having shortness breath or chest pain today, no fever chills nauseavomiting diarrheaObjective (ROS)Nursing VitalsVital Signs (Last)ResultDate TimePulse Pi7071/16 0608B/P112/7302/16 5366Arik19.902/16 4963Nimyp1670/16 8199Jvvn6653/16 0608Physical Exam:General: Patient is alert and oriented x3 and is in no acute respiratory distress.HEENT no eye congestion no ear discharge.Neck is supple no JVD.Lungs: Diminished breathing sounds bilateral no wheezing or rhonchiCardiac: S1-S2 within normal limitsAbdomen: Soft, nontender, nondistended.Extremities: No cyanosisSkin: No rashes or breakdown.Neurologic: Cranial nerves from II-XII intact grossly.Psych normal affect.Lymphatic system, no submandibular or anterior cervical lymphadenopathy.Diagnostic Data:Lab 24hr (CBC/BMP [facility])05/16/17 0454:Troponin I 0.2217105/16/17 0454:ST2, Soluble Ciaciby46/16/18 0454:[Embedded Image Not Available]Anion Gap 10, Est GFR ( Amer) Greater than 60, Est GFR (Non-Af Amer) Greater than60, BUN/Creatinine Ratio 16, Glucose 86, Total Calcium 8.9, Magnesium 2.0, Cia-X-Aqysqxoguws Pept 1781 H, Triglycerides 106, Cholesterol 159, LDL Cholesterol 85, HDLDirect 52, TSH, Ultra Sensitive 2.00852 2239:Troponin I 0.0166605/15/17 1736:Troponin I 0.3593205/15/17 1736:[Embedded Image Not Available]Anion Gap 10, Est GFR ( Amer) Greater than 60, Est GFR (Non-Af Amer) Greater than60, BUN/Creatinine Ratio 16, Glucose 92, Total Calcium 8.8, Aqj-Y-Fdfsvfiitvg Pept 1771 H,RBC 4.99, MCV 87.2, MCHC 34.0, RDW 14.5, MPV 10.5, Immature Gran % (Auto) 0.5, Abs ImmatGran (auto) 0.10, Seg Neutrophils % 62.7, Lymphocytes % 27.8, Monocytes % 8.7, Eosinophils% 0.1, Basophils % 0.2, Neutrophils # 6.60, Lymphocytes # 2.90, Monocytes # 0.90,Eosinophils # 0.00, Basophils # 0.00, Nucleated RBCs 0.0Assessment and PlanConclusion1. ASSESSMENT*Exertional shortness of breath and elevated BNP, suspected CHF.*Chest pain/tightness, for evaluation.*Hypertrophic cardiomyopathy status post septal surgery in 2007.*A. fib status post recent cardioversion, currently in sinus rhythm.*History of AICD placement*Suspected ulcerative colitis*GERD*ObesityPlan*C ontinue IV Lasix, Awaiting 2-D echo and stress test, patient was seen by cardiology.*Continue rate control, continue Eliquis.*Patient is medically stable, continue DVT prophylaxisThis was discussed with the patient and his wifeDisclaimerThis dictation was created using voice recognition software.Phonetic and/or minor grammatical errors may exist.eSign Date and TimeDaoFrancois sutton MD Verified/Reviewed by 05/16/[address] [facility] Progress Note-Hospitalist [facility] PTARon 05-16-2017 PT Assessment Report [facility] PTAR Physical TherapyInpa tient EvaluationMedical Diagnosis: CHF, CHEST PAIN, CARDIOMYOPATHYTherapy Diagnosis:Rank Code Description1 R26 Abnormalities of gait and mobilityDemographics:Age: 67YGender: MalePrimary Language: EnglishPreferred Language: EnglishReferring Service/Team: Jack Polanco Medical History: Past Medical HistoryHypertrophic cardiomyopathyA. fibHistory of AICD placementUlcerative colitisGERDObesityPast Surgical HistorySeptal surgery in ICD placement in 2008Cardiac catheterizationCardioversi on l0Eokfzti of Present Illness:Date of Onset: 05/15/17Additional Information: Chief Complaint/Present Illness:Exertional shortness of breath and chest painLiving Situation Home - with AssistanceHistory of Present IllnessPatient is a 67-year-old obese female with history of hypertrophiccardiomyopathy status post septal surgery in 2007, history of AICD [id number], A. fib with history of cardioversions, last one about 2 weeks back whofollows with / outpatient basis. Patient had history ofexertional shortness of breath and intermittent chest pains for about 6 monthsbut after he had cardioversion 2 weeks back, he noticed his symptoms havesomewhat worsened from before. He exercise tolerance has decreased and todaywhile he was doing household work, he felt more short of breath and also startedto have chest tightness, felt like heaviness, gradually subsided with time, nosignificant palpitations, dizziness or change in mental status. Accordingly hepresented to ER. In the ER and EKG showing paced rhythm. Troponin was negative.Chest x-ray showing no significant pulmonary congestion but his BNP elevated. Hewas thought to have some component of underlying CHF for which he'll be placedin observation for further evaluation and recommendations. Cardiology was [facility] PATIENT NAME: TWAN ESTRELLA A[address] [facility] [address] [facility]ron MEDICAL REC #: [id number], [place] [address] DATE: 05/15/17ERVICE DATE: 05/16/17Physical Therapy Assessment Report ATTENDING PHY: Ramo Polanco MDconsulted from the ER. He denies any other complaints.OBTAINED FROM MEDICAL CHARTINGDate of Admission: 05/15/2017 9:08:00 PMRehabilitation Precautions/Restrictions:s tandard precautions, fall risk, maintain SpO2 >90%SUBJECTIVEPrior Level of Functioning:Indoor Mobility: Patient completed the activities by him/herself, with orwithout an assistive device, with no assistance from a helper.Stairs: Patient completed the activities by him/herself, with or without anassistive device, with no assistance from a helper.Pt reports he ambulates with no assistive device. Pt independent with all ADLand IADLs.Prior Device Use:ZhfpxsifdtfOV415. Prior DeviceNone of Above YesPatient/Caregiver Goals: Patient's functional goals: "go home"Pain: Patient currently without complaints of pain.Home Environment: Patient lives with (21/10) , who is able to assist patientat discharge. Patient lives in a single family home. Home is three levels.Patient is required to manage 12 step(s) within the home, with bilateralhandrails. First floor full bathroom setup available. Second floor bathroomsetup available. There are 1 steps to enter the home, with no hand railings.There is no ramp available to enter home.Equipment Owned: None.Social History: Marital Status: MChildren: 2Reside: localEmployment Status: retiredRecreational Activities/Hobbies: active around houseOBJECTIVECognitive ScreenResponsiveness: Alert.Orientation: Oriented to person, place, time, and situation.Following Commands: Patient is able to follow 3-step commands.Range of MotionUpper Extremity: Grossly within functional limitsLower Extremity: Grossly within functional limitsStrength [facility] PATIENT NAME: TWAN ESTRELLA A[address] [facility] [address] [facility]ron MEDICAL REC #: [id number], [place] [address] DATE: 05/15/17ERVICE DATE: 05/16/17Physical Therapy Assessment Report ATTENDING PHY: Ramo Polanco MDUpper Extremity: Grossly within functional limitsLower Extremity: Grossly within functional limitsTone/Spasticity: No relevant impairments.Sensation: Grossly intact.Balance: Independent and within functional limits.Therapeutic/Functio nal Activities:Bed Mobility: All bed mobility including supine to sit, rolling,scooting. with independence. Pt denies dizziness upon initial sititng andstandingTransfers: Patient transferred sit to/from stand with independence.Locomotion/Ga it/Ambulation: Patient was independent withgait/ambulation for 175' . No assistive devices were required. Pt amb withreciprocal gait pattern with good step length and mira. Pt demonstrates noLOB or instability with good safety. Pt reports ambulation matches baselinelevel.Gait Deviations: No gait deviations.Stairs: Patient was modified independent for 20 . Patient used thefollowing equipment: Unilateral Railing.AM-PAC Basic Mobility:Turning Over in Bed: No difficultySitting/Standing Chair with Arms: No difficultyLying on Back to Sitting on Side of Bed: No difficultyMoving To/From Bed to Chair: No help neededWalking in Hospital Room: No help neededClimbing 3-5 Steps with Railing: No help neededRaw Score = 24 , AM-PAC t-Scale Score = 61.14 and G-Code Modifier = CHVital Signs:Vitals:Oxygen Saturation: 96 % -97% with ambulation and stair negotiation on roomairInterventions: Evaluation LOW Complexity No treatment provided today.Pain Reassessment: No pain at onset or during treatment, which does not warrantreassessment.Educat ion:The patient's preferred learning method is: Explanation, DemonstrationBarriers to Learning: No barriersLearning Needs: Precautions.Plan of care.Rehabilitation techniques and procedures.Education Provided: Precautions. Plan of care. Rehab techniques and procedures.purpose of PT evaluationAudience: Patient., Significant other. [facility] PATIENT NAME: TWAN ESTRELLA A1Cl[address] [facility] [address] [facility]ron MEDICAL REC #: [id number], [place] [address] DATE: 05/15/17ERVICE DATE: 05/16/17Physical Therapy Assessment Report ATTENDING PHY: Ramo Polanco MDMode: Explanation. Demonstration.Response: Applied knowledge. Verbalized understanding. Demonstrated skill.ASSESSMENTProblem List: NoneStrengths: Activities of Daily Living, Transfers, Independent premorbidfunction, Social/family support, Activity tolerance, Home safety, Upperextremity function, Strength, Cognition, Vision, BalanceRehabilitation Potential: Not applicableMotivation/Commi tment to Therapy: Not applicable.Response to Evaluation: Pt demonstrates baseline abilities that are safe andstable with no need for skilled PT intervention. Pt educated of plan to D/C PTwith good pt verbal agreement and understanding. Pt educated to notifyphysician/nursing if changes occur with functional mobility. AM-PAC 24 shows ptsafe for homegoingActivity/Particip ation Problem List and Goals:Functional Impairment: Mobility: Walking and Moving Around.Modifier: C5891-FS (0% impaired, limited or restricted)Goal: AM-PAC 24Goal Modifier: P6814-ON (0% impaired, limited or restricted)Discharge Status for Mobility: Walking and Moving Around: ResolvedFunctional Impairment Discharge Modifier: T8911-PH (0% impaired, limited orrestricted)AM-PAC 24Treatment Goals: Not applicable.PLANTreatment Frequency, Duration and Interventions: Physical Therapy services arediscontinued at this time secondary to: No need for skilled therapy interventionat this time. Patient is independent (able to return demonstrate) home exerciseprogram.Recommende d Physical Therapy Follow Up: Upon acute care discharge, the followingis currently recommended: No further careRecommended Equipment: None. No needs .Recommended Consults: None currently.Development of Plan of Care: Patient participated in plan of care developmenttoday.If there are any questions regarding this service, please contact the AcuteTherapy Department at extension [phone] of Patient at End of Therapy Session: In chair, call light within reach [facility] PATIENT NAME: TWAN ESTRELLA A[address] [facility] [address] [facility]ron MEDICAL REC #: [id number], [place] [address] DATE: 02/15/18SERVICE DATE: 05/16/17Physical Therapy Assessment Report ATTENDING PHY: Ramo Polanco MDServices:Total Billed: 0 minutes (Timed: 0, Untimed: 0)0.00 Untimed: [77492] PT-EVALUATION LOW COMPLEXITY0.00 Untimed: [] PT Evaluation ORDER0.00 Untimed: [G8978] PT-Mobility: Walking and Moving Around-CH0.00 Untimed: [G8979] EQ-Mvnz-Hdrximdg: Walking and Moving Around-CH0.00 Untimed: [G8980] PT-DC:Mobility: Walking and Moving Around-CHSigned by: Steffanie Syed, 05/16/2017 16:01:20 [facility] PATIENT NAME: TWAN ESTRELLA A[address] [facility] #: [id number], [place] [address] DATE: 05/15/17ERVICE DATE: 05/16/17Physical Therapy Assessment Report ATTENDING PHY: Ramo Polanco MD [facility] 05-16-[address] [facility] PTPN Physical TherapyInpa tient Missed Visit NoteAttempted to visit patient for therapy, but was unable for the followingreasons: Testing: Cardiology.Return Plan: Will return as soon as possible for another attempt.If there are any questions regarding this service, please contact the AcuteTherapy Department at extension [phone] by: Steffanie Syed, 05/16/2017 11:12:57 [facility] PATIENT NAME: TWAN ESTRELLA320 [facility] [address]ron MEDICAL REC #: [id number], [place] [address] DATE: 05/15/17ERVICE DATE: 05/16/17Physical Therapy Progress Note ATTENDING PHY: Ramo Polanco MD [facility] TROPONIN Ion 05-16-2017 Troponin I.cardiac mass conc 0.024 ng/mL Normal 0.000-0.04 5 [facility] Comment on above: Order Comment: Campu s: M Performed By: #### L 500.38099, L500.11271, L500.50402 ####[facility] [id number] [place], [place] [address]Ju# [phone] Troponin I.cardiac mass conc 0.020 ng/mL Normal 0.000-0.04 5 [facility] Comment on above: Order Comment: Campu s: M Performed By: #### L 550.68828 ####[facility] [id number] [place], [place] [address]Ca# [phone] TSHon 05-16-2017 Thyroid stimulating hormone (TSH) 2.920 UIU/ML Normal 0.358-3.74 0 [facility] Comment on above: Order Comment: Campu s: M Result Comment: 3rd generation ultra sensitive TSH Performed By: #### L 500.03153, L500.41990, L500.90872 ####[facility] UBVDLYISNN[address]366 [place], [place] [address]Bp# [phone] BMPon 05-15-2017 Anion gap 10 mmol/L Normal - [facility] Comment on above: Order Comment: Campu s: M Performed By: #### L 500.14802, L500.85883, L500.50940 ####[facility] MIRDRZLBCP[address]68 [place], [place] [address]Np# [phone] BUN/Creatinine Ratio 16 mg/mg Normal 15- [facility] Comment on above: Order Comment: Campu s: M Performed By: #### L 500.81170, L500.44325, L500.51062 ####[facility] GIJNYLYBAM[address]6 [place], [place] [address]Ep# [phone] Calcium 8.8 mg/dL Normal 8.5-10.1 [facility] Comment on above: Order Comment: Campu s: M Performed By: #### L 500.85041, L500.50443, L500.36685 ####[facility] RAPCRARDWQ[address] [place], [place] [address]Ht# [phone] Chloride 106 mmol/L Normal 98-107 [facility] Comment on above: Order Comment: Campu s: M Performed By: #### L 500.90102, L500.59403, L500.80530 ####[facility] OPYHLHIPSD5129 [place], [place] [address]Hk# [phone] CO2 26 mmol/L Normal 21-32 [facility] Comment on above: Order Comment: Campu s: M Performed By: #### L 500.45420, L500.22974, L500.18705 ####[facility] ISGGYHHGAK3289 [place], [place] [address]Ao# [phone] Creatinine 0.818 mg/dL Normal 0.670-1.17 0 [facility] Comment on above: Order Comment: Campu s: M Result Comment: Laurence ents receiving either N-Acetylcysteine (NAC) orMetamizole prior to venipuncture, may have falsely depressedresults. Performed By: #### L 500.00936, L500.80327, L500.94568 ####[facility] GCJJGIVQDS0936 [place], [place] [address]Zy# [phone] Glucose mass conc 92 mg/dL Normal 70-100 [facility] Comment on above: Order Comment: Campu s: M Result Comment: 70-1 00- Normal Fasting; 100-125 Impaired Fasting; greaterthan 126 on more than one result- Diabetes. ADA guidelines.Results may be falsely elevated after the administration ofSulfapyridine.Results may be falsely depressed after the administration ofSulfasalazine. Performed By: #### L 500.95375, L500.93243, L500.67025 ####[facility] [id number] [place], [place] [address]Bd# [phone] Potassium molar conc 4.3 mmol/L Normal 3.5-5.1 [facility] Comment on above: Order Comment: Campu s: M Performed By: #### L 500.02639, L500.41997, L500.21288 ####[facility] [id number] [place] [address]Ty# [phone] Sodium 141 mmol/L Normal 136-145 [facility] Comment on above: Order Comment: Campu s: M Performed By: #### L 500.19133, L500.84606, L500.32388 ####[facility] [address] [place] [address]Ke# [phone] Urea nitrogen 13 mg/dL Normal 7-26 [facility] Comment on above: Order Comment: Campu s: M Performed By: #### L 500.54898, L500.60528, L500.41141 ####[facility] NCQAQRYTWP2401 [place], [place] [address]Fk# [phone] CBC W/DIFFon 05-15-2017 BASO ABS 0.00 K/CU MM Normal 0-0.2 [facility] Comment on above: Order Comment: Campu s: M Performed By: #### L 200.84823 ####[facility] [address] [place] [address]Oi# [phone] Basophils/100 WBC Auto (Bld) 0.2 % Normal 0-2 [facility] Comment on above: Order Comment: Campu s: M Performed By: #### L 200.71855 ####[facility] [address] [place] [address]Ej# [phone] EOS ABS 0.00 K/CU MM Normal 0-0.5 [facility] Comment on above: Order Comment: Campu s: M Performed By: #### L 200.43423 ####[facility] VBLRLKXEUE4590 [place], [place] [address]De# [phone] Eosinophils/100 leukocytes 0.1 % Normal 0-5 [facility] Comment on above: Order Comment: Campu s: M Performed By: #### L 200.79233 ####[facility] [address] [place] [address]Bg# [phone] Erythrocyte distribution width Auto Ratio (RBC) 14.5 % Normal 11-14.5 [facility] Comment [facility] above: Order Comment: Campu s: M Performed By: #### L 200.27687 ####[facility] MGJQCQXVXX1185 [place], [place] [address]Yw# [phone] Erythrocytes (RBC) 4.99 M/CU MM Normal 4.50-6.00 [facility] Comment [facility] above: Order Comment: Campu s: M Performed By: #### L 200.41624 ####[facility] PHHCJJWGQT2873 [place], [place] [address]Bz# [phone] Erythrocytes (RBC) 0.0 % Normal Less than 1 [facility] Comment on above: Order Comment: Campu s: M Performed By: #### L 200.62103 ####[facility] [id number] [place] [address]Vi# [phone] Hematocrit (HCT) 43.5 % Normal 41.0-53.0 [facility] Comment on above: Order Comment: Campu s: M Performed By: #### L 200.23924 ####[facility] [id number] [place], [place] [address]Bv# [phone] Hemoglobin mass conc (Bld) 14.8 g/dL Normal 13.5-17.5 [facility] Comment on above: Order Comment: Campu s: M Performed By: #### L 200.66906 ####[facility] [address] [place] [address]Jt# [phone] IMMATR GRAN ABS 0.10 K/CU MM Normal Less than 2 [facility] Comment on above: Order Comment: Campu s: M Performed By: #### L 200.91580 ####[facility] [id number] [place] [id number]# [phone] IMMATURE GRAN % 0.5 % Normal Less than 2 [facility] [place] Comment on above: Order Comment: Campu s: M Performed By: #### L 200.59763 ####[facility] [id number] [place], [place] [id number]# [phone] Lymphocytes 2.90 K/CU MM Normal 0.9-4.4 [facility] [place] Comment on above: Order Comment: Campu s: M Performed By: #### L 200.48394 ####[place] [id number]# [phone] Lymphocytes/100 leukocytes 27.8 % Normal 20-40 [facility] [place] Comment on above: Order Comment: Campu s: M Performed By: #### L 200.54969 ####[facility] [id number] [place], [place] [address]Ph# [phone] MCHC mass conc (RBC) 34.0 g/dL Normal 32.0-36.0 [facility] [place] Comment on above: Order Comment: Campu s: M Performed By: #### L 200.53832 ####[facility] [id number] [place], [place] [address]Ph# [phone] MCV 87.2 fL Normal 80.0-99.0 [facility] [place] Comment on above: Order Comment: Campu s: M Performed By: #### L 200.83449 ####[facility] [id number] [place] [address]Gd# [phone] MONO ABS 0.90 K/CU MM Normal 0.1-1.1 [facility] [place] Comment on above: Order Comment: Campu s: M Performed By: #### L 200.16265 ####[facility] [id number] [place], [place] [address]Pc# [phone] Monocytes/100 leukocytes 8.7 % Normal 2-10 [facility] [place] Comment on above: Order Comment: Campu s: M Performed By: #### L 200.53404 ####[facility] [id number] [place], [place] [address]Gu# [phone] Neutrophils 6.60 K/CU MM Normal 2.0-8.3 [facility] [place] Comment on above: Order Comment: Campu s: M Performed By: #### L 200.06743 ####[facility] [id number] [place] [address]Zm# [phone] Neutrophils/100 WBC Auto (Bld) 62.7 % Normal 45-75 [facility] Comment [facility] above: Order Comment: Campu s: M Performed By: #### L 200.42920 ####[facility] [id number] [place] [address]Ew# [phone] Platelet mean volume (PMV) 10.5 fL Normal 9.4-12.4 [facility] Comment on above: Order Comment: Campu s: M Performed By: #### L 200.67824 ####[facility] BKKXVEIIRQ6924 [place], [place] [address]Ln# [phone] Platelets 187 K/CU MM Normal 150-450 [facility] Comment on above: Order Comment: Campu s: M Performed By: #### L 200.35057 ####[facility] [id number] [place], [place] [address]Ls# [phone] WBC (Leukocytes) 10.5 K/CU MM Normal 4.5-11.0 [facility] [place] Comment on above: Order Comment: Campu s: M Performed By: #### L 200.16282 ####[facility] WECBXAIZDP3506 [place], [place] [address]Ng# [phone] CDLECHOon 05-15-2017 CDLECHO INTERPRETING PHYSICI AN: rBee Valle [facility] PH[facility]ICIAN: Ramo PolancoORDERING/REFERRI ALICIA PHYSICIAN:DATE OF STUDY: 05/16/2017TECH #: 14 MMC: MOBILE:Weight: 212 lbs. oz. Height: 69 ins. BP: 114/62HR:DIAGNOSIS/REASON FOR STUDY: Congestive heart failure.Complete Echo (TTE) Limited Echo Transesophageal (JUAN DAVID)Definity XACTUALVALUES ADULTSCHILDREN1. Aortic Valve Normal: Abnormal:Aortic Value Systolic Opening 1.5 - 2.5cm.Aortic Root Dimension 2.0 - 4.0cm.B. Left Atrial Diameter < 4.0cm.C. Left VentricleEnd Diastolic Diameter 5.7 < 5.5cm.End Systolic Diameter 4.7 < 3.5cm.D. Right VentricleEnd Diastolic Diameter < 2.5cm.E. Septal Wall Thickness 2.2End Diastole < 1.3cm.SystoleF. Posterior Wall Thickness 1.4 < 1.3cm.End DiastoleEnd SystoleINTERPRETATION: Definity contrast was used. The left atrial dimension is mildlydilated. The septum is dyskinetic. The overall left ventricular systolic functionis mildly reduced. The estimated left ventricular ejection fraction is 45%-50%.There is severe hypertrophy of the ventricular septum, with moderate hypertrophy [facility] PATIENT NAME: TWAN ESTRELLA [facility] REC #: [id number], [place] [address] DATE: 05/15/17DISCHARGE DATE:ATTENDING PHY: Ramo Polanco MDECHOCARDIOGRAM REPORTthe remaining page. The mitral valve appears to be grossly normal. It appears toopen adequately. The left atrium is moderately enlarged. The aortic valve isthickened and sclerotic. There are 3 cusps. It appears to open adequately. Theaortic root is normal size. The right ventricular size and function appear to begrossly normal. Tricuspid valve is grossly normal. Right atrium is mildly enlarged.There are no gross thrombi, masses or vegetation identified. There is nosignificant pericardial effusion. Pulmonic valve is grossly normal.DOPPLER FINDINGS: There is mild 1+ aortic insufficiency. There is mild 1+ mitralregurgitation. There is mild 1+ tricuspid regurgitation. There is trivial pulmonicinsufficiency. There is E-A reversal to mitral valve inflow consistent withdiastolic dysfunction and impaired relaxation. The right ventricular systolicpressure appears to be grossly normal.IMPRESSION:1. Mild left ventricular dilatation with septal dyskinesis. The left ventricularsystolic function is mildly reduced, with the left ventricular ejection fractionestimated at45%-50%.2. Severe hypertrophy of the ventricular septum with moderate hypertrophy of theremaining page.3. Aortic valve sclerosis.4. Moderate left atrial enlargement.5. Mild right atrial enlargement.6. Mild 1+ aortic insufficiency.7. Mild 1+ mitral regurgitation.8. Mild 1+ tricuspid regurgitation.9. Trivial pulmonic insufficiency.10. Diastolic dysfunction consistent with impaired relaxation.11. Definity contrast used. __JAZLYN Husain/[id number]: 05/16/2017 12:51DT: 05/16/2017 13:19SSI File#: [id number] #: [id number]: Kirti Kincaid [facility]: Jose Wright [facility]: Ramo Polanco MDVerified/Reviewed by05/17/678713 [facility] PATIENT NAME: TW[facility] ESTRELLA0 [facility] MED[facility] REC #: [id number], [place] [address] DATE: 05/15/17DISCHARGE DATE:ATTENDING PHY: Ramo Polanco MDECHOCARDIOGRAM REPORT Normal [facility] ECHOCARDIOGRAM REPORT Normal [facility] CDLSTRESSon 05-15-2017 CDLSTRESS INTERPRETING PHYSICI AN: Bree Valle MDATTNICK PHYSICIAN: Raom PolancoORDERING/REFERRI NG PHYSICIAN:DATE(S) OF SERVICE: 05/16/2017PROCEDURE: Lexiscan nuclear.REASON FOR PERFORMING TEST: Chest pain and shortness of breath.INTERPRETATION: EKG shows normal sinus rhythm. First degree AV block. Left atrialenlargement. Left bundle branch block.Lexiscan 0.4 mg infused over 10 seconds. The patient's initial blood pressure 126/69with a heart rate 72. With Lexiscan infusion the patient's blood pressure was 132/66with a heart rate of 114. The patient had occasional PVCs. No significant STchanges. No significant arrhythmias. The patient did get short of breath. Thepatient had mild chest discomfort.IMPRESSION:1. Mild chest discomfort occurred with the Lexiscan infusion without associated STchanges.2. Nuclear imaging to report separately. JAZLYN Husain/[id number]: 05/16/2017 12:31DT: 05/16/2017 13:31SSI File#: [id number] #: [id number]: Kirti Kincaid [facility]: Jose Wright [facility]: Ramo Polanco MDVerified/Reviewed by05/17/552482 [facility] PATIENT NAME: TWAN ESTRELLA0 [facility] [address] Padron MEDICAL REC #: [id number], [place] [address] DATE: 05/15/17DISCHARGE DATE:ATTENDING PHY: Ramo Polanco [facility] STIGLER[facility]IAC STRESS TEST REPORT Normal [facility] [place] CHEST PA/AP AND LATERALon CHEST PA/AP AND LATERAL CHEST PA/AP & LATERALOrdering Physician: Nas Luna MD05/15/2017 7:38 PMPA AND LATERAL CHEST:Clinical Statement: Chest painComparison: PA and lateral chest 09/02/2008FINDINGS: No focal consolidation, pleural effusion, pneumothorax,pulmonary nodules or pulmonary edema. The cardiac silhouette iswithin normal limits. The osseous structures are unremarkable.Sternotomy wires and a left-sided transvenous pacer defibrillator arenotedIMPRESSION:No acute cardiopulmonary disease. ---- Electronic Signature on File ----Signed By: Raz Nash [email or web address]: 05/15/2017 8:11 PMSigned: 05/15/2017 8:11 PM Reported By: RAZ NASH M.D. Signed By: RAZ NASH M.D. Normal [facility] Lolly CRon 05-15-[address] [facility] Lolly ANDERSEN DATE OF CONSULTATION : 05/16/2017REASON FOR CONSULT: Chest discomfort and shortness of breath.HISTORY OF PRESENT ILLNESS: This is a 67-year-old male with history ofatrial fibrillation, hypertrophic obstructive cardiomyopathy, status post AICD,hypertension, who now presents with worsening chest discomfort and shortness ofbreath. Patient has a fairly extensive cardiac history.Patient had some history of hypertrophic obstructive cardiomyopathy. Patient had acardiac catheterization back on December 19, 2005, at [facility]. Thisrevealed normal coronary arteries, normal left ventricular ejection fraction at morethan 90%. There was a 25-mm gradient across the left ventricular outflow tract.There was at least 50 mm of post PVCs. There was some left anterior descendingartery bridging. Patient was treated with beta-blockers. He eventually went throughseptal myectomy on June 15, 2007. He had a Medtronic AICD initially placed on 2008. He may have had problems with lead fracture and he had a ventricular leador coil extraction on March 11, 2014, at [facility]. This patient had anotherMedtronic AICD with DDD pacemaker placed and a new lead placed. He also had beenhaving problems with atrial fibrillation. He had DC cardioversion on June 08, 2013,and September 05, 2015. I saw the patient in the office on April 30, 2017. Heart hadbeen fluttering for 2 days. However, he actually was in persistent atrialfibrillation since April 25, 2017. Patient underwent electrical DC cardioversionon May 01, 2017. Patient initially felt better, but in the last 3 days had beengetting worse.Every time he exerts himself, he gets some midsternal chest pressure and shortness ofbreath. Only a small amount of activity could do it, such as going up 1 flight ofstairs. He says this initially improved after the cardioversion, has since gottenbetter. He does feel some occasional palpitations. He does complain of gettinglightheadedness or dizziness as well as the shortness of breath.He came to the emergency department yesterday. He did have an elevated pro-BNPT [id number]. He was given some Lasix.He denies any other problems.He did have some minimally elevated troponin I up to 0.24. Also, during the night,he had an 18-beat run of ventricular tachycardia, about 150 beats per minute.PAST SURGICAL HISTORY: Please see above for septal myectomy June 15, 2007, AICDJune 2008, and RV lead extraction and new lead, AICD with pacemaker placed onMarch 11, 2014.PAST MEDICAL HISTORY: Atrial fibrillation, gastroesophageal reflux. [facility] PATIENT NAME: TWAN ESTRELLA [address] [facility] [address] Padron MEDICAL REC #: [id number], [place] [address] DATE: 05/15/17DISCHARGE DATE:CONSULTATION REPORT ATTENDING PHY: Ramo PolanconaMEDICATIONS AT HOME:1. Nadolol 120 mg daily plus 1-1/2 of 80-mg tablet.2. Eliquis 5 mg b.i.d.3. Aspirin 81 mg daily.4. Apriso 0.375 g 4 capsule daily.5. Omeprazole 20 mg p.o. daily.Patient has no known drug allergies.FAMILY HISTORY: Father and mother had heart disease.SOCIAL HISTORY: He is , 2 children, never smoked, no alcohol.REVIEW OF SYSTEMS: Other 10-point review of systems is negative as noted above.PHYSICAL EXAMINATION:Vital Signs: Temperature is 97.9, pulse 73, respirations 17, blood pressure 112/73.Patient's weight initially was 211 pounds, body mass 31.12. Weight is 95.93 kg.HEENT: Grossly normal.Neck: No thyromegaly. No definite carotid bruit.Lungs: Appear to be clear. Respiratory effort is normal.Heart: Regular rate and rhythm. S1 and S2, a 1/6 early peaking systolic ejectionmurmur. PMI is nondisplaced. No definite JVD.Abdomen: Soft, nontender. There are no masses.Extremities: No clubbing. There is trace bilateral pitting edema. Pulses posteriortibialis and dorsalis pedis 2+.EKG shows 18-beat nonsustained ventricular tachycardia. Other EKG shows atriallypaced rhythm with 1st-degree AV block, left bundle branch block, left axis deviation.Patient's other labs showed white blood cell count 10.5 thousand, hemoglobin 14.8hematocrit 43.5, platelets 187,000. Sodium 140, potassium 4.0, chloride 102, CO2 of28, BUN 16, creatinine 1.02. Total cholesterol 169, triglycerides 106, HDLcholesterol 62, LDL cholesterol 85. ProBNPT was 1771. TSH 2.9. Glucose 86. Chestx-ray showed no acute disease.Sodium 141, potassium 4.3 yesterday, chloride 106, CO2 of 26, BUN 13, creatinine0.818. Glucose yesterday was 92, today is 86.IMPRESSION:1. A 67-year-old male with worsening shortness of breath and exertionalchest pressure. This may be due to mild acute diastolic heart failure due tohypertrophic cardiomyopathy. Need to rule out concomitant coronary artery diseaseand possible unstable angina. The patient's symptoms apparently were better after [facility] PATIENT NAME: TWAN ESTRELLA [address] [facility] [address] [facility]ron MEDICAL REC #: [id number], [place] [address] DATE: 05/15/17DISCHARGE DATE:CONSULTATION REPORT ATTENDING PHY: Ramo Polanco current cardioversion on May 01, 2017, but now have gotten worse the lastseveral days for uncertain reason.2. Both paroxysmal and atrial fibrillation. Patient has had several direct currentcardioversions, one on June 08, 2013, another on September 05, 2015, and the latest onFebr2017. Previous interrogation of his pacemaker also shows episodes ofparoxysmal atrial fibrillation as well.3. Hypertrophic obstructive cardiomyopathy status post septal myectomy on August.4. Status post Medtronic automatic implantable cardioverter defibrillator with DDDpacemaker initially done on September 01, 2008. Patient had problems with rightventricular lead fracture and had the right ventricular lead removed and anotherMedtronic automatic implantable cardioverter defibrillator with DDD pacemaker placedon March 11, 2014.5. Paroxysmal ventricular tachycardia, 18 beats, approximately 150 beats per minutelast night.6. Hypertension.7. Obesity.PLAN:1. May continue the diuresis for now.2. Check echocardiogram. We will do that with Valsalva.3. Check Lexiscan nuclear.4. Have the AICD interrogated.5. Check additional labs, including ST2 and additional proBNPT. JAZLYN Husain/[id number]: 05/16/2017 08:18DT: 05/16/2017 10:57SSI File#: [id number] #: [id number]: Kirti Kincaid [facility]: Jose Wright [facility]: Ramo Polanco MDVerified/Reviewed by05/16/17 1204 GIANCARLO [facility] PATIENT NAME: TWAN ESTRELLA [address] [facility] REC #: [id number], [place] [address] DATE: 05/15/17DISCHARGE DATE:CONSULTATION REPORT ATTENDING PHY: Ramo Polanco Normal [facility] [place] EKGon 05-15-2017 EKG Procedure Date and T chris: 05/15/175Test Reason : STATBlood Pressure : / mmHGVent. Rate : 078 BPM Atrial Rate : 078 BPMP-R Int : 272 ms QRS Dur : 152 msQT Int : 396 ms P-R-T Axes : 040 -34 125 degreesQTc Int : 451 msAtrial-paced rhythm with prolonged AV conductionLeft axis deviationLeft bundle branch blockAbnormal ECGWhen compared with ECG of 08-JUN-2013 13:51,Electronic atrial pacemaker has replaced Electronic ventricular pacemakerConfirmed by LINDA SOTO A. ([id number]) on 05/16/2017 1:05:33 AMReferred By: Ramo Polanco Confirmed By:Jessie SOTO M.D.FACC CristinaDDandT: 05/15/17 1655TDandT:[facility] PATIENT NAME: [facility] MEDICAL REC #: [id number], [place] [address] DATE: 05/15/17DISCHARGE DATE:ATTENDING PHY: Ramo PolancoLECTROCARDIOGRAM REPORTCLBcc:[facility] PATIENT NAME: TWAN ESTRELLA Radha Padron MEDICAL REC #: [id number], [place] [address] DATE: 05/15/17DISCHARGE DATE:ATTENDING PHY: Ramo PolancoLECTROCARDIOGRAM REPORT Normal [facility] ELECTROCARDIOGRAM REPORT Normal [facility] GFR ESTon 05-15-2017 IF AMER Greater than 60 Normal [facility] Comment on above: Order Comment: Leidy s: M Performed By: #### L 500.65773, L500.89886, L500.83396 ####[facility] [id number] [place], [place] [address]Bd# [phone] IF non-AFR AMER Greater than 60 Normal [facility] Comment on above: Order Comment: Leidy s: M Performed By: #### L 500.28405, L500.14019, L500.51991 ####[facility] [id number] [place], [place] [address]Ly# [phone] HP.IMS.ADMon 05-15-2017 Admission-H&P Normal [facility] HP.IMS.ADM [facility] Patient Name: TWAN ESTRELLA [address] [facility] Date of : [address], [place] [address] Unit Number: [id number] Number: [id number] Patient Status: REG ERAttending Doctor: Bruce Hubbard,Emergency PhysiciansService Date: 05/15/172130History of Present IllnessSource of Information PatientChief Complaint/Present Illness:Exertional shortness of breath and chest painLiving Situation Home - with AssistanceHistory of Present IllnessPatient is a 67-year-old obese female with history of hypertrophic cardiomyopathy statuspost septal surgery in 2007, history of AICD placement 2008, A. fib with history ofcardioversions, last one about 2 weeks back who follows with / outpatientbasis. Patient had history of exertional shortness of breath and intermittent chest painsfor about 6 months but after he had cardioversion 2 weeks back, he noticed his symptomshave somewhat worsened from before. He exercise tolerance has decreased and today while hewas doing household work, he felt more short of breath and also started to have chesttightness, felt like heaviness, gradually subsided with time, no significant palpitations,dizziness or change in mental status. Accordingly he presented to ER. In the ER and EKGshowing paced rhythm. Troponin was negative. Chest x-ray showing no significant pulmonarycongestion but his BNP elevated. He was thought to have some component of underlying CHFfor which he'll be placed in observation for further evaluation and recommendations.Cardiology was consulted from the ER. He denies any other complaints.Past Medical/Surgical HxPast Medical HistoryHypertrophic cardiomyopathyA. fibHistory of AICD placementUlcerative colitisGERDObesityPast Surgical HistorySeptal surgery in 2008AICD placement in 2008Cardiac catheterizationCardioversi on a5Rgqcir/Social HistoryFamily Hx Other/CommentMother having history of cancer.Social HxDenies smoking, alcohol or recreational drug use.Advance DirectivesAdvance Directives Full CodeAllergies/Home MedicationsAllergiesCoded Allergies:NO KNOWN DRUG INTOLERANCES (05/15/17)Other Med NotesHome medications include aspirin, eliquis, nadolol and others.Review of SystemsROS: OtherPositive for shortness of breath mainly exertional with decreased excess tolerance andalso he noted to have chest tightness today but denies dizziness, palpitations or changein mental status. All systems were reviewed and are negative except as mentioned inhistory of present illness.Physical ExamVital SignsBlood pressure 114/62, heart rate 75, respiratory 16, temperature 98.7, saturating 96% onroom air.Physical Exam SummaryGENERAL: [patient is a obese male lying in bed not in apparent distress.]HEAD: [atraumatic, normocephalic.]NECK: [supple no lymphadenopathy.]CARDIOVAS CULAR: [S1-S2 audible, no murmurs.]RESPIRAORY: [Bilateral air entry present. 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 No focal neurological deficits. ]PSYCHIATRIC: [The patient not in apparent distress]AdditionalLaborat ory Tests02/1502/8121266666Kig mistrySodium (136 - 145 MMOL/L)141Potassium (3.5 - 5.1 MMOL/L)4.3Chloride (98 - 107 MMOL/L)106Carbon Dioxide (21 - 32 MMOL/L)26Anion Gap (5 - 16 MMOL/L)10BUN (7 - 26 MG/DL)13Creatinine (0.670 - 1.170 MG/DL)0.818Est GFR ( Amer) (ML/MIN)Greater than 60Est GFR (Non-Af Amer) (ML/MIN)Greater than 60BUN/Creatinine Ratio (15 - 24)16Glucose (70 - 100 MG/DL)92Total Calcium (8.5 - 10.1 MG/DL)8.8Troponin I (0.000 - 0.045 NG/ML)0.776Rqm-Q-Abqruxbug ic Pept (0 - 900 PG/ML)1771 HHematologyWBC (4.5 - 11.0 K/CU MM)10.5RBC (4.50 - 6.00 M/CU MM)4.99Hgb (13.5 - 17.5 G/DL)14.8Hct (41.0 - 53.0 %)43.5MCV (80.0 - 99.0 fl)87.2MCHC (32.0 - 36.0 GM/DL)34.0RDW (11 - 14.5)14.5Plt Count (150 - 450 K/CU MM)187MPV (9.4 - 12.4)10.5Immature Gran % (Auto) (Less than 2 %)0.5Abs Immat Gran (auto) (Less than 2 K/CU MM)0.10Seg Neutrophils % (45 - 75 %)62.7Lymphocytes % (20 - 40 %)27.8Monocytes % (2 - 10 %)8.7Eosinophils % (0 - 5 %)0.1Basophils % (0 - 2 %)0.2Neutrophils # (2.0 - 8.3 K/CU MM)6.60Lymphocytes # (0.9 - 4.4 K/CU MM)2.90Monocytes # (0.1 - 1.1 K/CU MM)0.90Eosinophils # (0 - 0.5 K/CU MM)0.00Basophils # (0 - 0.2 K/CU MM)0.00Nucleated RBCs (Less than 1 %)0.0Recent ImpressionsRADIOLOGY - CHEST PA/AP and LATERAL 05/15 1949 Report Impression - Status: SIGNED Entered: 05/15/2017 2017IMPRESSION:No acute cardiopulmonary disease. Impression By: CHRISTOFER NASH M.D.EKG showing atrial paced rhythm with heart rate 78 per minute.Conclusion / PlanConclusion1. CHF (congestive heart failure)2. Chest pain3. CardiomyopathyPlanASSESSME NT:1. Exertional shortness of breath and elevated BNP, suspected CHF.2. Chest pain/tightness, for evaluation.3. Hypertrophic cardiomyopathy status post septal surgery in 2007.4. A. fib status post recent cardioversion, currently in sinus rhythm.5. History of AICD placement6. possible ulcerative colitis7. GERD8. ObesityPLAN:Observation status.Diagnostically,1. Check echocardiogram.2. Troponin every 6 hours 2.3. Check lipid profile, a.m. labs including BMP and magnesium.Therapeutically, 1. Patient presented with exertional shortness of breath and chest pain and his BNPelevated. Patient had history of hypertrophic cardiopathy. Will keep on IV Lasix 20 mgtwice daily with input-output monitoring.2. Cardiology consultation.3. Will keep on aspirin. Will try SL nitroglycerin for symptomatic chest pain.4. Home medications will be resumed including eliquis, nadolol and others.5. DVT prophylaxis: Lovenox along with bilateral SCDs.6. CODE STATUS full code.7. Further management and plan will be depending on patient's course in hospital and inputfrom cardiology.Stable ProblemsProblems not specifically addressed in the above plan are stable and do not warrantadjustment of the current method of therapy.DisclaimerThis dictation was created using voice recognition software.Phonetic and/or minor grammatical errors may exist.eSign Date and TimePatibRamo jauregui Verified/Reviewed by 05/15/[address] [facility] [place] PBNP TESTon 05-15-2017 BNP 1771 pg/mL High 0-900 [facility] Comment on above: Order Comment: Leidy cope: Frantz Result Comment: NT-p roBNP results of less than 300 pg/ml effectively rulesout acute congestive heart failure with 99% negativepredictive value. Performed By: #### L 500.91289, L500.53532, L500.23987 ####[facility] [id number] [place], [place] [address]Oi# [phone] TROPONIN Ion 05-15-2017 Troponin I.cardiac mass conc 0.021 ng/mL Normal 0.000-0.[address] [facility] [place] Comment on above: Performed By: #### L [phone] ####[facility] [id number] [place], [place] [address]Jc# [phone] Vital Signs Date Time Vital Sign Value Performing Clinician Volodymyr wong 12-05-2023 10:45-0400 Diastolic Blood Pressure Non-Invasive 49 mm[Hg] ZEE HARRELL MD [address] [place] [id number] 12-05-2023 10:45-0400 Heart rate 60 /min ZEE HARRELL MD [address] [place] [id number] 12-05-2023 10:45-0400 Systolic Blood Pressure Non-Invasive 104 mm[Hg] ZEE HARRELL MD [address] [place] [id number] 12-05-2023 10:20-0400 Diastolic Blood Pressure Non-Invasive 47 mm[Hg] ZEE HARRELL MD [address] [place] [id number] 12-05-2023 10:20-0400 Heart rate 60 /min ZEE HARRELL MD [address] [place] [id number] 12-05-2023 10:20-0400 Systolic Blood Pressure Non-Invasive 95 mm[Hg] ZEE HARRELL MD [address] [place] [id number] 12-05-2023 10:05-0400 Diastolic Blood Pressure Non-Invasive 58 mm[Hg] ZEE HARRELL MD [address] [place] [id number] 12-05-2023 10:05-0400 Heart rate 61 /min ZEE HARRELL MD [address] [place] [id number] 12-05-2023 10:05-0400 Systolic Blood Pressure Non-Invasive 119 mm[Hg] ZEE HARRELL MD [address] [place] [id number] 12-05-2023 09:40-0400 Body temperature 96.8 [degF] ZEE HARRELL MD [address] [place] [id number] 12-05-2023 09:25-0400 Respiratory Rate - Anes 13 br/min ZEE HARRELL MD [address] [place] [id number] 12-05-2023 09:20-0400 Respiratory Rate - Anes 12 br/min ZEE HARRELL MD [address] [place] [id number] 12-05-2023 09:15-0400 Respiratory Rate - Anes 13 br/min ZEE HARRELL MD [address] [place] [id number] 12-05-2023 06:28-0400 Body weight 36.92 kg/m2 ZEE HARRELL MD [address] [place] [id number] 12-05-2023 06:25-0400 Body height 167.6 cm ZEE HARRELL MD [address] [place] [id number] 12-05-2023 06:25-0400 Body temperature 96.8 [degF] ZEE HARRELL MD [address] [place] [address] 12-05-2023 06:25-0400 Body weight 103.7 kg ZEE HARRELL MD [address] [place] [address] 12-05-2023 06:25-0400 Heart rate 80 /min ZEE HARRELL MD [address] [place] [address] 12-05-2023 06:25-0400 Respiratory rate 16 /min ZEE HARRELL MD [address] [place] [address] 05-15-2022 07:04-0500 Body temperature 98.4 [degF] Dr. Jose Wrihgt Work Phone: [facility] 05-15-2022 07:04-0500 Diastolic blood pressure 72 mm[Hg] Dr. Jose Wright Work Phone: [facility] 05-15-2022 07:04-0500 Heart rate 70 /min Dr. Jose Wright Work Phone: [facility] 05-15-2022 07:04-0500 Respiratory rate 18 /min Dr. Jose Wright Work Phone: [facility] 05-15-2022 07:04-0500 SaO2% (BldA) [Mass fraction] 99 % Dr. Jose Wright Work Phone: [facility] 05-15-2022 07:04-0500 Systolic blood pressure 102 mm[Hg] Dr. Jose Wright Work Phone: [facility] 05-15-2022 05:57-0500 Body height 167.[address] Jose Wright Work Phone: [facility] 05-15-2022 05:57-0500 Body mass index (BMI) [Ratio] 35.9 kg/m2 Dr. Jose Wright Work Phone: [facility] 05-15-2022 05:57-0500 Body weight [address] Jose Wright Work Phone: [facility] 11-20-2021 14:51-0400 Body height 165.[address] Jose Wright Work Phone: [facility] Work Phone: 11-20-2021 14:51-0400 Body mass index (BMI) [Ratio] 36.9 kg/m2 Dr. Jose Wright Work Phone: [facility] Work Phone: 11-20-2021 14:51-0400 Body weight 100.[address] Jose Wright Work Phone: [facility] Work Phone: 11-20-2021 14:51-0400 Diastolic blood pressure 69 mm[Hg] Dr. Jose Wright Work Phone: [facility] Work Phone: 11-20-2021 14:51-0400 Heart rate 74 /min Dr. Jose Wright Work Phone: [facility] Work Phone: 11-20-2021 14:51-0400 SaO2% (BldA) [Mass fraction] 95 % Dr. Jose Wright Work Phone: [facility] Work Phone: 11-20-2021 14:51-0400 Systolic blood pressure 111 mm[Hg] Dr. Jose Wright Work Phone: [facility] Work Phone: 05-15-2021 13:45-0500 Body temperature 98.4 [degF] Dr. Jose Wright Work Phone: [facility] Work Phone: 05-15-2021 13:45-0500 Diastolic blood pressure 69 mm[Hg] Dr. Jose Wright Work Phone: [facility] Work Phone: 05-15-2021 13:45-0500 Heart rate 72 /min Dr. Jose Wright Work Phone: [facility] Work Phone: 05-15-2021 13:45-0500 Respiratory rate 18 /min Dr. Jose Wright Work Phone: [facility] Work Phone: 05-15-2021 13:45-0500 SaO2% (BldA) [Mass fraction] 100 % Dr. Jose Wright Work Phone: [facility] Work Phone: 05-15-2021 13:45-0500 Systolic blood pressure 112 mm[Hg] Dr. Jose Wright Work Phone: [facility] Work Phone: 05-15-2021 12:05-0500 Body height 165.[address] Jose Wright Work Phone: [facility] Work Phone: 05-15-2021 12:05-0500 Body mass index (BMI) [Ratio] 39.3 kg/m2 Dr. Jose Wright Work Phone: [facility] Work Phone: 05-15-2021 12:05-0500 Body weight 107.[address] Jose Wright Work Phone: [facility] Work Phone: Encounters Encounter Date Encounter Type Care Provider Facility Start: 01-19-2025 ambulatory Brenden Ragland Facility :[facility] Start: 01-05-2025 End: 01-05-2025 ambulatory BREE SORIA [facility] Start: 12-06-2024 End: 12-06-2024 [facility] Start: 11-11-2024 End: 11-12-[address] JOSE WRIGHT MD Facility:A Start: 11-11-2024 End: 11-12-2024 Observation ZEE HARRELL MD [facility] Start: 11-04-2024 End: 11-04-2024 ambulatory SUSAN ALBERT [facility] Start: 10-28-2024 End: 10-28-2024 Admission to establishment ZEE HARRELL MD [facility] Start: 10-28-2024 End: 10-28-2024 ambulatory ZEE HARRELL MD Facility:A Start: 10-13-2024 End: 10-13-2024 ambulatory VERO ZUNIGA [facility] Start: 09-07-2024 End: 09-07-2024 ambulatory JOSE YILucas [facility] Start: 08-10-2024 End: 08-10-2024 ambulatory BREE SORIA [facility] Start: 07-19-2024 End: 07-19-[address] Jose Wright MD Work Phone: [facility] Work Phone: Start: 07-19-2024 End: 07-19-2024 Patient encounter procedure Brenden Ragland DO -Laboratory Work Phone: Start: 07-19-2024 End: 07-19-2024 Patient encounter procedure Brenden Ragland DO [facility] Work Phone: Start: 07-19-2024 End: 07-19-2024 ambulatory Brenden [place] Facility:[facility] Start: 07-19-2024 End: 07-19-2024 ambulatory Brenden [place] Facility:[facility] Start: 07-09-2024 End: 07-09-2024 ambulatory BREE Rice [facility] Start: 07-06-2024 End: 07-06-2024 ambulatory PANDA Rice [facility] Start: 05-27-2024 End: 05-27-2024 ambulatory PANDA Rice [facility] Start: 05-19-2024 End: 05-19-2024 ambulatory BREE Rice [facility] Start: 04-28-2024 End: 04-28-2024 ambulatory SUSAN Rice [facility] Start: 04-23-2024 End: 04-23-2024 ambulatory JOSE [facility] Start: 03-06-2024 End: 03-06-2024 ambulatory PANDA Rice [facility] Start: 02-10-2024 End: 02-10-2024 ambulatory JOSE Rice [facility] Start: 01-28-2024 End: 01-28-2024 [facility] Start: 01-13-2024 End: 01-13-2024 ambulatory JOSE Rice [facility] Start: 12-05-2023 End: 12-05-[address] JOSE WRIGHT MD Facility:A Start: 12-05-2023 End: 12-05-2023 SAME DAY STAY ZEE HARRELL MD [facility] Start: 11-21-2023 ambulatory ZEE HARRELL MD [facility] ility:A Start: 07-11-2023 End: 07-11-[address] Jose Wright Work Phone: [facility] Work Phone: Start: 07-11-2023 End: 07-11-[address] Jose Wright Work Phone: [facility] Work Phone: Start: 03-19-2023 End: 03-19-[address] BREE VALLE MD Facility:A Start: 03-19-2023 End: 03-19-[address] BREE VALLE MD [facility] Start: 12-17-2022 End: 12-17-[address] Jose Wright Work Phone: [facility] Work Phone: Start: 12-17-2022 End: 12-17-[address] Jose Wright Work Phone: [facility] Work Phone: Start: 05-15-2022 Non-patient / Non-visit Dr. Jese Wright Work Phone: [facility] Start: 05-15-2022 End: 05-15-2022 Admission to same day surgery center Dr. Jose Wright Work Phone: [facility] Start: 05-15-2022 End: 05-15-[address] Jose Wright Work Phone: [facility] Work Phone: Start: 11-20-2021 End: 11-20-[address] Jose Wright Work Phone: [facility] Work Phone: Start: 11-20-2021 End: 11-20-[address] Jose Wright Work Phone: [facility] Start: 08-29-2021 End: 08-29-[address] Jose Wright Work Phone: [facility] Start: 08-03-2021 End: 08-03-[address] BREE VALLE MD [facility] Start: 05-29-2021 End: 05-29-[address] Jose Wright Work Phone: [facility] Start: 05-15-2021 Non-patient / Non-visit Dr. Jese Wright Work Phone: [facility] Start: 05-15-2021 End: 05-15-2021 Admission to same day surgery center Dr. Jose Wright Work Phone: [facility] Start: 05-27-2017 End: 05-28-2017 Evaluation and management of inpatient Beth Townsend Facility:[facility] Start: 05-20-2017 Ambulatory Bree Valle Facility:[facility] Start: 05-15-2017 End: 05-17-2017 Evaluation and management of inpatient Ramo Polanco Facility:[facility] Procedures Date Procedure Procedure Detail Performing Clinician Start: 01-13-2024 Echocardiography ZEE HARRELL MD Start: 12-05-2023 Automatic defibrillator procedure ZEE HARRELL MD Comment on above: Explanted [id number] SN# [id number]. New im plant [id number] [place] ICD SN# [id number]. RA/RV leads same from previous implant Implantation of Dual Chamber ICD Dr Lucas Harrell 03/11/2014 Generator Medtronic [id number] Shiloh S DR Serial [id number] RA Lead Medtronic 5076 CapSure Fix Novus MRI SureScan Serial [id number] RV Lead Medtronic 6935M Sprint Quattro Secure MRI SureScan Serial [id number] Start: 12-05-2023 Replacement of pulse generator of automatic cardioverter/defibrillator ZEE HARRELL MD Start: 03-19-2023 Echocardiography ZEE HARRELL MD Comment on above: Mild left ventricular dilatation with se ptal dyskinesis. The left ventricular systolic function is mildly reduced, with the left ventricular ejection fraction estimated at 45-50%. Severe hypertrophy of the ventricular septum with moderate hypertrophy ofthe remaining wall. Aortic valve sclerosis Moderated left atrial enlargement Mild right atrial enlargement Mild 1+ aortic insufficiency Mild 1+ mitral reguritation Mild 1+ tricuspid regurgitation Trivial pulmonic insufficiency. Diastolic dysfunction consistent with impaired relaxation Definity contrast used (03/22/20) CONCLUSION: 1. Technically difficult study due to poor acoustic windows and patient unable to lay flat. Definity echo contrast was used to better delineate the endocardial borders. 2. Moderate to severe concentric left ventricle hypertrophy with abnormal septal motion and normal left ventricle systolic function, ejection fraction 55-60%. 3. Normal right ventricular size and systolic function. 4. Markedly dilated left and right atrium. 5. Mild mitral and aortic regurgitation. 6. ICD/pacemaker lead noted in the right atrium and ventricle. 7. Indeterminate diastolic function. 8. RVSP estimated to be 17 mmHg. 9. No prior study available for comparison. 03/19/2023 Summary: 1. Left ventricle: The cavity size is normal. Wall thickness is moderately increased. Systolic function is mildly reduced. The estimated ejection fraction is 45%. Wall motion is normal; there are no regional wall motion abnormalities. Diastolic dysfunction present but unable to assess severity. 2. Aortic valve: There is mild regurgitation. 3. Mitral valve: The annulus is mildly calcified. There is mild regurgitation. 4. Left atrium: The atrium is moderately dilated. 5. Right atrium: The atrium is mildly dilated. 08/03/21 Summary: 1. Left ventricle: Wall thickness is severely increased. Systolic function is at the lower limits of normal. The estimated ejection fraction is 50%. Wall motion is normal; there are no regional wall motion abnormalities. Diastolic dysfunction present but unable to assess severity. 2. Ventricular septum: Septal motion is dyssynergic. 3. Aortic valve: There is mild regurgitation. 4. Mitral valve: There is mild to moderate regurgitation. 5. Right ventricle: The RV systolic pressure by Doppler is 22 mm Hg. 6. Right atrium: The atrium is dilated. The estimated right atrial pressure is 3 mm Hg. Recommendations: Severe, mostly concentric LVH. No signs of LVOT obstruction or CRISTÓBAL. (03/22/20) CONCLUSION: 1. Technically difficult study due to poor acoustic windows and patient unable to lay flat. Definity echo contrast was used to better delineate the endocardial borders. 2. Moderate to severe concentric left ventricle hypertrophy with abnormal septal motion and normal left ventricle systolic function, ejection fraction 55-60%. 3. Normal right ventricular size and systolic function. 4. Markedly dilated left and right atrium. 5. Mild mitral and aortic regurgitation. 6. ICD/pacemaker lead noted in the right atrium and ventricle. 7. Indeterminate diastolic function. 8. RVSP estimated to be 17 mmHg. 9. No prior study available for comparison. Start: 05-15-[address] Jose Marcos Work Phone: Start: 08-03-[address] BREE VALLE MD Comment on above: Mild left ventricular dilatation with se ptal dyskinesis. The left ventricular systolic function is mildly reduced, with the left ventricular ejection fraction estimated at 45-50%. Severe hypertrophy of the ventricular septum with moderate hypertrophy ofthe remaining wall. Aortic valve sclerosis Moderated left atrial enlargement Mild right atrial enlargement Mild 1+ aortic insufficiency Mild 1+ mitral reguritation Mild 1+ tricuspid regurgitation Trivial pulmonic insufficiency. Diastolic dysfunction consistent with impaired relaxation Definity contrast used (03/22/20) CONCLUSION: 1. Technically difficult study due to poor acoustic windows and patient unable to lay flat. Definity echo contrast was used to better delineate the endocardial borders. 2. Moderate to severe concentric left ventricle hypertrophy with abnormal septal motion and normal left ventricle systolic function, ejection fraction 55-60%. 3. Normal right ventricular size and systolic function. 4. Markedly dilated left and right atrium. 5. Mild mitral and aortic regurgitation. 6. ICD/pacemaker lead noted in the right atrium and ventricle. 7. Indeterminate diastolic function. 8. RVSP estimated to be 17 mmHg. 9. No prior study available for comparison. 08/03/21 Summary: 1. Left ventricle: Wall thickness is severely increased. Systolic function is at the lower limits of normal. The estimated ejection fraction is 50%. Wall motion is normal; there are no regional wall motion abnormalities. Diastolic dysfunction present but unable to assess severity. 2. Ventricular septum: Septal motion is dyssynergic. 3. Aortic valve: There is mild regurgitation. 4. Mitral valve: There is mild to moderate regurgitation. 5. Right ventricle: The RV systolic pressure by Doppler is 22 mm Hg. 6. Right atrium: The atrium is dilated. The estimated right atrial pressure is 3 mm Hg. Recommendations: Severe, mostly concentric LVH. No signs of LVOT obstruction or CRISTÓBAL. Start: 05-15-2021 SARS-CoV-2 Antigen (Rapid) Dr. Jose Marcos Work Phone: Start: 03-22-[address] BREE VALLE MD Comment on above: Mild left ventricular dilatation with se ptal dyskinesis. The left ventricular systolic function is mildly reduced, with the left ventricular ejection fraction estimated at 45-50%. Severe hypertrophy of the ventricular septum with moderate hypertrophy ofthe remaining wall. Aortic valve sclerosis Moderated left atrial enlargement Mild right atrial enlargement Mild 1+ aortic insufficiency Mild 1+ mitral reguritation Mild 1+ tricuspid regurgitation Trivial pulmonic insufficiency. Diastolic dysfunction consistent with impaired relaxation Definity contrast used (03/22/20) CONCLUSION: 1. Technically difficult study due to poor acoustic windows and patient unable to lay flat. Definity echo contrast was used to better delineate the endocardial borders. 2. Moderate to severe concentric left ventricle hypertrophy with abnormal septal motion and normal left ventricle systolic function, ejection fraction 55-60%. 3. Normal right ventricular size and systolic function. 4. Markedly dilated left and right atrium. 5. Mild mitral and aortic regurgitation. 6. ICD/pacemaker lead noted in the right atrium and ventricle. 7. Indeterminate diastolic function. 8. RVSP estimated to be 17 mmHg. 9. No prior study available for comparison. Start: 08-26-2017 Endoscopic balloon dilatation of ostium of paranasal sinus DR BREE VALLE MD Start: 05-28-[address] BREE VALLE MD Comment on above: Minimal coronary artery disease. 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 This was less than 50%. Normal left ventricular systolic function with ejection fraction of 55% associated with mild mitral regurgitation. Mildly elevated pulmonary capillarywedge pressure and left ventricular end- diastolic pressure, as well as aortic systolic blood pressure. However, the patient had normal pulmonary artery systolic pressure. thre was no Brockenbrough beat seen after premature ventrocular contraction Start: 03-11-[address] QUENTIN VALLE MD Comment on above: Implantation of Dual Chamber ICD Dr Lucas rivera 03/11/2014 Generator Medtronic [id number] Shil[address] Cope DR Serial [id number] RA Lead Medtronic 5076 CapSure Fix Novus MRI SureScan Serial [id number] RV Lead Medtronic 6935M Sprint Quattro Secure MRI SureScan Serial [id number] Colonoscopy ZEE HARRELL MD Esophagogastroduodenoscopy [facility]cuas HARRELL MD Septal myectomy DR BREE VALLE MD Plan of Treatment Date Care Activity Detail Author Start: 05-15-2022 Patient discharge [facility] Start: 05-15-2021 Colonoscopy w/biopsy single/multiple COLONOSCOPY AND BIOPSY [facility] Work Phone: Start: 05-15-2021 Egd transoral biopsy single/multiple EGD BIOPSY SINGLE/MULTIPLE [facility] Work Phone: Patient referral [facility] Work Phone: Payers Date Payer Category Payer Medicare [id number] 2024 Self-pay [id number] 2011 Medicare [id number] 2011 Medicare [id number] 1950 Unknown [id number] 2.16.840.1.868956.3.579.2. 627 1952 Unknown [id number] 2.16.840.1.596029.3.579.2. 627 1952 Unknown [id number] 2.16.840.1.861877.3.579.2. 627 1952 Unknown [id number] 2.16.840.1.522166.3.579.2. 627 1952 Unknown [id number] 2.16.840.1.236028.3.579.2. 627 1952 Unknown [id number] 2.16.840.1.300284.3.579.2. 651 1952 Unknown [id number] 2.16.840.1.507474.3.579.2. 651 1952 Unknown [id number] 2.16.840.1.608462.3.579.2. 651 1952 Unknown [id number] 2.16.840.1.064705.3.579.2. 651 1952 Unknown [id number] 2.16.840.1.141956.3.579.2. 651 1952 Unknown [id number] 2.16.840.1.826356.3.579.2. 651 1952 Unknown [id number] 2.16.840.1.783837.3.579.2. 651 1952 Unknown [id number] 2.16.840.1.720081.3.579.2. 651 1952 Unknown [id number] 2.16.840.1.734958.3.579.2. 651 1952 Unknown [id number] 2.16.840.1.394250.3.579.2. 651 1952 Unknown [id number] 2.16.840.1.367249.3.579.2. 651 1952 Unknown [id number] 2.16.840.1.401725.3.579.2. 651 1952 Unknown [id number] 2.16.840.1.710921.3.579.2. 651 1952 Unknown [id number] 2.16.840.1.831997.3.579.2. 651 1952 Unknown [id number] 2.16.840.1.919492.3.579.2. 651 1952 Unknown [id number] 2.16.840.1.974886.3.579.2. 651 1952 Unknown [id number] 2.16.840.1.689870.3.579.2. 651 Private Health Insurance [facility] [id number] Unknown [id number] 2.16.840.1.277339.3.579.2. 462 Unknown [id number] 2.16.840.1.552914.3.579.2. 462 Unknown [id number] 2.16.840.1.898389.3.579.2. 462 Social History Date Type Detail Facility Start: 08-25-2019 End: 09-08-2024 Tobacco smoking status Never smoked tobacco (finding) [facility] Comment on above: No smoking Start: 1950 Sex Assigned At Male A [facility] Start: 08-29-2021 End: 07-11-2023 Tobacco smoking status NHIS Unknown if ever smoked [facility] Start: 02-23-2019 End: 07-22-2024 Sex Male (finding) [facility] Sexual Orientation [place] [facility] Goals Date Patient Goal Desired Activity /State Functional Status Date Assessment Result Facility 12-05-2023 Functional Status [facility] 12-05-2023 Functional Status ID band on, Allergy Band on [facility] 12-05-2023 Functional Status [facility] Mental Status Date Assessment Result Facility 12-05-2023 Mental Status Oriented x 4 [facility] 12-05-2023 Mental Status [facility] 05-15-2022 Cognitive function Voice/Name [facility] Work Phone: 05-15-2021 Cognitive function Level Of Cons ciousness Awake;Drowsy [facility] Work Phone: 05-15-2021 Cognitive function Voice/Name [facility] Work Phone: Clinical Notes 05-15-2022 to 11-12-2024 Note Date & Type Note Facility 11-12-2024 Hospital Discharg e instructions Patient Education 11/12/2024 08:27:24 3-- EP Study/Ablation (12/2017)(CUSTOM) ELECTROPHYSIOLOGY STUDY/ABLATION Discharge Instructions DIET INSTRUCTIONS Resume diet as prior to procedure ACTIVITIES Do not drive FOR 24 HOURS No heavy lifting GREATER THAN 10 POUNDS or pushing or straining FOR 4 DAYS BATHING/SHOWERING May tub bathe in 4 days Do not sit in hot tub, whirlpool, or swim for 4 days May shower tomorrow WOUND CARE Groin: You may go home with a Band-Aid over your procedure site. Keep this Band-Aid on for the next 24 hours and then remove it leaving the site open to air. Left wrist: keep band aid on sit for next 3-4 days changing daily Some degree of bruising and tenderness is normal around the procedure site. It will take a while for any bruising to completely resolve. Keep your site clean and dry. You need to report the following to your software engineer: Any draining or oozing from the site Any swelling at the site Any increased pain or tenderness at the site Any numbness in your leg where the procedure was done Any sign of infection WATCH FOR SIGNS OF INFECTION: Elevated temperature above 100.5 Redness or swelling Increased pain Foul odor or drainage. If you have any questions, please call your doctor at the number listed on your follow up instructions. Follow all instructions given to you by your physician. Document Released: 03/17/2006 Document Revised: 03/03/2013 Document Reviewed: 03/18/2014 ExitCare Patient Information 2015 Bringrr. This information is not intended to replace advice given to you by your health care provider. Make sure you discuss any questions you have with your health care provider. Follow Up Care 09/09/2024 08:41:35 With:BREE VALLE MD Address: [address] [place] [address] [address] [place] [address]- [phone] When:01/12/2025 13:30:00 Comments:KEEP THIS PREVIOUSLY SCHEDULED APPOINTMENT. With:ZEE HARRELL MD Address: [address] [place] [address] [address] [place] [address]- [phone] When:02/16/2025 15:00:00 Comments:THIS APPOINTMENT WILL BE WITH HUMERA MARCELO [facility] 11-12-2024 Summary of episod e note Discharge Instructions Thank you for allowing [facility] to assist you with your healthcare needs. The following is important discharge information regarding your hospital visit. Your Care Team JOSE WRIGHT MD What to do next Scheduled Follow-Up Appointments Appointment Type When With Where Contact Information StatusCV Remote Procedure 12/17/2024 08:00 AM EDT [facility] Confirmed CV OV 01/12/2025 01:30 PM EDT LOLLY VALLE [facility] Confirmed CV OV 02/16/2025 03:00 PM KATINA ALDANA [facility] Confirmed CV Remote Procedure 03/18/2025 08:00 AM KACY [facility] Confirmed Follow Up Appointments Follow Up with BREE VALLE MD When:01/12/2025 01:30 PM EDT Where:[address] [facility] [address] [place] [address]- [phone] Additional Information: KEEP THIS PREVIOUSLY SCHEDULED APPOINTMENT. Follow Up with ZEE HARRELL MD When:02/16/2025 03:00 PM EST Where:[address] [facility] [address] [place] [address]- [phone] Additional Information: THIS APPOINTMENT WILL BE WITH HUMERA MARCELO Allergies Lidia Visual hallucinations Medications Please ask your primary doctor or pharmacist before taking any other medication not listed, including over the counter drugs, herbal medications, vitamins and or supplements as they may interact with your home medications. What How Much When Instructions Last Dose Unchanged apixaban (Eliquis 5 mg oral tablet) 1 tab(s) by mouth Two (2) times a day Today 11/12/24 at 08:01AM Unchanged atorvastatin (atorvastatin 20 mg oral tablet) 1 tab(s) by mouth Once a day (in the evening) Yesterday 11/11/24 at 8:26PM Unchanged azaTHIOprine (azaTHIOprine 50 mg oral tablet) 2 tab(s) by mouth Every day Today 11/12/24 at 08:01AM Unchanged bumetanide (bumetanide 0.5 mg oral tablet) 1 tab(s) by mouth Every other day Yesterday 11/11/24 at 6:28PM Unchanged ergocalciferol (Vitamin D2 1.25 mg (50,000 intl units) oral capsule) See instructions 1 cap(s) Oral q other Week None given Unchanged ferrous sulfate (ferrous sulfate 200 mg (65 mg elemental iron) oral tablet) 1 tab(s) by mouth Once a day None given Unchanged folic acid (folic acid 1 mg oral tablet) 2 tab(s) by mouth Once a day Today 11/12/24 at 08:01AM Unchanged methotrexate (methotrexate 2.5 mg oral tablet) See instructions 6 tablets q Friday None given Unchanged nadolol (nadolol 20 mg oral tablet) 1 tab(s) by mouth Once a day TAKE ONE TABLET BY MOUTH EVERY MORNING None given Unchanged omeprazole (NF) (omeprazole 20 mg oral delayed release capsule (NF)) 1 cap by mouth Once a day Today 11/12/24 at 06:01AM Unchanged sacubitril-valsartan (Entresto 24 mg-26 mg oral tablet) 1 tab(s) by mouth Once a day Today 11/12/24 at 08:01AM Unchanged sertraline (sertraline 50 mg oral tablet) 1 tab(s) by mouth Every day Today 11/12/24 at 08:01AM Unchanged sotalol (sotalol 120 mg oral tablet) 1 tab(s) by mouth Two (2) times a day Today 11/12/24 at 08:01AM Unchanged spironolactone (spironolactone 25 mg oral tablet) 1 tab(s) by mouth Every other day Today 11/12/24 at 08:01AM Please take this list to your next doctor s visit. Bring all medications you take, including over the counter medications, herbals and other supplements with you to your doctor s visit. Patients and families are reminded to discard old lists and to update any records with all medication providers or retail pharmacies. Education Materials ELECTROPHYSIOLOGY STUDY/ABLATION Discharge Instructions DIET INSTRUCTIONS Resume diet as prior to procedure ACTIVITIES Do not drive FOR 24 HOURS No heavy lifting GREATER THAN 10 POUNDS or pushing or straining FOR 4 DAYS BATHING/SHOWERING May tub bathe in 4 days Do not sit in hot tub, whirlpool, or swim for 4 days May shower tomorrow WOUND CARE Groin: You may go home with a Band-Aid over your procedure site. Keep this Band-Aid on for the next 24 hours and then remove it leaving the site open to air. Left wrist: keep band aid on sit for next 3-4 days changing daily Some degree of bruising and tenderness is normal around the procedure site. It will take a while for any bruising to completely resolve. Keep your site clean and dry. You need to report the following to your software engineer: Any draining or oozing from the site Any swelling at the site Any increased pain or tenderness at the site Any numbness in your leg where the procedure was done Any sign of infection WATCH FOR SIGNS OF INFECTION: Elevated temperature above 100.5 Redness or swelling Increased pain Foul odor or drainage. If you have any questions, please call your doctor at the number listed on your follow up instructions. Follow all instructions given to you by your physician. Document Released: 03/17/2006 Document Revised: 03/03/2013 Document Reviewed: 03/18/2014 ExitCare Patient Information 2015 Bringrr. This information is not intended to replace advice given to you by your health care provider. Make sure you discuss any questions you have with your health care provider. Additional Information VACCINATE! IT SAVES LIVES! Members of the community who have not yet received the COVID-19 vaccine and would like to receive it can visit one of [facility] vaccine clinics. There are many vaccine clinic locations within the [facility]. For locations and available times, please visit https://gettheshot.coronavirus.o hio.gov/. It is important to note that some COVID mobile vaccine clinics are held outdoors and may be canceled in rainy or stormy conditions. To learn more about pediatric vaccinations (ages 5-11), we invite you to visit the [employer] webpage. https://www.[employer].org/p ages/9134-Erttu-Vargxrhszrb-Freq kqlpfs-Znnjl-Kebruwcmd.html To learn more about the COVID-19 vaccine, we invite you to visit the CDC website for a list of frequently asked questions.https://www.cdc.gov/co ronavirus/2019-ncov/vaccines/faq .html [employer] Patient Portal Access Instructions: Stay connected with your healthcare team and access your personal medical information anytime with the [employer] Patient Portal. Please follow the directions below to create your [employer] account: 1.Access the email account you provided upon registration to the hospital/physician office.2.Look for an invitation email from [facility].3.Open the email and access the invitation link: Accept Invitation to [employer].4.Fill in the required baires to create your account. To access your account, visit [email or web address]. Click the blue button labeled "Access Patient Portal" and then log in with the username and password that you created in the steps above. You will be able to view your test results, lab results, a summary of your visits, upcoming appointments and more. There is also a convenient messaging option where you can send secure messages to your provider. In addition, you will have the ability to download any documents or summaries to your computer and/or send the information securely to a physician. Remember that your healthcare information is confidential, so carefully consider who you will allow to register on the [facility] for access to your information. You can also access the [facility] Patient Portal on the [facility] krystal. Simply click on "Patient Portal" and then log into your account. If you would like to receive a full copy of your medical records, please contact the [facility] Medical Records Department by calling [phone], Friday through Friday between 8 a.m. and 4:30 p.m. HOW TO SAFELY DISPOSE OF PRESCRIPTION MEDICATIONS Please use one of the following methods to safely dispose of your unused medications. 1.Use a drug disposal kit: the drug disposal pouch allows you to safely discard your old and unused drugs. Ask your nurse to give you one when you are discharged.2.Visit a local take-back location: Many local pharmacies and police departments have programs that collect old and unwanted prescription drugs. Call your local pharmacy or go to http://[employer]/7A3Dp4v to find one close to you.3.Make use of household items: Use cat litter or old coffee grounds to dispose medications if other options are not available. Mix your drugs with these household products, seal them in an airtight container and throw it into the garbage. Call [facility]: [phone] to be sure your drugs can be disposed of in this way. Some medicines may require a different approach.4.Never flush your medications down the toilet. IF YOU HAVE BEEN PRESCRIBED AN OPIOID FOR PAIN If you have been prescribed an opioid (such as hydrocodone, oxycodone or morphine), it is critical to understand the possible side effects and risks of opioid pain medications. Even when taken as directed, opioids can have several side effects including: Tolerance, meaning you might need to take more of a medication for the same pain relief. Nausea, vomiting and/or constipation. Sleepiness, dizziness, dry mouth, confusion, depression or itching. Physical dependence, meaning you have withdrawal symptoms when a medication is stopped, can develop within a few days. KNOW YOUR RESPONSIBILITIES It is important to know exactly how much and how often to take the opioid pain medications you are prescribed. Never take opioids in higher amounts or more often than prescribed. Do not combine opioids with alcohol or other drugs that cause drowsiness, such as benzodiazepines, also known as benzos, including diazepam and alprazolam, muscle relaxants or sleep aids. Never sell or share prescription opioids. This is illegal. Store opioids in a secure place and out of reach of others (including children, family, friends and visitors). The last page of this document has been signed and retained as a CHART COPY. Signatures Patient Education Materials 3-- EP Study/Ablation (12/2017)(CUSTOM) Medication Leaflets My discharge plan and instructions have been reviewed and explained to me and I,TWAN ESTRELLA understand my current condition and have read and understand these discharge instructions. I have received a written copy of the plan/instructions. If I have questions, I am aware that I should contact my doctor. Patient/Care Transitions Manager Signature: Date/Time: Relationship to Patient: Witness Name/Signature: Date/Time: [facility] 11-12-2024 Note Exam Date Time Procedure Performing Provider Status 11/12/24 3:30 AM Electrocardiogram - EKG - CV JINA URIAS MD; Auth (Verified) ECG Final Report SINUS OR ECTOPIC ATRIAL RHYTHM ATRIAL PREMATURE COMPLEX PROLONGED NE INTERVAL LEFT BUNDLE BRANCH BLOCK Electronic Signature: MARY URIAS MD 11/12/2024 20:57:38 [id number] Note* Exam Date Time Procedure Performing Provider Status 11/11/24 9:42 AM Ablation CV ZEE HARRELL MD; Aut h (Verified) [id number] Note* Exam Date Time Procedure Performing Provider Status 11/11/24 8:46 AM Electrocardiogram - EKG - CV JINA URIAS MD; Auth (Verified) ECG Final Report FAILURE TO SENSE AND/OR CAPTURE (?MAGNET) SINUS OR ECTOPIC ATRIAL RHYTHM PROLONGED NE INTERVAL LEFT BUNDLE BRANCH BLOCK Electronic Signature: MARY URIAS MD 11/12/2024 20:56:54 [id number] Anesthesiology Consult note Patient: TWAN ESTRELLA Age: 74 years Sex: Male : 1950 Associated Diagnoses: None Author: CHRISTINE SOSA MD Preoperative Information Time of last food or liquid consumption: 11/11/2024 00:00:00 Anesthesia history Patient's history: negative. Family's history: negative. Health Status Allergies: Allergic Reactions (Selected) Severity Not Documented Sullivan- Visual hallucinations., Allergies (1) ActiveSeverityReaction NorcoVisual hallucinations Current medications: (Selected) Inpatient Medications Ordered NS 1,000 mL: 50 mL/hr, Intravenous Prescriptions Prescribed Eliquis 5 mg oral tablet: 5 mg, 1 tab(s), Oral, BID, 180 tab(s), 3 Refill(s) Entresto 24 mg-26 mg oral tablet: 1 tab(s), Oral, qDay, 90 tab(s), 0 Refill(s) bumetanide 0.5 mg oral tablet: 0.5 mg, 1 tab(s), Oral, Every other day, 45 tab(s), 3 Refill(s) nadolol 20 mg oral tablet: 20 mg, 1 tab(s), Oral, qDay, TAKE ONE TABLET BY MOUTH EVERY MORNING, 90 tab(s), 3 Refill(s) sotalol 120 mg oral tablet: 120 mg, 1 tab(s), Oral, BID, 180 tab(s), 3 Refill(s) spironolactone 25 mg oral tablet: 25 mg, 1 tab(s), Oral, Every other day, 45 tab(s), 3 Refill(s) Documented Medications Documented Vitamin D2 1.25 mg (50,000 intl units) oral capsule: See Instructions, 1 cap(s) Oral q other Week, 0 Refill(s) alendronate 10 mg oral tablet: 10 mg, 1 tab(s), Oral, qDay, 90 tab(s), 0 Refill(s) atorvastatin 20 mg oral tablet: 20 mg, 1 tab(s), Oral, qPM, 30 tab(s), 0 Refill(s) azaTHIOprine 50 mg oral tablet: 100 mg, 2 tab(s), Oral, Daily, 60 tab(s), 0 Refill(s) ferrous sulfate 200 mg (65 mg elemental iron) oral tablet: 200 mg, 1 tab(s), Oral, qDay, 120 tab(s), 0 Refill(s) folic acid 1 mg oral tablet: 2 mg, 2 tab(s), Oral, qDay, 90 tab(s), 0 Refill(s) methotrexate 2.5 mg oral tablet: See Instructions, 6 tablets q Friday, 0 Refill(s) omeprazole 20 mg oral delayed release capsule (NF): 20 mg, 1 cap(s), Oral, qDay, 0 Refill(s) sertraline 50 mg oral tablet: 50 mg, 1 tab(s), Oral, Daily, 0 Refill(s), Medications (1) Active Scheduled: (0) Continuous: (1) NS (0.9% nacl) 1,000 mL 1,000 mL, Intravenous, 50 mL/hr PRN: (0) Problem list: Medical ACUTE COMBINED SYSTOLIC (CONGESTIVE) AND DIASTOLIC (CONGESTIVE) HEART FAILURE / SNOMED CT 9069474497 / Confirmed Anemia, mild / SNOMED CT 423025896 / Confirmed Anemia / SNOMED CT 967308520 / Confirmed AICD (AUTOMATIC CARDIOVERTER/DEFIBRILLATOR) PRESENT / SNOMED CT 6321230884 / Confirmed ICD (implantable cardioverter-defibrillator) in place / SNOMED CT 7642986699 / Confirmed BMI 35.0-35.9,adult / SNOMED CT 302904099 / Confirmed BMI 36.0-36.9,adult / SNOMED CT 373044141 / Confirmed LOW HDL (UNDER 40) / SNOMED CT 374413816 / Confirmed Low HDL (under 40) / SNOMED CT 901136859 / Confirmed ULCERATIVE COLITIS, CHRONIC / SNOMED CT 3573956989 / Confirmed CORONARY ARTERIOSCLEROSIS / SNOMED CT 31200692 / Confirmed RECEIVED INFLUENZA VACCINATION AT HOSPITAL / SNOMED CT 461368932 / Confirmed Heart failure with improved ejection fraction (HFimpEF) / SNOMED CT 340370595 / Confirmed Heart failure with mildly reduced ejection fraction (HFmrEF) / SNOMED CT 6712748114 / Confirmed (HFpEF) heart failure with preserved ejection fraction / SNOMED CT 6315837320 / Confirmed CARDIOMYOPATHY, HYPERTROPHIC / SNOMED CT 699281877 / Confirmed HOCM (HYPERTROPHIC OBSTRUCTIVE CARDIOMYOPATHY) / SNOMED CT 82552365 / Confirmed REFUSED INFLUENZA VACCINE / SNOMED CT 841953033 / Confirmed Osteoporosis / SNOMED CT 862405301 / Confirmed Over weight / SNOMED CT 931852262 / Confirmed Overweight / SNOMED CT 043754482 / Confirmed PAROXYSMAL ATRIAL FIBRILLATION / SNOMED CT 654904890 / Confirmed REFUSED PNEUMOCOCCAL VACCINE / SNOMED CT 2886867654 / Confirmed, Active Problems (35) (HFpEF) heart failure with preserved ejection fraction ACUTE COMBINED SYSTOLIC (CONGESTIVE) AND DIASTOLIC (CONGESTIVE) HEART FAILURE AICD (AUTOMATIC CARDIOVERTER/DEFIBRILLATOR) PRESENT Anemia Anemia, mild Anxiety At risk for sleep apnea Atrial fibrillation, persistent Back pain BMI 35.0-35.9,adult BMI 36.0-36.9,adult CARDIOMYOPATHY, HYPERTROPHIC CHF (congestive heart failure) CORONARY ARTERIOSCLEROSIS Depression Exertional shortness of breath Glasses Heart failure with improved ejection fraction (HFimpEF) Heart failure with mildly reduced ejection fraction (HFmrEF) HOCM (HYPERTROPHIC OBSTRUCTIVE CARDIOMYOPATHY) Hypertension, essential ICD (implantable cardioverter-defibrillator) in place LOW HDL (UNDER 40) Low HDL (under 40) Near syncope Obesity (BMI 30-39.9) On anticoagulant therapy Osteoporosis Over weight Overweight PAROXYSMAL ATRIAL FIBRILLATION RECEIVED INFLUENZA VACCINATION AT HOSPITAL REFUSED INFLUENZA VACCINE REFUSED PNEUMOCOCCAL VACCINE ULCERATIVE COLITIS, CHRONIC Histories Past Medical History: Resolved ACUTE SINUSITIS WITH SYMPTOMS > 10 DAYS ([id number]): Resolved. SINUS INFECTION (96725230): Resolved. Comments: - SEVERE FOUND ON CT AND WAS CAUSE OF HIS SEVERE HEADACHES-- RX WITH ANTIBIOTICS 06/07/2017 X 15 DAYS/[facility] FOLLOWING AND THEN PLANNING SURGERY TO CLEAR THIS/PT-- POST ANTIBIOTICS. Family History: Heart disease Mother Father Procedure history: Echocardiogram ([id number]) on 01/13/2024 at 73 Years. ICD - Internal cardiac defibrillator procedure ([id number]) on 12/05/2023 at 73 Years. Comments: 12/05/2023 9:42 FAITH - Lily Tanner LPN Explanted [id number] # [id number]. New implant [id number] [place] ICD SN# [id number]. RA/RV leads same from previous implant 11/17/2019 10:42 EDT - Jud Nash RN Implantation of Dual Chamber ICD Dr Lucas Harrell 03/11/2014 Generator Medtronic [id number] Shiloh Cope DR Serial [id number] RA Lead Medtronic 5076 CapSure Fix Novus MRI SureScan Serial [id number] RV Lead Medtronic 6935M Sprint Quattro Secure MRI SureScan Serial [id number] Replacement of pulse generator of automatic cardioverter/defibrillator ([id number]) on 12/05/2023 at 73 Years. Echocardiogram ([id number]) on 03/19/2023 at 73 Years. Comments: 03/20/2023 12:18 KACY - Jessenia Ware LPN 03/19/2023 Summary: 1. Left ventricle: The cavity size is normal. Wall thickness is moderately increased. Systolic function is mildly reduced. The estimated ejection fraction is 45%. Wall motion is normal; there are no regional wall motion abnormalities. Diastolic dysfunction present but unable to assess severity. 2. Aortic valve: There is mild regurgitation. 3. Mitral valve: The annulus is mildly calcified. There is mild regurgitation. 4. Left atrium: The atrium is moderately dilated. 5. Right atrium: The atrium is mildly dilated. 08/15/2021 10:23 EDT - Lupe Jones LPN 08/03/21 Summary: 1. Left ventricle: Wall thickness is severely increased. Systolic function is at the lower limits of normal. The estimated ejection fraction is 50%. Wall motion is normal; there are no regional wall motion abnormalities. Diastolic dysfunction present but unable to assess severity. 2. Ventricular septum: Septal motion is dyssynergic. 3. Aortic valve: There is mild regurgitation. 4. Mitral valve: There is mild to moderate regurgitation. 5. Right ventricle: The RV systolic pressure by Doppler is 22 mm Hg. 6. Right atrium: The atrium is dilated. The estimated right atrial pressure is 3 mm Hg. Recommendations: Severe, mostly concentric LVH. No signs of LVOT obstruction or CRISTÓBAL. 11/25/2020 11:45 EDT - Anai Vogel LPN (03/22/20) CONCLUSION: 1. Technically difficult study due to poor acoustic windows and patient unable to lay flat. Definity echo contrast was used to better delineate the endocardial borders. 2. Moderate to severe concentric left ventricle hypertrophy with abnormal septal motion and normal left ventricle systolic function, ejection fraction 55-60%. 3. Normal right ventricular size and systolic function. 4. Markedly dilated left and right atrium. 5. Mild mitral and aortic regurgitation. 6. ICD/pacemaker lead noted in the right atrium and ventricle. 7. Indeterminate diastolic function. 8. RVSP estimated to be 17 mmHg. 9. No prior study available for comparison. 08/25/2019 11:33 STORMYT - Anai Vogel LPN Mild left ventricular dilatation with septal dyskinesis. The left ventricular systolic function is mildly reduced, with the left ventricular ejection fraction estimated at 45-50%. Severe hypertrophy of the ventricular septum with moderate hypertrophy ofthe remaining wall. Aortic valve sclerosis Moderated left atrial enlargement Mild right atrial enlargement Mild 1+ aortic insufficiency Mild 1+ mitral reguritation Mild 1+ tricuspid regurgitation Trivial pulmonic insufficiency. Diastolic dysfunction consistent with impaired relaxation Definity contrast used Balloon sinuplasty ([id number]) on 08/26/2017 at 67 Years. Cardiac catheterization ([id number]) on 05/28/2017 at 67 Years. Comments: 08/25/2019 11:28 Anai Macdonald LPN Minimal coronary artery disease. 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 This was less than 50%. Normal left ventricular systolic function with ejection fraction of 55% associated with mild mitralregurgitation. Mildly elevated pulmonary capillarywedge pressure and left ventricular end- diastolic pressure, as well as aortic systolic blood pressure. However, the patient had normal pulmonary artery systolic pressure. thre was no Brockenbrough beat seen after premature ventrocular contraction Septal myectomy ([id number]). EGD - esophagogastroduodenoscopy ([id number]). Colonoscopy ([id number]). Social History: Social & Psychosocial Habits Alcohol 10/28/2024 Use: Never Employment/School 10/19/2024 Status: Retired Substance Abuse 10/28/2024 Use: Never Tobacco 10/28/2024 Tobacco Use: Never (less than 100 in l Comment: No smoking - 09/08/2024 15:25 - Dari Khan LPN Home/Environment 10/28/2024 Living situation: Home/Independent Domestic Concerns None Current Home Treatments None Special Services and Community Resources None Marital Status of Patient if Patient Independent Adult: Nutrition/Health 10/28/2024 Type of diet: Low sodium Caffeine intake amount: 2-3 cups daily Appetite Excellent Eating Difficulties None Physical Examination No qualifying data available General: Alert and oriented, No acute distress. Airway: Mallampati classification: III (soft palate, base of uvula visible). Dentition Evaluation: Own teeth. Respiratory: Lungs are clear to auscultation. Cardiovascular: Normal rate. Heart Sounds: Normal. Review / Management Results review: No qualifying data available , Lab results: 11/11/2024 5:00 EDT Electrocardiogram - EKG - CV Ordered (In Progress). Assessment and Plan [place] Society of Anesthesiologists (ASA) physical status classification: Class III. Anesthetic Preoperative Plan Anesthetic technique: General. Maintenance airway: Oral endotracheal tube. Special Monitoring: Arterial line. Risks discussed: nausea, vomiting, headache, sore throat, dental injury, hypotension, allergic reaction, serious complications. Informed consent: signed by patient. Notes: ASA III: Patient is a 74-year-old male with past medical history of HFpEF, paroxysmal atrialfibrillation (Eliquis), coronary arterial sclerosis, hypertrophic obstructive cardiomyopathy (s/p Medtronic AICD), s/p myomectomy (2018), at risk for obstructive sleep apnea (STOP-BANG score 6), hypertension, anemia, obesity (BMI 36.53), ulcerative colitis, anemia, osteoporosis anxiety, back pain, dyslipidemia, depression , Twan was seen and examined by me, Christine Sosa MD. I reviewed the medical record, including consultations, lab results, radiographic results and cardiovascular studies. Anesthesia was explained in detail and questions were invited and answered. We will proceed as outlined in the plan above.. Digitally Signed by CHRISTINE SOSA MD on 11/11/2024 08:25 AM Digitally Signed by CHRISTINE SOSA MD on 11/11/2024 10:14 AM [id number] Evaluation note* Diagnosis Onset Date Resolution Status Admit Date Gastritis acute July 19 1:53pm GERD (gastroesophageal reflu x disease) chronic July 19, 2024 1:53pm Thrombocytopenia chronic July 192024 1:53pm Ulcerative colitis chronic July 19, 2024 1:53pm [facility] Work Phone: [phone] 412-741209-06-2024 Summary of episode note Discharge Instructions Thank you for allowing [facility] to assist you with your healthcare needs. The following is importantdischarge information regarding your hospital visit. 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 Follow Up with ZEE HARRELL MD When:03/05/2024 10:30 AM EST Where:[address] [place] [address]- [phone] Additional Information: This is your hospital follow up in the [facility]. Allergies [facility] Medications Please ask your primary doctor or pharmacist before taking any other medication not listed, including over the counter drugs, herbal medications, vitamins and or supplements as they may interact withyour home medications. What How Much When Instructions Last Dose New amoxicillin-clavulanate (Augmentin 500 mg-125 mg oraltablet) 1 tab(s) by mouth Every 12 hours Duration: 10 Days Pickup at [facility] Unchanged alendronate (alendronate 10 mg oral tablet) 1 tab(s) by mouth Once a day Unchanged apixaban (Eliquis 5 mg oral tablet) 1 tab(s) by mouth Two (2) times a day Unchanged atorvastatin (atorvastatin 20 mg oral tablet) 1 tab(s) by mouth Once a day Unchanged azaTHIOprine (azaTHIOprine 50 mg oral tablet) 2 tab(s) by mouth Every day Unchanged bumetanide (bumetanide 1 mg oral tablet) 1 tab(s) by mouth Every other day Unchanged ergocalciferol (Vitamin D2 1.25 mg (50,000 intl units) oral capsule) See instructions 1 cap(s) Oral q other Week Unchanged ferrous sulfate (ferrous sulfate 200 mg (65 mg elemental iron) oral tablet) 1 tab(s) by mouth Once a day Unchanged folic acid (folic acid 1 mg oral tablet) 2 tab(s) by mouth Once a day Unchanged methotrexate (methotrexate 2.5 mg oral tablet) See instructions 5 tablets q Friday Unchanged nadolol (nadolol 20 mg oral tablet) 1 tab(s) by mouth Once a day TAKE ONE TABLET BY MOUTH EVERY MORNING Unchanged omeprazole (NF) (omeprazole 20 mg oral delayed release capsule (NF)) 1 cap by mouth Once a day Unchanged sacubitril-valsartan (Entresto 24 mg-26 mg oral tablet) 1 tab(s) by mouth Once a day Unchanged sertraline (sertraline 50 mg oral tablet) 1 tab(s) by mouth Every day Unchanged sotalol (sotalol 120 mg oral tablet) 1 tab(s) by mouth Two (2) times a day Unchanged spironolactone (spironolactone 25 mg oral tablet) 1 tab(s) by mouth Once a day Pharmacy Information [facility]: [address] [place] [address] [phone] Please take this list to your next doctor s visit. Bring all medications you take, including over the counter medications, herbals and other supplements with you to your doctor s visit. Patients and families are reminded to discard old lists and to update any records with all medication providers or retail pharmacies. Education Materials PACEMAKER/ICD GENERATOR REPLACEMENT Discharge Instructions WOUND CARE DO NOT place any ointments, creams, powders or lotions on the incision. Call your pacemaker/ICD doctor s office immediately if you have: ? Increased redness ? Drainage from the incision ? Opening of the incision ? Increased pain, warmth or swelling on or around the site ? Increased temperature above 100.5 Call if you experience dizziness, palpitations or a fast or slow heart rate If an Aquacel Ag surgical dressing has been applied: ? You may take a shower as long as the dressing is sealed well to your skin. ? You may remove the bandage in 7 days: To do this, press down on your skin with one hand and carefully lift an edge of the bandage with your other hand. Stretch the dressing to break the adhesive sealand gently pull it off. ? If the bandage becomes loose or falls off in less than 5 days, you will not be able to take any showers or baths. You must keep the incision dry for the first 5 days after your procedure. DO NOT clean the incision with any soap, water, peroxide or alcohol. Leave it dry and uncovered for 5 days, then you may shower using soap and water. Wear loose fitting clothes over the incisional site to avoid irritation until it is healed. If you do not have a dressing: DO NOT shower or get the incision wet for 5 days. DO NOT clean the incision with any soap, water, peroxide or alcohol. Leave it dry and uncovered for 5 days, then you may shower using soap and water. Wear loose fitting clothes over the incisional site to avoid irritation until it is healed. MEDICATIONS Take antibiotics before dental work as prescribed by your physician (if prescribed) Take medications as directed until prescription is finished Avoid alcohol while taking medications You may take Tylenol (acetaminophen) for incisional pain or discomfort. ACTIVITY Avoid activity that requires pushing or pulling for the first week. Please move your operation side arm freely after the first week. Document Released: 03/17/2006 Document Revised: 03/03/2013 Document Reviewed: 03/18/2014 ExitCare Patient Information 2015 [employer]), [facility]. This information is not intended to replace advicegiven to you by your health care provider. Make sure you discuss any questions you have with your health care provider. Additional Information VACCINATE! IT SAVES LIVES! Members of the community who have not yet received the COVID-19 vaccine and would like to receive it can visit one of [facility] vaccine clinics. There are many vaccine clinic locations within the [facility]. For locations and available times, please visit [email or web address].[place].gov/. It is important to note that some COVID mobile vaccine clinics are held outdoors and may be canceled in rainy or stormy conditions. To learn more about pediatric vaccinations (ages 5-11), we invite you to visit the [facility] webpage. https://www.[facility].org/pages/6333-Xesjv-Vwhyipeihuv-Drlkegzuot-Bjcjn-Gjv stions.htmlTo learn more about the COVID-19 vaccine, we invite you to visit the CDC website for a list of frequently asked questions.https://www.cdc.gov/coronavirus/2019-ncov/vaccines/faq.html [facility] Patient Portal Access Instructions: Stay connected with your healthcare team and access your personal medical information anytime with the [facility] Patient Portal. Please follow the directions below to create your [facility] account: 1.Access the email account you provided upon registration to the hospital/physician office.2.Look for an invitation email from [facility].3.Open the email and access the invitation link: AcceptInvitation to [facility].4.Fill in the required baires to create your account. To access your account, visit [employer] pteOneChart. Click the blue button labeled "Access Patient Portal" and then log in with the username and password that you created in the steps above. You will be able to view your test results, lab results, a summary of your visits, upcoming appointments and more. There is also a convenient messaging option where you can send secure messages to your p ByAllAccountsvider. In addition, you will have the ability to download any documents or summaries to your computer and/or send the information securely to a physician. Remember that your healthcare information is confidential, so carefully consider who you will allowto register on the [facility] Patient Portal for access to your information. You can also access the [facility] Patient Portal on the [facility] krystal. Simply click on "Patient Portal" and then log into your account. If you would like to receive a full copy of your medical records, please contact the [facility] Medical Records Department by calling [phone], Friday through Friday between 8 a.m. and 4:30 p.m. HOW TO SAFELY DISPOSE OF PRESCRIPTION MEDICATIONS Please use one of the following methods to safely dispose of your unused medications. 1.Use a drug disposal kit: the drug disposal pouch allows you to safely discard your old and unuseddrugs. Ask your nurse to give you one when you are discharged.2.Visit a local take-back location: Many local pharmacies and police departments have programs that collect old and unwanted prescriptiondrugs. Call your local pharmacy or go to http://[employer]/7R4Hx6h to find one close to you.3.Make use of household items: Use cat litter or old coffee grounds to dispose medications if other options arenot available. Mix your drugs with these household products, seal them in an airtight container andthrow it into the garbage. Call [facility]: [phone] to be sure your drugs can be disposed of in this way. Some medicines may require a different approach.4.Never flush your medications down the toilet. IF YOU HAVE BEEN PRESCRIBED AN OPIOID FOR PAIN If you have been prescribed an opioid (such as hydrocodone, oxycodone or morphine), it is critical to understand the possible side effects and risks of opioid pain medications. Even when taken as directed, opioids can have several side effects including: Tolerance, meaning you might need to take more of a medication for the same pain relief. Nausea, vomiting and/or constipation. Sleepiness, dizziness, dry mouth, confusion, depression or itching. Physical dependence, meaning you have withdrawal symptoms when a medication is stopped, can develop within a few days. KNOW YOUR RESPONSIBILITIES It is important to know exactly how much and how often to take the opioid pain medications you are prescribed. Never take opioids in higher amounts or more often than prescribed. Do not combine opioids with alcohol or other drugs that cause drowsiness, such as benzodiazepines, also known as benzos, including diazepam and alprazolam, muscle relaxants or sleep aids. Never sell or share prescription opioids. This is illegal. Store opioids in a secure place and out of reach of others (including children, family, friends and visitors). The last page of this document has been signed and retained as a CHART COPY. Signatures Patient Education Materials 3- Pacemaker/ICD generator replacement (12/2017) Medication Leaflets My discharge plan and instructions have been reviewed and explained to me and I,TWAN ESTRELLA understand my current condition and have read and understand these discharge instructions. I have received a written copy of the plan/instructions. If I have questions, I am aware that I should contact my doctor. Patient/Care Transitions Manager Signature: Date/Time: Relationship to Patient: Witness Name/Signature: Date[facility]Time[id number] Note ORIGINAL EXAMINATION: ONE XRAY VIEW OF THE CHEST 12/05/2023 10:15 am COMPARISON: None. HISTORY: ORDERING SYSTEM PROVIDED HISTORY: Reason for Exam: Evaluate for pneumothorax/lead position post pacer/ICD insertion FINDINGS: Status post sternotomy and left-sided AICD placement. The heart is at the upper limits of normal in size. There is very mild central vascular congestion without overt failure. No focal infiltrate. No pleural effusion. IMPRESSION: Heart disease. No acute chest finding. Interpreted by: Navi Radford Preliminary Report By: Navi Radford Electronically signed By Navi Radford Dictated Date: 12/05/2023 10:28:27 AM Prelim Date: 12/05/2023 10:29:08 AM Sign Date: 12/05/2023 10:29:08 AM Ordering Provider: [facility]09-06-2024 Discharge summary Date of Service 08/2023 Discharge Diagnosis Hypertrophic obstructive cardiomyopathy. Hospital Course 73-year-old male with history of hypertrophic obstructive cardiomyopathy status post previous internal cardioverter defibrillator implantation that was noted to be at end of service with battery depletion. He has HFpEF, diastolic heart failure in the past, paroxysmal atrial fibrillation on anticoagulation with apixaban 5 mg p.o. twice daily and antiarrhythmic therapy using sotalol 100 mg p.o. twice daily. He tolerated the procedure well and will be discharged home to follow as an outpatient. Allergies [facility] Procedures Internal cardioverter defibrillator generator replacement. [employer]. 12/05/2023 Consults No qualifying data available. Physical Exam Vitals and Measurements T: 36 C (Skin) HR: 60 (Monitored) RR: 16 BP: 101/64 SpO2: 97% HT: 167.6 cm WT: 103.7 kg BMI: 36.92 Weight Dosing Weight: 103.7 kg (12/05/23) Physical Exam: General: well appearing, no acute distress Respiratory: normal chest wall expansion, CTA B, no r/r/w, no rubs Cardiovascular: RRR, no m/r/g, Normal S1 and S2 Abdomen: Soft, non-tender, non-distended, normal bowel sounds in all quadrants, no hepatosplenomegaly, no tympany Integumentary: warm, dry, and pink, with no rash, purpura, or petechia Neurological: 2+ patellar reflexes, Cranial Nerves II-XII grossly intact, no tics, normal sensationto pressure and light touch Code Status No qualifying data available. Admission Date 12/05/2023 Discharge Date 12/05/2023 Medications New Prescription amoxicillin-clavulanate (Augmentin 500 mg-125 mg oral tablet)1 tab(s) by mouth every 12 hours for 10 Days. Refills: 0. Unchanged alendronate (alendronate 10 mg oral tablet)1 tab(s) by mouth once a day. apixaban (Eliquis 5 mg oral tablet)1 tab(s) by mouth two (2) times a day. Refills: 3. atorvastatin (atorvastatin 20 mg oral tablet)1 tab(s) by mouth once a day. azaTHIOprine (azaTHIOprine 50 mg oral tablet)2 tab(s) by mouth every day. bumetanide (bumetanide 1 mg oral tablet)1 tab(s) by mouth every other day. ergocalciferol (Vitamin D2 1.25 mg (50,000 intl units) oral capsule)1 cap(s) Oral q other Week. ferrous sulfate (ferrous sulfate 200 mg (65 mg elemental iron) oral tablet)1 tab(s) by mouth once aday. folic acid (folic acid 1 mg oral tablet)2 tab(s) by mouth once a day. methotrexate (methotrexate 2.5 mg oral tablet)5 tablets q Friday. nadolol (nadolol 20 mg oral tablet)1 tab(s) by mouth once a day. TAKE ONE TABLET BY MOUTH EVERY MORNING. Refills: 3. omeprazole (NF) (omeprazole 20 mg oral delayed release capsule (NF))1 cap by mouth once a day. sacubitril-valsartan (Entresto 24 mg-26 mg oral tablet)1 tab(s) by mouth once a day. Refills: 3. sertraline (sertraline 50 mg oral tablet)1 tab(s) by mouth every day. sotalol (sotalol 120 mg oral tablet)1 tab(s) by mouth two (2) times a day. Refills: 3. spironolactone (spironolactone 25 mg oral tablet)1 tab(s) by mouth once a day. Refills: 3. Follow Up Follow Up with ZEE HARRELL MD When:12/18/2023 09:00 AM EDT Where:[address] [facility] [address] [address]- [phone] Additional Information: This is your incision check in the [facility]. Follow Up with ZEE HARRELL MD When:03/05/2024 10:30 AM EST Where:[address] [facility] [address] [place] [address]- [phone] Additional Information: This is your hospital follow up in the [facility]. Follow Up Appointments No qualifying data available. Follow Up Labs/Studies Discharge Labs No Follow-up Labs Discharge Studies No Follow-up Studies Discharge Diet No qualifying data available. Discharge Activity No qualifying data available. Condition on Discharge Good Discharge Disposition Home Digitally Signed by ZEE HARRELL MD on 12/05/2023 10:06 AM [id number] Anesthesiology Consult note Patient: TWAN ESTRELLA Age: 73 years Sex: Male : 1950 Associated Diagnoses: None Author: ESVIN CHARLES MD Preoperative Information Time of last food or liquid consumption: 12/05/2023 00:00:00 Anesthesia history Patient's history: negative. Family's history: negative. History of Present Illness The patient presents for preanesthesia evaluation with Pt presents for elective AICD/PM Generator change. no prior issues, no cardiac sx or changes, reviewed consultations, chart, and labs. appears optimized, late entry. Health Status Allergies: Allergic Reactions (Selected) Severity Not Documented [facility]- No reactions were documented., Allergies (1) ActiveSeverityReaction NorcoNone Documented Current medications: (Selected) Inpatient Medications Ordered NS 1,000 mL: 20 mL/hr, Intravenous Prescriptions Prescribed Eliquis 5 mg oral tablet: 5 mg, 1 tab(s), Oral, BID, 180 tab(s), 3 Refill(s) Entresto 24 mg-26 mg oral tablet: 1 tab(s), Oral, qDay, 90 tab(s), 3 Refill(s) nadolol 20 mg oral tablet: 20 mg, 1 tab(s), Oral, qDay, TAKE ONE TABLET BY MOUTH EVERY MORNING, 90 tab(s), 3 Refill(s) sotalol 120 mg oral tablet: 120 mg, 1 tab(s), Oral, BID, 180 tab(s), 3 Refill(s) spironolactone 25 mg oral tablet: 25 mg, 1 tab(s), Oral, qDay, 90 tab(s), 3 Refill(s) Documented Medications Documented Vitamin D2 1.25 mg (50,000 intl units) oral capsule: See Instructions, 1 cap(s) Oral q other Week, 0 Refill(s) alendronate 10 mg oral tablet: 10 mg, 1 tab(s), Oral, qDay, 90 tab(s), 0 Refill(s) atorvastatin 20 mg oral tablet: 20 mg, 1 tab(s), Oral, qDay, 30 tab(s), 0 Refill(s) azaTHIOprine 50 mg oral tablet: 100 mg, 2 tab(s), Oral, Daily, 60 tab(s), 0 Refill(s) bumetanide 1 mg oral tablet: 1 mg, 1 tab(s), Oral, Every other day, 0 Refill(s) ferrous sulfate 200 mg (65 mg elemental iron) oral tablet: 200 mg, 1 tab(s), Oral, qDay, 120 tab(s), 0 Refill(s) folic acid 1 mg oral tablet: 2 mg, 2 tab(s), Oral, qDay, 90 tab(s), 0 Refill(s) methotrexate 2.5 mg oral tablet: See Instructions, 5 tablets q Friday, 0 Refill(s) omeprazole 20 mg oral delayed release capsule (NF): 20 mg, 1 cap(s), Oral, qDay, 0 Refill(s) sertraline 50 mg oral tablet: 50 mg, 1 tab(s), Oral, Daily, 0 Refill(s), Medications (1) Active Scheduled: (0) Continuous: (1) NS (0.9% nacl) 1,000 mL 1,000 mL, Intravenous, 20 mL/hr PRN: (0) Problem list: Medical ACUTE COMBINED SYSTOLIC (CONGESTIVE) AND DIASTOLIC (CONGESTIVE) HEART FAILURE / SNOMED CT 5198178881 / Confirmed ACUTE SINUSITIS WITH SYMPTOMS > 10 DAYS / SNOMED CT 11433489 / Confirmed Anemia, mild / SNOMED CT 294527368 / Confirmed AICD (AUTOMATIC CARDIOVERTER/DEFIBRILLATOR) PRESENT / SNOMED CT 0635009367 / Confirmed ICD (implantable cardioverter-defibrillator) in place / SNOMED CT 6321612772 / Confirmed BMI 35.0-35.9,adult / SNOMED CT 605016369 / Confirmed LOW HDL (UNDER 40) / SNOMED CT 124880747 / Confirmed Low HDL (under 40) / SNOMED CT 786364892 / Confirmed ULCERATIVE COLITIS, CHRONIC / SNOMED CT 7212700894 / Confirmed CORONARY ARTERIOSCLEROSIS / SNOMED CT 01549542 / Confirmed RECEIVED INFLUENZA VACCINATION AT HOSPITAL / SNOMED CT 921688271 / Confirmed (HFpEF) heart failure with preserved ejection fraction / SNOMED CT 6068006015 / Confirmed CARDIOMYOPATHY, HYPERTROPHIC / SNOMED CT 532017413 / Confirmed HOCM (HYPERTROPHIC OBSTRUCTIVE CARDIOMYOPATHY) / SNOMED CT 58543296 / Confirmed REFUSED INFLUENZA VACCINE / SNOMED CT 375929270 / Confirmed Osteoporosis / SNOMED CT 620905647 / Confirmed Over weight / SNOMED CT 237951167 / Confirmed Overweight / SNOMED CT 617424684 / Confirmed PAROXYSMAL ATRIAL FIBRILLATION / SNOMED CT 916707804 / Confirmed SINUS INFECTION / SNOMED CT 61072809 / Confirmed REFUSED PNEUMOCOCCAL VACCINE / SNOMED CT 9829960539 / Confirmed, Active Problems (25) (HFpEF) heart failure with preserved ejection fraction ACUTE COMBINED SYSTOLIC (CONGESTIVE) AND DIASTOLIC (CONGESTIVE) HEART FAILURE ACUTE SINUSITIS WITH SYMPTOMS > 10 DAYS AICD (AUTOMATIC CARDIOVERTER/DEFIBRILLATOR) PRESENT Anemia, mild Atrial fibrillation, persistent BMI 35.0-35.9,adult CARDIOMYOPATHY, HYPERTROPHIC CORONARY ARTERIOSCLEROSIS HOCM (HYPERTROPHIC OBSTRUCTIVE CARDIOMYOPATHY) Hypertension, essential ICD (implantable cardioverter-defibrillator) in place LOW HDL (UNDER 40) Low HDL (under 40) Near syncope Obesity (BMI 30-39.9) Osteoporosis Over weight Overweight PAROXYSMAL ATRIAL FIBRILLATION RECEIVED INFLUENZA VACCINATION AT HOSPITAL REFUSED INFLUENZA VACCINE REFUSED PNEUMOCOCCAL VACCINE SINUS INFECTION ULCERATIVE COLITIS, CHRONIC Histories Past Medical History: No active or resolved past medical history items have been selected or recorded. Family History: Heart disease Mother Father Procedure history: Replacement of pulse generator of automatic cardioverter/defibrillator ([id number]) on 12/05/2023 at 73 Years. Echocardiogram ([id number]) on 03/19/2023 at 73 Years. Comments: 03/20/2023 12:18 KACY - Jessenia Ware LPN 03/19/2023 Summary: 1. Left ventricle: The cavity size is normal. Wall thickness is moderately increased. Systolic function is mildly reduced. The estimated ejection fraction is 45%. Wall motion is normal; there are no regional wall motion abnormalities. Diastolic dysfunction present but unable to assess severity. 2. Aortic valve: There is mild regurgitation. 3. Mitral valve: The annulus is mildly calcified. There is mild regurgitation. 4. Left atrium: The atrium is moderately dilated. 5. Right atrium: The atrium is mildly dilated. 08/15/2021 10:23 EDT - Lupe Jones LPN 08/03/21 Summary: 1. Left ventricle: Wall thickness is severely increased. Systolic function is at the lower limits of normal. The estimated ejection fraction is 50%. Wall motion is normal; there are no regional wall motion abnormalities. Diastolic dysfunction present but unable to assess severity. 2. Ventricular septum: Septal motion is dyssynergic. 3. Aortic valve: There is mild regurgitation. 4. Mitral valve: There is mild to moderate regurgitation. 5. Right ventricle: The RV systolic pressure by Doppler is 22 mm Hg. 6. Right atrium: The atrium is dilated. The estimated right atrial pressure is 3 mm Hg. Recommendations: Severe, mostly concentric LVH. No signs of LVOT obstruction or CRISTÓBAL. 11/25/2020 11:45 FAITH - Anai Vogel LPN (03/22/20) CONCLUSION: 1. Technically difficult study due to poor acoustic windows and patient unable to lay flat. Definity echo contrast was used to better delineate the endocardial borders. 2. Moderate to severe concentric left ventricle hypertrophy with abnormal septal motion and normal left ventricle systolic function, ejection fraction 55-60%. 3. Normal right ventricular size and systolic function. 4. Markedly dilated left and right atrium. 5. Mild mitral and aortic regurgitation. 6. ICD/pacemaker lead noted in the right atrium and ventricle. 7. Indeterminate diastolic function. 8. RVSP estimated to be 17 mmHg. 9. No prior study available for comparison. 08/25/2019 11:33 Anai Macdonald LPN Mild left ventricular dilatation with septal dyskinesis. The left ventricular systolic function is mildly reduced, with the left ventricular ejection fraction estimated at 45-50%. Severe hypertrophy of the ventricular septum with moderate hypertrophy ofthe remaining wall. Aortic valve sclerosis Moderated left atrial enlargement Mild right atrial enlargement Mild 1+ aortic insufficiency Mild 1+ mitral reguritation Mild 1+ tricuspid regurgitation Trivial pulmonic insufficiency. Diastolic dysfunction consistent with impaired relaxation Definity contrast used Balloon sinuplasty ([id number]) on 08/26/2017 at 67 Years. Cardiac catheterization ([id number]) on 05/28/2017 at 67 Years. Comments: 08/25/2019 11:28 Anai Macdonald LPN Minimal coronary artery disease. 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 This was less than 50%. Normal left ventricular systolic function with ejection fraction of 55% associated with mild mitralregurgitation. Mildly elevated pulmonary capillarywedge pressure and left ventricular end- diastolic pressure, as well as aortic systolic blood pressure. However, the patient had normal pulmonary artery systolic pressure. thre was no [place] beat seen after premature ventrocular contraction ICD - Internal cardiac defibrillator procedure ([id number]) on 03/11/2014 at 64 Years. Comments: 11/17/2019 10:42 Jud Rivera RN Implantation of Dual Chamber ICD Dr Lucas Harrell 03/11/2014 Generator Medtronic [id number] Serial [id number] RA Lead Medtronic 5076 CapSure Fix Novus MRI SureScan Serial [id number] RV Lead Medtronic 6935M Sprint Quattro Secure MRI SureScan Serial [id number] Septal myectomy ([id number]). Social History: Social & Psychosocial Habits Alcohol 11/10/2023 Use: Never Substance Abuse 11/10/2023 Use: Never Tobacco 11/10/2023 Tobacco Use: Never (less than 100 in l Nutrition/Health 11/10/2023 Caffeine intake amount: None Physical Examination Vital Signs 12/05/2023 9:09 EDT Systolic Blood Pressure Non-Invasive 100 mmHg mmHg Diastolic Blood Pressure Non-Invasive 62 mmHg mmHg 12/05/2023 9:06 EDT Systolic Blood Pressure Non-Invasive 77 mmHg mmHg Diastolic Blood Pressure Non-Invasive 54 mmHg mmHg 12/05/2023 9:05 EDT Heart Rate Monitored 65 bpm bpm Respiratory Rate - Anes 12 br/min br/min 12/05/2023 9:03 EDT Systolic Blood Pressure Non-Invasive 95 mmHg mmHg Diastolic Blood Pressure Non-Invasive 58 mmHg mmHg 12/05/2023 9:00 EDT Heart Rate Monitored 73 bpm bpm Respiratory Rate - Anes 12 br/min br/min Systolic Blood Pressure Non-Invasive 95 mmHg mmHg Diastolic Blood Pressure Non-Invasive 60 mmHg mmHg 12/05/2023 8:58 EDT Systolic Blood Pressure Non-Invasive 78 mmHg mmHg Diastolic Blood Pressure Non-Invasive 52 mmHg mmHg 12/05/2023 8:56 EDT Systolic Blood Pressure Non-Invasive 78 mmHg mmHg Diastolic Blood Pressure Non-Invasive 52 mmHg mmHg 12/05/2023 8:55 EDT Heart Rate Monitored 76 bpm bpm Respiratory Rate - Anes 10 br/min br/min 12/05/2023 8:54 EDT Systolic Blood Pressure Non-Invasive 80 mmHg mmHg Diastolic Blood Pressure Non-Invasive 54 mmHg mmHg 12/05/2023 8:51 EDT Systolic Blood Pressure Non-Invasive 87 mmHg mmHg Diastolic Blood Pressure Non-Invasive 60 mmHg mmHg 12/05/2023 8:50 EDT Heart Rate Monitored 70 bpm bpm Respiratory Rate - Anes 11 br/min br/min 12/05/2023 8:48 EDT Systolic Blood Pressure Non-Invasive 100 mmHg mmHg Diastolic Blood Pressure Non-Invasive 65 mmHg mmHg 12/05/2023 8:45 EDT Heart Rate Monitored 70 bpm bpm Respiratory Rate - Anes 11 br/min br/min Systolic Blood Pressure Non-Invasive 108 mmHg mmHg Diastolic Blood Pressure Non-Invasive 67 mmHg mmHg 12/05/2023 8:42 EDT Systolic Blood Pressure Non-Invasive 101 mmHg mmHg Diastolic Blood Pressure Non-Invasive 82 mmHg mmHg 12/05/2023 8:40 EDT Heart Rate Monitored 70 bpm bpm Respiratory Rate - Anes 13 br/min br/min 12/05/2023 8:36 EDT Systolic Blood Pressure Non-Invasive 110 mmHg mmHg Diastolic Blood Pressure Non-Invasive 83 mmHg mmHg 12/05/2023 8:35 EDT Respiratory Rate - Anes 0 br/min br/min 12/05/2023 6:25 EDT Temperature Oral 36 DegC Peripheral Pulse Rate 80 bpm Respiratory Rate 16 br/min Systolic Blood Pressure Non-Invasive 109 mmHg Diastolic Blood Pressure Non-Invasive 72 mmHg Vital Signs (last 24 hrs) Last Charted Temp Oral36 DegC (DEC 04 06:25) Heart Rate [id number] bpm (DEC 04 09:05) FEE161 mmHg (DEC 04 09:09) DBP62 mmHg (DEC 04 09:09) BMI36.92 (DEC 04 06:28) Measurements from flowsheet : Measurements 12/05/2023 6:28 EDT Body Mass Index 36.92 kg/m2 12/05/2023 6:25 EDT Height 167.6 cm Admission Weight 103.7 kg Mohawk Body Weight 63.76 kg Pain assessment: Pain Assessment 12/05/2023 6:25 EDT Primary Pain Intensity 0 Pain Scale Type 0-10 Pain scale . General: Alert and oriented, No acute distress. Airway: Normal mouth. Mallampati classification: III (soft palate, base of uvula visible). Head: Normocephalic, Atraumatic. Dentition Evaluation: Intact, Own teeth. Neck: Supple, Non-tender. Respiratory: Lungs are clear to auscultation, Respirations are non-labored. Cardiovascular: Normal rate, Regular rhythm. Heart Sounds: Normal. Neurologic: Alert, Oriented. Review / Management Results review: Labs (Last four charted values) WBC L 3.8(DEC 04) Hgb 13.2(DEC 04) Hct L 39.1(DEC 04) Plt L 99(DEC 04) Na 140(DEC 04) K 4.3(DEC 04) CO2 30(DEC 04) Cl 106(DEC 04) Cr 1.17(DEC 04) BUN 20.0(DEC 04) Glucose 100(DEC 04) Ca 9.2(DEC 04) PT H 14.9(DEC 04) INR 1.3(DEC 04) , Lab results 12/05/2023 9:09 EDT Systolic Blood Pressure Non-Invasive 100 mmHg mmHg Diastolic Blood Pressure Non-Invasive 62 mmHg mmHg 12/05/2023 9:06 EDT Systolic Blood Pressure Non-Invasive 77 mmHg mmHg Diastolic Blood Pressure Non-Invasive 54 mmHg mmHg phenylephrine 0.2 mg mg 12/05/2023 9:05 EDT Heart Rate Monitored 65 bpm bpm Respiratory Rate - Anes 12 br/min br/min Oxygen Saturation 100 % % 12/05/2023 9:04 EDT Intra-Op EBL 20 mL 12/05/2023 9:03 EDT Systolic Blood Pressure Non-Invasive 95 mmHg mmHg Diastolic Blood Pressure Non-Invasive 58 mmHg mmHg 12/05/2023 9:00 EDT Heart Rate Monitored 73 bpm bpm Respiratory Rate - Anes 12 br/min br/min Systolic Blood Pressure Non-Invasive 95 mmHg mmHg Diastolic Blood Pressure Non-Invasive 60 mmHg mmHg Oxygen Saturation 100 % % propofol 20 mg mg 12/05/2023 8:59 EDT phenylephrine 0.1 mg mg 12/05/2023 8:58 EDT Systolic Blood Pressure Non-Invasive 78 mmHg mmHg Diastolic Blood Pressure Non-Invasive 52 mmHg mmHg 12/05/2023 8:56 EDT Systolic Blood Pressure Non-Invasive 78 mmHg mmHg Diastolic Blood Pressure Non-Invasive 52 mmHg mmHg phenylephrine 0.1 mg mg 12/05/2023 8:55 EDT Heart Rate Monitored 76 bpm bpm Respiratory Rate - Anes 10 br/min br/min Oxygen Saturation 100 % % 12/05/2023 8:54 EDT Systolic Blood Pressure Non-Invasive 80 mmHg mmHg Diastolic Blood Pressure Non-Invasive 54 mmHg mmHg ketamine 10 mg mg 12/05/2023 8:51 EDT Systolic Blood Pressure Non-Invasive 87 mmHg mmHg Diastolic Blood Pressure Non-Invasive 60 mmHg mmHg 12/05/2023 8:50 EDT Heart Rate Monitored 70 bpm bpm Respiratory Rate - Anes 11 br/min br/min Oxygen Saturation 100 % % 12/05/2023 8:48 EDT Systolic Blood Pressure Non-Invasive 100 mmHg mmHg Diastolic Blood Pressure Non-Invasive 65 mmHg mmHg 12/05/2023 8:45 EDT Heart Rate Monitored 70 bpm bpm Respiratory Rate - Anes 11 br/min br/min Systolic Blood Pressure Non-Invasive 108 mmHg mmHg Diastolic Blood Pressure Non-Invasive 67 mmHg mmHg Oxygen Saturation 100 % % 12/05/2023 8:42 EDT Systolic Blood Pressure Non-Invasive 101 mmHg mmHg Diastolic Blood Pressure Non-Invasive 82 mmHg mmHg 12/05/2023 8:40 EDT Heart Rate Monitored 70 bpm bpm Respiratory Rate - Anes 13 br/min br/min Oxygen Saturation 100 % % 12/05/2023 8:39 EDT fentaNYL 25 mcg mcg ondansetron 4 mg mg 12/05/2023 8:36 EDT Systolic Blood Pressure Non-Invasive 110 mmHg mmHg Diastolic Blood Pressure Non-Invasive 83 mmHg mmHg 12/05/2023 8:35 EDT Respiratory Rate - Anes 0 br/min br/min 12/05/2023 8:31 EDT cefazolin 1 gram(s) gram(s) 12/05/2023 8:30 EDT ICD Generator Change In Process (In Progress) SN - CTm - Anesthesia Start Time Anesthesia Start 12/05/2023 6:[address] [facility] 12/05/2023 6:56 EDT CHG Preoperative Wash/Wipe Night before procedure, Day of procedure, Site specific wipe Preop Nasal Swab Povidone-Iodine 12/05/2023 6:36 EDT Antecubital Left 12/05/2023 20 gauge Peripheral IV Activity: Insert new site Peripheral IV Dressing Condition: Clean, Dry, Intact Peripheral IV Dressing Activity: Applied, Transparent dressing Peripheral IV Line Status/Patency: Flushes easily, 10ml normal saline flush, Good blood return Peripheral IV Site Condition: No complications Peripheral IV Equipment: PRN Adaptor Peripheral IV Number of Attempts: 1 12/05/2023 6:35 EDT WBC 3.8 10^3/mcL LOW RBC 3.71 10^6/mcL LOW Hgb 13.2 G/dL Hct 39.1 % LOW MCV 105.3 fL HI MCH 35.5 pg HI MCHC 33.8 G/dL RDW 15.2 % Platelet 99 10^3/mcL LOW MPV 8.6 fL Neutrophil % 57.4 % Lymphocyte % 28.0 % Monocyte % 12.3 % Eosinophil % 1.9 % Basophil % 0.4 % Neutrophil, Absolute 2.2 10^3/mcL LOW Lymphocyte, Absolute 1.1 10^3/mcL Monocyte, Absolute 0.5 10^3/mcL Eosinophil, Absolute 0.1 10^3/mcL Basophil, Absolute 0.0 10^3/mcL Protime 14.9 seconds HI PT International Ratio 1.3 ratio NA Glucose Level 100 mg/dL Sodium Level 140 mEq/L Potassium Level 4.3 mEq/L Chloride 106 mEq/L CO2 30 mEq/L Electrolyte Balance 4.0 mEq/L BUN 20.0 mg/dL Creatinine Lvl (s) 1.17 mg/dL BUN/Creatinine Ratio 17.1 ratio Calcium Lvl 9.2 mg/dL GFR Non- >60 ml/min/1.73sqm NA GFR >60 ml/min/1.73sqm NA ABO/Rh Interp A POS ABSC Interp (Gel) Negative ABSC Creatinine Clearance Calc 52.23 mL/min 12/05/2023 6:28 EDT Designated Person #1 We May Share PHI Nila [phone] Designated Person #1 Relationship Spouse Designated Person #2 We May Share PHI Jennifer Designated Person #2 Relationship Daughter Privacy Restrictions Requested None Body Mass Index 36.92 kg/m2 Status N/A Sensory Deficits None Sleep Apnea Snore No Sleep Apnea Tired No Sleep Apnea Obstruction No Sleep Apnea Pressure No Sleep Apnea BMI No Sleep Apnea Age Yes Sleep Apnea Neck No Sleep Apnea Gender Yes Sleep Apnea Score 2 Diagnosed With Sleep Apnea No Advanced Directives No - refuses information Infectious Disease Symptoms Patient states no symptoms Infectious Disease Recent Exposure No Alcohol and Drug Use No Employee of Institutional Living No Health Care Employee No History of Exposure to TB No History of Positive Chest X-Ray for TB No History of Positive TB Skin Test No Homeless No Known Immunosuppression No Recent Immigrant No Resident of Institutional Living No Bloody Sputum No Fatigue No Fever No Loss of Appetite No Night Sweats No Persistent Cough > 3 Weeks No Weight Loss No Barriers to Learning None evident Teaching Method Explanation Preferred Spoken Language Japanese Preferred Written Language Japanese Teaching Evaluation Verbalizes/Nonverbally indicates understanding Safety Brochure Information Reviewed Yes Silver James Video Viewed No Information Given by Patient Patient's Current Physicians Patient's Current Physicians Discharge To, Anticipated Home independently Prev Test Positive/Diagnosis w/COVID-19 No Current Quarantine/Isolated any Illness No Any Contact with Sick Animals/Birds No Traveled Anywhere in Last 30 Days No Lost Weight Unintentionally Recently No Eat Poorly Due to Decreased Appetite No Total MST Score 0 N/A Personal Devices, Patient Valuables Glasses Anesthesia/Transfusions Prior anesthesia Admission Note-Nursing Same Day Patient History 12/05/2023 6:27 EDT Electrocardiogram - EKG - CV Completed (In Progress) 12/05/2023 6:25 EDT Height 167.6 cm Admission Weight 103.7 kg [place]awk Body Weight 63.76 kg Temperature Oral 36 DegC Peripheral Pulse Rate 80 bpm Respiratory Rate 16 br/min Systolic Blood Pressure Non-Invasive 109 mmHg Diastolic Blood Pressure Non-Invasive 72 mmHg Primary Pain Intensity 0 Pain Scale Type 0-10 Pain scale Respirations Unlabored Oxygen Therapy Room air Oxygen Saturation 100 % Abdomen Description Non-distended, Soft Bowel Sounds All Quadrants Present Skin Temperature Warm Skin Description Normal for ethnicity Skin Integrity Intact Neurological Symptoms Patient denies Extremity Movement Equal Characteristics of Speech Clear Level of Consciousness Alert Strength All Extremities Strong Affect/Behavior Appropriate Orientation Oriented x 4 Assistive Device None Standard Safety ID band on, Allergy Band on, Call device within reach, Bed in low position, Wheels locked, Upper/Half-Length side-rails up, Non-Slip footwear 12/04/2023 0:24 EDT IHC At-Risk Indicator YES . Assessment and Plan [place] [employer] Anesthesiologists (ASA) physical status classification: Class III. Anesthetic Preoperative Plan Premedication: None. Anesthetic technique: MAC. Induction: intravenously. Maintenance airway: Mask. Postoperative pain management: Per surgeon. Risks discussed: nausea, vomiting, headache, sore throat, dental injury, hypotension, allergic reaction, serious complications. Informed consent: signed by patient. Notes: Patient identified, medical record reviewed, medical history reviewed with patient. Assessment performed. Plan prescribed discussed with patient including risks. Inquiries invited and addressed. Consent signed by patient, pt agrees to proceed with sedation for planned procedure, possible GA if not tolerated Of note this is a late entry documentation due to involvement with patient care and inability to document prior to the start of the anesthetic. I reviewed the patient's medical record, completed a preoperative evaluation, performed and assessment, prescribed a plan of anesthesia, and discussed thisplan with the patient prior to the induction of anesthesia. The of this care delivered resulted after the anesthesia start time.. Beta Olya: Beta Olya Taken Within 24 Hrs: Yes. Digitally Signed by ESVIN CHARLES MD on 12/05/2023 09:19 AM [address]06-2024 Hospital Discharge instructions Patient Education 12/05/2023 06:57:39 3- Pacemaker/ICD generator replacement (12/2017) PACEMAKER/ICD GENERATOR REPLACEMENT Discharge Instructions WOUND CARE DO NOT place any ointments, creams, powders or lotions on the incision. Call your pacemaker/ICD doctor s office immediately if you have: ?Increased redness ?Drainage from the incision ?Opening of the incision ?Increased pain, warmth or swelling on or around the site ?Increased temperature above 100.5 Call if you experience dizziness, palpitations or a fast or slow heart rate If an Aquacel Ag surgical dressing has been applied: ?You may take a shower as long as the dressing is sealed well to your skin. ?You may remove the bandage in 7 days: To do this, press down on your skin with one hand and carefully lift an edge of the bandage with your other hand. Stretch the dressing to break the adhesive seal and gently pull it off. ?If the bandage becomes loose or falls off in less than 5 days, you will not be able to take any showers or baths. You must keep the incision dry for the first 5 days after your procedure. DO NOT clean the incision with any soap, water, peroxide or alcohol. Leave it dry and uncovered for 5 days, then you may shower using soap and water. Wear loose fitting clothes over the incisional site to avoid irritation until it is healed. If you do not have a dressing: DO NOT shower or get the incision wet for 5 days. DO NOT clean the incision with any soap, water, peroxide or alcohol. Leave it dry and uncovered for 5 days, then you may shower using soap and water. Wear loose fitting clothes over the incisional site to avoid irritation until it is healed. MEDICATIONS Take antibiotics before dental work as prescribed by your physician (if prescribed) Take medications as directed until prescription is finished Avoid alcohol while taking medications You may take Tylenol (acetaminophen) for incisional pain or discomfort. ACTIVITY Avoid activity that requires pushing or pulling for the first week. Please move your operation side arm freely after the first week. Document Released: 03/17/2006 Document Revised: 03/03/2013 Document Reviewed: 03/18/2014 ExitCare Patient Information 2015 [employer]. This information is not intended to replace advicegiven to you by your health care provider. Make sure you discuss any questions you have with your health care provider. Follow Up Care 10/16/2023 10:19:06 With:ZEE HARRELL MD Address: [address] [place] [address]- [phone] When:12/18/2023 09:00:00 Comments:This is [facility] check in the [facility]. With:ZEE HARRELL MD Address: [address] [place] [address]- [phone] When:03/05/2024 10:30:00 Comments:This is your hospital follow up in the [facility]. [facility] 09-06-2024 Note* Exam Date Time Procedure Performing Provider Status 12/05/23 8:30 AM ICD Generator Change Auth (Verified) [facility] 12-20-2023 Note* Exam Date Time Procedure Performing Provider Status 03/19/23 12:23 PM Echocardiogram, Adult - CV Auth (Verified) [facility] 02-15-2023 Procedure [facility]2022 [facility] Future App[facility]ments Appointment Date:08/17/2021 08:45:00 AM Scheduled Provider: Location:[facility] Appointment Type:CV Remote Procedure Appointment Date:08/24/2021 10:15:00 AM Scheduled Provider: Location:[facility] Appointment Type:CV OV Future Scheduled Tests Laboratory* Basic Metabolic Panel 07/25/21 * Basic Metabolic Panel 08/08/21 * Basic Metabolic Panel 08/22/21 * Complete Blood Count 07/11/21 * Complete Blood Count 09/07/20 * Complete Metabolic Panel 07/11/21 * Complete Metabolic Panel 09/07/20 * N-Terminal proBNP 07/11/21 * N-Terminal proBNP 07/25/21 * N-Terminal proBNP 08/08/21 * N-Terminal proBNP 08/22/21 [facility] Evaluation + Plan note Future Appointments Appointment Date:03/28/2023 02:45:00 PM Scheduled Provider: Location:[facility] Appointment Type:CV OV Appointment Date:04/22/2023 03:30:00 PM Scheduled Provider: Location:[facility] Appointment Type:CV Remote Procedure HM Appointment Date:05/26/2023 03:30:00 PM Scheduled Provider: Location:[facility] Appointment Type:CV Office Procedure ICD Appointment Date:07/08/2023 02:30:00 PM Scheduled Provider: Location:[facility] Appointment Type:CV Remote Procedure HM Future Scheduled Tests Laboratory* Basic Metabolic Panel 06/13/22 * Basic Metabolic Panel 09/04/22 * Basic Metabolic Panel 12/05/22 * Basic Metabolic Panel 03/17/23 * Basic Metabolic Panel 03/08/22 * Complete Blood Count 06/13/22 * Complete Blood Count 09/04/22 * Complete Blood Count 12/05/22 * Complete Blood Count 03/17/23 * N-Terminal proBNP 06/13/22 * N-Terminal proBNP 09/04/22 * N-Terminal proBNP 12/05/22 * N-Terminal proBNP 03/17/23 * N-Terminal proBNP 03/08/22 [facility] Evaluation + Plan note Future Appointments Appointment Date:12/18/2023 09:00:00 AM Scheduled Provider: Location:[facility] Appointment Type:CV Incision Check Appointment Date:03/05/2024 10:30:00 AM Scheduled Provider: Location:[facility] Appointment Type:CV Office Procedure ICD Appointment Date:06/07/2024 05:00:00 PM Scheduled Provider: Location:[facility] Appointment Type:CV Remote Procedure HM Appointment Date:07/27/2024 11:00:00 AM Scheduled Provider:MEG VALENTE Location:[facility] Appointment Type:CV OV Future Scheduled Tests Laboratory* Basic Metabolic Panel 12/05/22 * Basic Metabolic Panel 10/13/23 * Basic Metabolic Panel 03/17/23 * Basic Metabolic Panel 06/27/23 * Basic Metabolic Panel 05/12/24 * Complete Blood Count 12/05/22 * Complete Blood Count 10/13/23 * Complete Blood Count 03/17/23 * Complete Blood Count 06/27/23 * Complete Blood Count 05/12/24 * N-Terminal proBNP 12/05/22 * N-Terminal proBNP 10/13/23 * N-Terminal proBNP 03/17/23 * N-Terminal proBNP 06/27/23 * N-Terminal proBNP 05/12/24 [facility] evaluation + Plan note Future Appointments Appointment Date:11/11/2024 10:30:00 AM Scheduled Provider: Location:[facility] Appointment Type:EP Ablation PF-Ensite Appointment Date:12/17/2024 08:00:00 AM Scheduled Provider: Location:[facility] Appointment Type:CV Remote Procedure HM Appointment Date:02/16/2025 03:00:00 PM Scheduled Provider:KATINA BRUCE Location:[facility] Appointment Type:CV OV Appointment Date:03/18/2025 08:00:00 AM Scheduled Provider: Location:[facility] Appointment Type:CV Remote Procedure Future Scheduled Tests Laboratory* Basic Metabolic Panel 01/19/25 * Basic Metabolic Panel 07/26/24 * Basic Metabolic Panel 10/13/23 * Basic Metabolic Panel 10/14/24 * Basic Metabolic Panel 01/12/24 * Basic Metabolic Panel 04/13/24 * Basic Metabolic Panel 05/12/24 * Complete Blood Count 01/19/25 * Complete Blood Count 07/26/24 * Complete Blood Count 10/13/23 * Complete Blood Count 10/14/24 * Complete Blood Count 01/12/24 * Complete Blood Count 04/13/24 * Complete Blood Count 05/12/24 * N-Terminal proBNP 01/19/25 * N-Terminal proBNP 07/26/24 * N-Terminal proBNP 10/13/23 * N-Terminal proBNP 10/14/24 * N-Terminal proBNP 01/12/24 * N-Terminal proBNP 04/13/24 * N-Terminal proBNP 05/12/24 [facility] evaluation + Plan note Future Appointments Appointment Date:12/17/2024 08:00:00 AM Scheduled Provider: Location:[facility] Appointment Type:CV Remote Procedure HM Appointment Date:01/12/2025 01:30:00 PM Scheduled Provider:LOLLY VALLE Location:[facility] Appointment Type:CV OV Appointment Date:02/16/2025 03:00:00 PM Scheduled Provider:KATINA BRUCE Location:[facility] Appointment Type:CV OV Appointment Date:03/18/2025 08:00:00 AM Scheduled Provider: Location:[facility] Appointment Type:CV Remote Procedure HM Diagnostic Tests Pending * Basic Metabolic Panel 11/11/24 Future Scheduled Tests Laboratory* Basic Metabolic Panel 01/19/25 * Basic Metabolic Panel 07/26/24 * Basic Metabolic Panel 10/14/24 * Basic Metabolic Panel 01/12/24 * Basic Metabolic Panel 04/13/24 * Basic Metabolic Panel 05/12/24 * Complete Blood Count 01/19/25 * Complete Blood Count 07/26/24 * Complete Blood Count 10/14/24 * Complete Blood Count 01/12/24 * Complete Blood Count 04/13/24 * Complete Blood Count 05/12/24 * N-Terminal proBNP 01/19/25 * N-Terminal proBNP 07/26/24 * N-Terminal proBNP 10/14/24 * N-Terminal proBNP 01/12/24 * N-Terminal proBNP 04/13/24 * N-Terminal proBNP 05/12/24 [facility] evaluation note* Diagnosis Onset Date Resolution Status Ulcerative colitis acute GERD (gastroesophageal reflux disease) acute Ulcerative colitis acute [facility] Work Phone: evaluation note* Diagnosis Onset Date Resolution Status GERD (gastroesophageal reflux disease) acute Ulcerative colitis acute GERD (gastroesophageal reflux disease) acute Ulcerative colitis acute [facility] Work Phone: evaluation noteNo assessment information available [facility] Work Phone: evaluation note* Diagnosis Onset Date Resolution Status GERD (gastroesophageal reflux disease) chronic Ulcerative colitis chronic [facility] Work Phone: Evaluation note* Diagnosis Onset Date Resolution Status Gastritis acute GERD (gastroesophageal reflux disease) chronic Thrombocytopenia chronic Ulcerative colitis [facility] Work Phone: History and physical note Author Brenden Friend [facility] May 15, 2022 6:34am Note Date/Time May 15, 2022 6:34am [facility] Medical Records Department [address] [place] [address] [place] [address] History & Physical Exam 05/15/22 0634 MR#: [id number] Acct: [id number] Name: TWAN ESTRELLA Rep #:[id number] : 1950 72 From: Brenden Friend DO PCP: Dr. 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 He is on azathioprine 150 mg daily w/o any adverse effects. Prior to azathioprine he was on prednisone and mesalamine. Stools are still urgent, has 2-3 BMs in the morning, usually no other BMs per day, stools are soft, never constipated. No melena or hematochezia. No abdominal pain. He [place] once daily omeprazole. No c/o heartburn or acid reflux. Twan became known to this clinic 04.10.21. He was previously seeing Dr. Okeefe with [facility]. UGI performed 09.26.15 finding thickened folds in the esophagus and stomach suggestive of inflammation. Colonoscopy performed 01.04.16 finding ulcerative colitis. Additional history of osteoporosis with two compression fractures, anxiety, CAD,hyperparathyroidism, insomnia, low testosterone, cardiomyopathy, paroxysmal atrial fibrillation, left bundle branch block. EGD and colonoscopy performed 05.15.21. EGD ? LA grade a reflux esophagitis; chronic gastritis; duodenitis. Biopsy ? duodenal bulb, pneumotasis; gastric body, lymphocytic gastritis; distal esophagus chronic inflammation. Repeat in 1 yr Colonoscopy ? Pierre grade 1 ulcerative colitis. Biopsy ? focal ulceration and granulation tissue reaction in random biopsy, remaining samples without pathological diagnosis. S100 tumor marker positive. Negative for malignancy. Repeat in 2 yrs ROS Const Constitutional: No fatigue ENT ENT: No difficulty swallowing Gastro GI: No abdominal pain, belching, bloating, change in bowel habits, change in stool character, coffee ground emesis, constipation, cramping, diarrhea, heartburn, difficulty swallowing, feeling full early, excessive flatus, incontinent of stools, Vomiting blood/hematemesis, Blood in stool, loose stools,Black,tarry stools, nausea/dyspepsia, pain with swallowing, vomiting or other Musc Musculoskeletal: Positive for back pain; No joint pain Skin Skin: No yellowing of the eye or itchy eyes Psych Psychiatric: No anxiety and No depression Endo Endocrine: No fatigue Aller/Imm Allergy/Immunologic: No itchy eyes Chadd/Lymp Hematologic/Lymphatic: No easy bleeding or easy bruising Exam Const General: cooperative and comfortable Nutritional Appearance: obese Orientation: alert, awake and oriented x3 Other: uses a cane HENMT Head: normal to inspection Eyes General: appearance normal, both eyes and all related structures Resp Effort & Inspection: normal respiratory effort Quality Reporting Tobacco Screening ([facility] 138) Smoking Status: Never smoker Assessment and Plan Assessment and Plan (1) Ulcerative colitis: ?Status:?Acute ?Plan: Taking azathioprine 150 mg daily, will update CBC, amylase and lipase today, will call pt with results Repeat colonoscopy due in 05/2023 (2) GERD (gastroesophageal reflux disease): ?Status:?Acute ?Plan: Continue omeprazole 40 mg daily Due for repeat EGD 05/2022 f/u 2 wks after EGD ? ? ? Orders: Orders D Amylase Today K51.90 - Ulcerative colitis, unspecified, without complications ? Lipase Today K51.90 - Ulcerative colitis, unspecified, without complications ? CBC W/Diff, Automated Today K51.90 - Ulcerative colitis, unspecified, without complications ? I have examined the patient and the H&P has been reviewed. There are no clinicalchanges since date of exam. 05/15/22 0634 <Electronically signed by Brenden Ragland DO> Cosigner Signature (if applicable): CC: Dr. Jose Wright MD; Brenden Ragland DO~ Signed [facility] Work Phone: Hospital course Narrative No data available for this section [facility] Discharge instructions No data available for this section [facility] Progress note No data available for this section [facility] Reason for referral (narrative)No reason for referral information availableWFostoria City [facility] Work Phone: Summary Purpose Family History No Family History Records FoundNo Family History Records Found No data available for this section No Family History Records Found No data available for this section No data available for this section No Family History Records Found No data available for this section No Family History Records FoundNo Family History Records FoundNo Family History Records Found Advance Directives No Advanced Directives Records Found Advance Directive Response Recorded Date/ Time Living Will Yes May 14 10:45am Power of Pipe Setter Yes May 14, 2021 10:45am Advance Directive Response Recorded Date/ Time Name of Medical Power of Pipe Setter NILA ESTRELLA May 09, 2022 3:16pm Living Will Yes May 09 3:16pm Power of Pipe Setter Yes May 09, 2022 3:16pm Advance Directive Response Recorded Date/ Time Living Will Yes May 09 4:16pm Power of Pipe Setter Yes May 09, 2022 4:16pm Advance Directive Response Recorded Date/ Time Living Will Yes May 09 4:16pm Do you have a Healthcare Power of Pipe Setter? Yes May 09, 2022 4:16pm Chief Complaint and Reason for Visit Chief Complaint 2WEEK POST SCOPE 2 MON FU E ORDER Reason for Visit Ulcerative colitis GERD (gastroesophageal reflux disease) Ulcerative colitis Chief Complaint 2 MON FU E ORDER 3 MO FU E-ORDER Reason for Visit GERD (gastroesophage al reflux disease) Ulcerative colitis GERD (gastroesophageal reflux disease) Ulcerative colitis Chief Complaint 6 MO FU E ORDERS Reason for Visit GERD (gastroesophage al reflux disease) Ulcerative colitis Chief Complaint 6 MO FU Reason for Visit Gastritis GERD (gastroesophageal reflux disease) Thrombocytopenia Ulcerative colitis Chief Complaint Admit Date 6 M FU July 19, 2024 1:5 3pm INT LAB ORDERS July 19, 2024 3:2 2pm Reason for Visit Admit Date Gastritis July 19, 2024 1:5 3pm GERD (gastroesophageal reflux disease) A pril 2024 1:53pm Thrombocytopenia July 19, 2024 1:5 3pm Ulcerative colitis July 19, 2024 1:5 3pm Additional Source Comments (unrecognized sect ion and content) No Status Records FoundNo Status Records FoundNo Status Records FoundNo Status Records FoundNo Status Records FoundNo Status Records FoundNo Status Records Found INFORMATION SOURCE (unrecogn ized section and content) DATE CREATED AUTHOR 09/19/2017 [facility] [place] DATE CREATED AUTHOR AUTHOR'S ORGANIZ ATION 01/18/2021 [facility] DATE CREATED AUTHOR AUTHOR'S ORGANIZ ATION 11/23/2023 [facility] ([place] DATE CREATED AUTHOR AUTHOR'S ORGANIZ ATION 11/07/2024 [facility] DATE CREATED AUTHOR AUTHOR'S ORGANIZ ATION 11/19/2024 [facility] DATE CREATED AUTHOR AUTHOR'S ORGANIZ ATION 01/07/2025 [facility] DATE CREATED AUTHOR AUTHOR'S ORGANIZ ATION 01/15/2025 [facility] Care Team (unrecognized sect ion and content) Team Status: Active Member Role Status Dates Dr. Jose Wright MD Family Provider Active Dr. Jose Wright MD Primary Care Provider Active Team Status: Active Member Role Status Dates Dr. Jose Wright MD Primary Care Provider, Referrin g Provider Active Dr. Brenden Ragland DO Attending Provider, Other Prov ider Active Team Status: Inactive Member Role Status Dates Dr. Jose Wright MD Primary Care Provider, Referrin g Provider Active Dr. Brenden Ragland DO Attending Provider Active Team Status: Inactive Member Role Status Dates Dr. Jose Wright MD Primary Care Provider Active Dr. Brenden Ragland DO Attending Provider, Referring Provider Active Team Status: Inactive Member Role Status Dates Dr. Jose Wright MD Primary Care Provider Active Start: July 19, 2024 End: July 19, 2024 Dr. Jose Wright MD Referring Provider Active Start: July 19, 2024 End: July 19, 2024 Dr. Brenden Ragland DO Attending Provider Active Start: July 19, 2024 End: July 19, 2024 Team Status: Inactive Member Role Status Dates Dr. Jose Wright MD Primary Care Provider Active Start: July 19, 2024 End: July 19, 2024 Dr. Brenden Ragland DO Attending Provider Active Start: July 19, 2024 End: July 19, 2024 Dr. Brenden Ragland DO Referring Provider Active Start: July 19, 2024 End: July 19, 2024 Goals (unrecognized section and content) Goals may be documented in a n alternate section FOR RECORDS PERTAINING TO PATIENTS WHO ARE OR HAVE BEEN ENROLLED IN A CHEMICAL DEPENDENCY/SUBSTANCEABUSE PROGRAM, SOME INFORMATION MAY BE OMITTED. This clinical summary was aggregated from multiple sources. Caution should be exercised in using it in the provision of clinical care. This summary normalizes information from multiple sources, and as a consequence, information in this document may materially change the coding, format and clinical context of patient data. In addition, data may be omitted in some cases. CLINICAL DECISIONS SHOULD BE BASED ON THE PRIMARY CLINICAL RECORDS. [employer] [facility]. provides no warranty or guarantee of the accuracy or completeness of information in this document.
[2025-01-19 12:58] LABS: Hematocrit 35.7 % (40-54); Hemoglobin 12.4 g/dL (13.0-16.5); Immature Granulocytes Count 0.020 X10^3/uL (0.0-0.0); Mean Corp Hgb Conc 34.7 g/dL (32-36); Mean Corpuscular Volume 102.9 fL (80-94); Mean Platelet Vol. 10.9 fl (6.2-12.0); NRBC Flagged by Analyzer 0 % (0-5); Platelet Count 117 K/mm3 (150-450); RBC Distribution Width CV 13.6 % (11.6-14.6); RBC Distribution Width SD 51.2 fl (35.1-43.9); Red Blood Count 3.47 M/mm3 (4.6-6.2); White Blood Count 5.1 K/mm3 (4.4-11.0)
[2025-01-19 13:20] LABS: AST(SGOT) 31 U/L (<=37); Alanine Aminotransfer ALT/SGPT 16 U/L (<=46); Albumin, Serum 4.2 g/dL (3.4-4.8); Alkaline Phosphatase 61 U/L (40-129); Anion Gap 8 (5-15); BUN 21 mg/dL (4-19); BUN/Creat Ratio 16.7 RATIO (10-20); CRP 3.68 mg/L (0.0-3.0); Calcium,Total 9.3 mg/dL (7.6-11.0); Carbon Dioxide 26.2 mmol/L (21.0-32.0); Chloride 104 mmol/L (98-108); Globulin 2.9 g/dL (2.2-4.2); Glucose 106 mg/dL (70-99); Potassium 4.8 mmol/L (3.3-5.1)
[2025-01-20 17:08] LABS: Cytoplasmic Ab (C-ANCA) <1:20 titer (Neg:<1:20); Perinuclear Ab (P-ANCA) <1:20 titer (Neg:<1:20)
== END | disposition home or self-care (01) ==
LOC: LAB 12:00
PROVIDERS: PCP Internal Medicine; Referring Provider Internal Medicine Gastroenterology; Visit Provider Internal Medicine Gastroenterology
DX: D64.9 Anemia, unspecified (principal); K51.00 Ulcerative (chronic) pancolitis without complications; D69.6 Thrombocytopenia, unspecified
CPT/HCPCS: 36415; 80053; 85025; 85652; 86037; 86140

== ENCOUNTER → 2025-02-04 | Outpatient (CLI) | payer MEDICARE, SELFPAY ==
--- NOTE | 2025-02-04 09:17 | US_ITS ---
PROCEDURE: US/ABD Limited w/ Elastography
== END | disposition home or self-care (01) ==
LOC: US 09:12
PROVIDERS: PCP Internal Medicine; Referring Provider Internal Medicine Gastroenterology; Visit Provider Internal Medicine Gastroenterology
DX: K76.0 Fatty (change of) liver, not elsewhere classified (principal); K51.00 Ulcerative (chronic) pancolitis without complications; D69.6 Thrombocytopenia, unspecified
CPT/HCPCS: 76705; 76981